=== PATIENT | female | born 1945 | race Caucasian/White ===

== ENCOUNTER → 2021-11-18 | Outpatient (CLI) | payer MEDICARE, SELFPAY ==
[2021-11-18 15:45] LABS: Absolute Lymphocyte Count 2.74 X10^3/uL (0.83-4.51); Absolute Neutrophil Count 4.6 X10^3/uL (2.0-7.7); Basophil# 0.05 X10^3/uL; Basophil% 0.6 % (0-1); Eosinophil# 0.24 X10^3/uL; Eosinophils% 2.9 % (0-5); Hematocrit 40.9 % (37-47); Hemoglobin 13.5 g/dL (12.0-15.0); Lymphocyte # 2.74 X10^3/ul (0.83-4.51); Lymphocyte % 33.3 % (19-41); Mean Corpuscular Hgb 29.5 pg (27.0-32.0); Mean Corpuscular Volume 89.5 fL (81-99); Mean Platelet Vol. 10.6 fl (6.2-12.0); Monocyte# 0.57 X10^3/uL; Monocyte% 6.9 % (0-10); NRBC Flagged by Analyzer 0 % (0-5); Neutrophil % 55.9 % (47-70); Platelet Count 304 K/mm3 (150-450); RBC Distribution Width SD 42.7 fl (35.1-43.9); Red Blood Count 4.57 M/mm3 (4.2-5.4); White Blood Count 8.2 K/mm3 (4.4-11.0)
[2021-11-18 16:35] LABS: AST(SGOT) 19 U/L (15-37); Alanine Aminotransfer ALT/SGPT 17 U/L (13-56); Albumin, Serum 3.6 g/dL (3.2-5.0); Alkaline Phosphatase 62 U/L (45-117); Anion Gap 8 (5-15); BUN 14 mg/dL (7-18); BUN/Creat Ratio 16.8 RATIO (10-20); Chloride 105 mmol/L (98-107); Cholesterol 193 mg/dL (200); Creatinine, Serum 0.83 mg/dL (0.55-1.02); EST Glomerular Filtration Rate 71 mL/min (>60); Est Glom Filt Rate - Afr Amer 86 mL/min (>60); Globulin 3.6 g/dL (2.2-4.2); Glucose 87 mg/dL (74-106); High Density Lipoprotein 58 mg/dL; Potassium 3.5 mmol/L (3.5-5.1); Protein, Total 7.2 g/dL (6.4-8.2); Sodium Level 140 mmol/L (136-145); T4 Free Direct 1.34 ng/dL (0.76-1.46); Thyroid Stim Hormone (TSH) 1.11 uIU/mL (0.358-3.74); Triglycerides 173 mg/dL; Very Low Density Lipoprotein 35 mg/dL (5-40)
[2021-11-18 19:06] LABS: Vitamin D,25 Hydroxy 33.2 ng/mL
== END | disposition home or self-care (01) ==
PROVIDERS: PCP Family Medicine Geriatric Medicine; Referring Provider Family Medicine; Visit Provider Family Medicine
DX: K21.9 Gastro-esophageal reflux disease without esophagitis (principal); M81.0 Age-related osteoporosis without current pathological fracture; F41.9 Anxiety disorder, unspecified; R03.0 Elevated blood-pressure reading, without diagnosis of hypertension; E04.1 Nontoxic single thyroid nodule; Z13.220 Encounter for screening for lipoid disorders
CPT/HCPCS: 36415; 80053; 80061; 82306; 83735; 84439; 84443; 85025

== ENCOUNTER 2022-01-13 11:44 | Emergency (ER) | payer MEDICARE, SELFPAY ==
[2022-01-13 11:45] VITALS: BP 170/98; PULSE 63; RESP 18; TEMP 35.7; O2SAT 98; BMI 23.3
--- NOTE | 2022-01-13 11:50 | CT_ITS ---
STUDY: CT CERVICAL SPINE WITHOUT CONTRAST REASON FOR EXAM: Female, 76 years old. Trauma RADIATION DOSAGE (If Supplied By Facility): CTDIvol = ( 21.76 ) mGy, DLP = ( 414.25 ) mGycm TECHNIQUE: High resolution transaxial imaging was performed without contrast material. Sagittal and coronal images were reconstructed. Individualized dose optimization techniques were used for this CT. COMPARISON: None FINDINGS: Normal craniovertebral junction. There are degenerative changes of the anterior atlantoaxial articulation. Normal odontoid process. Normal cervical lordosis. Normal vertebral bodies and posterior osseous elements. C2-3: Normal endplates. Normal disc height and morphology. Normal central canal and intervertebral neuroforamina. C3-4: Facet joint osteoarthritis and hypertrophy. This is worse on the right side. Minimal anterior listhesis of C3 3 on C4 most likely secondary to the facet joint osteoarthritis. Uncovertebral arthrosis and mild degree of bilateral neural foraminal stenosis. C4-5: Moderate degree of disc space narrowing. Uncovertebral arthrosis with a moderate degree of bilateral neural foraminal stenosis. C5-6: Moderate degree of disc space narrowing. Uncovertebral osteoarthrosis with narrowing of the both neural foraminal stenosis. C6-7: Moderate degree of disc space narrowing. Spondylosis. Uncovertebral arthrosis. Mild degree of bilateral neural foraminal stenosis. C7-T1: Minimal osteophyte along the anterior superior endplate of the T1 vertebrae. Normal visualized soft tissue structures. CT/Spine Cervical without Contras IMPRESSION: Multilevel degenerative changes, as described above. Minimal degree of loss of height of the superior endplate of the T1 vertebrae. Electronically Signed: David Warren MD at 12:27 EDT ,
--- NOTE | 2022-01-13 11:50 | CT_ITS ---
STUDY: CT BRAIN WITHOUT CONTRAST REASON FOR EXAM: Female, 76 years old. Right-sided facial injury due to a fall. RADIATION DOSAGE (If Supplied By Facility): CTDIvol = ( 44.99 ) mGy, DLP = ( 829.85 ) mGycm TECHNIQUE: Transaxial CT imaging of the brain was performed without administration of intravenous contrast material. Individualized dose optimization techniques were used for this CT. COMPARISON: No relevant priors. FINDINGS: Normal soft tissue structures. There is hyperostosis frontalis internus. Normal size ventricles and extra-axial spaces for the patient''s age. Normal white matter tracts of the cerebral hemispheres. Normal basal ganglia and thalami. Normal brainstem. Normal cerebellum. There is no intracranial hemorrhage. There are no findings of an acute ischemic infarction. Atherosclerotic plaque formation of the cavernous portions of the internal carotid arteries bilaterally. Normal visualized paranasal sinuses. CT/Brain/Head without Contrast IMPRESSION: Normal unenhanced CT scan of the brain. Electronically Signed: David Warren MD at 12:24 EDT ,
--- NOTE | 2022-01-13 11:52 | ED.VIS.FALL ---
HPI HPI - Fall History of Present Illness Chief Complaint: Fall Narrative Narrative: Patient sustained a mechanical fall in the parking lot just prior to arrival. She tells me she tripped. She hit her right supraorbital region and forehead region, she has no neck pain or loss of consciousness. She injured her left foot also. Otherwise no hip pain no back pain no chest pain or any other extremity injury. PFSH PFSH Allergy/AdvReac Type Severity Reaction Status Date / Time No Known Allergies Allergy Verified 01/13/22 11:53 Social History Smoking Status: Never smoker ROS ROS ED ROS Narrative Social: Noncontributory Medications: Reviewed Past medical history: Reviewed Review of systems General: Patient has no loss of consciousness HEENT: Right supraorbital abrasion Neck: No neck pain Cardiovascular: Patient denies any chest pain or palpitations Chest wall: No chest wall contusions Respiratory: There is no shortness of breath GI: There is no nausea vomiting diarrhea or abdominal pain, no abdominal wall contusions Skin: No lacerations or abrasions Neurological: Patient has no memory loss, confusion, or any focal weakness Psychiatric: No recent behavioral changes Back: No back pain, no problems with ambulation Musculoskeletal: Left foot pain All other systems are reviewed and normal EXAM Physical Exam Narrative Exam Narrative: Physical exam Vitals reviewed General: Patient appears relatively comfortable in the bed HEENT: Right supraorbital abrasion no obvious laceration. Head: No head injury Eyes: Extraocular movements intact. No pain with range of motion of the eyes. Pupils are 3 mm and reactive Neck: No C-spine tenderness with full range of motion Heart: Regular rate normal pulses Chest wall: No chest wall pain Lungs: Clear lungs bilaterally with normal inspiration and expiration without tachypnea GI: Abdomen is soft and nontender there is no mass no guarding no abdominal wall contusion : Stable pelvis Musculoskeletal: Full range of motion of all other extremities other than foot without any signs of trauma. Left foot shows tenderness over the midshaft of the first metatarsal region. Neurovascularly intact with no obvious edema or contusions. Skin: Supraorbital abrasion otherwise no other contusions or lacerations Neurological: Patient is alert and oriented with no focal deficits Const Vital Signs: 01/13/22 11:45 01/13/22 11:50 Temperature 96.2 F L Temperature Source Temporal Pulse Rate 63 Respiratory Rate 18 Respiratory Effort Normal Non-Labored Respiratory Depth Normal Respiratory Pattern Normal Blood Pressure 170/98 H Blood Pressure Mean 122 Pulse Ox 98 Oxygen Delivery Method Room Air Room Air MDM MDM MDM Narrative Medical decision making narrative: Patient has an unremarkable work-up, she wants to be discharged home this is reasonable I will give her a walker since she has a foot contusion. She tells me she does not want analgesia. Radiography Diagnostic Testing: Clinical Impression(s) from Imaging Studies Brain CT 01/13/22 11:50 IMPRESSION: Normal unenhanced CT scan of the brain. Electronically Signed: David Warren MD at 12:24 EDT , Cervical Spine CT 01/13/22 11:50 IMPRESSION: Multilevel degenerative changes, as described above. Minimal degree of loss of height of the superior endplate of the T1 vertebrae. Electronically Signed: David Warren MD at 12:27 EDT , Foot X-Ray 01/13/22 12:06 IMPRESSION: No acute abnormality is seen. 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 Electronically Signed: David Warren MD at 12:29 EDT , Foot x-ray read by me is normal except for DJD Discharge Plan Triage Chief Complaint: Fall ED Provider: Clarence Amaya Dx/Rx/DC Orders Clinical Impression: Fall, Forehead contusion, Contusion of foot Instructions: Bone Contusion Primary Care Provider: Elgin Sigala Referrals: Dada Gonsales Chi, MD [Med Staff - Active Staff] - 2 Days Disposition Disposition: Home, Self Care
[2022-01-13] MEDS: Acetaminophen 325 MG Tablet 1000 MG PO (11:53)
--- NOTE | 2022-01-13 12:06 | RAD_ITS ---
STUDY: X-RAY - LEFT FOOT CLINICAL: Female, 76 years old. Left foot pain following a fall. TECHNIQUE: 3 view(s) of the foot. COMPARISON: None. FINDINGS: Normal talus, calcaneus, and tarsal bones. Normal visualized subtalar, talonavicular, calcaneocuboid, tarsal and tarsometatarsal articulations. Normal metatarsi. There is degenerative arthrosis of the metatarsophalangeal joint of the hallux with a hallux valgus deformity. Normal tibial and fibular sesamoid bones. Normal interphalangeal joint of the great toe. Normal phalanges of the great toe. Normal second through fifth metatarsophalangeal joints. Normal interphalangeal joints and phalanges of the lesser toes. The soft tissue structures are unremarkable. RAD/Foot min 3 Views IMPRESSION: No acute abnormality is seen. 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 Electronically Signed: David Warren MD at 12:29 EDT ,
[2022-01-13 14:10] VITALS: RESP 16
== END 2022-01-13 14:10 | disposition home or self-care (01) ==
PROVIDERS: Emergency Provider Emergency Medicine; PCP Family Medicine; Visit Provider Emergency Medicine
DX: S00.83XA Contusion of other part of head, initial encounter (principal); S90.32XA Contusion of left foot, initial encounter; W01.0XXA Fall on same level from slipping, tripping and stumbling without subsequent striking against object, initial encounter
CPT/HCPCS: 70450; 72125; 73630; 99284

== ENCOUNTER → 2022-01-17 | Outpatient (CLI) | payer MEDICARE, SELFPAY ==
--- NOTE | 2022-01-17 16:37 | RAD_ITS ---
EXAM: XR LEFT FOOT COMPLETE, 3 OR MORE VIEWS CLINICAL INDICATION: FOOT TRAUMA TECHNIQUE: Frontal, lateral and oblique views of the left foot. This report was created using [employer] report generation technology. COMPARISON: 01.13.22 FINDINGS: BONES/JOINTS: Partial osteotomy of the first degenerative findings of the first metatarsal phalangeal joint. Metatarsal bone. Chronic abnormality of the fifth PIP joint. No acute fracture. No subluxation. Normal alignment. No sclerotic or destructive changes observed. SOFT TISSUES: Unremarkable. No soft tissue swelling or gas. No radiopaque foreign body. RAD/Foot min 3 Views IMPRESSION: There are no acute findings. Findings are unchanged since the prior study. Electronically Signed: Andrea Chavira MD at 17:36 EDT ,
== END | disposition home or self-care (01) ==
LOC: MTRAD 16:36
PROVIDERS: PCP Family Medicine; Referring Provider Family Medicine; Visit Provider Family Medicine
DX: S99.922A Unspecified injury of left foot, initial encounter (principal)
CPT/HCPCS: 73630

== ENCOUNTER → 2022-06-12 | Outpatient (CLI) | payer MEDICARE, SELFPAY ==
[2022-06-12 11:08] LABS: Vitamin D,25 Hydroxy 39.3 ng/mL
[2022-06-12 11:27] LABS: ALB/GLOB Ratio 0.9 RATIO (0.9-2.4); AST(SGOT) 14 U/L (15-37); Alanine Aminotransfer ALT/SGPT 23 U/L (13-56); Albumin, Serum 3.6 g/dL (3.2-5.0); Alkaline Phosphatase 70 U/L (45-117); Anion Gap 9 (5-15); BUN 21 mg/dL (7-18); BUN/Creat Ratio 19.8 RATIO (10-20); Calcium,Total 9.5 mg/dL (8.5-10.1); Chloride 103 mmol/L (98-107); Cholesterol 220 mg/dL (200); Creatinine, Serum 1.06 mg/dL (0.55-1.02); EST Glomerular Filtration Rate 53 mL/min (>60); Est Glom Filt Rate - Afr Amer 65 mL/min (>60); Globulin 3.9 g/dL (2.2-4.2); Glucose 105 mg/dL (74-106); High Density Lipoprotein 68 mg/dL; Protein, Total 7.5 g/dL (6.4-8.2); Sodium Level 139 mmol/L (136-145); Triglycerides 149 mg/dL; Very Low Density Lipoprotein 30 mg/dL (5-40)
== END | disposition home or self-care (01) ==
LOC: MTLAB 08:33
PROVIDERS: PCP Family Medicine; Referring Provider Nurse Practitioner Family; Visit Provider Nurse Practitioner Family
DX: Z13.1 Encounter for screening for diabetes mellitus (principal); Z13.220 Encounter for screening for lipoid disorders; E55.9 Vitamin D deficiency, unspecified
CPT/HCPCS: 36415; 80053; 80061; 82306

== ENCOUNTER → 2022-11-26 | Outpatient (CLI) | payer MEDICARE, SELFPAY ==
--- NOTE | 2022-11-26 13:56 | US_ITS ---
EXAM: US SOFT TISSUES HEAD AND NECK, THYROID CLINICAL INDICATION: NODULE TECHNIQUE: Greyscale and color doppler imaging was performed of the thyroid gland. COMPARISON: No relevant prior studies available. FINDINGS: LEFT THYROID LOBE: 3.9 x 1.4 x 1.7 cm. Mixed solid and cystic but predominantly isoechoic nodule in the midportion of the left thyroid lobe measuring 6 x 4 x 6 mm, with smooth margins, wider than tall, no calcifications. TI-RADS points: 2. TI-RADS category: TR2. This nodule is not suspicious and no FNA or follow-up is necessary. Mixed solid and cystic but predominantly isoechoic nodule in the midportion of the left thyroid lobe with smooth margins, wider than tall, no calcifications, measuring 5 x 4 x 3 mm. TI-RADS points: 2. TI-RADS category: TR2. This nodule is not suspicious and no FNA or follow-up is necessary. Densely calcified nodule in the midportion of the left thyroid lobe measuring 5 x 4 x 4 mm. TI-RADS points: 4. TI-RADS category: TR4. This nodule is moderately suspicious but no FNA or follow-up is necessary given the small size of this nodule. RIGHT THYROID LOBE:4.1 x 2.3 x 2.4 cm. Homogeneous echotexture with normal vascularity. Minimally complex cystic lesion in the upper pole of the right thyroid lobe measuring 5 x 3 x 3 mm. Smooth margins. Wider than tall. No calcifications. TI-RADS points: 0. TI-RADS category: TR1. This nodule is benign and no FNA or follow-up is necessary. Small cyst in the midportion of the right thyroid lobe measuring 5 x 5 x 4 mm. TI-RADS points: 0. TI-RADS category: TR1. This nodule is benign and no FNA or follow-up is necessary. ISTHMUS: 2 mm. No thyroid nodules are present. US/Thyroid IMPRESSION: Multiple subcentimeter thyroid nodules as detailed above. TI-RADS scoring as detailed for each nodule. No follow-up is necessary based on the TI-RADS scores. Electronically Signed: Andrea Jerry MD at 1:36 EDT ,
== END | disposition home or self-care (01) ==
PROVIDERS: PCP Family Medicine; Referring Provider Family Medicine; Visit Provider Family Medicine
DX: E04.1 Nontoxic single thyroid nodule (principal)
CPT/HCPCS: 76536

== ENCOUNTER → 2022-12-04 15:12 | Outpatient (CLI) | payer MEDICARE, SELFPAY ==
--- NOTE | 2022-12-10 16:02 | BD_ITS ---
STUDY: DUAL ENERGY X-RAY ABSORPTIOMETRY / DXA REASON FOR EXAM: Female, 77 years old. [id number] TECHNIQUE: Bone Mineral Density (BMD) measurements of lumbar spine and bilateral hips were obtained. COMPARISON: Comparison is made with prior study dated November 01, 2009. FINDINGS: Lumbar Spine (L1-L4): g/cm2 (0.929) / T-score (-1.0) / Z-score (1.6) Findings are suggestive of normal bone density with a low fracture risk. Left Femur Total: g/cm2 (0.731) / T-score (-1.7) / Z-score (0.2) Left Femoral Neck: g/cm2 (0.672) / T-score (-1.6) / Z-score (0.6) Right Femur Total: g/cm2 (0.681) / T-score (-2.1) / Z-score (-0.2) Right Femoral Neck: g/cm2 (0.637) / T-score (-1.9) / Z-score (0.3) The T-Scores on the most recent prior examination were: Lumbar Spine (L1-L4): There has been worsening of bone density since the previous examination. Left Femur Total: which represents a worsening of 23.8%. Right Femur Total: which represents a worsening of 21.2%. BD/Dexa Bone Density Study IMPRESSION: The patient is considered osteopenic as outlined below according to World Miguel Organization (WHO) criteria with a high fracture risk. There has been worsening of bone density since the previous examination. Reference Information: The T-score is the number of standard deviations above or below the standard which is normal for young adults at their peak bone mineral density. The World Health Organization (WHO) interprets the T-scores as follows: Above -1 Normal bone density Between -1 and -2.5 Osteopenia Equal to / or below -2.5 Osteoporosis As a practical clinical guideline, osteopenia may be graded as follows: Mild -1 through -1.5 Moderate -1.6 through -2.0 Severe -2.1 through -2.4 The Z-score is the number of standard deviations above or below age-matched controls. A Z-score of less than -1.5 would be considered abnormal. References: 1. NIH Osteoporosis and Related Bone Diseases www osteo.org 2. International Society for Clinical Densitometry www iscd.org 3. National Osteoporosis Foundation www nof.org Electronically Signed: David Warren MD at 15:45 EDT ,
== END ==
PROVIDERS: PCP Family Medicine; Referring Provider Nurse Practitioner Family; Visit Provider Nurse Practitioner Family
DX: M81.0 Age-related osteoporosis without current pathological fracture (principal)
CPT/HCPCS: 77080

== ENCOUNTER → 2022-12-23 | Outpatient (CLI) | payer MEDICARE, SELFPAY ==
[2022-12-23 16:32] LABS: Bacteria 0 SEEN /hpf (None Seen); Mucous, Urine 0 SEEN /hpf (<or=2+)
[2022-12-23 18:26] LABS: Color, Urine Yellow (Yellow); Glucose, Dipstick Normal (Normal); Ketone-Dipstick Negative (Negative); Leukocyte Esterase-Dipstick 500 /ul (Negative); Nitrite-Dipstick Negative (Negative); Occult Blood-Urine 50 /ul (Negative); Protein-Dipstick Negative (Negative); Specific Gravity, Urine 1.015 (1.002-1.030); Urine Bilirubin Dipstick Negative (Negative); Urine Urobilinogen Normal (Normal)
[2022-12-23 18:33] LABS: Absolute Lymphocyte Count 2.52 X10^3/uL (0.83-4.51); Absolute Neutrophil Count 5.5 X10^3/uL (2.0-7.7); Basophil# 0.06 X10^3/uL; Basophil% 0.7 % (0-1); Eosinophil# 0.29 X10^3/uL; Eosinophils% 3.1 % (0-5); Hematocrit 41.9 % (37-47); Hemoglobin 13.9 g/dL (12.0-15.0); Lymphocyte # 2.52 X10^3/ul (0.83-4.51); Lymphocyte % 27.3 % (19-41); Mean Corp Hgb Conc 33.2 g/dL (32-36); Mean Corpuscular Hgb 29.6 pg (27.0-32.0); Mean Corpuscular Volume 89.1 fL (81-99); Mean Platelet Vol. 10.6 fl (6.2-12.0); Monocyte# 0.83 X10^3/uL; NRBC Flagged by Analyzer 0 % (0-5); Neutrophil # 5.48 X10^3/uL (2.7-7.7); Neutrophil % 59.5 % (47-70); Platelet Count 282 K/mm3 (150-450); RBC Distribution Width CV 13.1 % (11.6-14.6); RBC Distribution Width SD 42.9 fl (35.1-43.9); White Blood Count 9.2 K/mm3 (4.4-11.0)
[2022-12-23 18:34] LABS: AST(SGOT) 14 U/L (15-37); Alanine Aminotransfer ALT/SGPT 18 U/L (13-56); Albumin, Serum 3.6 g/dL (3.2-5.0); Alkaline Phosphatase 71 U/L (45-117); Anion Gap 7 (5-15); BUN 21 mg/dL (7-18); Calcium,Total 9.7 mg/dL (8.5-10.1); Chloride 109 mmol/L (98-107); Creatinine, Serum 0.88 mg/dL (0.55-1.02); EST Glomerular Filtration Rate 66 mL/min (>60); Est Glom Filt Rate - Afr Amer 80 mL/min (>60); Globulin 3.5 g/dL (2.2-4.2); Glucose 102 mg/dL (74-106); Potassium 3.8 mmol/L (3.5-5.1); Protein, Total 7.1 g/dL (6.4-8.2); Sodium Level 140 mmol/L (136-145)
[2022-12-23 18:58] LABS: Red Blood Cells-Urine 5-10 SEEN /hpf (0-5); Squamous Epithelial Cells - UA 5-10 SEEN /hpf (5-10); Urine Clarity Sl Cldy (Clear); White Blood Cells 10-25 SEEN /hpf (0-5)
[2022-12-26 14:17] LABS: Hemoglobin A1c 5.7 % (3.8-5.6)
== END | disposition home or self-care (01) ==
LOC: MTLAB 16:25
PROVIDERS: PCP Family Medicine; Referring Provider Family Medicine; Visit Provider Family Medicine
DX: E55.9 Vitamin D deficiency, unspecified (principal); R73.09 Other abnormal glucose; M81.0 Age-related osteoporosis without current pathological fracture; R03.0 Elevated blood-pressure reading, without diagnosis of hypertension
CPT/HCPCS: 36415; 80053; 81001; 82306; 83036; 85025

== ENCOUNTER → 2022-12-29 | Outpatient (CLI) | payer MEDICARE, SELFPAY ==
[2022-12-29 09:35] LABS: Bacteria 0 SEEN /hpf (None Seen); Mucous, Urine 0 SEEN /hpf (<or=2+)
[2022-12-29 12:02] LABS: Color, Urine Straw (Yellow); Glucose, Dipstick Normal (Normal); Ketone-Dipstick Negative (Negative); Leukocyte Esterase-Dipstick 25 /ul (Negative); Nitrite-Dipstick Negative (Negative); Occult Blood-Urine 10 /ul (Negative); Protein-Dipstick Negative (Negative); Urine Bilirubin Dipstick Negative (Negative); Urine Clarity Clear (Clear); Urine Urobilinogen Normal (Normal)
[2022-12-29 12:13] LABS: Red Blood Cells-Urine 0-5 SEEN /hpf (0-5); Squamous Epithelial Cells - UA 0-5 SEEN /hpf (5-10); White Blood Cells 0-5 SEEN /hpf (0-5)
[2022-12-29 13:24] LABS: Hemoglobin A1c 5.7 % (3.8-5.6)
== END | disposition home or self-care (01) ==
LOC: MFPLAB 09:28
PROVIDERS: PCP Family Medicine; Visit Provider Family Medicine
DX: N39.0 Urinary tract infection, site not specified (principal); R73.09 Other abnormal glucose
CPT/HCPCS: 36415; 81001; 83036; 87086; 87088

== ENCOUNTER → 2023-05-13 | Outpatient (CLI) | payer MEDICARE, SELFPAY ==
--- NOTE | 2023-05-13 09:12 | RAD_ITS ---
STUDY: X-RAY - LUMBOSACRAL SPINE REASON FOR EXAM: Female, 77 years old. Back pain. TECHNIQUE: 7 view(s) of the lumbosacral spine, including flexion and extension views, were obtained. COMPARISON: None FINDINGS: Osteopenia. Normal lumbar lordosis. Moderate levoscoliosis. 6 mm of anterolisthesis of L5 on S1. Endplate concavities compatible with osteoporosis. Anterior wedge compression deformity of T12 and substantial loss of height of L2, both age indeterminate. Limited flexion and extension with no abnormal motion. Diffuse lower thoracic and lumbosacral facet sclerosis. Diffuse intervertebral disc space narrowing most marked at T9-10, T10-11, T11-T12, L3-4, L4-5 and L5-S1. Cholecystectomy clips. RAD/L/S Spine w Bend Min 6 Vw IMPRESSION: Osteopenia with moderate to marked lower thoracic and lumbosacral spondylosis. Limited flexion and extension with no abnormal motion. Anterior wedge compression deformity of T12 and substantial loss of height of L2, both age indeterminate. Electronically Signed: Alfonzo Wheeler MD at 9:59 EST ,
--- NOTE | 2023-05-13 09:24 | RAD_ITS ---
STUDY: X-RAY - RIGHT KNEE REASON FOR EXAM: Female, 77 years old. Bilateral knee pain. TECHNIQUE: 3 view(s) of the knee. COMPARISON: None. FINDINGS: Osteopenia. Small superior patellar spur. Mild thinning of the articular cartilage of the medial femorotibial compartment. Mild thinning of the articular cartilage of the lateral femorotibial compartment. Mild thinning of the articular cartilage of the patellofemoral compartment. Normal soft tissues. RAD/Knee 3 Views IMPRESSION: Osteopenia, patellar spur and mild tricompartmental arthrosis as described. Electronically Signed: Alfonzo Wheeler MD at 9:54 EST ,
--- NOTE | 2023-05-13 09:24 | RAD_ITS ---
STUDY: X-RAY - LEFT KNEE REASON FOR EXAM: Female, 77 years old. Bilateral knee pain. TECHNIQUE: 3 view(s) of the knee. COMPARISON: None. FINDINGS: Osteopenia. Small superior patellar spur. Moderate thinning of the articular cartilage of the medial femorotibial compartment. Mild thinning of the articular cartilage of the lateral femorotibial compartment. Mild thinning of the articular cartilage of the patellofemoral compartment. Small suprapatellar joint effusion. RAD/Knee 3 Views IMPRESSION: Osteopenia, patellar spur and mild tricompartmental arthrosis and small suprapatellar joint effusion as described. Electronically Signed: Alfonzo Wheeler MD at 9:55 EST ,
--- OUTSIDE RECORDS SUMMARY | 2023-05-13 09:44 | XMS RPT_ITS | CCD ---
Author Name Unknown Address [id number] [place] [address] Organization [facility] Care Team Providers Care Beef Breaker Name Role Phone Kadie, Efrem Mackenzie Unavailable RADHA BAKER Admitting Clarissa vailable RADHA BAKER Attending Clarissa vailable KADIE, EFREM MACKENZIE Primary Care Unavailab le KADIE, EFREM MACKENZIE Attending Unavailab le KADIE, EFREM MACKENZIE Referring Unavailab le KADIE, EFREM MACKENZIE Primary Care Unavailab le Kadie, Efrem Mackenzie Primary Care Provider Kadie, Efrem Mackenzie Primary Care Provider [phone] Kadie DO, Efrem Mackenzie Primary Care Provider Kadie DO, Efrem Mackenzie Primary Care Provider JERMAINE RIVERA Admitting Unavailable KADIE, EFREM MACKENZIE Primary Care Unavailab le KADIE, EFREM MACKENZIE Attending Unavailab le KADIE, EFREM MACKENZIE Primary Care Unavailab le KADIE, EFREM MACKENZIE Primary Care Unavailab le EMANUEL CALVERT Attending Unavailable KADIE, EFREM MACKENZIE Attending Unavailab le KADIE, EFREM MACKENZIE Primary Care Unavailab le KADIE, EFREM MACKENZIE Attending Unavailab le KADIE, EFREM MACKENZIE Primary Care Unavailab le DMITRI ARCHIBALD Attending Unavai lable KADIE, EFREM MACKENZIE Primary Care Unavailab JUDE Sanchez Admitting Unavailable [facility] Consulting JERMAINE Clay Attending Unavailable KADIE, EFREM MACKENZIE Primary Care Unavailab JERMAINE Hardin Referring Unavailable Efrem Vee DOncer Primary Care Provider Unavailable Primary Care Provider UnavailANAYELI Coley Referring Unavailable ANAYELI ZARCO Attending Unavailable CAROLEE, ANAYELI Attending Unavailable Medications Current Medications Medication Drug Class(es) Dates Sig (Normalized) Sig (Original) amoxicillin 875 mg / clavulanate 125 mg oral tablet (1 source) Penicillin-class Antibacterial Start: 02-17-2019 End: 02-27-2019 take 1 tablet by mouth twice daily amoxicillin-clav ulanate (Augmentin) 875-125 mg per tablet Indications: Acute non-recurrent maxillary sinusitis Take 1 (one) tablet by mouth 2 (two) times a day for 10 days . 20 tablet 0 02/17/2019 02/27/2019 Active Ascorbic Acid (20 sources) Vitamin C ascorbic acid (VITAMIN C ORAL) Take by mouth . 0 Completed/Discontinued Medications Medication Drug Class(es) Dates Sig (Normalized) Sig (Original) acetaminophen 325 mg oral tablet (20 sources) Start: 09-27-2018 End: 09-29-2018 take 1 tablet by mouth every eight hours as needed acetaminophen (TYLENOL) tablet 650 mg Problems Active Problems Problem Classification Problem Date Documented Date Episodic/Chronic Anxiety disorders (10 sources) Anxiety; Translations: [Anxiety disorder, unspecified] Chronic Esophageal disorders (14 sources) Gastroesophageal reflux disease; Translations: [Gastro-esophageal reflux disease without esophagitis] Chronic External cause codes: Fall (20 sources) Fall; Translations: [Fall, subsequent encounter] Onset: 09-27-2018 Mood disorders (10 sources) Depressive disorder; Translations: [Depression, unspecified depression type] Chronic Osteoarthritis (2 sources) 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; Translations: [Primary osteoarthritis, right ankle and foot] Chronic Osteoarthritis (1 source) 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; Translations: [Osteoarthritis of first metatarsophalangeal (MTP) joint of right foot] Osteoporosis (5 sources) Osteoporosis; Translations: [Age-related osteoporosis without current pathological fracture] Chronic Other and ill-defined heart disease (2 sources) Left ventricular hypertrophy; Translations: [Left ventricular hypertrophy] Chronic Other and unspecified benign neoplasm (1 source) Polyp of colon; Translations: [Polyp of colon, unspecified part of colon, unspecified type] Episodic Other and unspecified benign neoplasm (1 source) Dysplastic nevus of skin; Translations: [Atypical nevus] Episodic Other circulatory disease (1 source) Elevated blood-pressure reading without diagnosis of hypertension; Translations: [Elevated blood-pressure reading, without diagnosis of hypertension] Episodic Other connective tissue disease (2 sources) Triggering of digit; Translations: [Trigger middle finger of right hand] Episodic Other female genital disorders (1 source) Vaginal discharge; Translations: [Other specified noninflammatory disorders of vagina] Episodic Other female genital disorders (1 source) Burning sensation of vulva; Translations: [Other specified conditions associated with female genital organs and menstrual cycle] 04-23-2023 Episodic Other injuries and conditions due to external causes (1 source) At risk for falls ; Translations: [At risk for falls] Episodic Other non-traumatic joint disorders (1 source) Pain in right shoulder; Translations: [Pain in joint of right shoulder] Episodic Other non-traumatic joint disorders (1 source) Shoulder pain; Translations: [Acute pain of right shoulder] Episodic Other screening for suspected conditions (not mental disorders or infectious disease) (1 source) Patient encounter status; Translations: [Encounter for other screening for malignant neoplasm of breast] Episodic Unclassified (1 source) Preprocedural examination done; Translations: [Preop examination] Past or Other Problems Problem Classification Problem Date Documented Date Episodic/Chronic Abdominal pain (7 sources) Left flank pain; Translations: [Unspecified abdominal pain] Onset: 05-29-2021 Episodic E Codes: Fall (12 sources) Fall; Translations: [Unspecified fall, initial encounter] Onset: 09-27-2018 09-27-2018 Episodic Fracture of upper limb (20 sources) Unspecified fracture of upper end of right humerus, initial encounter for closed fracture; Translations: [Closed fracture of upper end of humerus] Onset: 10-04-2018 10-04-2018 Episodic Other nervous system disorders (1 source) Acute postoperative pain; Translations: [Acute post-operative pain] Episodic Other non-traumatic joint disorders (2 sources) Toe joint rigid; Translations: [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, right] Episodic Other upper respiratory infections (1 source) Acute maxillary sinusitis; Translations: [Acute non-recurrent maxillary sinusitis] Episodic Spondylosis; intervertebral disc disorders; other back problems (4 sources) Chronic neck pain; Translations: [Chronic low back pain] Episodic Results Test Name Value Interpretation Reference Range Facil ity Vital Signs Date Time Vital Sign Value Performing Clinician Lindsay morales 04-23-2023 11:07-0500 Body height 167.6 cm Anayeli Carolee CONSULTING INTERN.CONSUMER AFFAIRS MANAGER Work Phone: [facility] 04-23-2023 11:07-0500 Body weight 78.2 kg Anayeli Carolee CONSULTING INTERN.CONSUMER AFFAIRS MANAGER Work Phone: [facility] 04-23-2023 11:07-0500 Diastolic blood pressure 72 mm[Hg] Anayeli Carolee CONSULTING INTERN.CONSUMER AFFAIRS MANAGER Work Phone: [facility] 04-23-2023 11:07-0500 Heart rate 52 /min Anayeli [place] CONSULTING INTERN.CONSUMER AFFAIRS MANAGER Work Phone: [facility] 04-23-2023 11:07-0500 Respiratory rate 14 /min Anayeli [place] CONSULTING INTERN.CONSUMER AFFAIRS MANAGER Work Phone: [facility] 04-23-2023 11:07-0500 SaO2% (BldA) [Mass fraction] 98 % Anayeli Carolee CONSULTING INTERN.CONSUMER AFFAIRS MANAGER Work Phone: [facility] 04-23-2023 11:07-0500 Systolic blood pressure 150 mm[Hg] Anayeli [place] CONSULTING INTERN.CONSUMER AFFAIRS MANAGER Work Phone: [facility] 05-30-2021 08:33-0500 Body temperature 97.3 [degF] Lala Lala DO Work Phone: [facility] 05-30-2021 08:33-0500 Diastolic blood pressure 52 mm[Hg] Lala Lala DO Work Phone: [facility] 05-30-2021 08:33-0500 Heart rate 64 /min Lala Lala DO Work Phone: [facility] 05-30-2021 08:33-0500 Respiratory rate 16 /min Lala Lala DO Work Phone: [facility] 05-30-2021 08:33-0500 SaO2% (BldA) [Mass fraction] 97 % Lala Lala DO Work Phone: [facility] 05-30-2021 08:33-0500 Systolic blood pressure 128 mm[Hg] Lala Lala DO Work Phone: [facility] 05-29-2021 19:09-0500 Body height 167.6 cm Lala Lala DO Work Phone: [facility] 05-29-2021 19:09-0500 Body mass index (BMI) [Ratio] 27.76 kg/m2 Lala Lala DO Work Phone: [facility] 05-29-2021 19:09-0500 Body weight 78.02 kg Lala Lala DO Work Phone: [facility] 05-06-2021 13:30-0500 Body temperature 97.39 [degF] Efrem Kadie DO Work Phone: [facility] 05-06-2021 13:30-0500 Diastolic blood pressure 86 mm[Hg] Efrem Kadie DO Work Phone: [facility] 05-06-2021 13:30-0500 Heart rate 88 /min Efrem Kadie DO Work Phone: [facility] 05-06-2021 13:30-0500 Respiratory rate 16 /min Efrem Kadie DO Work Phone: [facility] 05-06-2021 13:30-0500 Systolic blood pressure 125 mm[Hg] Efrem Kadie DO Work Phone: [facility] 12-29-2019 08:20-0400 Body Temperature 97.39 [degF] Radha Baker [facility] 12-29-2019 08:20-0400 BP Diastolic 71 mm[Hg] Radha Baker [facility] 12-29-2019 08:20-0400 BP Systolic 147 mm[Hg] Radha Baker [facility] 12-29-2019 08:20-0400 Pulse (Heart Rate) 70 /min Radha Baker [facility] 12-29-2019 08:20-0400 Pulse Oximetry 99 % Radha Baker [facility] 12-29-2019 08:20-0400 Respiratory Rate 21 /min Radha aBker [facility] 12-29-2019 06:06-0400 BMI (Body Mass Index) 27.6 kg/m2 Radha Baker [facility] 12-29-2019 06:06-0400 Body weight 77.56 kg Radha Baker [facility] 12-22-2019 09:17-0400 Height 167.6 cm Radha Baker [facility] 12-12-2019 13:11-0400 BMI (Body Mass Index) 27.6 kg/m2 Efrem Kadie [facility] 12-12-2019 13:11-0400 Body Temperature 97.7 [degF] Efrem Kadie [facility] 12-12-2019 13:11-0400 Body weight 77.56 kg Efrem Kadie [facility] 12-12-2019 13:11-0400 BP Diastolic 72 mm[Hg] Efrem Kadie [facility] 12-12-2019 13:11-0400 BP Systolic 148 mm[Hg] Efrem Kadie [facility] 12-12-2019 13:11-0400 Height 167.6 cm Efrem Kadie [facility] 12-12-2019 13:11-0400 Pulse (Heart Rate) 105 /min Efrem Kadie [facility] 12-12-2019 13:11-0400 Pulse Oximetry 92 % Efrem Kadie [facility] 12-12-2019 13:11-0400 Respiratory Rate 24 /min Efrem Kadie [facility] 09-29-2019 13:25-0400 Body Temperature 97.5 [degF] Efrem Kadie [facility] 09-29-2019 13:25-0400 BP Diastolic 67 mm[Hg] Efrem Kadie [facility] 09-29-2019 13:25-0400 BP Systolic 166 mm[Hg] Efrem Kadie [facility] 09-29-2019 13:25-0400 Pulse (Heart Rate) 61 /min Efrem Kadie [facility] 05-19-2019 10:06-0500 BMI (Body Mass Index) 25.53 kg/m2 Efrem Kadie [facility] 05-19-2019 10:06-0500 Body weight 73.94 kg Efrem Kadie [facility] 05-19-2019 10:06-0500 BP Diastolic 66 mm[Hg] Efrem Kadie [facility] 05-19-2019 10:06-0500 BP Systolic 129 mm[Hg] Efrem Kadie [facility] 05-19-2019 10:06-0500 Pulse (Heart Rate) 62 /min Efrem [employer] [facility] 02-17-2019 09:31-0400 BMI (Body Mass Index) 25.37 kg/m2 Efrem [employer] [facility] 02-17-2019 09:31-0400 Body Temperature 97.5 [degF] Efrem Zip[employer] [facility] 02-17-2019 09:31-0400 Body weight 73.48 kg EfremBNI [employer] [facility] 02-17-2019 09:31-0400 BP Diastolic 61 mm[Hg] Efrem Zip[employer] [facility] 02-17-2019 09:31-0400 BP Systolic 133 mm[Hg] Efrem [employer] [facility] 02-17-2019 09:31-0400 Pulse (Heart Rate) 59 /min EfremBNI Video [facility] 02-17-2019 09:31-0400 Pulse Oximetry 99 % EfremBNI [facility] 02-17-2019 09:31-0400 Respiratory Rate 14 /min EfremBNI [facility] 01-05-2019 14:55-0400 BMI (Body Mass Index) 25.06 kg/m2 Efrem [employer] [facility] 01-05-2019 14:55-0400 Body weight 72.58 kg EfremBNI Video [facility] 01-05-2019 14:55-0400 BP Diastolic 64 mm[Hg] Efrem [employer] [facility] 01-05-2019 14:55-0400 BP Systolic 122 mm[Hg] EfremBNI [facility] 01-05-2019 14:55-0400 Pulse (Heart Rate) 71 /min Efrem [employer] [facility] 01-05-2019 14:55-0400 Respiratory Rate 12 /min Efrem [employer] [facility] 12-27-2018 10:28-0400 BMI (Body Mass Index) 25.69 kg/m2 Alfonzo Pearl [facility] 12-27-2018 10:28-0400 Body Temperature 97.5 [degF] Alfonzo Pearl [facility] 12-27-2018 10:28-0400 Body weight 74.39 kg Alfonzo Pearl [facility] 12-27-2018 10:28-0400 BP Diastolic 83 mm[Hg] Alfonzo Pearl [facility] 12-27-2018 10:28-0400 BP Systolic 140 mm[Hg] Alfonzo Pearl [facility] 12-27-2018 10:28-0400 Height 170.2 cm Alfonzo Pearl [facility] 12-27-2018 10:28-0400 Pulse (Heart Rate) 70 /min Alfonzo Pearl [facility] 12-03-2018 09:42-0400 BMI (Body Mass Index) 26.47 kg/m2 [facility] 12-03-2018 09:42-0400 Body weight 74.39 kg EfremBNI [facility] 12-03-2018 09:42-0400 BP Diastolic 72 mm[Hg] Efrem [employer] [facility] 12-03-2018 09:42-0400 BP Systolic 120 mm[Hg] EfremBNI [facility] 12-03-2018 09:42-0400 Pulse (Heart Rate) 64 /min E[facility]remBNI [facility] 12-03-2018 09:42-0400 Respiratory Rate 16 /min E[facility]remBNI [facility] 11-15-2018 10:15-0400 BMI (Body Mass Index) 26.47 kg/m2 Alfonzo [facility] 11-15-2018 10:15-0400 Body weight 74.4 kg Alfonzo Pearl [facility] 11-15-2018 10:15-0400 BP Diastolic 73 mm[Hg] Alfonzo [facility] 11-15-2018 10:15-0400 BP Systolic 141 mm[Hg] Alfonzo [facility] 11-15-2018 10:15-0400 Height 167.6 cm [facility] 11-15-2018 10:15-0400 Pulse (Heart Rate) 97 /min Alfonzo [facility] 11-15-2018 10:15-0400 Respiratory Rate 18 /min Alfonzo [facility] 10-25-2018 09:49-0400 BMI (Body Mass Index) 26.47 kg/m2 Alfonzo [facility] 10-25-2018 09:49-0400 Body Temperature 98.6 [degF] Alfonzo [facility] 10-25-2018 09:49-0400 Body weight 74.39 kg Alfonzo [facility] 10-25-2018 09:49-0400 BP Diastolic 74 mm[Hg] Alfonzo [facility] 10-25-2018 09:49-0400 BP Systolic 151 mm[Hg] Alfonzo [facility] 10-25-2018 09:49-0400 Height 167.6 cm [facility] 10-25-2018 09:49-0400 Pulse (Heart Rate) 72 /min Alfonzo Pearl [facility] 10-04-2018 14:24-0400 BMI (Body Mass Index) 26.47 kg/m2 Alfonzo Pearl [facility] 10-04-2018 14:24-0400 Body Temperature 98.29 [degF] Alfonzo Pearl [facility] 10-04-2018 14:24-0400 Body weight 74.39 kg Alfonzo Pearl [facility] 10-04-2018 14:24-0400 BP Diastolic 59 mm[Hg] Alfonzo Pearl [facility] 10-04-2018 14:24-0400 BP Systolic 138 mm[Hg] Alfonzo Pearl [facility] 10-04-2018 14:24-0400 Height 167.6 cm Alfonzo Pearl [facility] 10-04-2018 14:24-0400 Pulse (Heart Rate) 59 /min Alfonzo Pearl [facility] 10-01-2018 07:42-0400 BMI (Body Mass Index) 26.47 kg/m2 [facility] 10-01-2018 07:42-0400 BP Diastolic 80 mm[Hg] Efrem [employer] [facility] 10-01-2018 07:42-0400 BP Systolic 130 mm[Hg] EfremBNI [facility] 10-01-2018 07:42-0400 Height 167.6 cm [facility] 10-01-2018 07:42-0400 Pulse (Heart Rate) 60 /min EfremBNI [facility] 10-01-2018 07:42-0400 Pulse Oximetry 99 % [facility]rem[facility]NI [facility] 10-01-2018 07:42-0400 Respiratory Rate 12 /min [facility]remBNI [facility] 10-01-2018 07:42-0400 Weight 74.39 kg [facility]remB[facility] 09-29-2018 08:21-0400 Body Temperature 98.29 [degF] Ashok Farmer [facility] 09-29-2018 08:21-0400 BP Diastolic 67 mm[Hg] Ashok Farmer [facility] 09-29-2018 08:21-0400 BP Systolic 135 mm[Hg] Ashok Farmer [facility] 09-29-2018 08:21-0400 Pulse (Heart Rate) 61 /min Ashok Farmer [facility] 09-29-2018 08:21-0400 Pulse Oximetry 99 % Ahsok Farmer [facility] 09-29-2018 08:21-0400 Respiratory Rate 16 /min Ashok Farmer [facility] 09-27-2018 06:47-0400 BMI (Body Mass Index) 26.15 kg/m2 Ashok Farmer [facility] 09-27-2018 06:47-0400 Height 167.6 cm Ashok Farmer [facility] 09-27-2018 06:47-0400 Weight 73.48 kg Ashok Farmer [facility] 07-29-2018 14:47-0400 Body weight 73.48 kg [facility] 07-29-2018 14:47-0400 BP Diastolic 69 mm[Hg] [facility] 07-29-2018 14:47-0400 BP Systolic 113 mm[Hg] [facility]rem[facility] 07-29-2018 14:47-0400 Pulse (Heart Rate) 69 /min [facility] 05-12-2018 10:43-0500 BP Diastolic 59 mm[Hg] [facility] 05-12-2018 10:43-0500 BP Systolic 133 mm[Hg] [facility] 05-12-2018 10:43-0500 Pulse (Heart Rate) 69 /min [facility] 05-12-2018 10:43-0500 Respiratory Rate 16 /min [facility]remBNI [facility] 05-12-2018 10:43-0500 Weight 73.03 [facility] Encounter Date Encounter Type Care Provider Facility Start: 04-23-2023 End: 04-23-2023 ambulatory ANAYELI CAROLEE Facility:[facility] Start: 04-23-2023 End: 04-23-2023 Patient encounter procedure Anayeli [place] CONSULTING INTERN.CONSUMER AFFAIRS MANAGER Work Phone: OB/Gynecology Procedures Date Procedure Procedure Detail Performing Clinician Start: 04-23-2023 Urnls dip stick/tabl et rgnt auto w/o microscopy Anayeli Carolee CONSULTING INTERN.CONSUMER AFFAIRS MANAGER Work Phone: Start: 05-30-2021 Basic metabolic pane l calcium total Jude Lowe MD Work Phone: Start: 05-29-2021 SARS-CoV-2 (COVID-19 ) RNA [Presence] in Respiratory specimen by FARAZ with probe detection Paulina Pearl PA-C Work Phone: Start: 05-29-2021 Ct abdomen & pelvis w/contrast material Lala Lala DO Work Phone: Start: 05-29-2021 Comprehensive metabolic panel Theron Gomez DO Work Phone: Start: 05-29-2021 Urnls dip stick/tabl et reagent auto microscopy Theron Gomez DO Work Phone: Start: 05-06-2021 Adult depression scr eening assessment Efrem Clavister Work Phone: Start: 01-05-2020 Echocardiography Efrem Mackenzie [employer] Work Phone: Start: 12-22-2019 SCAN OTHER ORDERS Provi jessica Not In System Start: 12-21-2019 SCAN OTHER ORDERS Provi jessica Not In System Start: 12-12-2019 12 lead ECG EfremUS [employer] n[employer] Work Phone: Start: 09-29-2019 Injection 1 tendon sheath/ligament aponeurosis EfremeGameser [employer] Work Phone: Start: 12-16-2018 Dxa bone density sumit dy 1/> sites axial skel EfremBityota Work Phone: Start: 12-03-2018 Radex toe minimum 2 views [employer]igs[employer]er [employer] Work Phone: Start: 09-28-2018 Basic metabolic 2000 panel - Serum or Plasma Maryjane Temple Work Phone: Start: 09-28-2018 Complete blood count (hemogram) panel - Blood by Automated count Maryjane Temple Work Phone: Start: 09-27-2018 Radex shoulder 1 view B enjamin Coleen Fuentes Work Phone: Start: 09-27-2018 PINK TOP Triage [facility] Start: 09-27-2018 Radex humerus minimum 2 views Omar Fuentes Work Phone: Start: 09-27-2018 Radex shoulder compl ete minimum 2 views Omar Fuentes Work Phone: Start: 09-27-2018 Radiologic exam ches t single view Omar Fuentes Work Phone: Start: 09-27-2018 Complete blood count (hemogram) panel - Blood by Automated count Maryjane Temple Work Phone: Start: 09-27-2018 Comprehensive metabo lic 2000 panel - Serum or Plasma Maryjane Temple Work Phone: Start: 09-27-2018 CARTER TOP Triage [facility] Start: 09-27-2018 LAVENDER TOP Triage [facility] Start: 09-27-2018 LIGHT BLUE TOP Triage P [facility]ocol Emergency Start: 09-27-2018 LIGHT GREEN TOP Triage Protocol Emergency Start: 09-27-2018 MINT GREEN TOP Triage P [facility]ocol Emergency Start: 09-27-2018 End: 09-27-2018 RAINBOW DRAW Triage Protocol Emergency Start: 05-14-2018 Colonoscopy Efrem Mus ick Plan of Treatment Date Care Activity Detail Author Start: 05-14-2028 Screening for malignant neoplasm of colon [facility] Start: 05-30-2024 Diabetes Screening Diabetes Screening [facility] Start: 01-02-2023 Influenza vaccination Sequential Influenza Vaccine (#1) [facility] Start: 05-04-2022 Advance Directive Discussion Advance Directive Discussion [facility] Start: 05-04-2022 Depression Assessment Depression Assessment [facility] Start: 05-04-2022 Tetanus vaccination [facility] Start: 05-04-2022 Urine microalbumin profile DTaP,Tdap,Td Vaccine (2 - Td or Tdap) [facility] Start: 01-02-2022 Influenza vaccination Sequential Influenza Vaccine (#1) [facility] Start: 11-05-2021 End: 11-05-2021 Patient encounter procedure 11/05/2021 Office Visit Efrem Rosario, [address] [place] [address] [facility] Start: 05-06-2021 End: 05-06-2021 Patient encounter procedure 05/06/2021 Office Visit Sports Medicine Efrem Vee, [address] [place] [address] [facility] Start: 03-22-2021 COVID-19 Vaccine (4 - Booster for Pfizer series) COVID-19 Vaccine ([facility] - [facility] Pfizer series) [facility] Start: 03-22-2021 COVID-19 Vaccine (4 - Pfizer series) COVID-19 Vaccine (4 - Pfizer series) [facility] Start: 01-21-2021 Administration of herpes zoster vaccine Zoster Vaccines (3 of 3) [facility] Start: 01-02-2021 Influenza vaccination Sequential Influenza Vaccine (#1) [facility] Start: 06-26-2020 COVID-19 Vaccine (2 of 2 - Pfizer series) COVID-19 Vaccine (2 of 2 - Pfizer series) [facility] Start: 06-26-2020 End: 06-26-2020 Immunization 06/26/2020 Immunization Primary Care Aida Crawford MD [address] [place] [address] [phone] [facility] Start: 06-05-2020 End: 06-05-2020 Immunization 06/05/2020 Immunization Primary Care [facility] Start: 05-27-2020 Pneumococcal vaccination Pneumococcal Vaccine Age 65+ (2 of 2 - PPSV23) [facility] Start: 05-27-2020 Pneumococcal Vaccine: Age 65+ (2 - PPSV23 if available, else PCV20) Pneumococcal Vaccine: Age 65+ (2 - PPSV23 if available, else PCV20) [facility] Start: 05-27-2020 Pneumococcal Vaccine: Age 65+ (2 - PPSV23 or PCV20) Pneumococcal Vaccine: Age 65+ (2 - PPSV23 or PCV20) [facility] Start: 05-27-2020 Pneumococcal Vaccine: Age 65+ (2 of 2 - PPSV23) Pneumococcal Vaccine: Age 65+ (2 of 2 - PPSV23) [facility] Start: 05-25-2020 Pneumococcal Vaccine: 65+ (2 of 2 - PPSV23 or PCV20) Pneumococcal Vaccine: 65+ (2 of 2 - PPSV23 or PCV20) [facility] Start: 01-05-2020 End: 01-05-2020 Appointment 01/05/2020 Appointment Radiology Kadie, Efrem Fisher DO [address] [place], [place] [id number] [facility] Ultrasound Start: 01-03-2020 Influenza vaccination given Sequential Influenza Vaccine (#1) [facility] Start: 12-29-2019 End: 12-29-2019 Hospital Encounter [facility] Periop Immunizations Immunization Date Immunization Notes Care Provider Fa cility 01-25-2021 Pfizer SARS-CoV-2 Vaccination Emanuel Calvert RN [facility] 11-26-2020 zoster vaccine recombinant Emanuel garcia RN [facility] 06-26-2020 Pfizer SARS-CoV-2 Vaccination Milly Bird [facility] 06-05-2020 Pfizer SARS-CoV-2 Vaccination Dhaval Manuel [facility] 02-02-2020 INFLUENZA IIV4 [id number] Emanuel garcia RN [facility] 02-02-2020 influenza, injectabl e, quadrivalent, contains preservative Efrem Kadie [facility] 05-27-2019 pneumococcal conjuga te vaccine, 13 valent Efrem Kadie [facility] 05-25-2019 pneumococcal conjuga te vaccine, 13 valent Efrem Kadie [facility] 05-25-2019 zoster vaccine recombinant Efrem sick [facility] 05-25-2019 zoster vaccine, live Efrem [facility] 01-05-2019 Seasonal trivalent i nfluenza vaccine, adjuvanted, preservative free Efrem Kadie [facility] 02-07-2018 influenza, high dose seasonal, preservative-free Efrem Kadie [facility] 02-07-2018 influenza, injectabl e, quadrivalent, contains preservative Efrem Kadie [facility] 12-28-2017 pneumococcal conjuga te vaccine, 13 valent Efrem Kadie [facility] 02-20-2017 influenza, high dose seasonal, preservative-free Efrem Kadie [facility] 03-06-2016 influenza, high dose seasonal, preservative-free Efrem Kadie [facility] 02-02-2016 influenza virus vacc ine, unspecified formulation Efrem Kadie [facility] 09-16-2013 influenza, seasonal, injectable Aust en Kadie [facility] 05-04-2012 tetanus toxoid, redu angel diphtheria toxoid, and acellular pertussis vaccine, adsorbed Efrem Kadie [facility] 05-04-2012 zoster vaccine, live Efrem [facility] Payers Date Payer Category Payer Medicare [id number] [id number] [id number] 2019 Medicare [id number] 2018 Medicare xxxxxxxxx 1.2.8 [id number] 2018 Medicare [id number] 1945 Unknown [id number] 2.16. [id number] 1944 Unknown [id number] 2.16 [id number] 1944 Unknown [id number] 2.16. [id number] 1944 Unknown [id number] 2.16. [id number] 1944 Unknown [id number] 2.16. [id number] 1944 Unknown [id number] 2.16. [id number] 1944 Unknown [id number] 2.16. [id number] 1944 Unknown [id number] 2.16. [id number] 1944 Unknown [id number] 2.16. [id number] Social History Date Type Detail Facility Start: 05-12-2018 End: 01-27-2023 Tobacco smoking status NHIS Former smoker [facility] End: 05-04-1984 History of tobacco use Current smoker [facility] Start: 05-12-2018 End: 04-23-2023 Cigarettes smoked current (pack per day) - Reported [facility] Start: 1945 Sex Assigned At Not on file [facility] Start: 01-05-2019 End: 05-29-2021 Alcohol intake Current non-drinker of alcohol (finding) [facility] Start: 04-29-2021 End: 05-29-2021 Exposure to SARS-CoV-2 (event) Not sure [facility] Start: 12-29-2019 End: 01-27-2023 Tobacco use and exposure Never used [facility] End: 05-04-1984 History of tobacco use Cigarette Smoker [facility] Start: 05-29-2021 End: 04-23-2023 Tobacco use panel [facility] Adult Depression Screening Assessment 5 [facility] Start: 09-27-2018 Gender identity Identifies as female gender (finding) [facility] Start: 10-04-2018 Sexual orientation Heterosexual (fin ding) [facility] Start: 04-23-2023 Alcohol intake Ex-drinker (finding) [facility] Clinical Notes 11-02-2020 to 04-23-2023 Anayeli Zarco APRN.CNP - 04/23/2023 10:55 AM ESTTelephone Encounter - Carey Kraus, Seafood Technology Specialist - 12/01/2022 12:44 PM EDTQuick Note - Sherrill Monroy RN - 05/30/2021 11:07 AM EST Note Date & Type Note Facility 04-23-2023 Note HNO ID: [id number] Author: Anayeli Zarco APRN.CONSUMER AFFAIRS MANAGER Service: ? Author Type: Nurse Practitioner Type: Progress Notes Filed: 04/23/2023 12:29 PM Note Text: Pharmacy Stock Clerk offered: Patient declines. Richie Johnson is a 77 year old female who presents today for a vulvar biopsy. Indication: chronic vulvar burning. UNIVERSAL PROTOCOL / SAFETY CHECKLIST Procedure to be Performed: Vulvar biopsy Sign In: A Moment of CARE was completed. Personnel directly involved with the procedure wore the appropriate PPE (Personal Protective Equipment). Patient/Surrogate Stated/Verified: PATIENT VERIFIED(optional for EMERGENT procedures): Patient name, Date of , Relevant allergies, and The intended procedure Time Out Communication: Intended patient and procedure match the source documents. Consent documented and matches the intended procedure. Sign Out: SIGN OUT (optional for EMERGENT procedures): All specimen containers correctly labeled. No instruments, equipment or retained foreign bodies applicable. Post-procedure follow-up management communicated and Plan of Care Visit completed when applicable. Anayeli Zarco APRN.CNP PROCEDURE NOTE: GROSS LESIONS: No BIOPSY: Area was cleansed with betadine and anesthetized with 1.5mL 1% lidocaine with 1:100,000 epi. 4mm Eladio punch used to biopsy region. HEMOSTASIS: Obtained with silver nitrate and pressure Procedure Summary: Patient tolerated procedure well. ASSESSMENT: Chronic vulvar burning PLAN: Specimens labeled and sent to Pathology. Will notify patient of results in 1-2 weeks. Post-procedure instructions reviewed and written material given to the patient. Anayeli Zarco APRN.CNP [facility] 04-23-2023 History of Present illness Narrative Pharmacy Stock Clerk offered: Patient declines. Richie Johnson is a 77 year old female who presents today for a vulvar biopsy. Indication: chronic vulvar burning. UNIVERSAL PROTOCOL / SAFETY CHECKLIST Procedure to be Performed: Vulvar biopsy Sign In: A Moment of CARE was completed. Personnel directly involved with the procedure wore the appropriate PPE (Personal Protective Equipment). Patient/Surrogate Stated/Verified: PATIENT VERIFIED(optional for EMERGENT procedures): Patient name, Date of , Relevant allergies, and The intended procedure Time Out Communication: Intended patient and procedure match the source documents. Consent documented and matches the intended procedure. Sign Out: SIGN OUT (optional for EMERGENT procedures): All specimen containers correctly labeled. No instruments, equipment or retained foreign bodies applicable. Post-procedure follow-up management communicated and Plan of Care Visit completed when applicable. Anayeli Zarco APRN.SMITH PROCEDURE NOTE: GROSS LESIONS: No BIOPSY: Area was cleansed with betadine and anesthetized with 1.5mL 1% lidocaine with 1:100,000 epi. 4mm Eladio punch used to biopsy region. HEMOSTASIS: Obtained with silver nitrate and pressure Procedure Summary: Patient tolerated procedure well. ASSESSMENT: Chronic vulvar burning PLAN: Specimens labeled and sent to Pathology. Will notify patient of results in 1-2 weeks. Post-procedure instructions reviewed and written material given to the patient. Anayeli Zarco APRN.CNP documented in this encounter [facility] 01-27-2023 Note HNO ID: [id number] Author: Anayeli Zarco APRN.CNP Service: ? Author Type: Nurse Practitioner Type: Progress Notes Filed: 01/27/2023 3:49 PM Note Text: Pharmacy Stock Clerk offered: Patient declines. Richie Johnson is a 77 year old female who presents for vaginal burning and discharge for 1 month(s). Vaginal discharge: odorless, white, and yellow. Itching: No Dyspareunia: N/A Fever/chills: No Abdominal pain: No Bladder: Negative for dysuria or frequency Bowel: No blood in stool, pain with BM, tarry stool, persistent diarrhea or constipation Are you currently taking any medications to treat vaginitis: Yes, did 3 rounds of Diflucan Do you use feminine sprays, douches or deodorants: No Past medical, surgical, social history, medications and allergies reviewed and updated. OBJECTIVE: BP 136/88 Wt 177 lb 3.2 oz (80.4kg) GENERAL: Well developed, well nourished in no apparent distress PELVIC: external genitalia normal, normal Bartholin's glands, urethra, [place]'s glands, no vulvar lesions, no cervical lesions, normal appearing perineal body and perianal region, thin clear discharge noted BIMANUAL: uterus normal size, shape and consistency, no adnexal masses, non-tender, and no cervical motion tenderness. ASSESSMENT/PLAN: 1. Vaginal discharge - ICD9: 623.5, ICD10: N89.8 Will notify patient of test results. - BACTERIAL VAGINOSIS NAAT - SHASHA/TRICHOMONAS NAAT Anayeli Zarco APRN.CNP Medical Decision Making: Problems: Moderate: New problem with uncertain prognosis Data: Unique test(s) ordered: 2 Risk: Low: Low risk from testing/treatment Medical Decision Making Level: 3 - Low [facility] 12-01-2022 Telephone encounter Note Pt has not been seen in over a year. Needs appt. [facility] 12-01-2022 Miscellaneous Notes Pt has not been seen in over a year. Needs appt. documented in this encounter [facility] 05-30-2021 Miscellaneous Notes IV out, TELE off,DCI given to pt , pain controlled at this time, in room and will transport her home when dressed documented in this encounter [facility] 05-30-2021 Hospital course Narrative [facility] DIS[place]GE SUMMARY Richie Johnson Admitted: 05/29/2021 Discharge Date: 05/30/21 PCP Handoff Recommended Outpatient Testing None Results Pending At Discharge Urine culture Clinical Summary Richie Johnson is a 75 y.o. female patient of [facility] with history of osteoporosis, anxiety, depression presented with left flank pain with elevated blood pressure: Left flank pain Afebrile, nontachycardic, hypertensive White count 11.71, UA positive for leukocyte Estrace rare bacteriuria CT abdominal pelvis showing 2 mm nonobstructive stone in the lower pole of the left kidney without hydronephrosis or obstruction Patient has been having some burning with urination for the past week Received Keflex in the ER will continue and finish 5-day course Currently pain is fairly well controlled Discussed with patient and at length that there is no other clear explanation for her pain at this point besides a kidney stone which may have passed No signs or symptoms to suggest bowel obstruction, hernia strangulation Encourage p.o. hydration Use Tylenol/ibuprofen/oxycodone for mild/moderate to severe pain Elevated blood pressure without diagnosis of hypertension Systolic blood pressure as high as 210 Blood pressure down to 128/52 after pain control Anxiety/depression Resume home Wellbutrin and Celexa Discharge Medications Discharge Medications New Medications Details cephALEXin 250 MG capsule Commonly known as: KEFLEX Take 1 (one) capsule (250 mg total) by mouth every 6 (six) hours for 5 days . Quantity: 20 capsule cyclobenzaprine 5 MG tablet Commonly known as: FLEXERIL Take 1 (one) tablet (5 mg total) by mouth every 8 (eight) hours as needed for muscle spasms . Quantity: 15 tablet oxyCODONE 5 MG immediate release tablet Commonly known as: ROXICODONE Take 1 (one) tablet (5 mg total) by mouth every 6 (six) hours as needed (Days supply per fill: 3) . Quantity: 12 tablet Medications To Continue Details acetaminophen 500 MG tablet Commonly known as: TYLENOL Take 500-1,000 mg by mouth every 6 (six) hours as needed . buPROPion 75 MG tablet Commonly known as: WELLBUTRIN Take 1 (one) tablet (75 mg total) by mouth 2 (two) times a day . Quantity: 180 tablet Calcium 500 + D (D3) 500 mg-3.125 mcg (125 unit) per tablet Generic drug: calcium carbonate-vitamin D3 Take 1 tablet by mouth daily . celecoxib 200 MG capsule Commonly known as: CELEBREX TAKE 1 (ONE) CAPSULE (200 MG TOTAL) BY MOUTH DAILY . Quantity: 30 capsule citalopram 20 MG tablet Commonly known as: CELEXA Take 1 (one) tablet (20 mg total) by mouth daily . Quantity: 90 tablet ibandronate 150 mg tablet Commonly known as: BONIVA Take 1 tab every 30 days. Take in a.m. with a full glass of water on empty stomach. Take nothing by mouth or lie down for the next 60 min. Quantity: 3 tablet melatonin 3 mg Tab Take 3 mg by mouth nightly as needed . omeprazole 20 MG capsule Commonly known as: PRILOSEC Take 1 (one) capsule (20 mg total) by mouth 2 (two) times a day . Quantity: 180 capsule oxybutynin 5 MG tablet Commonly known as: DITROPAN TAKE 1/2 TABLET BY MOUTH TWICE DAILY Quantity: 90 tablet VITAMIN C ORAL Take by mouth . Physician(s) Follow Up: No follow-up provider specified. Condition at Discharge: Stable Disposition: Home On day of discharge, I performed a final bedside evaluation including a physical exam. I reviewed discharge recommendations with the patient in person. present at bedside. Pain is better controlled as compared to yesterday. No nausea vomiting diarrhea. Denies any active dysuria urgency. Clarified that the pain was never on the right side, it was always in the left side. Lengthy discussion held with patient and regarding differential diagnosis and treatment options including pain control increase hydration at home, feels comfortable going home Patient instructions, including activity, were given to the patient/family at discharge. Time spent on discharge: > 30 minutes Completed by: Dmitri Archibald on 05/30/21, 9:55 AM documented in this encounter [facility] 05-30-2021 Emergency department Note Report for admission to bed 420 given to Sherrill WOMACK. Regular meal tray ordered for this patient This RN called lab regarding COVID swab not being resulted since it was collected 6 hours ago. Lab reports it has not been sent to [facility] and will be sent with the next batch. Pt pending room assignment still at this time. Bed: 33 Expected date: Expected time: Means of arrival: Comments: Bed 50 Report given to Tiesha Artis RN, who assumes pt's care. Lab notified of order for urine cx. PCP - Efrem Vee DO [phone] Chief Complaint Patient presents with Flank Pain HPI: Chief complaint my back hurts This is a 75-year-old female who states that she felt tired so she laid down around 2 PM and started having severe pain in her left flank area. Said she stood up and had a sharp stabbing pain and had an episode nausea and vomiting. She threw up one time. She had a normal bowel movement this morning. No blood in her stools or dark tarry stools. No fever or chills. She says the pain is constant but worse with breathing. Is worse with sitting and lying down but better with standing. Denies any chest pain or shortness of breath. No cough or cold symptoms. Says she has had a sharp stabbing pain in her urethra off and on for the past week. She thought she was getting a urinary tract infection so she has been taking a probiotic. She tried taking Tylenol around 2 PM but did not help. She has no headache. Denies feeling dizzy or lightheaded. The pain does not radiate into her legs. No muscle weakness, numbness or tingling. Says she has had sciatica before and this is not it. Her blood pressure is 210/84. No history of hypertension. Says her pain is an 8 out of 10 on the pain scale. Review of Systems Constitutional: No fevers Skin: No rash Eyes: No discharge ENMT: No drooling Respiratory: no stridor Endocrine: no polyuria Neurologic: no new face asymmetry Psychiatric: No self injury Hematologic/Lymphatic: No abnormal bruising Allergic/Immunologic: no urticaria Other pertinent positives and negatives in HPI Past Medical History Reviewed Past Medical History: Diagnosis Date Anxiety Back pain Tam's esophagus Cataract REMOVED Colon polyp Complication of anesthesia DIFFICULTY WAKING UP Dental infection WAS NOT PRESCRIBED TREATMENT Depression GERD (gastroesophageal reflux disease) Gout Irritable bowel syndrome LVH (left ventricular hypertrophy) Osteoporosis Overactive bladder URINARY INCONTINENCE Urinary incontinence Past Surgical History Reviewed Past Surgical History: Procedure Laterality Date CARPEL TUNNEL CATARACT EXTRACTION W/ INTRAOCULAR LENS IMPLANT Bilateral SECTION, CLASSIC 1971 CHOLECYSTECTOMY COLONOSCOPY 04/15/2017 3 polyps found - recommended repeat 1 year LIGAMENT REPAIR HAND Right 12/29/2019 Procedure: RIGHT MIDDLE FINGER A1 LOLY RELEASE WITH TENOLYSIS ; Surgeon: Radha Baker DO; Location: [facility]; Service: Hand UPPER GASTROINTESTINAL ENDOSCOPY 12/08/2016 recommend repeat 3 years WISDOM TOOTH EXTRACTION Family History Reviewed and not pertinent Family History Problem Relation Age of Onset Cancer Father 42 colon Diabetes Sister Stroke Sister Diabetes Brother Heart disease Mother Social History Reviewed Social History Socioeconomic History Marital status: Tobacco Use Smoking status: Former Smoker Packs/day: 0.50 Years: 10.00 Pack years: 5.00 Quit date: 1984 Years since quittin.0 Smokeless tobacco: Never Used Vaping Use Vaping Use: Never used Substance and Sexual Activity Alcohol use: No Drug use: Never Allergies Reviewed No Known Allergies Medications Patient's Medications New Prescriptions No medications on file Previous Medications ACETAMINOPHEN (TYLENOL) 500 MG TABLET Take 500 mg by mouth daily as needed for pain . ASCORBIC ACID (VITAMIN C ORAL) Take by mouth . BUPROPION (WELLBUTRIN) 75 MG TABLET Take 1 (one) tablet (75 mg total) by mouth 2 (two) times a day . CALCIUM CARBONATE-VITAMIN D3 (CALCIUM 500 + D, D3,) 500 MG(1,250MG) -125 UNIT PER TABLET Take 1 tablet by mouth daily . CELECOXIB (CELEBREX) 200 MG CAPSULE TAKE 1 (ONE) CAPSULE (200 MG TOTAL) BY MOUTH DAILY . CITALOPRAM (CELEXA) 20 MG TABLET Take 1 (one) tablet (20 mg total) by mouth daily . IBANDRONATE (BONIVA) 150 MG TABLET Take 1 tab every 30 days. Take in a.m. with a full glass of water on empty stomach. Take nothing by mouth or lie down for the next 60 min. MELATONIN 3 MG TAB Take 3 mg by mouth nightly . OMEPRAZOLE (PRILOSEC) 20 MG CAPSULE Take 1 (one) capsule (20 mg total) by mouth 2 (two) times a day . OXYBUTYNIN (DITROPAN) 5 MG TABLET TAKE 1/2 TABLET BY MOUTH TWICE DAILY Modified Medications No medications on file Discontinued Medications No medications on file Physical Exam Initial Vital Signs BP (!) 204/81 (BP Location: Right arm, Patient Position: Lying) Pulse (!) 51 Temp 98.6 F (37 C) (Oral) Resp 18 Ht 5' 6 Wt 78 kg (172 lb) SpO2 97% BMI 27.76 kg/m Physical Exam Vitals and nursing note reviewed. Constitutional: Appearance: Normal appearance. She is well-developed. Comments: 75 yo female In no apparent distress. AXOX3. Non toxic appearing. at bedside HENT: Head: Normocephalic and atraumatic. Right Ear: External ear normal. Left Ear: External ear normal. Nose: Nose normal. Eyes: Extraocular Movements: Extraocular movements intact. Conjunctiva/sclera: Conjunctivae normal. Cardiovascular: Rate and Rhythm: Normal rate and regular rhythm. Heart sounds: Normal heart sounds. Pulmonary: Effort: Pulmonary effort is normal. No respiratory distress. Breath sounds: Normal breath sounds. Abdominal: General: Bowel sounds are normal. There is no distension. Palpations: Abdomen is soft. Tenderness: There is no abdominal tenderness. There is no right CVA tenderness or left CVA tenderness. Genitourinary: Comments: No rash in genital area Musculoskeletal: General: Tenderness present. Normal range of motion. Cervical back: Normal range of motion and neck supple. Comments: +2 pedal pulses bilateral. Negative SLR bilateral. FROM of back. No midline tenderness over cervical, thoracic or lumbar spinous processes. Skin: General: Skin is warm and dry. Findings: No erythema or rash (no rash to suggest shingles). Neurological: Mental Status: She is alert and oriented to person, place, and time. Cranial Nerves: No cranial nerve deficit. Sensory: No sensory deficit. Psychiatric: Mood and Affect: Mood normal. Behavior: Behavior normal. Procedures: Procedures Labs Reviewed COMPREHENSIVE METABOLIC PANEL - Abnormal; Notable for the following components: Result Value Bicarbonate 19 (*) Anion Gap 21 (*) Glucose 121 (*) BUN/Creatinine Ratio 20.3 (*) All other components within normal limits Narrative: The eGFR should be used for monitoring renal function only and not for medication dosing. URINALYSIS - Abnormal; Notable for the following components: Clarity, Urine Hazy (*) Leukocyte Esterase, Urine Small (*) RBCs, Urine 5 (*) Bacteria, Urine Rare (*) All other components within normal limits Narrative: Microscopic examination is performed on all urinalysis samples and only positive findings are reported. The test for blood on the chemical analytic portion of urinalysis may also be positive due to hemoglobinuria and myoglobinuria and if red blood cells are present they are quantified by microscopic examination. CBC WITH AUTO DIFFERENTIAL - Abnormal; Notable for the following components: WBC 11.71 (*) Neutrophils Abs 8.34 (*) All other components within normal limits URINE AEROBIC CULTURE COVID-19, MOLECULAR CBC AND DIFFERENTIAL Narrative: The following orders were created for panel order CBC w/ Diff. Procedure Abnormality Status --------- ------ CBC Auto Differential[[id number]] Abnormal Final result Please view results for these tests on the individual orders. CT Abdomen Pelvis With IV Contrast Only Final Result *Probable 2 mm nonobstructing stone in the left lower pole kidney. No hydronephrosis or urinary obstruction. *Small hiatal hernia. *Fat containing 1.3 cm umbilical hernia without complication. Workstation ID: [id number] Vital Signs During ED Visit (as charted by nursing) Patient Vitals for the past 24 hrs: BP Temp Temp src Pulse Resp SpO2 Height Weight 05/29/212117 (!) 204/81 (!) 51 18 97 % 05/29/212013 (!) 186/86 61 18 96 % 05/29/21 190 (!) 210/84 98.6 F (37 C) Oral (!) 56 18 98 % 5' 6 78 kg (172 lb) MDM: Medications sodium chloride (PF) (NS) flush 5 mL (has no administration in time range) And sodium chloride 0.9% (NS) (has no administration in time range) lidocaine patch 1 patch (1 patch Transdermal Patch Applied 05/29/212010) ondansetron (ZOFRAN) injection 4 mg (4 mg Intravenous Given 05/29/212012) iopamidoL (ISOVUE-370) 76 % injection 75 mL (75 mL Intravenous Contrast Administered 05/29/212023) sodium chloride (PF) (NS) 0.9 % contrast line flush 10 mL (10 mL Intravenous Given 05/29/212023) And sodium chloride (PF) (NS) 0.9 % contrast line flush 80 mL (80 mL Intravenous Given 05/29/212024) ketorolac (TORADOL) injection 15 mg (15 mg Intravenous Given 05/29/212115) cephALEXin (KEFLEX) capsule 500 mg (500 mg Oral Given 05/29/212153) HYDROcodone-acetaminophen (NORCO) 5-325 mg per tablet 1 tablet (1 tablet Oral Given 05/29/212153) The patient has been informed that they may have pre-hypertension or hypertension based on a blood pressure reading in the Emergency Department. I recommend that the patient call the primary care provider listed on their discharge instructions or a physician of their choice as soon as possible to arrange follow-up in the next 4 weeks for further evaluation of possible pre-hypertension or hypertension. . Patient had developed left flank pain out of the blue today. She got up and had a sharp stabbing pain and then threw up. She says a constant sharp stabbing pain that is worse with lying down and sitting. She says better with standing. Says she has had some sharp pains in her urethra off and on for the past week thought she was getting urinary tract infection but no abdominal pain. No fever or chills. No diarrhea or constipation. No headache. No chest pain or shortness of breath. Her comprehensive metabolic panel shows a glucose of 121, anion gap 21 and bicarb of 19. Urine shows small leuks with 5 red blood cells and rare bacteria. She is afebrile with a white count of 11.71. She had good distal pulses that were equal. We did still scanner for CT of the abdomen pelvis IV contrast that shows a probable 2 mm nonobstructing stone left lower pole of the kidney but no hydronephrosis or urinary obstruction. Small hiatal hernia. She is a fat-containing 1.3 cm umbilical hernia without complication. She has old compression fractures of T12 and L2. She had very known about the compression fractures. No neurological deficits on exam. She had taken Tylenol prior to arrival. She was given a Lidoderm patch and then Toradol. She was then given a [facility]. She said that it barely took the edge off. Her pressure is 204/81. Thought maybe that was just due to pain however even with taking the edge off her blood pressure is still elevated and she has no history of hypertension. I do not feel comfortable sending her home with anything stronger than Centennial and says the Centennial is not helping her pain and her blood pressure still elevated I would feel more comfortable with the patient admitted to the hospital for further pain control and observation. Patient is agreeing to stay. [facility] has agreed to admit the patient. She is stable for admission. IMPRESSION: 1. Left flank pain 2. Elevated blood-pressure reading without diagnosis of hypertension Paulina Pearl PA-C 05/29/21 2521 C/o left flank pain; onset at 1400 today. [place] uncomfortable, got up, and felt stabbing (left flank) pain, and vomited. States doesn't have the urge to urinate and hasn't urinated since pain started. Took 2 Tylenol without relief. States has rash between my legs and every now and then why my pee comes out, there's a sharp pain; then it goes away. Denies fever. Denies hx of kidney stone and pyelonephritis. documented in this encounter [facility] 05-29-2021 History and physical note [facility] HISTORY AND PHYSICAL Patient Name: Richie Johnson : 1945 MR #: [id number] Admit Date: 05/29/2021 Physicians: Efrem Vee DO (Family); No ref. provider found (Referring) Richie Johnson is a 75 y.o. female patient of Efrem Vee DO with history of osteoporosis, anxiety, depression presented with right flank pain with elevated blood pressure: Left flank pain Afebrile, nontachycardic, hypertensive White count 11.71, UA positive for leukocyte Estrace rare bacteriuria CT abdominal pelvis showing 2 mm nonobstructive stone in the lower pole of the left kidney without hydronephrosis or obstruction Patient has been having some burning with urination for the past week Received Keflex in the ER we will continue for now Check urine culture Admitted for pain control Monitor overnight Hypertensive urgency Systolic blood pressure as high as 210 Patient without diagnosis of hypertension Improving to some extent with pain control Will order as needed meds Monitor overnight Anxiety/depression Resume home Wellbutrin and Celexa Admitted From: home Medication Reconciliation: Verified Code Status: Full Code - Unverified Quality Measures DVT Prophylaxis: lovenox Phillips Catheter: absent Chief Complaint right flank pain History of Present Illness Patient is a 75-year-old female with above-mentioned past medical history who presented to ER complaining of right flank pain. Patient states her pain started around 2 PM today, was located to right flank was sharp and nonradiating. She rates it 10/10 and was associated with nausea and vomiting. Patient reports that in the past week she has been having some burning at the urethra whenever she pees however she has not noticed any change in color of her urine or any blood in her urine. She also denies any frequency or incomplete micturition. Patient feels her symptoms were likely related to a UTI as she had in the past. She denies any fever, chills, chest pain, abdominal pain, diarrhea or any sick contacts. She has been ambulating okay without any difficulty. Denies any weakness or numbness in her lower extremities. Past Medical History Past Medical History: Diagnosis Date Anxiety Back pain Tam's esophagus Cataract REMOVED Colon polyp Complication of anesthesia DIFFICULTY WAKING UP Dental infection WAS NOT PRESCRIBED TREATMENT Depression GERD (gastroesophageal reflux disease) Gout Irritable bowel syndrome LVH (left ventricular hypertrophy) Osteoporosis Overactive bladder URINARY INCONTINENCE Urinary incontinence Past Surgical History Past Surgical History: Procedure Laterality Date CARPEL TUNNEL CATARACT EXTRACTION W/ INTRAOCULAR LENS IMPLANT Bilateral SECTION, CLASSIC 1971 CHOLECYSTECTOMY COLONOSCOPY 04/15/2017 3 polyps found - recommended repeat 1 year LIGAMENT REPAIR HAND Right 12/29/2019 Procedure: RIGHT MIDDLE FINGER A1 LOLY RELEASE WITH TENOLYSIS ; Surgeon: Radha Baker DO; Location: [facility]; Service: Hand UPPER GASTROINTESTINAL ENDOSCOPY 12/08/2016 recommend repeat 3 years WISDOM TOOTH EXTRACTION Family History Family History Problem Relation Age of Onset Cancer Father 42 colon Diabetes Sister Stroke Sister Diabetes Brother Heart disease Mother Social History Social History Tobacco Use Smoking Status Former Smoker Packs/day: 0.50 Years: 10.00 Pack years: 5.00 Quit date: 1984 Years since quittin.0 Smokeless Tobacco Never Used Social History Substance and Sexual Activity Alcohol Use No Social History Substance and Sexual Activity Drug Use Never Allergy Information I have reviewed the patient's allergies. Patient has no known allergies. Home Medications Home medications were reviewed. Review Of Systems All systems have been reviewed and are negative except as noted in HPI or below Physical Examination BP (!) 196/83 (BP Location: Right arm, Patient Position: Lying) Pulse 65 Temp 98.6 F (37 C) (Oral) Resp 18 Ht 5' 6 Wt 78 kg (172 lb) SpO2 97% BMI 27.76 kg/m General Appearance: alert; well appearing; in no acute distress HEENT: Head- normocephalic; Eyes- EOMI, sclera anicteric; Ears- hearing intact; Nose- no nasal discharge; Throat- mucous membranes moist Cardiovascular: regular rate and rhythm; normal S1, S2; no murmurs, rubs, clicks or gallops; no peripheral edema Respiratory: lungs clear to auscultation; without wheezes, rales or rhonchi; on room air Abdomen: soft, non-tender, non-distended; positive bowel sounds, no CVA tenderness Neurological: oriented x 3; normal speech; no focal findings or movement disorder noted Musculoskeletal: no significant deformity or tenderness to palpation Skin: normal coloration; no obvious rashes, lesions or skin breakdown Psych: normal mood and affect Laboratory and Additional Data Reviewed Laboratory 05/29/21 11:04 PM Microbiology 05/29/21 11:04 PM Pathology 05/29/21 11:04 PM Radiology 05/29/21 11:04 PM Cardiology 05/29/21 11:04 PM Medications 05/29/21 11:04 PM Transcriptions 05/29/21 11:04 PM documented in this encounter [facility] 05-06-2021 History of Present illness Narrative [facility] Patient Name: Richie Johnson Date: 05/06/21 Patient : 1945 Patient Age: 75 y.o. CC: Chief Complaint Patient presents with Medication Refill SUBJECTIVE Patient presents to follow-up on chronic medical conditions. We reviewed the patient s medical history. Patient states her anxiety and depression is well controlled. She is currently taking Wellbutrin and Celexa. She does need refills of those medications. She denies any symptoms related to that at this time. She feels like her symptoms are well controlled. Patient is taking omeprazole for acid reflux and Tam's esophagus. Patient states within the last couple months, she had a EGD and colonoscopy done. We do not have records of that. Patient states she has had a shingles shot and pneumonia shot within the last couple months. We do not have records of that or her flu shot. Patient also states that over the last couple months, she has had intermittent vaginal discharge, rash, itching. She denies any fever or chills. She does not have an [employer]. She has not had a mammogram in a couple years. The remaining constitutional, GI, cardiovascular, respiratory, neurological, psychiatric system review of systems was negative unless otherwise noted. The patient s past medical history, allergies, medication list, social history, and family medical history were documented and reviewed in the chart. OBJECTIVE BP 125/86 Pulse 88 Temp 97.4 F (36.3 C) Resp 16 General: alert, cooperative, well appearing, in no apparent distress. Head: Head is symmetric, normocephalic without evidence of trauma or deformity. Eyes: Pupils are equally round and reactive to light with accommodation. The extra-ocular movements are intact. The lids are without swelling, lesions, or drainage. The conjunctiva is clear and noninjected. ENT: The septum is midline. The maxillary and frontal sinuses are nontender to palpation. The nasal mucosa is pink with scant purulent drainage. The tongue and mucous membranes are pink and moist without lesions. The dentition is generally in good health. The pharynx is non-erythematous without exudates. CV: The heart sounds are regular in rate and rhythm. There is a normal S1 and S2. There or no murmurs, rubs, or gallops. Distal pulses are intact and equal. Lungs: Inspiratory and expiratory efforts are full and unlabored. Lung sounds are clear and equal to auscultation throughout all lung donald without wheezing, rales, or rhonchi. Extremities: There is no clubbing, cyanosis, or edema. 2+ peripheral pulses. Psych: alert and oriented x 3. NAD. No outward signs of psychosis. Well kempt. No odor. No lethality noted. Good mood. Full affect. Able to concentrate on conversation. Linear / logical thinking. ASSESSMENT / PLAN 1. Gastroesophageal reflux disease, unspecified whether esophagitis present - omeprazole (PRILOSEC) 20 MG capsule; Take 1 (one) capsule (20 mg total) by mouth 2 (two) times a day . Dispense: 180 capsule; Refill: 3 2. 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 3. Anxiety - citalopram (CELEXA) 20 MG tablet; Take 1 (one) tablet (20 mg total) by mouth daily . Dispense: 90 tablet; Refill: 3 - buPROPion (WELLBUTRIN) 75 MG tablet; Take 1 (one) tablet (75 mg total) by mouth 2 (two) times a day . Dispense: 180 tablet; Refill: 3 4. Depression, unspecified depression type - citalopram (CELEXA) 20 MG tablet; Take 1 (one) tablet (20 mg total) by mouth daily . Dispense: 90 tablet; Refill: 3 - buPROPion (WELLBUTRIN) 75 MG tablet; Take 1 (one) tablet (75 mg total) by mouth 2 (two) times a day . Dispense: 180 tablet; Refill: 3 5. Vaginal discharge - Ambulatory referral to Obstetrics / Gynecology; Future 6. Osteoarthritis of first metatarsophalangeal (MTP) joint of right foot 7. Encounter for screening for malignant neoplasm of breast, unspecified screening modality - Mammography Screening Abdoul Bilateral; Future We discussed the natural course and history of these problems. Refills were given today. Patient will continue with current medications. We will set her up for pelvic exam with [employer]TER. We will get screening mammogram done. Patient understands and agrees. I will see her back in 6 months. Patient is going to try to get records from her GI physician sent to us for recent EGD and colonoscopy. She is also going to try to get records from her pharmacy for recent immunizations. Efrem Vee DO Note: To expedite correspondence, this note was generated by [employer] voice recognition software. Some grammatical or spelling errors may occur using the system. documented in this encounter [facility] 04-22-2021 Miscellaneous Notes [facility] ([address]) fax request to renew ibandronate sodium 150mg. Pt coming for f/u appt in May 2020, please advise. documented in this encounter [facility] 04-22-2021 Miscellaneous Notes Pt scheduled. Approving Celexa and Wellbutrin prescriptions for Dr. Vee patient. Patient is due for follow-up regarding mental health conditions. documented in this encounter [facility] 11-02-2020 Miscellaneous Notes [facility] fax ([address]) request to renew Rx citalopram 20mg tablets. Pt was last seen: 12/12/2019, please advise. documented in this encounter [facility]* Diagnosis Gastroesophageal reflux disease, unspecified whether esophagitis present- Primary 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 Anxiety Anxiety state, unspecified Depression, unspecified depression type Vaginal discharge Leukorrhea, not specified as infective Osteoarthritis of first metatarsophalangeal (MTP) joint of right foot Encounter for screening for malignant neoplasm of breast, unspecified screening modality [facility]* Diagnosis Flank pain- Primary Abdominal pain, unspecified site Left flank pain Abdominal pain, unspecified site Elevated blood-pressure reading without diagnosis of hypertension Elevated blood pressure reading without diagnosis of hypertension [facility]* Diagnosis Osteoarthritis of first metatarsophalangeal (MTP) joint of right foot documented [facility]* Diagnosis Anxiety Anxiety state, unspecified Depression, unspecified depression type documented [facility]* Diagnosis Anxiety Anxiety state, unspecified Depression, unspecified depression type [facility]* Diagnosis Vulvar burning- Primary Unspecified symptom associated with female genital organs documented in this encounter [facility] History of Present Illness * Efrem Vee DO - 05/12/2018 10:59 AM EST Formatting of this note may be different from the original. [facility] Patient Name: Richie Johnson Date: 05/12/18 Patient : 1945 Patient Age: 72 y.o. CC: Chief Complaint Patient presents with Establish Care Annual Exam Pt is having neck and back pain SUBJECTIVE Patient presents to [facility]. We reviewed the patient s medical history. The patient has a history of chronic anxiety and depression has been well controlled for many years. She currently takes Wellbutrin and Celexa. She denies any side effects. She denies any SI or HI. Patient has significant family history of colon cancer. She has had many colonoscopies. Her last one was a year ago. She states they removed a large polyp and was recommended for 1 year repeat. She has that coming up in 2 days. Patient states she has a history of some chronic neck pain and back pain. She is currently under the care of pain management and had epidural injection. She is seeing a surgeon who has recommended neck surgery for what sounds like spinal stenosis. The remaining constitutional, cardiovascular, respiratory, ENT, GI, musculoskeletal, neurological, psychiatric system review of systems was negative unless otherwise noted. The patient s past medicalhistory, allergies, medication list, social history, and family medical history were documented and reviewed in the chart. OBJECTIVE BP (!) 133/59 Pulse 69 Resp 16 Wt 73 kg (161 lb) General: alert, cooperative, well appearing, in no apparent distress. Head: Head is symmetric, normocephalic without evidence of trauma or deformity. Eyes: Pupils are equally round and reactive to light with accommodation. The extra-ocular movementsare intact. The lids are without swelling, lesions, or drainage. The conjunctiva is clear and noninjected. ENT: The septum is midline. The maxillary and frontal sinuses are nontender to palpation. The nasalmucosa is pink with scant purulent drainage. The tongue and mucous membranes are pink and moist without lesions. The dentition is generally in good health. The pharynx is non-erythematous without exudates. CV: The heart sounds are regular in rate and rhythm. There is a normal S1 and S2. There or no murmurs, rubs, or gallops. Distal pulses are intact and equal. Lungs: Inspiratory and expiratory efforts are full and unlabored. Lung sounds are clear and equal to auscultation throughout all lung donald without wheezing, rales, or rhonchi. Extremities: There is no clubbing, cyanosis, or edema. 2+ peripheral pulses. Psych: alert and oriented x 3. NAD. No outward signs of psychosis. Well kempt. No odor. No lethality noted. Good mood. Full affect. Able to concentrate on conversation. Linear / logical thinking. ASSESSMENT / PLAN 1. Polyp of colon, unspecified part of colon, unspecified type 2. Anxiety and depression 3. Chronic neck pain 4. Chronic bilateral low back pain without sciatica We discussed the natural course and history of these problems. Patient will continue to follow-up with pain management and neurosurgery. She will continue current medications for anxiety and depression. She will follow through with plan colonoscopy later this week. We will get records from her primary care doctor. Further recommendations to follow. Efrem Vee DO Note: To expedite correspondence, this note was generated by [employer] voice recognition software. Some grammatical or spelling errors may occur using the system. in this encounter* Zhao Medley CNP - 09/28/2018 3:22 PM EDT [facility] [place]GRESS NOTE 09/28/2018 PATIENT: RICHIE JOHNSON DATE OF : 1945 Assessment/Plan: Patient is a 73 y.o. female with PMHx of osteoporosis, anxiety, depression who presented to [facility] on 09/27/2018 with chief complaint of right shoulder pain after a fall at home. Acute nondisplaced right humerus fracture 2/2 fall at home - Osteopenia likely contributing as well - Tripped over her dog and feel at home - X-ray L shoulder with acute comminuted overlapping intraarticular fracture of the right humeral head and neck without dislocation. Generalized osteopenia. - Seen by ortho surgery. Sling in place. No plans for surgery at this time. - Pain management - OP Ortho surgery follow Depression and anxiety - Resume home celeza and citalopram Quality Measures DVT Prophylaxis: Lovenox SC Phillips Catheter: None Disposition Discharge Location: Home Estimated Discharge Date: Today (09/28/2018) Outpatient testing: None Written and signed electronically by: Zhao Medley CNP Subjective: Patient seen and examined. Still in some pain to RUE. No new complaints Review of Systems: All systems reviewed and all negative except pertinent positives and negatives listed above. Objective: BP 124/60 Pulse 75 Temp 97.6 F (36.4 C) (Oral) Resp 16 Ht 5' 6 Wt 73.5 kg (162 lb) SpO2 93% BMI 26.15 kg/m Physical Examination: General appearance: alert, cooperative, in no acute distress. Head/Neck: Head- normocephalic. Neck- supple, non-tender, without lymphadenopathy Eyes: PERRL; EOMI ENT: Ears- hearing intact. Nose- normal and patent. Throat- mucous membranes moist, pharynx withoutlesions. Cardiovascular: regular rate and rhythm; normal S1, S2; no murmurs, rubs, clicks or gallops; no peripheral edema. Respiratory: lungs clear to auscultation; without wheezes, rales or rhonchi Abdomen: soft, non-tender, non-distended; positive bowel sounds Neurological: alert, oriented, normal speech; no focal findings or movement disorder noted Musculoskeletal: Sling to RUE. limited ROM d/t pain. Otherwise no significant deformity or tenderness to palpation Skin: normal coloration, texture and turgor; no lesions or eruptions Medications: Scheduled Meds: buPROPion 75 mg Oral BID citalopram 20 mg Oral Daily enoxaparin (LOVENOX) injection 40 mg Subcutaneous Daily oxybutynin 5 mg Oral BID pantoprazole 40 mg Oral Daily senna-docusate 1 tablet Oral BID Continuous Infusions: PRN Meds:.acetaminophen, ketorolac, nalOXone AND Notify physician AND naloxone, oxyCODONE-acetaminophen Results/Medications Reviewed 09/28/18 3:23 PM: Laboratory, Pathology, Radiology, Cardiology, Medications and Transcriptions documented in this encounter* Efrem Vee, - 10/01/2018 7:45 AM EDT [facility] Patient Name: Richie Johnson Date: 10/01/18 Patient : 1945 Patient Age: 73 y.o. CC: Chief Complaint Patient presents with Right Arm - Pain, Injury SUBJECTIVE Patient presents for hospital follow up. We reviewed the recent hospitalization in detail. The hospital discharge summary as outlined below: Admitted: 09/27/2018 Discharge Date: 09/28/18 PCP Handoff Recommended Outpatient Testing: OP ortho surgery follow-up Results Pending At Discharge: None Clinical Summary Patient is a 73 y.o. female with PMHx of osteoporosis, anxiety, depression who presented to [facility] on 09/27/2018 with chief complaint of right shoulder pain after a fall at home. Acute nondisplaced right humerus fracture 2/2 fall at home - Osteopenia likely contributing as well - Tripped over her dog and feel at home - X-ray L shoulder with acute comminuted overlapping intraarticular fracture of the right humeral head and neck without dislocation. Generalized osteopenia. - Seen by ortho surgery. Sling in place. No plans for surgery at this time. - Pain management - OP Ortho surgery follow Depression and anxiety - Resume home celeza and citalopram Discharge Medications Current Discharge Medication List START taking these medications Details meloxicam (MOBIC) 7.5 MG tablet Take 1 (one) tablet (7.5 mg total) by mouth daily . Qty: 30 tablet, Refills: 0 oxyCODONE-acetaminophen (PERCOCET) 7.5-325 mg per tablet Take 1 (one) tablet by mouth every 6 (six)hours as needed (Days supply per fill: 7) . Qty: 30 tablet, Refills: 0 Associated Diagnoses: Closed fracture of proximal end of right humerus, unspecified fracture morphology, initial encounter CONTINUE these medications which have NOT CHANGED Details buPROPion (WELLBUTRIN) 75 MG tablet Take 75 mg by mouth 2 (two) times a day . Refills: 1 citalopram (CELEXA) 20 MG tablet Take 1 (one) tablet (20 mg total) by mouth daily . Qty: 90 tablet, Refills: 1 glucosamine-chondroitin 250-200 mg Tab 2 Unspecified . omeprazole (PRILOSEC) 20 MG capsule Take 20 mg by mouth 2 (two) times a day . Refills: 3 oxybutynin (DITROPAN) 5 MG tablet one po qhs Physician(s) Follow Up: Alfonzo Pearl, DO [address] [address] Schedule an appointment as soon as possible for a visit in 1 week(s) Please call to schedule a post hospital follow-up appointment The patient reports having significant pain in her right proximal humerus. She has not set up appointment with orthopedic provider yet. She was instructed to follow-up with Dr. Alfonzo Pearl. She states she is very uncomfortable in the sling that she is in. She is taking Percocet every 6 hours. It seems to last 4 to 5 hours. She is taking meloxicam 7.5 mg once a day. She denies any side effects from the medication. The constitutional, cardiovascular, and pulmonary review of systems were negativeunless otherwise stated in the history of present illness. The patient s past medical history, allergies, medication list, social history, and family medical history were documented, updated, and reviewed in the chart. There have been no changes since the last visit. OBJECTIVE Vitals: BP 130/80 Pulse 60 Resp 12 Ht 5' 6 Wt 74.4 kg (164 lb) SpO2 99% BMI 26.47 kg/m General: Alert, cooperative, well appearing, in no apparent distress. Head: Head is symmetric, normocephalic without evidence of trauma or deformity. Eyes: Pupils are equally round and reactive to light with accommodation. The extra-ocular movementsare intact. The lids are without swelling, lesions, or drainage. The conjunctiva are clear and noninjected. ENT: The external auditory canals are without swelling or drainage. The tympanic membranes are intact, clear, and non-erythematous. The septum is midline. The sinuses are nontender to palpation. The nasal mucosa is pink without drainage. The tongue and mucous membranes are pink and moist without lesions. The dentition is generally in good health. The pharynx is non-erythematous without exudates. Neck: There is normal range of motion. The thyroid is normal size without nodules or masses. There is no lymphadenopathy. There are no carotid bruits. CV: The heart sounds are regular in rate and rhythm. There is a normal S1 and S2. There or no murmurs, rubs, or gallops. Distal pulses are intact and equal. Lungs: Inspiratory and expiratory efforts are full and unlabored. Lung sounds are clear and equal to auscultation throughout all lung donald without wheezing, rales, or rhonchi. Extremities: There is no clubbing, cyanosis, or edema. 2+ peripheral pulses. Neurovascularly intactright distal upper extremity. ASSESSMENT / PLAN SNOMED CT(R) 1. Fall, initial encounter FALL 2. Other closed displaced fracture of proximal end of right humerus, initial encounter CLOSED FRACTURE OF UPPER END OF HUMERUS Handicap Daveanthony We discussed the natural history of this condition, differential diagnoses, and treatment options. We reconciled medications to ensure he was on the appropriate medications and no medications were repeated or inadvertently discontinued from his hospital stay. The hospital discharge summary was reviewed with the patient with a face to face discussion. In addition to this discussion we reviewed all the diagnostic tests and treatments performed while in the hospital. Coordination of care with referrals and other healthcare professionals was completed as well as review of home-going patient education and instructions. Patient was removed from the shoulder sling and placed in a shoulder immobilizer with removable straps. She will wear this constantly until follow-up with orthopedic surgeon. She may increase Percocet to every 4 hours instead of every 6 hours. She may take 7.5 mg of meloxicam twice a day. She was given a handicap placard. I will see her back as needed for follow-up. Return if symptoms worsen or fail to improve. Efrem Vee DO Note: To expedite correspondence, this note was generated by [employer] voice recognition software. Some grammatical or spelling errors may occur using the system. documented in this encounter* Alfonzo Pearl DO - 11/15/2018 12:11 PM EDT Subjective: Patient ID: Richie Johnson is a 73 y.o. female. HPI: Richie is seen in the office today for recheck of her right proximal humerus fracture. She is doing Matich better at this time. She has much less pain. She has decreased range of motion. She does not want to proceed with surgical intervention. About a week ago she began having increased pain in her right foot. She complains of pain in the right great toe with mild swelling and erythema. She thinks she may have gout. She has some pain with weightbearing. Even light touch of the sheets on her foot causes pain. She has had no injury. She had fairly insidious onset of the pain and swelling. The following portions of the patient's history were reviewed and updated as appropriate: allergies, current medications, past family history, past medical history, past social history, past surgicalhistory and problem list. Review of Systems Patient Active Problem List Diagnosis SNOMED CT(R) Fall FALL Closed 4-part fracture of proximal humerus CLOSED FRACTURE PROXIMAL HUMERUS, FOUR PART Objective: Physical Exam reveals alert oriented very pleasant 73-year-old female. She has abduction to about 60 degrees. She has mild decreased internal and external rotation. Her skin is clear. Her neurovascular status is intact. She is very tender about the great toe. She has mild erythema and mild swelling. She has pain with movement of the great toe. Ortho Exam Neurologic Exam X-rays were obtained on today's visit. Her fracture is healing uneventfully. Position is unchanged from that previously. Assessment/Plan: SNOMED CT(R) 1. Closed 4-part fracture of proximal end of right humerus with routine healing, subsequent encounter CLOSED FRACTURE PROXIMAL HUMERUS, FOUR PART Orders Placed This Encounter Procedures XR Shoulder Right 2+ Views (Standard) Ambulatory ref to Therapy (PT/OT/ST) She is aware that she may not regain full range of motion. She is just interested in pain relief and gaining functional range of motion. She was referred to physical therapy to begin range of motion and strengthening. I will see her in the office in 6 weeks for recheck. She was placed on a Medrol Dosepak for her foot. She may need to be evaluated with serum uric acid and a rheumatologic evaluation. We will see how she does with the Medrol Dosepak. I will see her in the office in follow-up recheck. Alfonzo Pearl DO * Ashok Wilson MA - 11/15/2018 10:16 AM EDT Fracture Follow Up Patient Richie Johnson 11/15/18 Date of Injury: 09/27/18 Fracture Site: shoulder Laterality: Right Cast/Splint/Brace/Immobilizer/Sling: No Doing Well: Yes 5' 6 74.4 kg (164 lb 0.4 oz) Body mass index is 26.47 kg/m . Resp 18 Ht 5' 6 Wt 74.4 kg (164 lb 0.4 oz) BMI 26.47 kg/m Pain: occasional Numbness/Tingling: negative Physical Therapy: No Pain Medications: APAP Refill Request: No Refill Due: No Ashok Wilson MA documented in this encounter* Alfonzo Pearl DO - 01/05/2019 3:54 PM EDT Subjective: Patient ID: Richie Johnson is a 73 y.o. female. HPI: No Briana is seen in the office today for evaluation of her right shoulder. She is doing very well. She has no significant pain. She has good range of motion. She is gaining strength. She is very pleased with her progress. She has no numbness or tingling. The following portions of the patient's history were reviewed and updated as appropriate: allergies, current medications, past family history, past medical history, past social history, past surgicalhistory and problem list. Review of Systems Patient Active Problem List Diagnosis Fall Closed 4-part fracture of proximal humerus Objective: Physical Exam reveals alert oriented very pleasant 73-year-old female. She has good range of motionof the shoulder. She is able to abduct about 110 degrees. She does have weakness of the rotator cuff. There is no instability the shoulder. She has very little pain with movement. Ortho Exam Neurologic Exam Assessment/Plan: 1. Closed 4-part fracture of proximal end of right humerus with routine healing, subsequent encounter No orders of the defined types were placed in this encounter. She is to continue with a home exercise program after she finishes her physical therapy. I will seeher in the office in follow-up recheck as needed. Alfonzo Pearl DO * Larisa Castanon TECHNOLOGIST - 12/27/2018 10:29 AM EDT Review of Systems Constitutional:negative HENT:negative Eyes:negative Respiratory:negative Cardiovascular:negative Gastrointestinal:negative Endocrine:negative Skin:negative Neurological:negative Hematological:negative Psychiatric/Behavioral: negative documented in this encounter* Efrem Vee DO - 05/19/2019 11:49 AM EST [facility] Patient Name: Richie Johnson Date: 05/19/19 Patient : 1945 Patient Age: 73 y.o. CC: Chief Complaint Patient presents with Nevus low back Medication Refill 2 meds that arent working well SUBJECTIVE Patient presents to discuss multiple issues. Patient states she is not tolerating alendronate very well. She has episodes of upset stomach and diarrhea after taking the medication weekly. She would like to try something else. She stopped the medication herself and those symptoms have resolved. In addition, patient has noticed a mole on her lower back. It is changing color. She describes it as irritated. She would like this further evaluated. The patient denies any complaints at this time. We reviewed the patient s medical history. The remaining constitutional, endocrine, dermatologic system review of systems was negative unless otherwisenoted. The patient s past medical history, allergies, medication list, social history, and family medical history were documented and reviewed in the chart. OBJECTIVE BP 129/66 Pulse 62 Wt 73.9 kg (163 lb) BMI 25.53 kg/m General: alert, cooperative, well appearing, in no apparent distress. Head: Head is symmetric, normocephalic without evidence of trauma or deformity. Eyes: Pupils are equally round and reactive to light with accommodation. The extra-ocular movementsare intact. The lids are without swelling, lesions, or drainage. The conjunctiva is clear and noninjected. ENT: The septum is midline. The maxillary and frontal sinuses are nontender to palpation. The nasalmucosa is pink with scant purulent drainage. The tongue and mucous membranes are pink and moist without lesions. The dentition is generally in good health. The pharynx is non-erythematous without exudates. CV: The heart sounds are regular in rate and rhythm. There is a normal S1 and S2. There or no murmurs, rubs, or gallops. Distal pulses are intact and equal. Lungs: Inspiratory and expiratory efforts are full and unlabored. Lung sounds are clear and equal to auscultation throughout all lung donald without wheezing, rales, or rhonchi. Extremities: There is no clubbing, cyanosis, or edema. 2+ peripheral pulses. Skin: The skin is without jaundice. It is intact. Atypical, inflamed nevus noted on her lower back. ASSESSMENT / PLAN 1. Atypical nevus - Ambulatory referral to Dermatology; Future 2. Osteoporosis, unspecified osteoporosis type, unspecified pathological fracture presence - ibandronate (BONIVA) 150 mg tablet; Take 1 tab every 30 days. Take in a.m. with a full glass of water on empty stomach. Take nothing by mouth or lie down for the next 60 min. Dispense: 1 tablet; Refill: 11 3. At risk for falls - Handicap Lisa We will switch from Fosamax to Boniva once monthly and see if she tolerates that better. We will refer to dermatology for further evaluation of mole. I will see her back as needed. Efrem Vee DO Note: To expedite correspondence, this note was generated by [employer] voice recognition software. Some grammatical or spelling errors may occur using the system. documented in this encounter* Efrem Vee DO - 12/12/2019 1:21 PM EDT [facility] Patient Name: Richie Johnson Date: 12/12/19 Patient : 1945 Patient Age: 74 y.o. CC: Chief Complaint Patient presents with Pre-op Exam SUBJECTIVE Patient presents for pre-operative evaluation at the request of Dr. Radha Baker. Patient is undergoing trigger finger release for right middle trigger finger. The surgery is to take place on 12/29/19 at [facility]. The patient denies any chest pain, shortness of breath, syncope, near-syncope. Patient denies any symptoms consistent with sleep apnea. Patient is able to complete > 4 METs without complication. Patient denies any personal or family history of bleeding or clotting disorders. Patient denies any personal history of previous adverse reactions to anesthesia. Review of Systems: CONSTITUTIONAL: No weight loss, fever, chills, weakness or fatigue. HEENT: Eyes: No visual loss, blurred vision, double vision or yellow sclerae. Ears, Nose, Throat: No hearing loss, sneezing, congestion, runny nose or sore throat. SKIN: No rash or itching. CARDIOVASCULAR: No chest pain, chest pressure or chest discomfort. No palpitations or edema. RESPIRATORY: No shortness of breath, cough or sputum. GASTROINTESTINAL: No anorexia, nausea, vomiting or diarrhea. No abdominal pain or blood. GENITOURINARY: No dysuria, discharge or bleeding. NEUROLOGICAL: No headache, dizziness, syncope, paralysis, ataxia, numbness or tingling in the extremities. No change in bowel or bladder control. MUSCULOSKELETAL: No muscle, back pain, joint pain or stiffness. HEMATOLOGIC: No anemia, bleeding or bruising. LYMPHATICS: No enlarged nodes. No history of splenectomy. PSYCHIATRIC: No history of depression or anxiety. ENDOCRINOLOGIC: No reports of sweating, cold or heat intolerance. No polyuria or polydipsia. ALLERGIES: No history of asthma, hives, eczema or rhinitis. Past Medical History: Diagnosis Date Anxiety Tam's esophagus Colon polyp Depression Gout Osteoporosis Urinary incontinence Past Surgical History: Procedure Laterality Date CARPEL TUNNEL SECTION, CLASSIC 1971 CHOLECYSTECTOMY COLONOSCOPY 04/15/2017 3 polyps found - recommended repeat 1 year FRACTURE SURGERY Right 09/28/2018 UPPER GASTROINTESTINAL ENDOSCOPY 12/08/2016 recommend repeat 3 years WISDOM TOOTH EXTRACTION Current Outpatient Medications Medication Sig Dispense Refill acetaminophen (TYLENOL) 500 MG tablet Take 500 mg by mouth every 6 (six) hours as needed for pain . ascorbic acid (VITAMIN C ORAL) Take by mouth . b complex vitamins capsule Take 1 capsule by mouth daily . buPROPion (WELLBUTRIN) 75 MG tablet Take 75 mg by mouth 2 (two) times a day . 1 celecoxib (CeleBREX) 200 MG capsule Take 1 (one) capsule (200 mg total) by mouth daily . 30 [id number] citalopram (CELEXA) 20 MG tablet TAKE 1 TABLET BY MOUTH EVERY DAY 90 tablet 1 ibandronate (BONIVA) 150 mg tablet Take 1 tab every 30 days. Take in a.m. with a full glass of water on empty stomach. Take nothing by mouth or lie down for the next 60 min. 1 tablet 11 lactobacillus combo no.11 (Probiotic) 15 billion cell CpSP Take by mouth . omeprazole (PRILOSEC) 20 MG capsule TAKE 1 (ONE) CAPSULE (20 MG TOTAL) BY MOUTH 2 (TWO) TIMES A DAY. 180 capsule 3 oxybutynin (DITROPAN) 5 MG tablet one po qhs glucosamine-chondroitin 250-200 mg Tab 2 Unspecified . cmnklczq-fhws-AL-calcium-mins 9 mg iron-400 mcg Tab Take 1 tablet by mouth daily . No current facility-administered medications for this visit. Allergies: no known allergies. Social History Socioeconomic History Marital status: Spouse name: Not on file Number of children: Not on file Years of education: Not on file Highest education level: Not on file Occupational History Not on file Social Needs Financial resource strain: Not on file Food insecurity Worry: Not on file Inability: Not on file Transportation needs Medical: Not on file Non-medical: Not on file Tobacco Use Smoking status: Former Smoker Packs/day: 0.50 Years: 10.00 Pack years: 5.00 Last attempt to quit: 1985 Years since quittin.6 Smokeless tobacco: Never Used Substance and Sexual Activity Alcohol use: No Drug use: No Sexual activity: Not on file Lifestyle Physical activity Days per week: Not on file Minutes per session: Not on file Stress: Not on file Relationships Social connections Talks on phone: Not on file Gets together: Not on file Attends gnosticist service: Not on file Active member of club or organization: Not on file Attends meetings of clubs or organizations: Not on file Relationship status: Not on file Other Topics Concern Not on file Social History Narrative Not on file Family History Problem Relation Age of Onset Cancer Father 42 colon Diabetes Sister Stroke Sister Diabetes Brother OBJECTIVE Vital Signs: BP 148/72 Pulse (!) 105 Temp 97.7 F (36.5 C) Resp (!) 24 Ht 5' 6 Wt 77.6 kg(171 lb) SpO2 92% BMI 27.60 kg/m General: Alert, cooperative, well appearing, in no apparent distress. Head: Head is symmetric, normocephalic without evidence of trauma or deformity. Eyes: Pupils are equally round and reactive to light with accommodation. The extra-ocular movementsare intact. The lids are without swelling, lesions, or drainage. The conjunctiva is clear and noninjected. ENT: The external auditory canals are without swelling or drainage. The tympanic membranes are intact, clear, and non-erythematous. The septum is midline. The sinuses are nontender to palpation. The nasal mucosa is pink without drainage. The tongue and mucous membranes are pink and moist without lesions. The dentition is generally in good health. The pharynx is non-erythematous without exudates. Neck: There is normal range of motion. The thyroid is normal size without nodules or masses. There is no lymphadenopathy. CV: The heart sounds are regular in rate and rhythm. There is a normal S1 and S2. There or no murmurs, rubs, or gallops. Distal pulses are intact and equal. Lungs: Inspiratory and expiratory efforts are full and unlabored. Lung sounds are clear and equal to auscultation throughout all lung donald without wheezing, rales, or rhonchi. GI: The abdomen is soft and nontender. Bowel sounds are present in all 4 quadrants. There is no hepatosplenomegaly or other masses. There is no rebound or guarding. There is no CVA or suprapubic tenderness. Extremities: There is no clubbing, cyanosis, or edema. 2+ peripheral pulses. Neurological: Cranial nerves II-XII, cerebellar function and mental status are intact. There are noobvious focal sensory or motor deficits. DTR s are 2+/4 in the upper and lower extremity bilaterally. Strength is 5/5 in the upper and lower extremity bilaterally. Skin: The skin is without jaundice. It is intact without pathologic lesions, erythema, vesicles, discharge, or rash. ASSESSMENT / PLAN Problem List Items Addressed This Visit None Visit Diagnoses Preop examination - Primary Relevant Orders ECG 12 Lead (Completed) CBC and Differential Comprehensive Metabolic Panel Trigger middle finger of right hand Left ventricular hypertrophy Relevant Orders Echocardiogram complete This patient has no active cardiac conditions and would be considered at a low risk (less than 1%) for a major adverse cardiac event (MACE) based on a revised cardiac risk index (RCRI) score of 0. This patient has an activity level greater than 4 METS and would be considered at acceptable cardiac risk based on the 2014 [place] [employer]/[place] [employer] (ACC/AHA) guidelineson Perioperative Cardiovascular Evaluation and Management of Patients Undergoing Noncardiac Surgery. The patient is a low risk candidate undergoing moderate risk procedure. The patient is an acceptable candidate for this procedure. Patient will continue current medications. Patient will hold all NSAIDs one week prior to procedure. No further cardiac work-up is needed prior to surgery. She should have an ECHO done for EKG changes of LVH, but will not delay surgery. We can address at later time. Order will be placed for echo that she can get done at her convenience. We will get CBC and CMP priorto surgery, and pending these results, the patient will be cleared for this procedure. No follow-ups on file. Efrem Vee DO CC: Radha Baker DO Note: To expedite correspondence, this note was generated by [employer] voice recognition software. Some grammatical or spelling errors may occur using the system. documented in this encounter* Hanna Joseph MA - 12/13/2019 8:47 AM EDT LM for patient to return call * Efrem Vee DO - 12/13/2019 7:22 AM EDT Please call the patient. I spoke with the operator receptionist about her EKG findings. He recommended to get an echo, but it does not need to be done preoperatively. She is okay to proceed with surgery as planned. I did put an order in for an echo for her to get done at her convenience. I will call her with those results. They should contact her to schedule that echo. documented in this encounter* Efrem Vee DO - 01/05/2019 3:46 PM EDT [facility] Patient Name: Richie Johnson Date: 01/05/19 Patient : 1945 Patient Age: 73 y.o. CC: Chief Complaint Patient presents with Follow-up gout SUBJECTIVE: The patient presents for continued right foot pain. The pain is rated the first MTP joint. Previously, we had x-ray and labs done. X-ray showed hallux valgus deformity with osteoarthritis. This pain has been present for the last 2 months pretty consistently. We prescribed colchicine but it was too expensive. She taken [id number] NSAIDs without benefit. She was referred to podiatry. Patient states that despatching and receiving clerk told her it was gout. He placed her on Medrol Dosepak and topical compoundingmedication consisting of diclofenac, gabapentin, lidocaine. She states Medrol took the pain away completely but as soon as she went off that it started coming back. When she uses the compounding medication, it significantly lessens the pain. The constitutional, musculoskeletal, and neurological review of systems was negative unless otherwise noted. The patient s past medical history, allergies, medication list, social history, and family medical history were documented, updated, and reviewed inthe chart. OBJECTIVE BP 122/64 Pulse 71 Resp 12 Wt 72.6 kg (160 lb) BMI 25.06 kg/m Vitals: documented and reviewed in the chart. General: alert, cooperative, well appearing, in no apparent distress. Musculoskeletal: The patient s gait is normal. Right Foot: Inspection of the bilateral foot demonstrates there is an obvious hallux valgus deformity. There is mild swelling. There is tenderness at the MTP joint. There is mild erythema, but only on the medial service. It is not circumferential. It is not warm to the touch. The bilateral foot is stable without evidence of dislocation. There is normal range of motion of the foot bilaterally except for decreased range of motion through the 1st MTP. The bilateral ankle demonstrates normal muscletone with 5/5 strength with ankle dorsiflexion, plantar flexion, eversion. Palpation of the bilateral foot demonstrates tenderness over the medial aspect of the 1st MTP. There is an intact distal neurovascular examination. Skin: The skin is without jaundice. It is intact without pathologic lesions, erythema, vesicles, discharge, or rash. Palpation of the skin is normal without induration, subcutaneous nodules, or tightening. Extremities: There is no clubbing, cyanosis, or edema. 2+ peripheral pulses. ASSESSMENT / PLAN 1. Osteoarthritis of first metatarsophalangeal (MTP) joint of right foot omeprazole (PRILOSEC) 20 MG capsule celecoxib (CeleBREX) 200 MG capsule alendronate (FOSAMAX) 70 MG tablet 2. Osteoporosis, unspecified osteoporosis type, unspecified pathological fracture presence alendronate (FOSAMAX) 70 MG tablet We discussed the natural course and history of this problem. I do not think this is gout. She is never had this issue before. She does not have a purine rich diet. The erythema is not circumferentialand it is not warm to touch. Her uric acid level was low. I think the likelihood of this being goutis lower than actually this being osteoarthritis. I will prescribe her Celebrex. She will use Prilosec. Patient has history of Tam's esophagus, so I told her need to use this sparingly. We will start the patient on Fosamax for osteoporosis. We discussed risks, benefits, side effects of medication. She has pending follow-up with despatching and receiving clerk. I do not think it is worthwhile to initiate gout prophylactic medication. If she should start experiencing circumferential erythema, warmth, I would recommend aspiration to prove or disprove diagnosis of gout. No orders of the defined types were placed in this encounter. Return if symptoms worsen or fail to improve. Efrem Vee, DO Note: To expedite correspondence, this note was generated by [employer] voice recognition software. Some grammatical or spelling errors may occur using the system. documented in this encounter* Efrem Vee DO - 02/17/2019 10:26 AM EDT [facility] Patient Name: Richie Johnson Date: 02/17/19 Patient : 1945 Patient Age: 73 y.o. CC: Chief Complaint Patient presents with Sore Throat ST and chest congestion x1 week SUBJECTIVE: The patient presents complaining of a 7 day history of worsening nasal congestion and drainage. Thepatient describes the nasal drainage has been consistent. The patient also complains of sinus pressure and headaches. The patient has also had a cough. The cough is described as productive. The patient denies any fevers, chills, or night sweats. The patient denies shortness of breath, chest pain, chest tightness, or wheezing. The patient denies any nausea or vomiting. The patient has tried OTC meds without significant relief. The constitutional, ENT, cardiovascular, respiratory review of systems was negative unless otherwise noted. The patient s past medical history, allergies, medication list, social history, and family medical history were documented, updated, and reviewed in the chart. OBJECTIVE BP 133/61 Pulse (!) 59 Temp 97.5 F (36.4 C) Resp 14 Wt 73.5 kg (162 lb) SpO2 99% BMI 25.37 kg/m Vitals: documented and reviewed in the chart. General: Alert, cooperative, well appearing, in no apparent distress. Head: Head is symmetric, normocephalic without evidence of trauma or deformity. Eyes: Pupils are equally round and reactive to light with accommodation. The extra-ocular movementsare intact. The lids are without swelling, lesions, or drainage. The conjunctiva is clear and noninjected. ENT: The septum is midline. The maxillary and frontal sinuses are tender to palpation. The nasal mucosa is pink with scant purulent drainage. The tympanic membranes and external auditory canal are normal bilaterally. The tongue and mucous membranes are pink and moist without lesions. The dentition is generally in good health. The pharynx is non-erythematous without exudates. There is no cervical lymphadenopathy. CV: The heart sounds are regular in rate and rhythm. There is a normal S1 and S2. There or no murmurs, rubs, or gallops. Distal pulses are intact and equal. Lungs: Inspiratory and expiratory efforts are full and unlabored. Lung sounds are clear and equal to auscultation throughout all lung donald without wheezing or rales. There are scattered rhonchi with transmitted upper airway breath sounds. Extremities: There is no clubbing, cyanosis, or edema. 2+ peripheral pulses. ASSESSMENT / PLAN 1. Acute non-recurrent maxillary sinusitis amoxicillin-clavulanate (Augmentin) 875-125 mg per tablet Patient is having worsening symptoms over 7 days. We will start Augmentin twice a day for 10 days. She may use [id number] cough and cold medication. I will see her back as needed if not improving. No orders of the defined types were placed in this encounter. Return if symptoms worsen or fail to improve. Efrem Vee DO documented in this encounter* Efrem Vee DO - 12/03/2018 10:36 AM EDT [facility] Patient Name: Richie Johnson Date: 12/03/18 Patient : 1945 Patient Age: 73 y.o. CC: Chief Complaint Patient presents with Right Foot - Pain Pain x 3 wks. No known trauma/injury SUBJECTIVE The patient presents for evaluation of right big toe pain. She states it happened about 3 weeks ago. It just all of a sudden got very swollen and red and warm to the touch. There was no history of trauma. She did see orthopedic provider, Dr. Pearl. She has been seeing him for her humerus fracture which is coming along well. She states she mentioned it to him and she was placed on a Medrol Dosepak. She states the pain is still there but the redness and swelling has improved. No imaging is been done. She has no history of gout. She does have a history of bunion on the left foot for which she had surgery on. This does not feel similar to her bunion pain. The constitutional, musculoskeletal, marcus rological review of systems was negative unless otherwise noted. The patient s past medical history, allergies, medication list, social history, and family medical history were documented, updated, and reviewed in the chart. OBJECTIVE Vitals: BP 120/72 Pulse 64 Resp 16 Wt 74.4 kg (164 lb) BMI 26.47 kg/m . General: alert, cooperative, well appearing, in no apparent distress. Musculoskeletal: The patient s gait is normal. Right foot: Inspection of the bilateral foot demonstrates there is an obvious hallux valgus deformity. There is no swelling or erythema. The bilateral foot is stable without evidence of dislocation. There is normal range of motion of the foot bilaterally except for decreased range of motion throughthe 1st MTP. The bilateral ankle demonstrates normal muscle tone with 5/5 strength with ankle dorsiflexion, plantar flexion, eversion. Palpation of the bilateral foot demonstrates tenderness over themedial aspect of the 1st MTP. There is an intact distal neurovascular examination. Skin: The skin is without jaundice. It is intact without pathologic lesions, erythema, vesicles, discharge, or rash. Palpation of the skin is normal without induration, subcutaneous nodules, or tightening. Extremities: There is no clubbing, cyanosis, or edema. 2+ peripheral pulses. SNOMED CT(R) 1. 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, right TOE JOINT RIGID XR Toe(s) Right 2+ Views Uric acid CBC and Differential Sedimentation rate, automated CRP, Inflammation colchicine 0.6 mg tablet 2. Osteoporosis, unspecified osteoporosis type, unspecified pathological fracture presence OSTEOPOROSIS XR Bone Density DEXA Axial We discussed the natural course and history of this problem. Patient has obvious bunion deformity on the right foot today. This could be causing her pain symptoms. However, it does not typically havesignificant warmth, erythema and swelling. That is how she describes it a couple weeks ago. I wouldlike to get an x-ray, uric acid level and other blood work today. We will give her prescription forcolchicine to try for pain relief symptoms. I will call her with results. Patient understands and agrees. In addition, patient states she has a history of low bone density on previous testing. She states this was years ago. She states nothing ever happened with it she was not placed on any medication. She is not sure what she is supposed to do about that. I did look for records and I cannot find any janeth previous DEXA. I would like to repeat 1 and see if she has osteoporosis. Patient understands and agrees. Orders Placed This Encounter Procedures XR Toe(s) Right 2+ Views Standing Status: Future Number of Occurrences: 1 Standing Expiration Date: 12/04/2019 Scheduling Instructions: OK to schedule at [facility] and all ambulatory sites Fax script to: [facility]- [phone] [facility]-[phone] [phone] [facility] - [phone] Order Specific Question: Reason for Exam: Answer: right toe pain, MTP XR Bone Density DEXA Axial Standing Status: Future Standing Expiration Date: 12/04/2019 Order Specific Question: Reason for Exam: Answer: screening osteoporosis Uric acid Standing Status: Future Standing Expiration Date: 12/04/2019 CBC and Differential Standing Status: Future Standing Expiration Date: 12/04/2019 Sedimentation rate, automated Standing Status: Future Standing Expiration Date: 12/04/2019 CRP, Inflammation Standing Status: Future Standing Expiration Date: 12/04/2019 Return if symptoms worsen or fail to improve. Efrem Vee DO documented in this encounter* Efrem Vee DO - 09/29/2019 1:33 PM EDT Associated Order(s): Tendon Sheath/Ligament Injection: Flexor Tendon Sheath Post-Procedure Diagnose(s): Trigger middle finger of right hand [facility] Patient Name: Richie Johnson Date: 09/29/19 Patient : 1945 Patient Age: 74 y.o. CC: Chief Complaint Patient presents with Right Middle Finger - Pain SUBJECTIVE: Patient presents for follow up on suspected right middle finger trigger finger. Is been going on about 2 weeks. It is locked to the point she has had to physically straighten it. She is right-hand dominant. Had similar issue on her left thumb years ago that she had surgery. She had been wearing a splint on this finger without any benefit. The constitutional, musculoskeletal, neurological review of systems was negative unless otherwise noted. The patient s past medical history, allergies, medication list, social history, and family medical history were documented, updated, and reviewed in the chart. OBJECTIVE Vitals: BP (!) 166/67 Pulse 61 Temp 97.5 F (36.4 C) General: alert, cooperative, well appearing, in no apparent distress. Musculoskeletal: The patient s gait is normal. Right middle finger: Inspection of the right middle finger demonstrates there is no obvious deformity or swelling. The finger is stable without evidence of dislocation. There is normal range of motion of the right middle finger. The right middle finger demonstrates normal muscle tone with 5/5 strength. There is no bony tenderness. Triggering and tenderness noted at the A1 loly. There is an intact distal neurovascular examination. Skin: The skin is without jaundice. It is intact without pathologic lesions, erythema, vesicles, discharge, or rash. Palpation of the skin is normal without induration, subcutaneous nodules, or tightening. Extremities: There is no clubbing, cyanosis, or edema. 2+ peripheral pulses. Tendon Sheath/Ligament Injection: Flexor Tendon Sheath Performed by: Efrem Vee DO Authorized by: Efrem Vee DO Consent given by: Patient Time out: Immediately prior to the procedure a time out was called Timeout performed at: 09/29/2019 1:34 PM Physician or proceduralist has discussed critical or nonroutine steps, procedure duration and anticipated blood loss: Yes Indications: Pain Location: Long finger Laterality: Right Prep: patient was prepped and draped in usual sterile fashion Needle size: 25 G Approach: Volar Anesthetic used: Ethyl Chloride and Lidocaine 1% Anesthetic amount (mL): 1 Patient tolerance: Patient tolerated the procedure well with no immediate complications ASSESSMENT: 1. Trigger middle finger of right hand dexamethasone (DECADRON) injection 5 mg Tendon Sheath/Ligament Injection We discussed the risks, benefits of injection. Patient opted to proceed. Tolerated well without complication. She will return if not improving. Orders Placed This Encounter Procedures Tendon Sheath/Ligament Injection This order was created via procedure documentation Return if symptoms worsen or fail to improve. Efrem Vee DO documented in this encounter* Alfonzo Pearl DO - 10/04/2018 3:03 PM EDT Subjective: Patient ID: Richie Johnson is a 73 y.o. female. HPI: Richie is seen in the office today for evaluation of her right shoulder which she injured whenbrade fell over her dog at home September 27, 2018. She had persistent pain. She was seen in the emergency room where she was evaluated. X- rays revealed a fracture of her proximal humerus. She was placed in a sling and swath. She is seen in the office today. She continues to complain of pain but it is tolerable with pain medication. She has no numbness or tingling. The following portions of the patient's history were reviewed and updated as appropriate: allergies, current medications, past family history, past medical history, past social history, past surgicalhistory and problem list. Review of Systems Patient Active Problem List Diagnosis SNOMED CT(R) Fall FALL Closed 4-part fracture of proximal humerus CLOSED FRACTURE PROXIMAL HUMERUS, FOUR PART Objective: Physical Exam reveals alert oriented very pleasant 73-year-old female. She has moderate swelling ofher shoulder. She has ecchymosis of the upper arm. Her skin is otherwise clear. Her neurovascular status is intact. Ortho Exam Neurologic Exam EXAMINATION: XR SHOULDER RIGHT 2+ VIEWS (STANDARD); XR HUMERUS RIGHT 2+ VIEWS (STANDARD) 09/27/2018. HISTORY: ORDERING SYSTEM PROVIDED HISTORY: tenderness right shoulder, fall, TECHNOLOGIST PROVIDED HISTORY: Reason for exam: fall, right shoulder pain Injury/Trauma Cancer History: Surgery, RadiationHistory: Encounter Type: Initial Mechanism of injury: fall, right shoulder pain FINDINGS: Internal rotation, external rotation and scapular Y-views right shoulder as well as AP and lateral views of the right humerus with a total of 5 images were obtained. Overall the bony mineralization is diminished throughout. Acute comminuted overlapping fracture deformity associated with the right humeral head and neck noted without dislocation. Distally the humerus is intact. Mild arthritic changes involving the acromioclavicular and glenohumeral articulations suspected. Multilevel degenerativechanges of the lower cervical, thoracic and upper lumbar spine are likely present. Visualized portions of the right ribs are intact. IMPRESSION 1. Acute comminuted intraarticular overlapping fracture centered at the right humeral head and neckwithout dislocation. 2. 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 Generalized osteopenia. 3. Distal right humerus is intact. SKS/jossie Assessment/Plan: SNOMED CT(R) 1. Closed 4-part fracture of proximal end of right humerus, initial encounter CLOSED FRACTURE PROXIMAL HUMERUS, FOUR PART No orders of the defined types were placed in this encounter. I discussed the options of treatment. I will see her in the office in 3 weeks for recheck. An x-raywill be obtained and we will institute some pendulum and perhaps some wall climbing exercises. Mostlikely she will not regain full range of motion. She did not want to proceed with surgical intervention. She does have an impacted essentially nondisplaced four-part fracture of the proximal humerus.She can remove the sling and swath to begin some flexion-extension exercises of the elbow. She willbe seen at 6 weeks post injury and x-ray will be obtained in physical therapy most likely will be instituted. Alfonzo Pearl DO * Navjot Fall MA - 10/04/2018 2:25 PM EDT Review of Systems Constitutional:negative HENT:negative Eyes:negative Respiratory:negative Cardiovascular:negative Gastrointestinal:negative Endocrine:negative Skin:negative Neurological:negative Hematological:negative Psychiatric/Behavioral: negative documented in this encounter* Alfonzo Pearl DO - 10/25/2018 10:29 AM EDT Subjective: Patient ID: Richie Johnson is a 73 y.o. female. HPI: Richie is seen in the office today for recheck of her right proximal humerus fracture. She is doing much better at this time. Her pain is much more tolerable. She continues with the sling. She has pain with movement. She has no numbness or tingling. The ecchymosis is resolving in her upper arm. The following portions of the patient's history were reviewed and updated as appropriate: allergies, current medications, past family history, past medical history, past social history, past surgicalhistory and problem list. Review of Systems Patient Active Problem List Diagnosis SNOMED CT(R) Fall FALL Closed 4-part fracture of proximal humerus CLOSED FRACTURE PROXIMAL HUMERUS, FOUR PART Objective: Physical Exam reveals alert oriented very pleasant 73-year-old female. The ecchymosis in the upper arm is resolving. Her neurovascular status is intact. She has good range of motion of her elbow and her fingers. Ortho Exam Neurologic Exam 2 views of the right shoulder obtained on today's visit. The proximal humerus fracture is unchangedin position. There is not a lot of callus at this point but overall position appears to be stable. Assessment/Plan: SNOMED CT(R) 1. Closed 4-part fracture of proximal end of right humerus with routine healing, subsequent encounter CLOSED FRACTURE PROXIMAL HUMERUS, FOUR PART No orders of the defined types were placed in this encounter. She was instructed in gentle pendulum and wall climbing exercises. She is to continue with the simple sling. I will see her in the office in 3 weeks for recheck. An x-ray will be obtained and most likely she will be referred to physical therapy. She is aware that she will not regain full range of motion. The goal is to obtain a functional range of motion and sufficient strength. Alfonzo Pearl DO * Navjot Fall MA - 10/25/2018 9:50 AM EDT Review of Systems Constitutional:negative HENT:negative Eyes:negative Respiratory:negative Cardiovascular:negative Gastrointestinal:negative Endocrine:negative Skin:negative Neurological:negative Hematological:negative Psychiatric/Behavioral: negative documented in this encounter* Efrem Vee DO - 07/29/2018 1:48 PM EDT [facility] Patient Name: Richie Johnson Date: 07/29/18 Patient : 1945 Patient Age: 73 y.o. CC: Chief Complaint Patient presents with Right Hip - Pain Left Hip - Pain Neck - Pain Other no range of motion of the neck, and had some falls and thats where the hip pain is from SUBJECTIVE: Patient presents for complaining of worsening neck pain. Patient was under the care of a neurosurgeon through [facility]. Dr. Pascual. According to the patient, they were told that surgery would not be beneficial. However improve using her records, it does seem like he recommended a C4-6 cervical laminectomy. He did make mention that he did not think a cervical fusion was appropriate. There seems to be miscommunication between the surgeon and the patient. At any rate, patient is using topical medication, ibuprofen, Tylenol without significant benefit. The pain is sometimes unbearable. Her previous primary care doctor would sometimes prescribe hydrocodone. She would take that sparingly may be once or twice a week when it was significant. She found that helpful. Patient also has chronic low back pain under the care of pain management. It sounds like they have done epidural injections with some benefit in her lower back. Surgery was not recommended for her lower back. She has not asked her pain management doctor about injections in her neck. The remaining constitutional, musculoskeletal, neurological system review of systems was negative unless otherwise noted. The patient s past medical history, allergies, medication list, social history, and family medical history were documented, updated, and reviewed in the chart. OBJECTIVE There were no vitals taken for this visit. General: alert, cooperative, well appearing, in no apparent distress. Musculoskeletal: The patient s gait is normal. Neck: There is significantly limited range of motion. Strength is 5/5 in the upper extremity bilaterally. DTR s are 2+/4 in the upper extremity bilaterally. There is a negative Spurling s maneuver. There is no bony tenderness. There is no tenderness to palpation in the paraspinal regions. Skin: The skin is without jaundice. It is intact without pathologic lesions, erythema, vesicles, discharge, or rash. Palpation of the skin is normal without induration, subcutaneous nodules, or tightening. Extremities: There is no clubbing, cyanosis, or edema. 2+ peripheral pulses. ASSESSMENT / PLAN SNOMED CT(R) 1. Cervical stenosis of spine SPINAL STENOSIS IN CERVICAL REGION HYDROcodone- acetaminophen (NORCO) 5-325 mg per tablet Ambulatory referral to Neurosurgery 2. Chronic low back pain, unspecified back pain laterality, with sciatica presence unspecified CHRONIC LOW BACK PAIN HYDROcodone-acetaminophen (NORCO) 5- 325 mg per tablet I reviewed previous records through [facility]. It does seem like previous neurosurgeon did recommend laminectomy. I think there is miscommunication with the patient. She was under the impression that no surgery was advised. I will treat her with hydrocodone as needed for severe breakthrough pain. Narc'scheck was done today without aberrant behavior. She is also going to check with her pain managementprovider and see if there is any injections that would be beneficial for her neck. She would like asecond opinion with a different neurosurgeon. I will place referral. Orders Placed This Encounter Procedures Ambulatory referral to Neurosurgery Standing Status: Future Standing Expiration Date: 07/29/2019 Referral Priority: Routine Referral Type: Evaluate and Treat Number of Visits Requested: 1 Return if symptoms worsen or fail to improve. Efrem Vee DO Note: To expedite correspondence, this note was generated by [employer] voice recognition software. Some grammatical or spelling errors may occur using the system. in this encounter Assessments Diagnosis Polyp of colon, unspecified part of colon, unspecified type- Primary Anxiety and depression Chronic neck pain Cervicalgia Chronic bilateral low back pain without sciatica Diagnosis Closed fracture of proximal end of right humerus, unspecified fracture morphology, initial encounter- Primary Pain in joint of right shoulder Fall, subsequent encounter Acute pain of right shoulder Depression, unspecified depression type Diagnosis Fall, initial encounter- Primary Other closed displaced fracture of proximal end of right humerus, initial encounter Diagnosis Closed 4-part fracture of proximal end of right humerus with routine healing, subsequent encounter- Primary Diagnosis Closed 4-part fracture of proximal end of right humerus with routine healing, subsequent encounter- Primary Diagnosis Atypical nevus Benign neoplasm of skin, site unspecified Osteoporosis, unspecified osteoporosis type, unspecified pathological fracture presence At risk for falls Personal history of fall Diagnosis Trigger middle finger of right hand Diagnosis Preop examination Unspecified pre-operative examination Trigger middle finger of right hand Left ventricular hypertrophy Cardiomegaly Diagnosis Left ventricular hypertrophy Cardiomegaly Diagnosis Osteoarthritis of first metatarsophalangeal (MTP) joint of right foot- Primary Osteoporosis, unspecified osteoporosis type, unspecified pathological fracture presence Diagnosis Acute non-recurrent maxillary sinusitis- Primary Diagnosis Osteoporosis, unspecified osteoporosis type, unspecified pathological fracture presence Diagnosis 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, right Diagnosis Acute post-operative pain- Primary Diagnosis 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, right- Primary Osteoporosis, unspecified osteoporosis type, unspecified pathological fracture presence Diagnosis Trigger middle finger of right hand Diagnosis Closed 4-part fracture of proximal end of right humerus, initial encounter Diagnosis Cervical stenosis of spine- Primary Spinal stenosis in cervical region Chronic low back pain, unspecified back pain laterality, with sciatica presence unspecified Hospital Course * Zhao Medley, CONSUMER AFFAIRS MANAGER - 09/28/2018 3:37 PM EDT [facility] [place] SUMMARY Richie Johnson Admitted: 09/27/2018 Discharge Date: 09/28/18 PCP Handoff Recommended Outpatient Testing: OP ortho surgery follow-up Results Pending At Discharge: None Clinical Summary Patient is a 73 y.o. female with PMHx of osteoporosis, anxiety, depression who presented to [facility] on 09/27/2018 with chief complaint of right shoulder pain after a fall at home. Acute nondisplaced right humerus fracture 2/2 fall at home - Osteopenia likely contributing as well - Tripped over her dog and feel at home - X-ray L shoulder with acute comminuted overlapping intraarticular fracture of the right humeral head and neck without dislocation. Generalized osteopenia. - Seen by ortho surgery. Sling in place. No plans for surgery at this time. - Pain management - OP Ortho surgery follow Depression and anxiety - Resume home celeza and citalopram Discharge Medications Current Discharge Medication List START taking these medications Details meloxicam (MOBIC) 7.5 MG tablet Take 1 (one) tablet (7.5 mg total) by mouth daily . Qty: 30 tablet, Refills: 0 oxyCODONE-acetaminophen (PERCOCET) 7.5-325 mg per tablet Take 1 (one) tablet by mouth every 6 (six)hours as needed (Days supply per fill: 7) . Qty: 30 tablet, Refills: 0 Associated Diagnoses: Closed fracture of proximal end of right humerus, unspecified fracture morphology, initial encounter CONTINUE these medications which have NOT CHANGED Details buPROPion (WELLBUTRIN) 75 MG tablet Take 75 mg by mouth 2 (two) times a day . Refills: 1 citalopram (CELEXA) 20 MG tablet Take 1 (one) tablet (20 mg total) by mouth daily . Qty: 90 tablet, Refills: 1 glucosamine-chondroitin 250-200 mg Tab 2 Unspecified . omeprazole (PRILOSEC) 20 MG capsule Take 20 mg by mouth 2 (two) times a day . Refills: 3 oxybutynin (DITROPAN) 5 MG tablet one po qhs Physician(s) Follow Up: Alfonzo Pearl DO [address] [facility] [address] [phone] Schedule an appointment as soon as possible for a visit in 1 week(s) Please call to schedule a post hospital follow-up appointment Condition at Discharge: Stable Disposition: Home Patient instructions, including activity, were given to the patient/family at discharge. Time spent on discharge: > 30 minutes Completed by: Zhao Medley on 09/28/18, 3:37 PM documented in this encounter Advance Directives No Advanced Directives Records FoundDocuments on File Type Date Recorded Patient Construction Tech Expl anation Advance Directives and Livin g Will 09/27/2018 7:41 AM Latest Code Status on File Code Status Date Activated Date Inactivated Comments Full Code - Unverified 09/27/2018 8:25 AM Documents on File Type Date Recorded Patient Construction Tech Expl anation Advance Directives and Livin g Will 09/27/2018 7:41 AM Latest Code Status on File Code Status Date Activated Date Inactivated Comments Full Code - Unverified 09/27/2018 8:25 AM Documents on File Type Date Recorded Patient Construction Tech Expl anation Advance Directives and Livin g Will 12/16/2018 10:18 AM Documents on File Type Date Recorded Patient Construction Tech Expl anation Advance Directives and Livin g Will 03/15/2019 4:00 PM See Media Documents on File Type Date Recorded Patient Construction Tech Expl anation Advance Directives and Livin g Will 03/15/2019 4:00 PM See Media Documents on File Type Date Recorded Patient Construction Tech Expl anation Advance Directives and Livin g Will 01/05/2020 12:41 PM See Media Latest Code Status on File Code Status Date Activated Date Inactivated Comments Full Code - Unverified 09/27/2018 8:25 AM 12/29/2019 5:2 7 AM Documents on File Type Date Recorded Patient Construction Tech Expl anation Advance Directives and Livin g Will 01/05/2020 12:41 PM See Media Latest Code Status on File Code Status Date Activated Date Inactivated Comments Full Code - Unverified 09/27/2018 8:25 AM 12/29/2019 5:2 7 AM Documents on File Type Date Recorded Patient Construction Tech Expl anation Advance Directives and Livin g Will 12/16/2018 10:18 AM Documents on File Type Date Recorded Patient Construction Tech Expl anation Advance Directives and Livin g Will 12/03/2018 10:18 AM Documents on File Type Date Recorded Patient Construction Tech Expl anation Advance Directives and Livin g Will 12/29/2019 5:38 AM See Media Documents on File Type Date Recorded Patient Construction Tech Expl anation Advance Directives and Livin g Will 12/03/2018 10:18 AM Documents on File Type Date Recorded Patient Construction Tech Expl anation Advance Directives and Livin g Will 01/25/2021 12:41 PM See Media Documents on File Type Date Recorded Patient Construction Tech Expl anation Advance Directives and Livin g Will 01/25/2021 12:41 PM See Media Documents on File Type Date Recorded Patient Construction Tech Expl anation Advance Directives and Livin g Will 05/29/2021 7:42 PM See Media Latest Code Status on File Code Status Date Activated Date Inactivated Comments Full Code - Unverified 05/29/2021 10:56 PM 05/30/2021 1: 47 PM Full Code - Unverified 09/27/2018 8:25 AM 12/29/2019 5:2 7 AM Latest Code Status on File Code Status Date Activated Date Inactivated Comments Full Code - Unverified 05/29/2021 10:56 PM 05/30/2021 1: 47 PM Code Status History Code Status Date Activated Date Inactivated Comments Full Code - Unverified 09/27/2018 8:25 AM 12/29/2019 5:2 7 AM Reason for Referral Status Reason Specialty Diagnoses / Procedures Referred By Contact Referred To Contact Authorized Rehabilitation Diagnoses Closed 4-part fracture of proximal end of right humerus with routine healing, subsequent encounter Alfonzo Pearl, DO [address] [facility] [address] [place] [address] Status Reason Specialty Diagnoses / Procedures Referred By Contact Referred To Contact Authorized Dermatology Diagnoses Atypical nevus Kadie, Efrem Fisher, DO [address] [place] [address] Lu Baker, DO [address] [place] [address] Status Reason Specialty Diagnoses / Procedures Referre d By Contact Referred To Contact Closed Cardiology Diagnoses Left ventricular hypertrophy Procedures Echocardiogram complete Kadie, Efrem Mackenzie, DO [address] [place] [address] Status Reason Specialty Diagnoses / Procedures Re ferred By Contact Referred To Contact Authorized Radiology Diagnoses Osteoporosis, unspecified osteoporosis type, unspecified pathological fracture presence Procedures XR Bone Density DEXA Axial Franki Veeten Mackenzie, DO [address] [place] [address] Status Reason Specialty Diagnoses / Procedures Referred By Contact Referred To Contact Pending Review Neurosurgery Diagnoses Cervical stenosis of spine Kadie, Efrem Mackenzie, DO [address] [place] [address] Specialty Diagnoses / Procedures Referred By Contac t Referred To Contact Obstetrics and Gynecology Diagnoses Vaginal discharge Kadie, Efrem Mackenzie, DO [address] [place] [address] [facility] [address] [place] [address] Referral ID Status Reason Start Date Expiration Date V isits Requested Visits Authorized [id number] Pending Review 05/06/2021 05/06/2022 1 1 Specialty Diagnoses / Procedures Referred By Contac t Referred To Contact Radiology Diagnoses Encounter for screening for malignant neoplasm of breast, unspecified screening modality Procedures Mammography Screening Abdoul Bilateral Kadie, Efrem Mackenzie, DO [address] [place] [address] Referral ID Status Reason Start Date Expiration Date V isits Requested Visits Authorized [id number] Authorized 05/06/2021 05/06/2022 1 1 Summary Purpose Family History No Family History Records FoundNo Family History Records FoundNo Family History Records FoundNo Family History Records FoundNo Family History Records FoundNo Family History Records Found Discharge Instructions * Instructions* Sara Fiorebeth, [facility] - 12/28/2019 GENERAL POST-OPERATIVE PATIENT INSTRUCTIONS ANESTHESIA PRECAUTIONS: A responsible adult must stay with you for at least 24 hours after surgery. You may feel light headed,, dizzy, or nauseated during this time. Do not operate a vehicle (car, bike, motorcycle, student services representative) machinery or power tools. Do not make any important decisions or drink any alcoholic beverages for 24 hours. Children should remain quiet today. No riding of bicycles, motorcycles, skateboards, playing on swings etc. Drink plenty of fluids today. Eat a light meal. Resume regular diet tomorrow. FOLLOW-UP: Please make an appointment with your physician for follow-up. Call your physician immediately if you have any fevers greater than 101, drainage from your wound that is not clear or looks infected, persistent bleeding, increasing abdominal pain, problems urinating, or persistent nausea/vomiting. DIET: You may eat any foods that you can tolerate. It is a good idea to eat a high fiber diet and take in plenty of fluids to prevent constipation. If you do become constipated you may want to take amild laxative or take ducolax tablets on a daily basis until your bowel habits are regular. Constipation can be very uncomfortable, along with straining, after recent surgery. ACTIVITY: You are encouraged to cough and deep breath or use your incentive spirometer if you were given one, every 15-30 minutes when awake. This will help prevent respiratory complications and low grade fevers post-operatively if you had a general anesthetic. You are encouraged to walk and engagein light activity for the next two weeks. MEDICATIONS: Try to take narcotic medications and anti-inflammatory medications, such as ibuprofen,naprosyn, etc., with food. This will minimize stomach upset from the medication. Should you developnausea and vomiting from the pain medication, or develop a rash, please discontinue the medication and contact your physician. You should not drive, make important decisions, or operate machinery when taking narcotic pain medication. Do not take tylenol or tylenol products with narcotic medications. QUESTIONS: Please feel free to call your physician or the hospital operators teacher if you have any questions, and they will be glad to assist you. POST-OPERATIVE INSTRUCTIONS Hand/Wrist Post-Op Instructions A surgical procedure has just been performed on your hand/wrist/arm. Your comfort is important to us, which is why we ask you to follow these instructions carefully. These instructions are for your benefit in order to help minimize swelling and insure proper healing. 1. Minimal to moderate pain is expected. If pain is severe and is not relieved with medication, please call surgeon. Get prescription filled as soon as possible the day of your procedure. Take medications as directed. Narcotic pain medications can cause upset stomach and constipation. Eating small meals every 2 hours can help with stomach upset. Using an agqm-cxo-blzasnd laxative/stool softener is helpful with constipation. 2. Don't take any pain medication that your doctor has not recommended, and do not drink alcohol while taking pain medication. Do not drive while taking your pain medication. 3. Go directly home after surgery. 4. Incision Care - Keep your bandages clean and dry. Loosen elastic and/or gauze wrap if dressing becomes too tight. After 24 hours you can take a shower. Do not soak wound or get incision wet. You may take your dressing off 24-48 hours after surgery. Watch for bleeding. You may have a small amount of bleeding from your surgical incision. This is normal. Watch for signs of infection at the incision site (increased redness or swelling, pus, or fever over 101 degrees) and report them to your doctor. For further wound care instructions, please call your surgeon's office within the first 24 hours 5. Frequently apply ice. 20 minutes of every hour for 24 hours. 6. Activity - Take it easy the first day. You should rest on the day of surgery, other than gettingup for the bathroom or to get meals or medication. No heavy lifting with operative hand Elevate your hand on a pillow. For the first 2 days, keep your hand, wrist, and forearm elevated above the level of your heart. Continue to rest hand and avoid activities that cause pain or swelling. . Begin other activities as advised by your doctor. In most cases, you can start other activities a week after surgery, but talk with your doctor before you drive or do any sport or strenuous work. Continue to move fingers to help reduce swelling and maintain finger motion. Exercise/move fingers every hour to circulate blood flow. Drink plenty of fluids and eat a well-balanced diet. 7. You may drive after 24 hours and no longer taking narcotic pain medication. Nausea and Constipation Some pain medication can cause constipation. Take eazo-yvx-iaolvhq stool softeners or laxatives if needed. Drink at least 8 glasses of water each day. Some patients have some nausea from the general anesthesia. If so, start by drinking clear liquids and slowly add solid foods when you're ready. 8. Call surgeon immediately if any of the following occur: a) You bump or injure your hand/wrist severely b) You develop a sustained fever of 101 F c) Your dressing becomes too tight and/or your fingers turn blue/white d) Active drainage arises from the dressing e) You have nausea and vomiting that does not stop f) Your hand continues to swell or feel numb, fingers become bluish in color, and elevating your hand or loosening your bandage doesn't help. g) Symptoms of a blood clot in a deep vein (DVT), including: severe calf pain, chest pain, or shortness of breath. If these are severe, seek emergency care 9. Additional Instructions: Leave dressing in place until follow up appointment. If you have any questions or concerns, please call surgeons office listed in AVS Follow up appointment. Call the doctor's office as instructed to schedule an appointment. At the appointment the doctor will check your progress, set up a treatment program, and answer your questions. Write down your questions and bring the list with you to make sure you cover everything that's important to you. documented in this encounter Procedure Findings Note Patient: RICHIE JOHNSON Age: 74 years Sex: Female : 1945 Associated Diagnoses: None Author: Elvin Tello MD Preprocedure Diagnosis: 1) Low Back Pain 2) Lumbar Degenerative Disc Disease Postprocedure Diagnosis: Same Procedure: L5/S1 epidural steroid injection under fluoroscopic guidance Surgeon: Elvin Tello M.D. Anesthesia: Local Anticoagulation: None Indication: Ongoing pain in spite of conservative treatment options Procedure: After obtaining informed consent and marking the patient in the holding area, the patient was transported to the procedure room and placed in the prone position. Standard monitors were applied. A time-out was performed. The lumbosacral region was then sterilely prepped with Duraprep and draped in the normal sterile fashion. Under fluoroscopic guidance, the appropriate lumbar anatomy was identified and Lidocaine 2% was used for infiltration of the skin and subcutaneous tissues. An 18 gauge T (more content not included)... Additional Source Comments Reason for Visit (unrecogniz ed section and content) Reason Comments Shoulder Injury Status Reason Specialty Diagnoses / Procedures Referre d By Contact Referred To Contact Diagnoses Fall Reason Comments Pain Injury Reason Comments Fracture DOI 09/27/18 Follow-up DOI 09/27/18 Reason Comments Follow-up Reason Comments Nevus low back Medication Refill 2 meds that arent wo rking well Reason Comments Pre-op Exam Status Reason Specialty Diagnoses / Procedures Referre d By Contact Referred To Contact Closed Cardiology Diagnoses Left ventricular hypertrophy Procedures Echocardiogram complete Kadie, Efrem Mackenzie, DO [address] [place] [address] Reason Comments Follow-up gout Reason Comments Sore Throat ST and chest congest ion x1 week Status Reason Specialty Diagnoses / Procedures Referre d By Contact Referred To Contact Closed Radiology Diagnoses Osteoporosis, unspecified osteoporosis type, unspecified pathological fracture presence Procedures XR Bone Density DEXA Axial and Appendicular XR Bone Density DEXA Axial Kadie, Efrem Mackenzie, DO [address] [place] [address] Status Reason Specialty Diagnoses / Procedures Referre d By Contact Referred To Contact Diagnoses Trigger middle finger of right hand Trigger middle finger of right hand [M65.331] Procedures HI INCISE FINGER TENDON SHEATH RIGHT MIDDLE FINGER A1 LOLY RELEASE WITH TENOLYSIS Reason Comments Pain Pain x 3 wks. No kno wn trauma/injury Reason Comments Pain Reason Comments Fracture Reason Comments Other no range of motion o f the neck, and had some falls and thats where the hip pain is from Pain Reason Comments Medication Refill Reason Onset Date Comments Medication Refill 11/02/2020 Reason Onset Date Comments Medication Refill 04/22/2021 Reason Comments Medication Refill Reason Comments Flank Pain Specialty Diagnoses / Procedures Referred By Contac t Referred To Contact Diagnoses Flank pain Referral ID Status Reason Start Date Expiration Date Visits Re quested Visits Authorized [id number] 1 1 Reason Comments Vaginal Problem Specialty Diagnoses / Procedures Referred By Contac t Referred To Contact [employer] Diagnoses Burning discharge follow up Procedures Burning discharge follow up Anayeli Zarco APRN.CONSUMER AFFAIRS MANAGER [address] [place] [address] [employer] [address] [place] [address] Referral ID Status Reason Start Date Expiration Date V isits Requested Visits Authorized [id number] Closed OON/Self Pay Override 04/23/2023 05/03/2023 1 1 Maryjane Temple MD - 09/27/2018 8:25 AM Radha Gonzalez DO - 12/29/2019 6:45 AM Efrem Galloway DO - 12/12/2019 1:21 PM EDT H&P Notes (unrecognized sect ion and content) [facility] [place] [facility] Patient Name: Richie Johnson : 1945 MR #: [id number] Admit Date: [id number] Physicians: Efrem Vee DO (Family); No ref. provider found (Referring) Richie Johnson is a 73 y.o. female patient of Efrem Vee DO with history of depression who presented with R shoulder pain S/P fall R shoulder pain Right proximal humerus fracture Mechanical fall Patient states she tripped over her dog this morning and fell landing on her shoulder X-ray shoulder - Acute comminuted intraarticular overlapping fracture centered at the right humeral head and neck without dislocation. Generalized osteopenia Orthopedics consulted in the ED - Placed on RUE sling. Recommend to control pain and follow-up with orthopedics later this week. Pain control with sublingual oxycodone as needed Monitor Depression Resume home celeza and citalopram Admitted From: Home Medication Reconciliation: Verified Quality Measures DVT Prophylaxis:Lovenox Phillips Catheter: None Disposition Outpatient Testing: None Chief Complaint R shoulder pain History of Present Illness 73 y.o. female who presents to with right shoulder pain x 1 day. Patient states she tripped over her dog this morning and fell landing on her shoulder. Patient denies loss of consciousness, weakness, chest pain, shortness of breath, fever. Past Medical History Past Medical History: Diagnosis Date Anxiety Colon polyp Depression Osteoporosis Urinary incontinence Past Surgical History Past Surgical History: Procedure Laterality Date CARPEL TUNNEL SECTION, CLASSIC 1971 CHOLECYSTECTOMY WISDOM TOOTH EXTRACTION Family History Family History Problem Relation Age of Onset Cancer Father 42 colon Diabetes Sister Diabetes Brother Social History Social History Tobacco Use Smoking Status Former Smoker Packs/day: 0.50 Years: 10.00 Pack years: 5.00 Last attempt to quit: 1984 Years since quittin.4 Smokeless Tobacco Never Used Social History Substance and Sexual Activity Alcohol Use No Social History Substance and Sexual Activity Drug Use No Allergy Information I have reviewed the patient's allergies. Patient has no known allergies. Home Medications Home medications were reviewed. Review Of Systems All systems have been reviewed and are negative except as noted in HPI or below Physical Examination BP (!) 176/71 (BP Location: Left arm, Patient Position: Sitting) Pulse (!) 56 Temp 97.5 F (36.4 C) Resp 14 Ht 5' 6 Wt 73.5 kg (162 lb) SpO2 99% BMI 26.15 kg/m General Appearance: alert, well appearing, and in no acute distress. HEENT: Head- normocephalic; Eyes- PERRLA, EOMI; Ears- external auditory canals clear, hearing intact; Nose- no nasal discharge; Throat- oropharynx normal Cardiovascular: regular rate and rhythm; normal S1, S2; no murmurs, rubs, clicks or gallops; no peripheral edema. Respiratory: lungs clear to auscultation; without wheezes, rales or rhonchi Abdomen: soft, non-tender, non-distended; positive bowel sounds Neurological: alert, oriented x 3, normal speech; no focal findings or movement disorder noted Musculoskeletal: Sling over R shoulder Skin: normal coloration, texture and turgor; no lesions or eruptions Psych: normal mood and affect Laboratory and Additional Data Reviewed Laboratory 09/27/18 6:22 PM Radiology 09/27/18 6:22 PM Medications 09/27/18 6:22 PM Transcriptions 09/27/18 6:22 PM documented in this encounter INTERVAL HISTORY AND PHYSICAL Patient Name: Richie Johnson Admit Date: MR #: [id number] : 1945 The H&P has been reviewed and the patient has been examined. I concur with the findings of the H&P. There are no significant changes. It is appropriate to proceed with the planned procedure. Radha Baker DO 12/29/2019 6:45 AM [facility] Patient Name: Richie Johnson Date: 12/12/19 Patient : 1945 Patient Age: 74 y.o. CC: Chief Complaint Patient presents with Pre-op Exam SUBJECTIVE Patient presents for pre-operative evaluation at the request of Dr. Radha Baker. Patient is undergoing trigger finger release for right middle trigger finger. The surgery is to take place on 12/29/19 at [facility]. The patient denies any chest pain, shortness of breath, syncope, near-syncope. Patient denies any symptoms consistent with sleep apnea. Patient is able to complete > 4 METs without complication. Patient denies any personal or family history of bleeding or clotting disorders. Patient denies any personal history of previous adverse reactions to anesthesia. Review of Systems: CONSTITUTIONAL: No weight loss, fever, chills, weakness or fatigue. HEENT: Eyes: No visual loss, blurred vision, double vision or yellow sclerae. Ears, Nose, Throat: No hearing loss, sneezing, congestion, runny nose or sore throat. SKIN: No rash or itching. CARDIOVASCULAR: No chest pain, chest pressure or chest discomfort. No palpitations or edema. RESPIRATORY: No shortness of breath, cough or sputum. GASTROINTESTINAL: No anorexia, nausea, vomiting or diarrhea. No abdominal pain or blood. GENITOURINARY: No dysuria, discharge or bleeding. NEUROLOGICAL: No headache, dizziness, syncope, paralysis, ataxia, numbness or tingling in the extremities. No change in bowel or bladder control. MUSCULOSKELETAL: No muscle, back pain, joint pain or stiffness. HEMATOLOGIC: No anemia, bleeding or bruising. LYMPHATICS: No enlarged nodes. No history of splenectomy. PSYCHIATRIC: No history of depression or anxiety. ENDOCRINOLOGIC: No reports of sweating, cold or heat intolerance. No polyuria or polydipsia. ALLERGIES: No history of asthma, hives, eczema or rhinitis. Past Medical History: Diagnosis Date Anxiety Tam's esophagus Colon polyp Depression Gout Osteoporosis Urinary incontinence Past Surgical History: Procedure Laterality Date CARPEL TUNNEL SECTION, CLASSIC 1971 CHOLECYSTECTOMY COLONOSCOPY 04/15/2017 3 polyps found - recommended repeat 1 year FRACTURE SURGERY Right 09/28/2018 UPPER GASTROINTESTINAL ENDOSCOPY 12/08/2016 recommend repeat 3 years WISDOM TOOTH EXTRACTION Current Outpatient Medications Medication Sig Dispense Refill acetaminophen (TYLENOL) 500 MG tablet Take 500 mg by mouth every 6 (six) hours as needed for pain . ascorbic acid (VITAMIN C ORAL) Take by mouth . b complex vitamins capsule Take 1 capsule by mouth daily . buPROPion (WELLBUTRIN) 75 MG tablet Take 75 mg by mouth 2 (two) times a day . 1 celecoxib (CeleBREX) 200 MG capsule Take 1 (one) capsule (200 mg total) by mouth daily . 30 capsule 11 citalopram (CELEXA) 20 MG tablet TAKE 1 TABLET BY MOUTH EVERY DAY 90 tablet 1 ibandronate (BONIVA) 150 mg tablet Take 1 tab every 30 days. Take in a.m. with a full glass of water on empty stomach. Take nothing by mouth or lie down for the next 60 min. 1 tablet 11 lactobacillus combo no.11 (Probiotic) 15 billion cell CpSP Take by mouth . omeprazole (PRILOSEC) 20 MG capsule TAKE 1 (ONE) CAPSULE (20 MG TOTAL) BY MOUTH 2 (TWO) TIMES A DAY . 180 capsule 3 oxybutynin (DITROPAN) 5 MG tablet one po qhs glucosamine-chondroitin 250-200 mg Tab 2 Unspecified . thgyveve-miqz-DT-calcium-mins 9 mg iron-400 mcg Tab Take 1 tablet by mouth daily . No current facility-administered medications for this visit. Allergies: no known allergies. Social History Socioeconomic History Marital status: Spouse name: Not on file Number of children: Not on file Years of education: Not on file Highest education level: Not on file Occupational History Not on file Social Needs Financial resource strain: Not on file Food insecurity Worry: Not on file Inability: Not on file Transportation needs Medical: Not on file Non-medical: Not on file Tobacco Use Smoking status: Former Smoker Packs/day: 0.50 Years: 10.00 Pack years: 5.00 Last attempt to quit: 1984 Years since quittin.6 Smokeless tobacco: Never Used Substance and Sexual Activity Alcohol use: No Drug use: No Sexual activity: Not on file Lifestyle Physical activity Days per week: Not on file Minutes per session: Not on file Stress: Not on file Relationships Social connections Talks on phone: Not on file Gets together: Not on file Attends gnosticist service: Not on file Active member of club or organization: Not on file Attends meetings of clubs or organizations: Not on file Relationship status: Not on file Other Topics Concern Not on file Social History Narrative Not on file Family History Problem Relation Age of Onset Cancer Father 42 colon Diabetes Sister Stroke Sister Diabetes Brother OBJECTIVE Vital Signs: BP 148/72 Pulse (!) 105 Temp 97.7 F (36.5 C) Resp (!) 24 Ht 5' 6 Wt 77.6 kg (171 lb) SpO2 92% BMI 27.60 kg/m General: Alert, cooperative, well appearing, in no apparent distress. Head: Head is symmetric, normocephalic without evidence of trauma or deformity. Eyes: Pupils are equally round and reactive to light with accommodation. The extra-ocular movements are intact. The lids are without swelling, lesions, or drainage. The conjunctiva is clear and noninjected. ENT: The external auditory canals are without swelling or drainage. The tympanic membranes are intact, clear, and non-erythematous. The septum is midline. The sinuses are nontender to palpation. The nasal mucosa is pink without drainage. The tongue and mucous membranes are pink and moist without lesions. The dentition is generally in good health. The pharynx is non-erythematous without exudates. Neck: There is normal range of motion. The thyroid is normal size without nodules or masses. There is no lymphadenopathy. CV: The heart sounds are regular in rate and rhythm. There is a normal S1 and S2. There or no murmurs, rubs, or gallops. Distal pulses are intact and equal. Lungs: Inspiratory and expiratory efforts are full and unlabored. Lung sounds are clear and equal to auscultation throughout all lung donald without wheezing, rales, or rhonchi. GI: The abdomen is soft and nontender. Bowel sounds are present in all 4 quadrants. There is no hepatosplenomegaly or other masses. There is no rebound or guarding. There is no CVA or suprapubic tenderness. Extremities: There is no clubbing, cyanosis, or edema. 2+ peripheral pulses. Neurological: Cranial nerves II-XII, cerebellar function and mental status are intact. There are no obvious focal sensory or motor deficits. DTR s are 2+/4 in the upper and lower extremity bilaterally. Strength is 5/5 in the upper and lower extremity bilaterally. Skin: The skin is without jaundice. It is intact without pathologic lesions, erythema, vesicles, discharge, or rash. ASSESSMENT / PLAN Problem List Items Addressed This Visit None Visit Diagnoses Preop examination - Primary Relevant Orders ECG 12 Lead (Completed) CBC and Differential Comprehensive Metabolic Panel Trigger middle finger of right hand Left ventricular hypertrophy Relevant Orders Echocardiogram complete This patient has no active cardiac conditions and would be considered at a low risk (less than 1%) for a major adverse cardiac event (MACE) based on a revised cardiac risk index (RCRI) score of 0. This patient has an activity level greater than 4 METS and would be considered at acceptable cardiac risk based on the 2014 [place] [employer] [employer] (ACC/AHA) guidelines on Perioperative Cardiovascular Evaluation and Management of Patients Undergoing Noncardiac Surgery. The patient is a low risk candidate undergoing moderate risk procedure. The patient is an acceptable candidate for this procedure. Patient will continue current medications. Patient will hold all NSAIDs one week prior to procedure. No further cardiac work-up is needed prior to surgery. She should have an ECHO done for EKG changes of LVH, but will not delay surgery. We can address at later time. Order will be placed for echo that she can get done at her convenience. We will get CBC and CMP prior to surgery, and pending these results, the patient will be cleared for this procedure. No follow-ups on file. Efrem Vee DO CC: Radha Baker DO Note: To expedite correspondence, this note was generated by [employer] voice recognition software. Some grammatical or spelling errors may occur using the system. documented in this encounter Mahogany Horton RN - 09/29/2018 9:45 AM Andree Riggs RN - 09/28/2018 3:37 PM Corey Carvalho OT - 09/28/2018 10:01 AM EDTWright, Lisa S, PT - 09/28/2018 8:45 AM EDT Consult Notes (unrecognized section and content) Associated Order(s): IP CONSULT TO CARE MANAGEMENT COMPLEX DISCHARGE Date: 09/29/2018 Time: 9:46 AM [facility] CM addressed therapy recommendations with patient on 09/28/18; please see [facility] progress note. Patient states she will purchase tub seat in the community as Medicare does not cover this cost. Per therapy note patient: Needs tub seat -- will be appropriate for therapy referral AFTER follow up appt with MD and once NWB status cleared. Defer to ortho for these recommendations. Patient Name: Richie Johnson Date of : 1945 Sex: Female Discharge Plan Shared UM/CC and RN Living Arrangements: Spouse/significant other Support Systems: Spouse/significant other Functional Status: Minimum assistance Type of Residence: Private residence Prior to Admission Home Care Services: No Regulatory Documentation: Observation letter Regulatory Documentation Status: Signed Signed: Spouse Discharge Readiness Expected Discharge Date: 09/29/18 [facility] Disposition D/C Disposition: Home Agency/Destination: Home Home Care Needs : None COMPLEX DISCHARGE Date: 09/28/2018 Time: 3:38 PM Patient Name: Richie Johnson Date of : 1945 Sex: Female Aware of consult from PT/OT. Patient wants to wait until seen and cleared by ortho before referral. We discussed tub seat recommendation - they will privately purchase. Discharge Plan Shared UM/CC and RN Living Arrangements: Spouse/significant other Support Systems: Spouse/significant other Functional Status: Minimum assistance Type of Residence: Private residence Prior to Admission Home Care Services: No Regulatory Documentation: Observation letter Regulatory Documentation Status: Signed Signed: Spouse Occupational Therapy OCCUPATIONAL THERAPY EVALUATION NOTE Skilled Therapy Needs After Discharge Anticipate Resolution of Current Assessment Limitations Including: Pain, Social Support Are Skilled Therapy Services Needed After Discharge: Yes(once cleared by physician/once NWB status cleared) Intensity of Skilled Therapy: 2-3 days per week Anticipated Duration of Skilled Therapy: Duration 10 - 30 days DME Recommendation: Tub seat DME Rationale: Patient's condition prevents him/her from accomplishing ADL without recommended equipment, Patient's condition creates an increased risk of safety hazard without recommended equipment Rehab Potential: Excellent, Good Outcomes Measures Prior Function Daily Activity: Raw Score: 24 Prior Function Daily Activity % Impaired: 0% functionally impaired AM-PAC Daily Activity: Raw Score: 15 AM-PAC Daily Activity % Impaired: 56.46% functionally impaired Occupational Therapy Assessment The patient presents with musculoskeletal impairment(s) in right upper extremity which create performance deficits including strength, range of motion, balance, dexterity, coordination, activity tolerance and pain, safety, and pain intolerance and knowledge deficit. These performance impairments limit participation in feeding, grooming, UE dressing, LE dressing, bathing, toileting, home management, meal preparation, hobbies and functional mobility in the chosen occupational roles of premorbid level individual, spouse, family member and community member. The patient's co morbidities do significantly affect patient performance in the above activities and roles. 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 During the assessment, significant modification of task was required and several treatment options were identified in the plan of care. This consultation required expanded review of the medical and therapy history. Activity Tolerance Activity Tolerance: Tolerates 10 - 20 min activity with multiple rests Therapy Precautions Orthotic Devices: Yes Upper Extremity: Sling, Right Weight Bearing Status: X RLE: Non Wt bearing General Rehab Precautions: Fall risk Cognition Overall Cognitive Status: Within Functional Limits Arousal/Alertness: Appropriate responses to stimuli Orientation Level: Oriented X4 Executive functioning: WFL Safety Judgment: Good awareness of safety precautions Problem Solving: Able to problem solve independently Attention: Attends to distracted environment Hearing Status: WFL Social Interaction: Cooperative, Appropriate ADL/IADL Feeding: Supervision(requires setup of items ) Grooming : Stand by assistance(from seated level, after setup) UE Bathing : Mod(simulated) LE Bathing : Min(simulated) UE Dressing: Max(simulated) LE Dressing: Mod(simulated) Bed Mobility Rolling: Stand by assistance Supine to Sit: (pt sitting EOB upon approach) Sit to Supine: Mod(requires assist for BLE, per pt due to increased pain) Functional Transfers Sit to Stand: Stand by assistance Home Living Type of Home: House Home Layout: Two level, Able to live on main level with bedroom/bathroom, Accessible, Other (Comment)(2 PETE with HR) Bathroom Shower/Tub: Walk-in shower Bathroom Toilet: Raised Bathroom Equipment: Grab bars in shower, Toilet raiser Bathroom Accessibility: Accessible Home Equipment: Other (Comment)(none) Prior Level of Function Level of [place]: Independent with ADLs and functional transfers, Independent with homemaking with ambulation Lives With: Spouse(24/11 for support) Receives Help From: Family Comments: pt reports independence with all aspects of mobility without the use of an AD; pt reports ~4 falls in the past 6 months d/t tripping Past Medical History: Diagnosis Date Anxiety Colon polyp Depression Osteoporosis Urinary incontinence Past Surgical History: Procedure Laterality Date CARPEL TUNNEL SECTION, CLASSIC 1971 CHOLECYSTECTOMY WISDOM TOOTH EXTRACTION OCCUPATIONAL THERAPY TREATMENT NOTE Total Treatment Time (Total Session Time): 20 Minutes Timed Code Treatment Minutes: 10 Minutes Self-Care / Home Management ADL/IADL Skilled Intervention: Pt would require increased level of assist with ADLs at this time due to increased pain level. Spouse present for all education, will be able to assist pt at home with ADLs as needed. Handout provided re: reminders of education reviewed in OT session. Extensive education provided re: review of how to don/doff sling, recommended positioning of R shoulder/RUE when at rest in bed as well as when performing ADLs without sling, recommendation of icing and functional movement of R hand for joint protection and swelling reduction, one handed/radha techniques for bathing and dressing, recommendations for types of clothing to wear, etc. Addressed questions from pt and spouse. Therapeutic Activities Bed Mobility Skilled Intervention: Reviewed education re: bed mobility, body mechanics and technique, recommendation of getting out of bed toward L. Functional Transfers Skilled Intervention: Education provided re: recommendation of need for shower chair at home, proper technique for getting in and out of car to minimize pain and for overall safety. For complete objective data, detailed plan of care and patient education refer to: OT EVALUATION flow sheet, OT TREATMENT flow sheet, patient Plan of Care, Plan of Care progress note, and Patient Education. This note stands as the current Discharge Summary upon patient discharge from the hospital or completion of Occupational Therapy Plan of Care. Physical Therapy PHYSICAL THERAPY EVALUATION NOTE Patient functionally cleared for discharge home with family when medically stable. If patient remains in the hospital, PT will continue to work on gait, balance, strengthening with current deficits. Skilled Therapy Needs After Discharge Anticipate Resolution of Current Assessment Limitations Including: Pain, Mechanical Barriers Are Skilled Therapy Services Needed After Discharge: Yes Intensity of Skilled Therapy: 2-3 days per week(when cleared by physican ) Anticipated Duration of Skilled Therapy: Duration 10 - 30 days DME Recommendation: None(spouse reports will get a cane) Outcomes Measures Prior Function - Basic Mobility Raw Score: 24 Points Prior Function - Basic Mobility % Impaired: 0% functionally impaired AM-PAC - Basic Mobility Raw Score: 18 Points AM-PAC - Basic Mobility % Impaired: 40.47% functionally impaired Physical Therapy Assessment History: The following factors influence the patient's participation in the PT plan of care: Personal factors: apprehension toward mobility and age Environmental factors: multi-level home and steps to enter home The following co-morbidities (from this admission or prior) influence the patient's participation in this plan of care: presents with fall with R humeral fracture, NWB RUE in sling, pain, falls, see [facility] for further details Number of History elements affecting this patient's PT plan of care: 3 or more Examination of Body Systems: The patient presents with impairments of strength, ROM, pain, functional endurance, balance, edema, edema, skin integrity. These impairments result in limitations of gait, functional transfers, stair- climbing and activity tolerance. These impairments result in restrictions of household mobility, community mobility and leisure activities. Number of Body Systems elements affecting this patient's PT plan of care: 4 or more Clinical Presentation: The patient's clinical presentation for this PT evaluation is evolving as evidenced by current PT documentation. Activity Tolerance Activity Tolerance: Tolerates 10 - 20 min activity with multiple rests Therapy Precautions Orthotic Devices: Yes Upper Extremity: Sling, Right Weight Bearing Status: X RLE: Non Wt bearing General Rehab Precautions: Fall risk Balance Sitting Balance - Static: Sits without support for more than 30 seconds Sitting Balance - Dynamic: Moves / returns trunkal midpoint more than 2 inches in all planes Standing Balance - Static: Stands without support for more than 30 seconds Standing Balance - Dynamic: (SBA with gait) Bed Mobility Rolling: Stand by assistance Supine to Sit: Stand by assistance Sit to Supine: (ended session seated EOB) Transfers Sit to Stand: Stand by assistance Pruner: 1 person, Gait belt Gait/Locomotion Gait Assistance: Stand by assistance Assistive Device: Other (Comment)(occasional LUE CHAIRMAN EMERITUS) Distance: 100 Feet Pattern: Step through, R decreased step length, L decreased step length, Forward flexed, Decreased trunk rotation, Antalgic Weight Bearing Status: Able to maintain, Non-weight bearing(to RUE in sling) Home Living Type of Home: House Home Layout: Two level, Able to live on main level with bedroom/bathroom, Accessible, Other (Comment)(2 PETE with HR) Bathroom Shower/Tub: Walk-in shower Bathroom Toilet: Raised Bathroom Equipment: Grab bars in shower, Toilet raiser Bathroom Accessibility: Accessible Home Equipment: Other (Comment)(none) Prior Level of Function Level of [place]: Independent with ADLs and functional transfers, Independent with homemaking with ambulation Lives With: Spouse(24/11 for support) Receives Help From: Family Comments: pt reports independence with all aspects of mobility without the use of an AD; pt reports ~4 falls in the past 6 months d/t tripping Past Medical History: Diagnosis Date Anxiety Colon polyp Depression Osteoporosis Urinary incontinence Past Surgical History: Procedure Laterality Date CARPEL TUNNEL SECTION, CLASSIC 1971 CHOLECYSTECTOMY WISDOM TOOTH EXTRACTION PHYSICAL THERAPY TREATMENT NOTE Total Treatment Time (Total Session Time): 33 Minutes Timed Code Treatment Minutes: 15 Minutes Neuromuscular Reeducation Skilled Intervention: patient demo mild lateral sway/instability with dynamic gait with occasional use of CHAIRMAN EMERITUS for LUE; pt demo no LOB or safety concerns this session Gait Training Skilled Intervention: patient required min verbal/tactile cues for facilitation of upright ext posturing, for gait speed with pt demo decreased gait velocity; pt educated on benefits of cane for LUE to facilitate increased safety, stability; spouse/pt verbalizing understanding Therapeutic Activities Bed Mobility Skilled Intervention: prior to transfer-adjusted sling to RUE; pt/spouse educated on sling management to facilitate proper fitting with activity; pt required min cues for sequencing bed mobility while maintaining WB restrictions to RUE with pt able to demonstrate without assistance from PT required Transfers Skilled Intervention: STS from higher bed, lower commode with pt requiring cues for safe hand placement on LUE, cues to transition into full upright ext posturing with pt demo increased pain in RUE; pt cued on proper placement of RUE in the sling with mobility For complete objective data, detailed plan of care and patient education refer to: PT EVALUATION flow sheet, PT TREATMENT flow sheet, patient Plan of Care, Plan of Care progress note, and Patient Education. This note stands as the current Discharge Summary upon patient discharge from the hospital or completion of Physical Therapy Plan Orthopedic Surgery Consult Reason for Consult: Right proximal humerus fracture Assessment/Plan This is a 73 y.o. female with: 1. Right proximal humerus fracture -3 versus 4 part proximal humerus fracture -Axillary obtained, no acute dislocation Pain control: per ED physician Weight bearing: Nonweightbearing right upper extremity. Cast/splint care: Simple sling right upper extremity Ice and elevate the affected extremity above the heart to decrease pain and swelling. Ice for 20 mins on and off as much as tolerated. This can be done in cast/splint with ice in plastic bag and ensuring the cast/splint does not get wet. Signs and symptoms of compartment syndrome were discussed w/ the pt. If they have any of these they should return to the ER immediately Discharge: ortho stable for DC Follow up: Dr. Pearl later this week Thank you for the consult. Please feel free to call with questions. Will discuss w/ Dr. Pearl. Lindsay Levine, PGY 1 Orthopedic Surgery Resident 09/27/18 HPI: Richie Johnson is a 73 y.o. female who presents to for evaluation of right shoulder pain. I was consulted by the emergency department for a right proximal humerus fracture. According to the patient, she sustained this injury earlier today when she had a mechanical fall. She states she tripped and fell over her dog. She complains of right shoulder pain with radiation down to her hand. She also complains of intermittent numbness in all 5 digits. She denies injury to her elbow, wrist, contralateral upper extremity, bilateral lower extremity's. According to the patient, she is fairly low demand overall. She walks without assistance but is not very physically active. Past Medical History: Diagnosis Date Anxiety Colon polyp Depression Osteoporosis Urinary incontinence Past Surgical History: Procedure Laterality Date CARPEL TUNNEL SECTION, CLASSIC 1971 CHOLECYSTECTOMY WISDOM TOOTH EXTRACTION No Known Allergies Social History Socioeconomic History Marital status: Spouse name: Not on file Number of children: Not on file Years of education: Not on file Highest education level: Not on file Occupational History Not on file Social Needs Financial resource strain: Not on file Food insecurity: Worry: Not on file Inability: Not on file Transportation needs: Medical: Not on file Non-medical: Not on file Tobacco Use Smoking status: Former Smoker Packs/day: 0.50 Years: 10.00 Pack years: 5.00 Last attempt to quit: 1984 Years since quittin.4 Smokeless tobacco: Never Used Substance and Sexual Activity Alcohol use: No Drug use: No Sexual activity: Not on file Lifestyle Physical activity: Days per week: Not on file Minutes per session: Not on file Stress: Not on file Relationships Social connections: Talks on phone: Not on file Gets together: Not on file Attends gnosticist service: Not on file Active member of club or organization: Not on file Attends meetings of clubs or organizations: Not on file Relationship status: Not on file Other Topics Concern Not on file Social History Narrative Not on file Review of Systems: Gen: Denies fever, chills, nausea and vomiting Neuro: Denies: tingling of extremity (+): Numbness Physical Exam Gen: no acute distress, alert, oriented x 3. She is painful and tearful during the encounter Right upper extremity: Tenderness to palpation in the proximal humerus. Patient is in a makeshift sling and swath applied by the EMT. Sensation is intact light touch in axillary, radial, median, ulnar nerve distributions. Motor is grossly intact. Compartments are soft and compressible. Imaging Imaging was obtained and includes: AP, Grashey, scapular Y, axillary views were obtained and demonstrate a 3 versus 4 part proximal humerus with no acute dislocation fracture documented in this encounter Millicent Willis RN - 09/27/2018 8:22 AM David Bhatt RN - 09/27/2018 6:49 AM Omar Pressley DO - 09/27/2018 6:48 AM David Bhatt RN - 09/27/2018 6:46 AM EDT ED Notes (unrecognized secti on and content) Sling applied, pt tolerated well. Pt currently having ice chips. Bed: 16 Expected date: Expected time: Means of arrival: Comments: m-26 [facility] ED Resident Note: NAME: Richie Johnson 73 y.o. CSN: [id number] PCP: Efrem Vee DO History: Chief Complaint: Shoulder Injury HPI: Richie Johnson is a 73 y.o. female with PMH of anxiety who presents with a chief complaint of Shoulder Injury. Patient presents via EMS with complaint of right shoulder pain after having a mechanical fall earlier this morning. Patient woke up and tripped over her dog when getting out of bed and landed squarely on her right shoulder. She not strike her head, she not lose consciousness, she is not on any blood thinning medications. Patient arrives with right shoulder in sling and swath. No chest pain, no neck pain, no headache. PMHx: Past Medical History: Diagnosis Date Anxiety Colon polyp Depression Osteoporosis Urinary incontinence PMSx: Past Surgical History: Procedure Laterality Date CARPEL TUNNEL SECTION, CLASSIC 1971 CHOLECYSTECTOMY WISDOM TOOTH EXTRACTION FAM. Hx: Family History Problem Relation Age of Onset Cancer Father 42 colon Diabetes Sister Diabetes Brother SOC. Hx: Social History Socioeconomic History Marital status: Spouse name: Not on file Number of children: Not on file Years of education: Not on file Highest education level: Not on file Occupational History Not on file Social Needs Financial resource strain: Not on file Food insecurity: Worry: Not on file Inability: Not on file Transportation needs: Medical: Not on file Non-medical: Not on file Tobacco Use Smoking status: Former Smoker Packs/day: 0.50 Years: 10.00 Pack years: 5.00 Last attempt to quit: 1985 Years since quittin.4 Smokeless tobacco: Never Used Substance and Sexual Activity Alcohol use: No Drug use: No Sexual activity: Not on file Lifestyle Physical activity: Days per week: Not on file Minutes per session: Not on file Stress: Not on file Relationships Social connections: Talks on phone: Not on file Gets together: Not on file Attends gnosticist service: Not on file Active member of club or organization: Not on file Attends meetings of clubs or organizations: Not on file Relationship status: Not on file Other Topics Concern Not on file Social History Narrative Not on file MEDs: Previous Medications Medication Sig buPROPion (WELLBUTRIN) 75 MG tablet Take 75 mg by mouth 2 (two) times a day . citalopram (CELEXA) 20 MG tablet Take 1 (one) tablet (20 mg total) by mouth daily . glucosamine-chondroitin 250-200 mg Tab 2 Unspecified . omeprazole (PRILOSEC) 20 MG capsule Take 20 mg by mouth 2 (two) times a day . oxybutynin (DITROPAN) 5 MG tablet one po qhs [DISCONTINUED] polyethylene glycol (MIRALAX) 17 gram/dose powder 17 g . ALL: No Known Allergies ROS: Review of Systems Positives and pertinent negatives as per HPI. All other systems were reviewed and are negative. Physical Exam: Patient Vitals for the past 24 hrs: BP Temp Pulse Resp SpO2 Height Weight 09/27/18 0647 (!) 150/69 97.5 F (36.4 C) (!) 56 14 100 % 5' 6 73.5 kg (162 lb) Physical Exam Constitutional: She appears well-developed and well-nourished. Appears uncomfortable HENT: Head: Normocephalic and atraumatic. Eyes: EOM are normal. Pupils are equal, round, and reactive to light. Neck: Normal range of motion. Cardiovascular: Normal rate, regular rhythm, normal heart sounds and intact distal pulses. Pulmonary/Chest: Effort normal and breath sounds normal. Musculoskeletal: Normal range of motion. Tenderness to palpation over the right shoulder, some tenderness in the proximal humerus as well. No tenderness to palpation in the anterior chest wall or anterior clavicle. Strength and sensation intact in right hand, radial pulse 2+. Neurological: She is alert. Skin: Skin is warm and dry. Psychiatric: She has a normal mood and affect. Nursing note and vitals reviewed. Laboratory & Radiological Imaging (if done): Labs Reviewed - No data to display XR Shoulder Right 1 View Preliminary Result Acute comminuted overlapping intraarticular fracture of the right humeral head and neck without dislocation. Generalized osteopenia. SKS/trn Workstation ID: [id number] XR Shoulder Right 2+ Views (Standard) XR Humerus Right 2+ Views (Standard) XR Chest 1 View Final Result 1. Fracture of the right proximal humerus. Please see dedicated right shoulder x-rays for additional details. 2. Coarsening of the interstitial markings could be related to bronchitis, chronic interstitial change versus mild edema. Recommend clinical correlation. MPH/jmj Workstation ID: [id number] Procedures: None ED Course/ Medications Given/ Medical Decision Making ED Course as of Sep 27 822 Mon September 27, 2018 0719 Discussed with ortho who will evaluate at bedside. [BS] 0812 Ortho recommended sling. Patient and family concerned about pain control at home. [BS] ED Course User Index [BS] Omar Fuentes DO Evaluated for right shoulder pain after mechanical fall. Patient does have a proximal right humerus fracture. Ortho evaluated at bedside and recommended loose sling and follow-up in clinic on Thursday. Upon reevaluation, patient and family at bedside is very concerned about her ability to manage her pain at home. She was discussed with [facility] who accepts her for admission to obs. Patient admitted in stable condition. Medications oxyCODONE (ROXICODONE) 10 mg/0.5 mL concentrated solution 10 mg (10 mg Sublingual Given 09/27/18 0656) oxyCODONE (ROXICODONE) 10 mg/0.5 mL concentrated solution 10 mg (10 mg Sublingual Given 09/27/18 0817) Clinical Impression: SNOMED CT(R) 1. Closed fracture of proximal end of right humerus, unspecified fracture morphology, initial encounter CLOSED FRACTURE OF PROXIMAL RIGHT HUMERUS 2. Pain in joint of right shoulder PAIN OF RIGHT SHOULDER JOINT Disposition: Patient is being hospitalize to observation unit (CDU) Discontinued Medications Disp Refills Start End polyethylene glycol (MIRALAX) 17 gram/dose powder 09/27/2018 Class: Historical Med Omar V Silver, DO ED Resident Physician [facility] (Please note that portions of this note have been completed with a voice recognition software. Efforts were made to correct any errors, but occasionally words are mis-transcribed.) Omar Fuentes DO Resident 09/27/18 0823 PATIENT HERE S/P FALL AFTER TRIPPING OVER DOG FALLING ON RIGHT SHOULDER THAT NOW HAS PAIN. ARM IN SLING AND SWATHE PER MEDIC 26. documented in this encounter Quick Note - Susan Mccrary RN - 09/29/2018 10:19 AM EDTQuick Note - Zhao Medley CNP - 09/29/2018 10:01 AM EDTPlan of Dhruv - Mary Beth Salguero RN - 09/29/2018 2:48 AM EDT Miscellaneous Notes (unrecog nized section and content) IV removed. Reviewed AVS, prescriptions to lemon picker, and follow up appointments to be made. Patient and verbalize understanding. Ambulated to [facility]. Pt was kept overnight for due reports of pain. Pain better controlled this AM. She is feeling better and ready for discharge. See Discharge summary Problem: Actual or potential alteration in health Goal: Absence of healthcare acquired conditions Outcome: Partially Met Goal: Knowledge of Interdisciplinary Plan of Care Outcome: Partially Met Goal: Knowledge of Enviroment Outcome: Partially Met Problem: Pain Goal: Manage acute pain Outcome: Partially Met Goal: Manage chronic pain Outcome: Partially Met Goal: Reduced pain sensation Outcome: Partially Met Goal: Achievement of comfort function goal Outcome: Partially Met Problem: Falls, Risk of Goal: Absence of falls Outcome: Partially Met Problem: Actual or potential alteration in health Goal: Knowledge of Interdisciplinary Plan of Care Note: Patient understands and agrees with plan of care. Continue to monitor. Goal: Knowledge of Enviroment Note: Patient oriented to the unit. Call light in reach. Problem: Pain Goal: Manage acute pain Note: Patient is receiving pain medication every 3 hours for pain as needed. Roxicet and tylenol. Problem: Falls, Risk of Goal: Absence of falls Note: Patient on fall risk. Yellow socks and yellow arm band on patient. Assisting patient to bathroom. Instructed patient to call out when she needs assistance. Continue to monitor. ED Attestation: I have reviewed the Resident or SARA's documentation, personally taken the patient's history, performed an exam and agree with the physical findings, clinical impression and management plan with the noted exceptions. I reviewed all Labs, imagine studies and EKG's. I was physically present in the department and supervised all procedures performed by the Resident. HPI: Patient is a 73-year-old female who presents to emergency department today with a chief complaint of a mechanical fall. Notes that this morning she tripped while walking over her dog, fell landing on her right shoulder. With this has significant pain with movement of the upper extremity. Called EMS because of the severe pain. Does note that she is right-hand dominant. With that she denies elbow pain, wrist pain, numbness and tingling of the upper extremity. Denies striking her head, LOC, neck pain, chest pain, shortness of breath, nausea and/or vomiting. BP (!) 150/69 Pulse (!) 56 Temp 97.5 F (36.4 C) Resp 14 Ht 5' 6 Wt 73.5 kg (162 lb) SpO2 100% BMI 26.15 kg/m Physical Exam: Patient appears to be in pain. TMs are clear, posterior pharynx is normal. No midline cervical pain is appreciated. Chest is nontender, lungs clear to auscultation, heart sounds are regular rate and rhythm. Abdomen is soft. Pelvis is stable. She does have deformity of the upper right humerus with significant pain with palpation. She is unable to range of motion the right shoulder secondary to pain. Has no step-off or deformity of the right clavicle appreciated. Other extremities are nontender. She is alert and oriented x3, speech is normal, moves unaffected extremities but has intact sensation and good strength gripping up in bilateral upper extremities and good strength in bilateral lower extremities. Medications oxyCODONE (ROXICODONE) 10 mg/0.5 mL concentrated solution 10 mg (10 mg Sublingual Given 09/27/18 0656) Labs Reviewed - No data to display XR Shoulder Right 2+ Views (Standard) (Results Pending) XR Humerus Right 2+ Views (Standard) (Results Pending) XR Chest 1 View (Results Pending) XR Shoulder Left 1 View (Results Pending) ED Course as of Sep 28 723 Mon September 27, 2018 0719 Discussed with ortho who will evaluate at bedside. [BS] ED Course User Index [BS] Omar Fuentes DO Assessment/Plan: Patient presents today with a right humeral head fracture. Orthopedics has been consulted he will come see the patient. She was placed in a sling and swath with plans for follow-up with orthopedics as an outpatient. Critical Care time: Except for billable procedures is 0 minutes Ashok Farmer DO Attending Physician Emergency Medicine (Please note that portions of this note may have been completed with a voice recognition program. Efforts were made to edit the dictations but occasionally words are mis-transcribed.) documented in this encounter Pt notified refills documented in this encounter Brief Post Operative Note Patient Name: Richie Johnson : 1945 (74 y.o.) Date of Service: 12/29/2019 CSN: [id number] Procedure(s): RIGHT MIDDLE FINGER A1 LOLY RELEASE WITH TENOLYSIS Pre-Operative Diagnoses: * Trigger middle finger of right hand [M65.331] Post-Operative Diagnoses: * Trigger middle finger of right hand [M65.331] Surgeon(s) and Role: * Radha Baker DO - Primary Anesthesiologist: Jonathon Mejía DO STRETCHING MACHINE TENDER FRAME: Adrianna Cabral CRNA Import/Export Agent: Nell Kramer RN Scrub Person: ST Kell Nurse Float: Dustin Borges RN STFA: Eagle Pope Operative findings: trigger Intra and immediate post-operative complications: none Type of anesthesia used: Monitor Anesthesia Care Estimated blood loss: 2 mL Estimated urine output: 0 mL Specimen(s): * No specimens in log * Implant(s): * No implants in log * Drain(s): * No LDAs found * Wound(s): Wound 12/29/19 Surgical Wound Finger(s) Right (Active) Radha Baker DO 12/29/2019 7:44 AM documented in this encounter INFORMATION SOURCE (unrecogn ized section and content) DATE CREATED AUTHOR AUTHOR'S ORGANIZ ATION 07/04/2020 [facility] DATE CREATED AUTHOR AUTHOR'S ORGANIZ ATION 01/29/2021 [facility] DATE CREATED AUTHOR AUTHOR'S ORGANIZ ATION 05/07/2021 [facility] DATE CREATED AUTHOR AUTHOR'S ORGANIZ ATION 05/30/2021 [facility] DATE CREATED AUTHOR AUTHOR'S ORGANIZ ATION [facility]/30/2023 [facility] - 12/22/2019 9:33 AM EDT Nursing Notes (unrecognized section and content) Patient negative screening as per phone, discussed with patient guidelines and visitor restrictions as per [facility]-patient verbalized understanding. Patient instructed on COVID testing as per [facility] process, site location will be [place]/ [place] / [place]/ [place] /[place] / [place]-patient verbalized understanding.[facility] Surgical Department Patient Instructions Prior to surgery: Please bathe the night before and the morning of your surgery to help prevent the chance of any surgical site infection. If your physician provided you with a special soap please use it Please be sure to remove any jewelry and piercing's, and leave all valuables at home. Please do not apply any lotions or makeup on the morning of surgery. Please do not eat or drink anything after midnight the night prior to your surgery unless otherwise instructed by your Surgeon. This includes gum, mints, water, coffee, smoking or chew- nothing at all should be eaten or drank after midnight. Please be prepared to remove your dentures, glasses, and contacts. If you were instructed to take any of your medications on the morning of surgery, please take them with small sips of water. Please remember to bring a list of your current medications, including any herbals and OTC's, on the day of surgery. You may brush your teeth in the morning as well as rinse out your mouth - but no swallowing. Please remember to bring your Insurance Card and photo ID with you on the day of surgery - we will make copies of these items and return them to you. Bring any Advance Directive if desired. Enter the building - ahead will be a podium and a guest service liaison who will greet you and direct you to the second floor waiting room. A nurse will meet you in the Surgery Waiting Room and will be the one to take you back to PreOp when they are ready for you. One adult may accompany you to PreOp if you so desire. We recommend Children under the age of 16 not accompany you to the hospital Please see that all cellular devices are put on silence to keep your environment calm. Please be sure to wear loose, casual clothing on the day of surgery. Shoulders - wear a button down or zippered shirt Knees - wear sweat pants, shorts, or loose fitting pants There may be a bulky dressing over the incision Please bring any assistive devices, such as crutches & walkers, with you on the day of surgery if you have them. If you have a diagnosis of Sleep Apnea we request that you bring your C-Pap machine with you After your surgery: If you are scheduled as an outpatient, a responsible licensed adult must be available for transportation, and is expected to remain at the hospital throughout the duration of your procedure. This person must be 18 years old or older. You are not allowed to drive yourself home. A responsible adult must stay with you for 24 hours following your surgery. This includes when being transported by a Medical Taxi documented in this encounter Care Teams (unrecognized sec tion and content) Beef Breaker Relationship Specialty Start Date End Date Efrem Vee DO [address] [place] [address] PCP - General Sports Medicine 05/12/18 Beef Breaker Relationship Specialty Start Date End Date Kadie, Efrem Mackenzie, DO [address] [place] [address] PCP - General Sports Medicine 05/12/18 Beef Breaker Relationship Specialty Start Date End Date Kadie, Efrem Mackenzie, DO [address] [place] [address] PCP - General Sports Medicine 05/12/18 Beef Breaker Relationship Specialty Start Date End Date Kadie, Efrem Mackenzie, DO [address] [place] [address] PCP - General Sports Medicine 05/12/18 Beef Breaker Relationship Specialty Start Date End Date Kadie, Efrem Mackenzie, DO [address] [place] [address] PCP - General Sports Medicine 05/12/18 Beef Breaker Relationship Specialty Start Date End Date Kadie, Efrem Mackenzie, DO [address] [place] [address] PCP - General Sports Medicine 05/12/18 Beef Breaker Relationship Specialty Start Date End Date Kadie, Efrem Mackenzie, DO [address] [place] [address] PCP - General Sports Medicine 05/12/18 Scheduled Active and Recently Administ ered Medications (unrecognized section and content) PRN Medication Order 05/28/2021 05/29/2021 05/30/2021 aluminum-magnesium hydroxide-simethicone (MAALOX PLUS) 200-200-20 mg/5 mL suspension 30 mL 30 mL, Oral, Every 4 hours PRN, indigestion, Starting on Thu05/30/21 at 0154 cyclobenzaprine (FLEXERIL) tablet 5 mg 5 mg, Oral, Every 8 hours PRN, muscle spasms, Starting on Vicki 05/30/21 at 0154, Do not administer if patient has POSS of 3 or 4, or RASS of -3, -4, or -5. hydrALAZINE (APRESOLINE) injection 10 mg 10 mg, Intravenous, Every 4 hours PRN, for SBP > 170, DBP > 110, Hold for HR >100, Starting on Vicki 05/30/21 at 0154 iopamidoL (ISOVUE-370) 76 % injection 75 mL (COMPLETED) 75 mL, Intravenous, Once in imaging, contrast, Starting on Thu05/29/21 at 2022, For 1 dose 2023 (Contrast Administered - Provider: Renetta Bocanegra, TECHNOLOGIST - Comment: [id number] 2023) naloxone (NARCAN) injection 0.1 mg(Linked Group 2) 0.1 mg, Intravenous, As needed, opioid reversal, For respiratory rate less than or equal to 8 per minute., Starting on Vicki 05/30/21 at 0154, Mix nalOXone (NARCAN) 0.4 mg (1mL) with 9 mL of Normal Saline to total 10 mL. Administer 0.1 mg (2.5mL) IV Push every 2 minutes until respiratory rate is 10 or greater. naloxone (NARCAN) injection 0.4 mg(Linked Group 2) 0.4 mg, Intravenous, As needed, opioid reversal, patient is pulseless, breathless, and unresponsive, Starting on Vicki 05/30/21 at 0154, Call a code first, then administer naloxone dose undiluted IV Push over 30 seconds. ondansetron (ZOFRAN) injection 4 mg(Linked Group 3) 4 mg, Intravenous, Every 6 hours PRN, nausea, vomiting, Starting on Vicki 05/30/21 at 0154, Use oral route first, if tolerated. ondansetron (ZOFRAN-ODT) disintegrating tablet 4 mg(Linked Group 3) 4 mg, Oral, Every 6 hours PRN, nausea, vomiting, Starting on Vicki 05/30/21 at 0154, Use oral route first, if tolerated. Formulation requires tablet remain in sealed package until immediately prior to dose being administered. oxyCODONE (ROXICODONE) immediate release tablet 5-10 mg 5-10 mg, Oral, Every 4 hours PRN (may repeat), moderate to severe pain, Starting on Thu05/30/21 at 0154, Initiate with 5 mg oral every 4 hours prn moderate to severe pain. For unrelieved pain, may repeat 5 mg within 60 minutes of initial dose. If pain is RELIEVED after repeat dose, change to 10 mg every 4 hours prn moderate to severe pain. If pain is UNrelieved after repeat dose, or patient requires dose reduction, call physician. 4206 (Given - Provider: Elyssa Montano, SHANTA)7751 (Given - Provider: Sherrill Monroy RN) senna (SENOKOT) tablet 8.6 mg 8.6 mg (1 tablet), Oral, 2 times daily PRN, constipation, Starting on Thu05/30/21 at 0154 sodium chloride (PF) (NS) 0.9 % contrast line flush 10 mL (COMPLETED) 10 mL, Intravenous, Once in imaging, contrast, Per cushion stuffer (Radiology) for line patency check prior to contrast administration, Starting on Thu05/29/21 at 2022, For 1 dose 2023 (Given - Provider: Renetta Bocanegra, TECHNOLOGIST) sodium chloride (PF) (NS) 0.9 % contrast line flush 80 mL (COMPLETED) 80 mL, Intravenous, Once in imaging, contrast, Per cushion stuffer (Radiology), Starting on Thu05/29/21 at 2022, For 1 dose, 30 mL BEFORE contrast administration 50 mL AFTER contrast administration 2024 (Given - Provider: Renetta Bocanegra, TECHNOLOGIST) sodium chloride (PF) (NS) flush 5 mL(Linked Group 1) 5 mL, Intravenous, As needed, line care, Starting on Thu05/30/21 at 0154 sodium chloride 0.9% (NS)(Linked Group 1) 0-150 mL/hr, Intravenous, As needed, To flush line after IV infusions when no maintenance IV ordered or a compatibility issue. Infuse 20ml at the same rate as the secondary infusion, Starting on Thu05/30/21 at 0154, Run as Primary IV. NOT intended for KVO. traZODone (DESYREL) tablet 50 mg 50 mg, Oral, Nightly PRN, sleep, Starting on Thu05/30/21 at 0154, May repeat times 1 in 30 minutes if still awake. Linked Groups Order Group 1: Saline lock IV (CANCELED) Routine, Continuous, Starting on Vicki 05/30/21 at 0155, Until Specified And sodium chloride (PF) (NS) flush 5 mLJump to med 5 mL, Intravenous, As needed, line care, Starting on Vicki 05/30/21 at 0154 And sodium chloride (PF) (NS) flush 5 mLJump to med 5 mL, Intravenous, Every 8 hours scheduled, First dose on Vicki 05/30/21 at 0155
Saline lock
And sodium chloride 0.9% (NS)Jump to med 0-150 mL/hr, Intravenous, As needed, To flush line after IV infusions when no maintenance IV ordered or a compatibility issue. Infuse 20ml at the same rate as the secondary infusion, Starting on Vicki 05/30/21 at 0154
Run as Primary IV. NOT intended for KVO.
Group 2: naloxone (NARCAN) injection 0.1 mgJump to med 0.1 mg, Intravenous, As needed, opioid reversal, For respiratory rate less than or equal to 8 per minute., Starting on Vicik 05/30/21 at 0154
Mix nalOXone (NARCAN) 0.4 mg (1mL) with 9 mL of Normal Saline to total 10 mL. Administer 0.1 mg (2.5mL) IV Push every 2 minutes until respiratory rate is 10 or greater.
And Notify physician (CANCELED) STAT, Until discontinued, Starting on Vicki 05/30/21 at 0155, Until Specified
Respiratory rate less than: 8
For respiratory rate less than or equal to 8, notify physician and/or appropriate staff for additional orders. And naloxone (NARCAN) injection 0.4 mgJump to med 0.4 mg, Intravenous, As needed, opioid reversal, patient is pulseless, breathless, and unresponsive, Starting on Vicki 05/30/21 at 0154
Call a code first, then administer naloxone dose undiluted IV Push over 30 seconds.
Group 3: ondansetron (ZOFRAN-ODT) disintegrating tablet 4 mgJump to med 4 mg, Oral, Every 6 hours PRN, nausea, vomiting, Starting on Vicki 05/30/21 at 0154
Use oral route first, if tolerated. Formulation requires tablet remain in sealed package until immediately prior to dose being administered.
Or ondansetron (ZOFRAN) injection 4 mgJump to med 4 mg, Intravenous, Every 6 hours PRN, nausea, vomiting, Starting on Vicki 05/30/21 at 0154
Use oral route first, if tolerated.
Source Comments (unrecognize d section and content) In the event this informatio n is protected by the Federal Confidentiality of Alcohol and Drug Abuse Patient Records regulations: The Federal rules restrict any use of the information to criminally investigate or prosecute any alcohol or drug abuse patient.[facility] FOR RECORDS PERTAINING TO PATIENTS WHO ARE OR HAVE BEEN ENROLLED IN A CHEMICAL DEPENDENCY/SUBSTANCEABUSE PROGRAM, SOME INFORMATION MAY BE OMITTED. This clinical summary was aggregated from multiple sources. Caution should be exercised in using it in the provision of clinical care. This summary normalizes information from multiple sources, and as a consequence, information in this document may materially change the coding, format and clinical context of patient data. In addition, data may be omitted in some cases. CLINICAL DECISIONS SHOULD BE BASED ON THE PRIMARY CLINICAL RECORDS. [facility]. provides no warranty or guarantee of the accuracy or completeness of information in this document.
== END | disposition home or self-care (01) ==
PROVIDERS: PCP Family Medicine; Referring Provider Family Medicine; Visit Provider Family Medicine
DX: M25.561 Pain in right knee (principal); M54.50 Low back pain, unspecified; M25.562 Pain in left knee
CPT/HCPCS: 72114; 73562

== ENCOUNTER 2023-08-03 09:31 | Emergency (ER) | payer MEDICARE, SELFPAY ==
[2023-08-03 09:33] VITALS: BP 140/76; PULSE 89; RESP 16; TEMP 36.6; O2SAT 97; BMI 26.4
--- NOTE | 2023-08-03 09:47 | EX.ED.DYSGE1 ---
HPI History of Present Illness Chief Complaint: Lower Extremity Injury Informant: patient Onset/Context/Timing Onset: Yesterday Narrative Narrative: Patient presents secondary to sciatica of her left leg. She states she was going up some steps yesterday and felt like her left hip was twisting. She now has pain down the sciatic nerve on the left. She has had similar problems in the past. She has taken Tylenol this morning to help control pain. There was no fall or direct injury to her leg. [facility] Medical History (Updated 08/03/23 @ 09:[address] Erin Carter MD) Depression Lichen sclerosus Osteoporosis Home Medications prednisone 20 mg tablet 40 mg (2 x 20 mg) PO DAILY #8 tabs 08/03/23 [Rx Last Taken Unknown] Allergy/AdvReac Type Severity Reaction Status Date / Time No Known Allergies Allergy Verified 08/03/23 09:37 Social History Smoking Status: Never smoker ROS ROS ED Constitutional Constitutional ED: Denies chills or fever(s) Eyes Eyes: Denies discharge from eye(s) ENT ENT ED: Denies discharge from eye(s), rhinorrhea or sore throat Cardiovascular Cardiovascular: Denies chest pain or palpitations Respiratory/Chest Respiratory/Chest: Denies cough or dyspnea Gastrointestinal Gastrointestinal: Denies abdominal pain, nausea or vomiting Genitourinary Genitourinary ED: Denies dysuria Musculoskeletal Musculoskeletal: Reports extremity pain; Denies back pain Integumentary Denies Abrasions or rash Neurologic Neurologic: Denies headache(s) or weakness Psychiatric Psychiatric: Denies anxiety or depression Allergic/Immunologic Allergic/Immunologic ED: Denies lip swelling or urticaria EXAM Physical Exam Const Vital Signs: 08/03/23 09:33 08/03/23 09:33 Temperature 97.8 F 97.8 F Temperature Source Temporal Temporal Pulse Rate 89 89 Respiratory Rate 16 16 Blood Pressure 140/76 H 140/76 H Blood Pressure Mean 97 97 Pulse Ox 97 97 Oxygen Delivery Method Room Air Room Air Positive well nourished and well developed General Appearance ED: well developed HEENT Reports moist mucous membranes Eyes EOMs intact bilaterally Chest Wall inspection of chest normal and palpation of chest normal Resp normal respiratory effort and clear to auscultation bilaterally Cardio regular rate and regular rhythm GI non-tender Palpation: soft Back/Spine Back/Spine Narrative: No lumbar or sacral tenderness to palpation. Extremity Extremity Narrative: Reproducible tenderness at the posterior proximal left thigh. Good distal pulses. Good range of motion. Patient was observed ambulating on the hallway without difficulty. Neuro oriented x3 and no sensory deficits noted Motor Exam: strength 5/5 throughout Psych mental status grossly normal Skin no rashes or lesions noted MDM MDM MDM Narrative Medical decision making narrative: Patient's exam and story is consistent with sciatica. She will continue Tylenol at home and I will write her a short course of prednisone. She declined anything stronger for pain. Return instructions given. Discharge Plan Triage Chief Complaint: Lower Extremity Injury ED Provider: Erin Carter Dx/Rx/DC Orders Clinical Impression: Sciatica Instructions: ED Sciatica Prescriptions: New prednisone 20 mg tablet 40 mg PO DAILY Qty: 8 0RF Primary Care Provider: Elgin Sigala Referrals: Elgin Sigala MD [Primary Care Provider] - 1 Week if not improving Disposition Disposition: Home, Self Care
[2023-08-03] MEDS: predniSONE 20 MG Tablet 40 MG PO (10:23)
[2023-08-03 10:25] VITALS: BP 157/71; PULSE 55; RESP 16; TEMP 36.1; O2SAT 98
== END 2023-08-03 10:27 | disposition home or self-care (01) ==
PROVIDERS: Emergency Provider Emergency Medicine; PCP Family Medicine; Visit Provider Emergency Medicine
DX: M54.32 Sciatica, left side (principal); Z79.52 Long term (current) use of systemic steroids
CPT/HCPCS: 99282

== ENCOUNTER → 2023-08-19 | Outpatient (CLI) | payer MEDICARE, SELFPAY ==
--- NOTE | 2023-08-19 12:18 | RAD_ITS ---
STUDY: X-RAY - PELVIS REASON FOR EXAM: Female, 78 years old. PELVIC PAIN TECHNIQUE: One view of the pelvis was obtained. COMPARISON: None. FINDINGS: There is a non-specific bowel gas pattern. Normal visualized soft tissue structures. Normal bilateral iliac wings, sacroiliac joints and visualized sacrum. Normal visualized bilateral superior and inferior pubic rami. Normal pubic symphysis. Normal ischial tuberosities. Normal visualized right femoral head. Normal right acetabulum. Normal right hip joint. Normal visualized left femoral head. Normal left acetabulum. Normal left hip joint. RAD/Pelvis 1 or 2 Views IMPRESSION: Normal x-ray examination of the pelvis. Electronically Signed: Christopher Hunt MD at 23:16 EDT ,
--- NOTE | 2023-08-19 12:18 | RAD_ITS ---
STUDY: X-RAY - LUMBAR SPINE REASON FOR EXAM: Female, 78 years old. BACK PAIN TECHNIQUE: 3 view(s) of the lumbar spine were obtained. COMPARISON: 05/13/2023 FINDINGS: Normal lumbar lordosis. Mild levoscoliosis centered at L3. 5 mm of anterolisthesis of L5 on S1. Mild loss of height wedging deformity of the T12 vertebral body which is unchanged consistent with a chronic compression fracture. Moderate loss of height and wedging deformity L3 vertebral body which is unchanged consistent with a chronic compression fracture. There is multi-level degenerative disc disease with multi-level disc space narrowing. Multilevel facet hypertrophy throughout the lumbar spine. The soft tissue structures are unremarkable. RAD/Lumbar Spine 2 or 3 Views IMPRESSION: 1. No change in chronic compression fractures of T12 and L2. 2. Mild levoscoliosis with diffuse degenerative disc disease with 5 mm of anterolisthesis of L5 on S1. MRI may be useful. Electronically Signed: Christopher Hunt MD at 23:16 EDT ,
== END | disposition home or self-care (01) ==
LOC: RAD 12:15
PROVIDERS: PCP Internal Medicine; Referring Provider Anesthesiology Pain Medicine; Visit Provider Anesthesiology Pain Medicine
DX: R10.2 Pelvic and perineal pain (principal); M51.27 Other intervertebral disc displacement, lumbosacral region
CPT/HCPCS: 72100; 72170

== ENCOUNTER → 2023-08-31 | Outpatient (CLI) | payer MEDICARE, SELFPAY ==
[2023-08-31 16:35] LABS: Absolute Lymphocyte Count 2.74 X10^3/uL (0.83-4.51); Absolute Neutrophil Count 7.9 X10^3/uL (2.0-7.7); Basophil# 0.07 X10^3/uL; Basophil% 0.6 % (0-1); Eosinophil# 0.37 X10^3/uL; Hematocrit 39.8 % (37-47); Lymphocyte # 2.74 X10^3/ul (0.83-4.51); Lymphocyte % 22.6 % (19-41); Mean Corp Hgb Conc 32.7 g/dL (32-36); Mean Corpuscular Hgb 29.4 pg (27.0-32.0); Mean Platelet Vol. 9.8 fl (6.2-12.0); Monocyte# 0.94 X10^3/uL; Monocyte% 7.7 % (0-10); NRBC Flagged by Analyzer 0 % (0-5); Neutrophil # 7.93 X10^3/uL (2.7-7.7); Neutrophil % 65.3 % (47-70); Platelet Count 338 K/mm3 (150-450); RBC Distribution Width CV 13.8 % (11.6-14.6); RBC Distribution Width SD 44.8 fl (35.1-43.9); Red Blood Count 4.42 M/mm3 (4.2-5.4); White Blood Count 12.2 K/mm3 (4.4-11.0)
[2023-08-31 16:51] LABS: Erythrocyte Sedimentation Rate 9 mm/hr (0-30)
[2023-08-31 16:53] LABS: Vitamin D,25 Hydroxy 46.8 ng/mL
[2023-08-31 17:00] LABS: AST(SGOT) 17 U/L (15-37); Alanine Aminotransfer ALT/SGPT 23 U/L (13-56); Albumin, Serum 3.4 g/dL (3.2-5.0); Alkaline Phosphatase 72 U/L (45-117); Anion Gap 10 (5-15); BUN 26 mg/dL (7-18); BUN/Creat Ratio 30.6 RATIO (10-20); Calcium,Total 9.5 mg/dL (8.5-10.1); Chloride 108 mmol/L (98-107); Creatinine, Serum 0.85 mg/dL (0.55-1.02); EST Glomerular Filtration Rate 69 mL/min (>60); Est Glom Filt Rate - Afr Amer 83 mL/min (>60); Globulin 3.5 g/dL (2.2-4.2); Glucose 104 mg/dL (74-106); Potassium 4.1 mmol/L (3.5-5.1); Protein, Total 6.9 g/dL (6.4-8.2); Sodium Level 140 mmol/L (136-145); T4 Free Direct 1.13 ng/dL (0.76-1.46); Thyroid Stim Hormone (TSH) 1.04 uIU/mL (0.358-3.74)
[2023-09-01 10:19] LABS: Cholesterol 212 mg/dL (200); High Density Lipoprotein 63 mg/dL; Triglycerides 169 mg/dL; Very Low Density Lipoprotein 34 mg/dL (5-40)
[2023-09-01 11:38] LABS: Hemoglobin A1c 5.7 % (3.8-5.6)
== END | disposition home or self-care (01) ==
LOC: BIMLAB 15:37
PROVIDERS: PCP Internal Medicine; Referring Provider Internal Medicine; Visit Provider Internal Medicine
DX: M85.80 Other specified disorders of bone density and structure, unspecified site (principal); R63.4 Abnormal weight loss; R73.03 Prediabetes; K21.9 Gastro-esophageal reflux disease without esophagitis; K22.70 Barrett's esophagus without dysplasia; E78.5 Hyperlipidemia, unspecified
CPT/HCPCS: 36415; 80053; 80061; 82306; 83036; 84439; 84443; 85025; 85652

== ENCOUNTER → 2023-09-07 | Outpatient (CLI) | payer MEDICARE, SELFPAY ==
--- NOTE | 2023-09-07 10:43 | BI_ITS ---
MAMMOGRAPHY - BILATERAL SCREENING REASON FOR EXAM: Female, 78 years old. Routine annual screening examination. PERTINENT HISTORY: Non-contributory. TECHNIQUE: Digital bilateral breast payton (3D mammographic acquisition) in the CC and MLO projections. 2-D mediolateral oblique (MLO) and craniocaudad (CC) views of both breasts were obtained. CAD: Full Field Digital Mammography with Computer Added Detection was performed. COMPARISON: Comparison is made with prior study dated December 13, 2010. FINDINGS: Breast Composition: The breasts are heterogeneously dense, which may obscure small masses. There are no dominant masses or suspicious calcifications. No other significant abnormalities are identified. There has been no significant change since the prior study. BI/SCRN MAMM (CAD)W/PAYTON BILAT IMPRESSION: Stable bilateral screening mammogram. Yearly follow-up mammogram recommended. (A) ASSESSMENT CATEGORY: BIRADS Category 1: Negative. A letter regarding these results will be sent to the patient by the facility within 30 days. Approximately 10% of breast cancers are not detected by mammography. A normal mammogram should not delay biopsy of a clinically suspicious abnormality. [id number] Electronically Signed: David Warren MD at 12:18 EDT ,
== END | disposition home or self-care (01) ==
LOC: OPBI 10:43
PROVIDERS: PCP Internal Medicine; Referring Provider Internal Medicine; Visit Provider Internal Medicine
DX: Z12.31 Encounter for screening mammogram for malignant neoplasm of breast (principal)
CPT/HCPCS: 77063; 77067

== ENCOUNTER → 2023-10-12 | Outpatient (CLI) | payer MEDICARE, SELFPAY ==
--- NOTE | 2023-10-12 09:17 | RAD_ITS ---
STUDY: X-RAY - ESOPHAGUS (BARIUM SWALLOW) WITH FLUOROSCOPY REASON FOR EXAM: Female, 78 years old. Barium swallow TECHNIQUE: 14 view(s) of the esophagus were obtained following swallowing of barium. FLUOROSCOPY TIME (if supplied): (24 seconds) minutes/seconds. 5.23 mCi COMPARISON: None. FINDINGS: There is no demonstrated esophageal foreign body. There is no demonstrated stricture or mucosal abnormality. Normal gastroesophageal junction, without a demonstrated hiatal hernia. The patient ingested a 12 mm tablet of barium without any difficulty. There is atherosclerotic calcification of the aortic arch with tortuosity of the descending aorta. Normal visualized pulmonary parenchyma. There are diffuse degenerative changes of the visualized thoracic spine. RAD/Esophagus Dual Contrast IMPRESSION: Normal plain film x-ray examination (barium swallow) of the esophagus. Electronically Signed: David Warren MD at 11:04 EDT ,
== END | disposition home or self-care (01) ==
LOC: RAD 09:09
PROVIDERS: PCP Internal Medicine; Referring Provider Surgery; Visit Provider Surgery
DX: I70.0 Atherosclerosis of aorta (principal)
CPT/HCPCS: 74221

== ENCOUNTER 2023-10-22 08:54 | Emergency (ER) | payer MEDICARE, SELFPAY ==
[2023-10-22 08:54] VITALS: BP 150/65; PULSE 52; RESP 16; TEMP 36.1; O2SAT 99; BMI 27.1
--- NOTE | 2023-10-22 10:54 | EX.ED.VIS.UR ---
HPI HPI - URI History of Present Illness Chief Complaint: Sore Throat Informant: patient and spouse/S.O. Narrative Narrative: 78-year-old female states that they went to [place] over a week ago, they went to a children's birthday constitution party, and 2-3 days later she started having the symptoms, which she has now had for 1 week. She called her doctor's office to be seen for it and she was directed to the ER. She has been having sore throat with odynophagia, runny nose and congestion, nonproductive cough, headaches, myalgias, malaise, but no fevers or chills. She has also had a little bit of diarrhea no blood. No abdominal pain, nausea, vomiting. No dyspnea. ROS ROS ED Constitutional Constitutional ED: Reports malaise; Denies chills or fever(s) Eyes Eyes: Denies change in vision ENT ENT ED: Reports ear pain bilateral, nasal congestion, rhinorrhea and sore throat Cardiovascular Cardiovascular: Denies chest pain, leg edema or palpitations Respiratory/Chest Respiratory/Chest: Reports cough; Denies dyspnea or sputum Gastrointestinal Gastrointestinal: Reports diarrhea; Denies abdominal pain, nausea or vomiting Genitourinary Genitourinary ED: Denies dysuria or hematuria Musculoskeletal Musculoskeletal: Reports myalgias; Denies neck pain Integumentary Denies abscess or rash Neurologic Neurologic: Reports headache(s); Denies paresthesias or weakness Psychiatric Psychiatric: Denies depression or suicidal thoughts Endocrine Endocrinology: Denies polydipsia or polyuria [facility] Medical History Chronic back pain Osteopenia with high risk of fracture Weight loss, non-intentional Barretts esophagus Broken wrist Broken humerus FH: cholecystectomy Vision problems Stomach ulcer GERD (gastroesophageal reflux disease) Osteoarthritis Neuropathy Heart murmur Hearing problem Chronic headaches GI problem Gall stones Emotional problems Bronchitis Carpal tunnel syndrome Bone fracture Back problem Arthritis Allergies Osteoporosis Depression Home Medications ?Medication ?Instructions ?Recorded ?Last Taken ?Type calcium PO 08/31/23 Unknown History celecoxib 200 mg capsule 200 mg PO DAILY PRN pain #60 caps 08/31/23 Unknown Rx clobetasol-cocunut oil topical 08/31/23 Unknown History omeprazole 40 mg capsule,delayed 40 mg PO BID 3 months #180 caps 08/31/23 Unknown Rx release oxybutynin chloride 5 mg tablet 5 mg PO DAILY 08/31/23 Unknown History ibandronate 150 mg tablet 150 mg PO QMONTH #7 tabs 09/04/23 Unknown Rx bupropion HCl 75 mg tablet 75 mg PO DAILY #90 tabs 10/19/23 Unknown Rx citalopram 20 mg tablet 20 mg PO DAILY #90 tabs 10/19/23 Unknown Rx Allergy/AdvReac Type Severity Reaction Status Date / Time No Known Allergies Allergy Verified 10/22/23 08:54 Family History (Updated 08/31/23 @ 15:23 by Araceli Rangel LPN) Brother Alcoholism Diabetes Liver cancer Seizures Epilepsy Sister Anxiety Autoimmune disorder Cancer Osteoporosis Father Colon cancer Surgical History History of carpal tunnel surgery Previous section Social History adopted: No household members: spouse current occupational status: retired history of recent travel: No Smoking Status: Former smoker quit date: 08/26/84 alcohol intake: current alcohol intake frequency: other Alcohol type: other details: rarely, pt states she feels she may be allergic to alcohol. substance use type: does not use what type of physical activity do you participate in: walking frequency: daily seatbelt use: always do you feel safe at home: Yes EXAM Physical Exam Const Vital Signs: 10/22/23 08:54 Temperature 97.0 F L Temperature Source Temporal Pulse Rate 52 L Respiratory Rate 16 Blood Pressure 150/65 H Blood Pressure Mean 93 Pulse Ox 99 Oxygen Delivery Method Room Air Positive well nourished and well developed Constitutional Narrative: Well-appearing, conversive in full sentences, pleasant. General Appearance ED: well developed and NAD HEENT Reports moist mucous membranes HEENT Narrative: TMs normal bilaterally normocephalic and atraumatic Throat: Negative for posterior oropharynx abnormal Eyes PERRL and EOMs intact bilaterally Neck no lymphadenopathy, supple and no meningeal signs Resp normal respiratory effort and clear to auscultation bilaterally Cardio no murmurs Rate: regular rate Rhythm: regular rhythm GI non-tender and non-distended Auscultation: normoactive bowel sounds Back/Spine no CVA tenderness and normal ROM Extremity normal to inspection and full ROM Extremity Narrative: No edema Neuro oriented x3, CN's II-XII intact bilaterally and no sensory deficits noted Sensorium / Orientation: alert Motor Exam: strength 5/5 throughout Skin Lesions: no lesions Rashes: no rashes MDM MDM MDM Narrative Medical decision making narrative: Patient feels poorly but looks well and has an otherwise normal exam. Given all of them my suspicion is that this is viral in etiology especially since she was just around a lot of children. I have a low suspicion for strep throat, nursing did a COVID/RSV/influenza swab in addition to a COVID swab prior to my evaluation, she is positive for COVID and negative for all else. Given the timing, Paxlovid is not indicated. Patient is reassured, supportive care advised she was given some Tylenol that she was agreeable to, but I do not think she needs any antibiotics for this right now. Her vital signs are normal pulse ox is normal her lungs are clear and she has no dyspnea. Discharge Plan Triage Chief Complaint: Sore Throat ED Provider: Maximo Rouse Dx/Rx/DC Orders Clinical Impression: COVID-19 Instructions: Coronavirus Disease 2019 (COVID-19): Caring for Yourself or Others Prescriptions: No Action oxybutynin chloride 5 mg tablet 5 mg PO DAILY calcium PO Rx Instructions: 2,000 mg 2 a day clobetasol-cocunut oil topical Rx Instructions: pt states she applies topically once a month omeprazole 40 mg capsule,delayed release(DR/EC) 40 mg PO BID 90 Days Qty: 180 1RF celecoxib 200 mg capsule 200 mg PO DAILY PRN (Reason: pain) Qty: 60 1RF ibandronate 150 mg tablet 150 mg PO QMONTH Qty: 7 0RF citalopram 20 mg tablet 20 mg PO DAILY Qty: 90 0RF bupropion HCl 75 mg tablet 75 mg PO DAILY Qty: 90 0RF Primary Care Provider: Alia Condon Referrals: Alia Condon MD [Primary Care Provider] - 1 Week if not improving Activity Restrictions/Additional Instructions: Try to get a home portable pulse oximeter and closely watch your oxygen levels periodically. If you stay below 90% for more than a minute or so, and/or you are feeling like your breathing is getting worse, return to the emergency department for further evaluation. Currently, CDC recommendations state that you should stay home through day 5 of symptoms, then as long as symptoms are improving, if you need to go to work or somewhere else you may for days 6-10 as long as you are wearing a mask the entire time. If you are feeling better after day 10 you may resume life is normal. Print Language: Bulgarian Disposition Disposition: Home, Self Care
[2023-10-22] MEDS: Acetaminophen 500 MG Tablet 1000 MG PO (11:06)
[2023-10-22 12:29] VITALS: BP 134/78; PULSE 87; RESP 16; TEMP 36.4; O2SAT 98
== END 2023-10-22 12:31 | disposition home or self-care (01) ==
PROVIDERS: Emergency Provider Emergency Medicine; PCP Internal Medicine; Visit Provider Emergency Medicine
DX: U07.1 COVID-19 (principal); R19.7 Diarrhea, unspecified; R51.9 Headache, unspecified; K21.9 Gastro-esophageal reflux disease without esophagitis; F32.A Depression, unspecified; Z79.899 Other long term (current) drug therapy
CPT/HCPCS: 87631; 87651; 99282

== ENCOUNTER → 2023-11-06 | Outpatient (CLI) | payer MEDICARE, SELFPAY ==
[2023-11-06 16:12] LABS: Absolute Lymphocyte Count 2.94 X10^3/uL (0.83-4.51); Absolute Neutrophil Count 4.5 X10^3/uL (2.0-7.7); Basophil# 0.05 X10^3/uL; Basophil% 0.6 % (0-1); Eosinophil# 0.26 X10^3/uL; Eosinophils% 3.1 % (0-5); Hematocrit 41.6 % (37-47); Hemoglobin 13.3 g/dL (12.0-15.0); Lymphocyte # 2.94 X10^3/ul (0.83-4.51); Mean Corpuscular Hgb 29.2 pg (27.0-32.0); Mean Corpuscular Volume 91.2 fL (81-99); Mean Platelet Vol. 10.4 fl (6.2-12.0); Monocyte# 0.61 X10^3/uL; Monocyte% 7.3 % (0-10); NRBC Flagged by Analyzer 0 % (0-5); Neutrophil # 4.51 X10^3/uL (2.7-7.7); Neutrophil % 53.8 % (47-70); Platelet Count 317 K/mm3 (150-450); RBC Distribution Width CV 13.2 % (11.6-14.6); RBC Distribution Width SD 44.3 fl (35.1-43.9); Red Blood Count 4.56 M/mm3 (4.2-5.4); White Blood Count 8.4 K/mm3 (4.4-11.0)
[2023-11-06 16:46] LABS: Cholesterol 210 mg/dL (200); High Density Lipoprotein 66 mg/dL; Triglycerides 142 mg/dL; Very Low Density Lipoprotein 28 mg/dL (5-40)
[2023-11-06 16:47] LABS: ALB/GLOB Ratio 1.1 RATIO (0.9-2.4); AST(SGOT) 15 U/L (15-37); Alanine Aminotransfer ALT/SGPT 19 U/L (13-56); Albumin, Serum 3.6 g/dL (3.2-5.0); Alkaline Phosphatase 70 U/L (45-117); Anion Gap 7 (5-15); BUN 17 mg/dL (7-18); BUN/Creat Ratio 21.9 RATIO (10-20); Calcium,Total 9.2 mg/dL (8.5-10.1); Chloride 107 mmol/L (98-107); Creatinine, Serum 0.78 mg/dL (0.55-1.02); EST Glomerular Filtration Rate 76 mL/min (>60); Est Glom Filt Rate - Afr Amer 92 mL/min (>60); Globulin 3.3 g/dL (2.2-4.2); Glucose 135 mg/dL (74-106); Magnesium 2.2 mg/dL (1.6-2.6); Potassium 3.6 mmol/L (3.5-5.1); Protein, Total 6.9 g/dL (6.4-8.2); Sodium Level 141 mmol/L (136-145)
[2023-11-06 16:51] LABS: Hemoglobin A1c 5.5 % (3.8-5.6)
== END | disposition home or self-care (01) ==
LOC: LAB 15:22
PROVIDERS: PCP Internal Medicine; Referring Provider Nurse Practitioner; Visit Provider Nurse Practitioner
DX: R73.03 Prediabetes (principal); R00.2 Palpitations; E78.5 Hyperlipidemia, unspecified; U07.1 COVID-19
CPT/HCPCS: 36415; 80053; 80061; 83036; 83735; 85025

== ENCOUNTER 2023-12-08 08:52 | Day surgery (SDC) | payer MEDICARE, SELFPAY ==
[2023-12-08] VITALS (8 sets, daily range): BP systolic 95–142; BP diastolic 67–121; PULSE 58–90; RESP 16–18; TEMP 35.9–36.3; O2SAT 95–100; BMI 25.6
[2023-12-08] MEDS: Lactated Ringers 1,000 ML 15 ML IV (09:14)
--- NOTE | 2023-12-08 09:49 | PRE.ANES_ITS ---
ASA Classification* ASA Classification ASA Classification: 2 Assessment & Plan Anesthesia* Anesthesia Assessment Anesthesia Assessment: Discussed sedation and/or anesthesia options, risks, benefits, and alternatives with patient/parents/legal guardian/POA. Questions invited. The patient/parents/legal guardian/POA seems to understand and agrees to proceed with anesthesia plan. Reviewed the physical assessment, medical history, allergy history and patient home medications list prior to surgery/procedure/anesthetic and documented any changes. Performed airway and anesthesia risk assessments. Anesthesia Type Anesthesia Type: MAC (*see written preanesthesia record for full assessment) Anesthesia Focused Assessment* Temperature: 96.6 F Pulse Rate: 90 Blood Pressure: 139/67 Respiratory Rate: 18 Pulse Ox: 100 Airway Assessment Mouth opens: >3 cm Mallampati Score: II Focused Labs Anesthesia Preop lab: CBC WBC 8.4 K/mm3 (4.4-11.0) 11/06/23 15:24 RBC 4.56 M/mm3 (4.2-5.4) 11/06/23 15:24 Hgb 13.3 g/dL (12.0-15.0) 11/06/23 15:24 Hct 41.6 % (37-47) 11/06/23 15:24 Plt Count 317 K/mm3 (150-450) 11/06/23 15:24 CHEMISTRY Potassium 3.6 mmol/L (3.5-5.1) 11/06/23 15:24 Sodium 141 mmol/L (136-145) 11/06/23 15:24 Magnesium 2.2 mg/dL (1.6-2.6) 11/06/23 15:24 BUN 17 mg/dL (7-18) 11/06/23 15:24 Creatinine 0.78 mg/dL (0.55-1.02) 11/06/23 15:24 Glucose 135 mg/dL (74-106) H 11/06/23 15:24 TSH 1.04 uIU/mL (0.358-3.74) 08/31/23 15:41 COAG Pre-Assessment Diagnosis/Proposed Procedure Planned Operative Procedure(s): EGD, COLONOSCOPY Anesthesia History Anesthesia History - tunnel heading supervisor: Anesthesia History - tunnel heading supervisor Hx Hospitalization No 12/03/23 09:00 Any Problems With Anesthesia No 12/03/23 09:00 Cholinesterase deficiency No 12/03/23 09:00 You/Your Family Experience No 12/03/23 09:00 fever (hyperthermia) with Relationship Recent Exposure to Contagious No 12/08/23 09:15 Disease Does patient have nerve No 12/03/23 09:00 stimulator Patient instructed to have device shut off --Does patient have Pacemaker No 12/08/23 09:15 or ICD? When Was Last Pacemaker Check QUESTION #4 FULL TEXT: You/Your Family Experience fever (hyperthermia) with Anesthesia Last Oral Intake Last Oral intake: Last Oral Intake NPO since 00:00 12/08/23 09:15 Meds taken in AM with sips of No 12/08/23 09:15 water? Meds patient instructed to take am of surgery PONV PONV - tunnel heading supervisor: PONV - tunnel heading supervisor Female Yes 12/03/23 09:00 HX of Motion Sickness No 12/03/23 09:00 HX of N/V After Surgery No 12/03/23 09:00 Non-Smoker Yes 12/03/23 09:00 Duration of Surgery greater No 12/03/23 09:00 than 60 minutes Number of Risk Factors 2 12/03/23 09:00 PONV Score Moderate Risk 12/03/23 09:00 Height & Weight Height & Weight: Anesthesia: Height & Weight Height 5 ft 6 in 12/08/23 09:15 Weight: 72.03 kg 12/08/23 09:15 Body Mass Index (BMI) 25.6 12/08/23 09:15 Respiratory Assessment Respiratory Assessment - tunnel heading supervisor: Respiratory Tract Infection Hx - tunnel heading supervisor Hx Respiratory Tract Infection Yes: OCTOBER 2023 12/03/23 09:00 STOP Sleep Apnea STOP Sleep Apnea - tunnel heading supervisor: STOP Sleep Apnea - tunnel heading supervisor Hx Hypertension No 12/03/23 09:00 Hx Sleep Apnea No 12/03/23 09:00 CPAP BIPAP Do you snore loudly (louder No 12/03/23 09:00 than talking or can be heard Do you often feel tired/ No 12/03/23 09:00 fatigued/ sleepy during daytime? Has anyone observed you stop No 12/03/23 09:00 breathing during sleep? STOP Results Negative 12/03/23 09:00 QUESTION #5 FULL TEXT : Do you snore loudly (louder than talking or can be heard through closed doors)? Tobacco Use History Tobacco Use History - tunnel heading supervisor: Tobacco Use History - tunnel heading supervisor Tobacco Use Smoking Status Former smoker 12/03/23 09:00 Hx Tobacco Use No 12/03/23 09:00 Years Smoking Packs Smoked per Day Smoking Cessation Date was No - quit smoking greater 12/03/23 09:00 within the last 15 years than 15 years ago Hx Smoking Cessation Date Hx Smoking Cessation Counseling Hematologic Medial History Hematologic Hx - tunnel heading supervisor: Hematologic Medical Hx - lift mechanic Hx of Blood Transfusion No 12/03/23 09:00 Hx of Transfusion in last 3 No 12/03/23 09:00 Months Date of Last Transfusion (if within last 3 months) Ever experience any problems No 12/03/23 09:00 with transfusion(s)? Specify any problems Hx of Preganancy in last 3 No 12/03/23 09:00 Months Nurse Filling Out Transfusion [email or web address] 12/03/23 09:00 & Questions: Date: 12/03/23 12/03/23 09:00 Time: 09:05 12/03/23 09:00 Patient unable to answer at this time (ie. confused, unrespo /Reproduction History /Reproductive History - tunnel heading supervisor: /Reproductive Hx- tunnel heading supervisor Hx Now Gestational Age (in weeks): EDC: Hx Hx Para Hx Section SAB Active Medications Active Medications: Current Medications Generic Name Dose Route Start Last Admin Trade Name Freq PRN Reason Stop Dose Admin Lactated Ringer's 1,000 mls @ 15 mls/hr 12/08/23 09:00 12/08/23 09:14 IV 15 mls/hr .Q48H THIAGO Administration PFSH Medical History (Updated 12/04/23 @ 13:[address] Alia Condon MD) Elevated blood pressure reading in office without diagnosis of hypertension Anxiety and depression Age-related cognitive decline Wears hearing aid Loss of hearing Cardiology follow-up encounter Chronic back pain Osteopenia with high risk of fracture Weight loss, non-intentional Barretts esophagus Broken wrist Broken humerus FH: cholecystectomy Vision problems Stomach ulcer GERD (gastroesophageal reflux disease) Osteoarthritis Neuropathy Heart murmur Hearing problem Chronic headaches GI problem Gall stones Emotional problems Bronchitis Carpal tunnel syndrome Bone fracture Back problem Arthritis Allergies Osteoporosis Depression Home Medications ?Medication ?Instructions ?Recorded ?Last Taken ?Type calcium 2,000 mg PO DAILY 08/31/23 12/07/23 History omeprazole 40 mg capsule,delayed 40 mg PO BID 3 months #180 caps 08/31/23 12/07/23 Rx release oxybutynin chloride 5 mg tablet 5 mg PO DAILY 08/31/23 12/07/23 History ibandronate 150 mg tablet 150 mg PO QMONTH #7 tabs 09/04/23 Unknown Rx bupropion HCl 75 mg tablet 75 mg PO DAILY #90 tabs 10/19/23 12/07/23 Rx citalopram 20 mg tablet 20 mg PO DAILY #90 tabs 10/19/23 12/07/23 Rx celecoxib 200 mg capsule 200 mg PO DAILY PRN pain #60 caps 11/06/23 12/07/23 Rx ipratropium bromide 42 mcg (0.06 2 spray intranasal TID PRN runny 11/06/23 Unknown Rx %) nasal spray nose #15 mL Allergy/AdvReac Type Severity Reaction Status Date / Time No Known Allergies Allergy Verified 12/08/23 09:13 Family History Brother Alcoholism Diabetes Liver cancer Seizures Epilepsy Sister Anxiety Autoimmune disorder Cancer Osteoporosis Father Colon cancer Surgical History History of carpal tunnel surgery Previous section Social History adopted: No household members: spouse current occupational status: retired history of recent travel: No Smoking Status: Former smoker quit date: 08/26/84 alcohol intake: current alcohol intake frequency: other Alcohol type: other details: rarely, pt states she feels she may be allergic to alcohol. substance use type: does not use what type of physical activity do you participate in: walking frequency: daily seatbelt use: always do you feel safe at home: Yes Review of Systems (Anesthesia) ROS Narrative System reviewed and no additional complaints, except as documented.
--- NOTE | 2023-12-08 10:00 | EGD_PTH ---
PATIENT: LAUREEN BROWNE LOC: EN U#:[id number] AGE/SX: 78/F ROOM: RE12/08/[address]: Dr. Zhao Abebe MD : 1945 BED: DIS: 12/08/2023 SPEC #: [id number] RECD: 12/08/23 13:26 STATUS: ANNABELLA EMMANUEL #: [id number] GENEVA: 12/08/23 10:[address]: Zhao Abebe DEPT: SURGICAL PATHOLOGY RECD BY: Melodie Ambrocio ENTERED: 12/09/23 07:28 SP TYPE: EGD BIOPSY OT DR: Dr. Alia Condon MD Tissues: A - Gastric mucous membrane B - Esophagus, NOS C - Gastric mucous membrane D - Gastric mucous membrane E - Cecum, NOS F - Rectum, NOS Procedures: Surgery Specimen Level IV HEADER OPERATION: Colonoscopy with polypectomy, EGD with biopsy PRE-OP DIAGNOSIS: History of polyps, dysphagia, GERD, Tam's esophagus TISSUE SUBMITTED: A- Antral biopsy, B- Gastroesophageal junction biopsy, C- Gastric body polyp biopsy, D- Gastric body polyp snare, multiple, E- Cecal polyp snare, F- Rectal polyps biopsy MICROSCOPIC DIAGNOSIS A. Gastric antrum, biopsy: Chronic gastritis. See comment. B. Gastroesophageal junction, biopsy: Mild chronic inflammation. 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 Focal changes of reflux. No evidence of dysplasia. See comment. C. Gastric body polyp, biopsy: Fundic gland polyp. D. Gastric body polyps, biopsy: Fundic gland polyps.E. Cecal polyp, biopsy: Cauterized fragments of colonic mucosa. See comment. F. Rectal polyps, biopsy: Fragments of colonic mucosa with focal hyperplastic change. AM/ 12/10/2023 COMMENT A. The results of immunohistochemistry for Helicobacter pylori will be reported separately ([id number]). B. Alcian blue/PAS stain with matched control supports the above diagnosis. Immunohistochemistry ([id number]) supports the above diagnosis. E. Focal hyperplastic change can not be entirely excluded. Clinical correlation is suggested. MICROSCOPIC DESCRIPTION Slides are reviewed. GROSS DESCRIPTION A. Received in fixative is one container labeled with the patient's name and designated Antrum biopsy. The specimen consists of one irregular fragment of light kong soft tissue that measures 0.3 x 0.3 x 0.1 cm. The specimen is totally submitted in one cassette. B. Received in fixative is one container labeled with the patient's name and designated GE junction biopsy. The specimen consists of two irregular fragments of light kong soft tissue that measures 0.5 x 0.4 x 0.1 cm. The specimen is totally submitted in one cassette. C. Received in fixative is one container labeled with the patient's name and designated Gastric body polyp biopsy. The specimen consists of one irregular fragment of light kong soft tissue that measures 0.4 x 0.3 x 0.1 cm. The specimen is totally submitted in one cassette. D. Received in fixative is one container labeled with the patient's name and designated Gastric body polyp snare. The specimen consists of multiple polypoid fragments of kong mucosal tissue measuring in aggregate 3.0 x 2.5 x 0.3cm. Also present in the container is a large polyp measuring 1.5 x 1.0 x 1.0cm. Presumed base of largest polyp is inked black. The largest polyp is serially sectioned. Second smaller polyp is bisected. The entire specimen is submitted in two cassettes. E. Received in fixative is one container labeled with the patient's name and designated Cecal polyp snare. The specimen consists of multiple irregular fragments of light kong soft tissue that in aggregate measure 0.5 x 0.3 x 0.1 cm. The specimen is totally submitted in one cassette. F. Received in fixative is one container labeled with the patient's name and designated Rectal polyp. The specimen consists of multiple irregular fragments of light kong soft tissue that in aggregate measure 1.5 x 0.3 x 0.1 cm. The specimen is totally submitted in one cassette. Julianna 12/09/2023 TC:1 CPT:[id number]
--- NOTE | 2023-12-08 10:00 | IMM_PTH ---
PATIENT: LAUREEN BROWNE LOC: EN U#:[id number] AGE/SX: 78/F ROOM: RE12/08/[address]: Dr. Zhao Abebe MD : 1945 BED: DIS: 12/08/2023 SPEC #: [id number] RECD: 12/09/23 08:57 STATUS: ANNABELLA REMadhuri #: [id number] GENEVA: 12/08/23 10:[address]: Zhao Abebe DEPT: IMMUNOHISTOCHEMISTRY RECD BY: Emanuel De Leon ENTERED: 12/09/23 08:57 SP TYPE: IMMUNO OTHR DR: Dr. Alia Condon MD Tissues: A - Gastric mucous membrane B - Esophagus, NOS Procedures: H Pylori (initial) P53 (initial) KI-67 (add) PHYSICIAN & INSTITUTION [place] [id number] SPECIMEN INFORMATION: Tissue Source: A. Antral biopsy Clinical Info: History of polyps, dysphagia, GERD, Tam's esophagus Specimen Number: [id number] CPT code: [id number] METHODOLOGY: Deparaffinized sections of prefer/formalin-fixed tissue or PAP/DQ stained slides are incubated with monoclonal/polyclonal antibodies/oligonucleotide probes. Localization is made via biotin free immunoperoxidase method. Appropriate controls are performed and reacted as expected. Results on target cell population are indicated in the following table: RESULTS: ANTIBODY / CLONE RESULT Block A H Pylori (polyclonal) negative Block B P53 (DO-7) positive, wild type Ki-67 (30-9) positive, low These tests were developed and their performance characteristics determined by [facility]. They may not have been cleared or approved by the U.S. Food and Drug Administration. The FDA has determined that such clearance or approval is not necessary. The above immunohistochemical/dualISH markers are ordered and reviewed by the Pathologist. INTERPRETATION: A. Antrum, biopsy: Negative for Helicobacter pylori organisms. B. Gastroesophageal junction, biopsy: No evidence of dysplasia. DEEPAK/ 12/11/2023
--- NOTE | 2023-12-08 10:00 | EGD_PTH ---
PATIENT: LAUREEN BROWNE LOC: EN U#:[id number] AGE/SX: 78/F ROOM: RE12/08/[address]: Dr. Zhao Abebe MD : 1945 BED: DIS: 12/08/2023 SPEC #: [id number] RECD: 12/08/23 13:26 STATUS: ANNABELLA EMMANUEL #: [id number] GENEVA: 12/08/23 10:[address]: Zhao Abebe DEPT: SURGICAL PATHOLOGY RECD BY: Melodie Ambrocio ENTERED: 12/09/23 07:28 SP TYPE: EGD BIOPSY OT DR: Dr. Alia Condon MD Tissues: A - Gastric mucous membrane B - Esophagus, NOS C - Gastric mucous membrane D - Gastric mucous membrane E - Cecum, NOS F - Rectum, NOS Procedures: Surgery Specimen Level IV HEADER OPERATION: Colonoscopy with polypectomy, EGD with biopsy PRE-OP DIAGNOSIS: History of polyps, dysphagia, GERD, Tam's esophagus TISSUE SUBMITTED: A- Antral biopsy, B- Gastroesophageal junction biopsy, C- Gastric body polyp biopsy, D- Gastric body polyp snare, multiple, E- Cecal polyp snare, F- Rectal polyps biopsy MICROSCOPIC DIAGNOSIS A. Gastric antrum, biopsy: Chronic gastritis. See comment. B. Gastroesophageal junction, biopsy: Mild chronic inflammation. 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 Focal changes of reflux. No evidence of dysplasia. See comment. C. Gastric body polyp, biopsy: Fundic gland polyp. D. Gastric body polyps, biopsy: Fundic gland polyps.E. Cecal polyp, biopsy: Cauterized fragments of chronic mucosa. See comment. F. Rectal polyps, biopsy: Fragments of colonic mucosa with focal hyperplastic change. AM/ 12/10/2023 COMMENT A. The results of immunohistochemistry for Helicobacter pylori will be reported separately ([id number]). B. Alcian blue/PAS stain with matched control supports the above diagnosis. Immunohistochemistry ([id number]) supports the above diagnosis. E. Focal hyperplastic change can not be entirely excluded. Clinical correlation is suggested. MICROSCOPIC DESCRIPTION Slides are reviewed. GROSS DESCRIPTION A. Received in fixative is one container labeled with the patient's name and designated Antrum biopsy. The specimen consists of one irregular fragment of light kong soft tissue that measures 0.3 x 0.3 x 0.1 cm. The specimen is totally submitted in one cassette. B. Received in fixative is one container labeled with the patient's name and designated GE junction biopsy. The specimen consists of two irregular fragments of light kong soft tissue that measures 0.5 x 0.4 x 0.1 cm. The specimen is totally submitted in one cassette. C. Received in fixative is one container labeled with the patient's name and designated Gastric body polyp biopsy. The specimen consists of one irregular fragment of light kong soft tissue that measures 0.4 x 0.3 x 0.1 cm. The specimen is totally submitted in one cassette. D. Received in fixative is one container labeled with the patient's name and designated Gastric body polyp snare. The specimen consists of multiple polypoid fragments of kong mucosal tissue measuring in aggregate 3.0 x 2.5 x 0.3cm. Also present in the container is a large polyp measuring 1.5 x 1.0 x 1.0cm. Presumed base of largest polyp is inked black. The largest polyp is serially sectioned. Second smaller polyp is bisected. The entire specimen is submitted in two cassettes. E. Received in fixative is one container labeled with the patient's name and designated Cecal polyp snare. The specimen consists of multiple irregular fragments of light kong soft tissue that in aggregate measure 0.5 x 0.3 x 0.1 cm. The specimen is totally submitted in one cassette. F. Received in fixative is one container labeled with the patient's name and designated Rectal polyp. The specimen consists of multiple irregular fragments of light kong soft tissue that in aggregate measure 1.5 x 0.3 x 0.1 cm. The specimen is totally submitted in one cassette. Julianna 12/09/2023 TC:1 CPT:69767j7
--- NOTE | 2023-12-08 10:25 | HP.PCM_ITS ---
History and Physical Date of Admission: 12/08/23 Date of Service: 09/17/23 MR#: [id number] Acct: [id number] Name: LAUREEN BROWNE Rep #: [id number] : 1945 Provider: Dr. Zhao Abebe MD Age/Sex: 78/F Location: [facility] Status: Signed Intake Vital Signs 08/30/2414:06 09/16/2413:56 Height 5 ft 6 in 5 ft 6 in Weight: 165 lb BMI 26.6 BP 155/85 H Blood Pressure Location Rt brachial Position Sitting Respiration 18 Pulse 68 Pulse Source Monitor Temp 97.2 F L Temp Source Temporal Pulse Oximetry (%) 97 Oxygen Delivery Method room air Intake Visit Reasons: BARRETTS Chief Complaint: barretts Accompanied by: Is patient in pain?: No Allergies No Known Allergies Allergy (Verified 09/17/23 14:58) Medications ?Medication ?Instructions ?Recorded ?Confirmed ?Type bupropion HCl 75 mg tablet 75 mg PO DAILY 08/31/23 09/17/23 History calcium PO 08/31/23 09/17/23 History celecoxib 200 mg capsule 200 mg PO DAILY PRN pain #60 caps 08/31/23 09/17/23 Rx citalopram 20 mg tablet 20 mg PO DAILY 08/31/23 09/17/23 History clobetasol-cocunut oil topical 08/31/23 09/17/23 History omeprazole 40 mg capsule,delayed 40 mg PO BID 3 months #180 caps 08/31/23 09/17/23 Rx release oxybutynin chloride 5 mg tablet 5 mg PO DAILY 08/31/23 09/17/23 History ibandronate 150 mg tablet 150 mg PO QMONTH #7 tabs 09/04/23 09/17/23 Rx PFSH Medical History Chronic back pain Osteopenia with high risk of fracture Weight loss, non-intentional Barretts esophagus Broken wrist Broken humerus FH: cholecystectomy Vision problems Stomach ulcer GERD (gastroesophageal reflux disease) Osteoarthritis Neuropathy Heart murmur Hearing problem Chronic headaches GI problem Gall stones Emotional problems Bronchitis Carpal tunnel syndrome Bone fracture Back problem Arthritis Allergies Osteoporosis Depression Surgical History History of carpal tunnel surgery Previous section Family History (Updated 08/31/23 @ 15:23 by Araceli Rangel LPN) Brother Alcoholism Diabetes Liver cancer Seizures EpilepsySister Anxiety Autoimmune disorder Cancer OsteoporosisFather Colon cancer Social History adopted: No household members: spouse current occupational status: retired history of recent travel: No Smoking Status: Former smoker quit date: 08/26/84 alcohol intake: current alcohol intake frequency: other Alcohol type: other details: rarely, pt states she feels she may be allergic to alcohol. substance use type: does not use what type of physical activity do you participate in: walking frequency: daily seatbelt use: always do you feel safe at home: Yes HPI HPI HPI: Patient is a 78-year-old female who presents for surveillance upper and lower endoscopy. They are referred for surgical consultation from Dr Condon. Patient presents today with her . She confirms that she was diagnosed with Ba rrett's esophagus probably over 15 years ago. She openly confesses that her memory does not serve her well in general anymore. Her last EGD was in 2020 and showed evidence of nondysplastic Tam's esophagus. Additional symptoms include: A feeling that food becomes stuck directly at the base of her neck. When asked to estimate how long this symptom has been present she describes symptoms for at least 15 years. She describes choking on solids and water both. She denies any prior need for esophageal dilation. She confirms a history of both reflux and heartburn. She confirms that she is on omeprazole twice daily and still experiences symptoms approximately twice a week. She notes that Dr Condon doubled her omeprazole dosing but this was poorly tolerated and she returned to 20 mg twice daily. She does confirm to a history of occasional aspiration events at night. She denies ever noting any blood or dark vomitus. Beyond the above, Mrs. Browne wishes to know whether she can be considered for possible surveillance colonoscopy. She shares that she previously underwent colonoscopies yearly until 2010 and then this was extended until 2013. Her last colonoscopy was 2020. She describes this tied interval of colonoscopies because she always had polyps and because of her strong family history. Regarding the latter she shares that her father was diagnosed with colon cancer at the age of 42. Patient's last colonoscopy found evidence of hyperplastic polyps but no adenomatous type polyps. They describe their bowel habits as generally normal after starting to take a stool softener 3 times per week as recommended by a clinic mgr in the past. They have approximately 2 bowel movements per week and spend roughly a few minutes on the toilet without significant straining. They have not noticed recent bleeding or dark stools. They do not regularly take fiber supplements. They deny a history of hemorrhoids. Patient has a family history of colon cancer (as above) as well as diverticulitis) and their sister). The patient's weight is stable. The patient is not prescribed anticoagulants/blood thinners. 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 ); No changing moles Musc Musculoskeletal: Yes back problems and arthritis; No rheumatoid arthritis, gout or joint pain Cardio Cardiovascular: Yes murmur; No pacemaker, heart disease, atrial fibrillation, high blood pressure, heart attack, heart stent, palpitations, shortness of breat with exertion or chest pain Psych Psychiatric: Yes depression and anxiety; No hearing voices Resp Respiratory: No shortness of breath, No sleep apnea, Yes cough, No COPD, No asthma, No emphysema and No wheezing Gastro Gastrointestinal: Yes abdominal pain, Yes nausea or vomiting, No diarrhea, No constipation, No blood in stool, Yes acid reflux, No hemorrhoids, Yes ulcers, No gallbladder problem and No black,tarry stools Jack Hematologic: No blood thinners, No blood disorders, No bleeding, No anemia and No blood clots Neuro Neurologic: No numbness, No tingling and No weakness Exam Const General: cooperative and anxious Orientation: alert, awake and oriented x3 Resp Effort & Inspection: normal respiratory effort GI Other: Well-healed lower midline scar. Nondistended, soft, nontender to palpation x 4 quadrants Assessment and Plan Assessment and Plan (1) Barretts esophagus: Status: Chronic Comment: Patient is 78-year-old female who presents for surveillance of Tam's esophagus that has been a chronic diagnosis. Last EGD in 2020 showed nondysplastic Tam's esophagus. Patient does describe new symptoms of swallowing difficulty?are rather that they have become somewhat progressive. I will plan to get a swallow study but in the interim also schedule patient for surveillance EGD. Plan: EGD for surveillance of Tam's esophagus (2) Dysphagia: Status: Chronic Comment: Patient describes what appears to be progressive dysphagia with things getting stuck at a point in her lower neck. She denies any history of esophageal stenoses or webs by history. She denies any prior swallow studies. Therefore I will obtain a barium swallow study with upper GI to assess whether this is related to her reported history of hiatal hernia or something else. Plan: Esophagram (3) History of colon polyps: Status: Chronic Comment: Patient with longtime history of colon polyps. She is unable to specify whether these are adenomatous type polyps. Her most recent colonoscopy in 2020 simply showed evidence of hyperplastic polyps. However, in addition to these numerous polyps patient does have a strong family history for colon cancer that showed early onset in her father. Thus I find it reasonable to consider concurrent surveillance colonoscopy with surveillance EGD, but if the findings of this exam accord with those of her prior exam may recommend against further surveillance endoscopy in the future. Plan: Plan will be to complete colonoscopy on first mutually agreeable date under local MAC. Pre-procedure prep discussed and paper instructions provided. Patient is also made aware that she will need to have a milk truck driver with her the day of the procedure. (4) Family history of colon cancer in father: Status: Chronic Comment: Patient with family history of colon cancer in her father who is diagnosed and succumbed to this diagnosis in his early 40s. Patient reports numerous scopes all with polyps as well. Will thus plan for concurrent surveillance colonoscopy with surveillance EGD. Plan: Colonoscopy plans as above Orders: Orders Esophagus Single Contrast Today K21.9 - Gastro-esophageal reflux disease without esophagitis, K22.70 - 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 Referrals Psychiatry F32.A - Depression, unspecified, F41.9 - Anxiety disorder, unspecified I have examined the patient and the H&P has been reviewed. There are no clinical changes since date of exam.Patient confirms that her symptoms are stable. She also confirms that she completed prep for today's procedure and that her output is now clear. Neither she nor her offer any questions. Proceed to endoscopy suite for planned scopes.
--- NOTE | 2023-12-08 12:01 | PCM.POST.ANE ---
Anesthesia: Postop Eval I Current Vital Signs Temperature: 97.3 F Pulse Rate: 74 Blood Pressure: 142/70 Respiratory Rate: 16 Pulse Ox: 95 Oxygen Delivery Method: Room Air Assessment Airway patent: Yes Spontaneous unlabored respirations: Yes Mental status: Awake and Calm nausea: No Vomiting: No Anesthesia Complication: No Fluid Hydration Crystalloid volume administer (ml): 900 Total IV fluid infused: 900 Progress Note Anesthesia document: Postop Eval 1 completed: Yes
--- NOTE | 2023-12-08 12:03 | PCM.POSTANE2 ---
Anesthesia Postop Eval I Sum Postop Eval Completion status Anesthesia document: Postop Eval 1 completed: Yes Anesthesia Postop Eval I Summary Anesthesia Postop Eval I Summary: Anesthesia Postop Eval I: Assessment Summary Airway patent Yes 12/08/23 12:02 [email or web address] Spontaneous unlabored Yes 12/08/23 12:02 [email or web address] respirations Mental status Awake,Calm 12/08/23 12:02 [email or web address] nausea No 12/08/23 12:02 [email or web address] Vomiting No 12/08/23 12:02 [email or web address] Anesthesia Postop Eval I: Fluid Summary Crystalloid volume administer 900 12/08/23 12:02 [email or web address] (ml) Colloids volume administered ( ml) Blood Product volume administered (ml) Total IV fluid infused 900 12/08/23 12:02 [email or web address] Anesthesia Postop Eval I: Summary Notes Anesthesia Complication No 12/08/23 12:02 [email or web address] Anesthesia Complication Comment: Post-operative progress note Anesthesia: Postop Eval II Evaluation Mental status: Awake Pain Level: 0 nausea: No Vomiting: No
--- NOTE | 2023-12-08 12:04 | OP.CCLET_ITS ---
12/08/2023 Alia Condon MD [address] [place] [address] [place] [address] Re : Upper GI endoscopy procedure for Richie Johnson Dear Dr. Condon This procedure was performed on Friday, December 08, 2023. My impressions and recommendations are as follows: Impressions : - No gross lesions in the duodenal bulb, in the first portion of the duodenum and in the second portion of the duodenum. No specimens collected. - Bilious gastric fluid. - Erythematous mucosa in the antrum. Biopsied. - Multiple gastric polyps. Resected and retrieved. - Z-line irregular, 38 cm from the incisors. Biopsied. - Medium-sized hiatal hernia. No specimens collected. - The examination was otherwise normal. Recommendations : - Discharge patient to home (via wheelchair). - Resume previous diet today. - No aspirin, ibuprofen, naproxen, or other non-steroidal anti-inflammatory drugs for 2 days after biopsy. - Await pathology results. - Telephone my office for pathology results in 1 week. My findings are described in the full procedure note, which is enclosed. If I can be of further assistance, please feel free to contact me at Doctor phone number(s): , Work: . Sincerely, Zhao Abebe MD 12/08/2023 12:03:36 PM This report has been signed electronically.
--- NOTE | 2023-12-08 12:04 | OP.EGD_ITS ---
Patient Name: Richie Johnson Procedure Date: 12/08/2023 10:15 AM Date of : 1945 Age: 78 Procedure: Upper GI endoscopy Indications: Surveillance for malignancy due to personal history of Tam's esophagus, Gastro-esophageal reflux disease Providers: Zhao Abebe MD Referring MD: Alia Condon MD Medicines: See the Anesthesia note for documentation of the administered medications Patient Profile: Refer to note in patient chart for documentation of history and physical. Complications: No immediate complications. Estimated blood loss: Minimal. Procedure: Pre-Anesthesia Assessment: - The heart rate, respiratory rate, oxygen saturations, blood pressure, adequacy of pulmonary ventilation, and response to care were monitored throughout the procedure. After obtaining informed consent, the endoscope was passed under direct vision. Throughout the procedure, the patient's blood pressure, pulse, and oxygen saturations were monitored continuously. The Endoscope was introduced through the mouth, and advanced to the second part of duodenum. The upper GI endoscopy was accomplished without difficulty. The patient tolerated the procedure well. Scope In: 10:35:42 AM Scope Out: 11:02:44 AM Total Procedure Duration Time 0 hours 27 minutes 2 seconds Findings: No gross lesions were noted in the duodenal bulb, in the first portion of the duodenum and in the second portion of the duodenum. No biopsies or other specimens were collected for this exam. Bilious fluid was found in the gastric antrum. Diffuse moderately erythematous mucosa without bleeding was found in the gastric antrum. Biopsies were taken with a cold forceps for Helicobacter pylori testing. Estimated blood loss was minimal. Multiple 6 to 25 mm pedunculated and sessile polyps with no bleeding and no stigmata of recent bleeding were found in the gastric fundus. These polyps were removed with a hot snare. Resection and retrieval were complete. Estimated blood loss was minimal. The Z-line was irregular and was found 38 cm from the incisors. Biopsies were taken with a cold forceps for histology. Estimated blood loss was minimal. A medium-sized hiatal hernia was present. No biopsies or other specimens were collected for this exam. The exam was otherwise without abnormality. Impression: - No gross lesions in the duodenal bulb, in the first portion of the duodenum and in the second portion of the duodenum. No specimens collected. - Bilious gastric fluid. - Erythematous mucosa in the antrum. Biopsied. - Multiple gastric polyps. Resected and retrieved. - Z-line irregular, 38 cm from the incisors. Biopsied. - Medium-sized hiatal hernia. No specimens collected. - The examination was otherwise normal. Recommendation: - Discharge patient to home (via wheelchair). - Resume previous diet today. - No aspirin, ibuprofen, naproxen, or other non-steroidal anti-inflammatory drugs for 2 days after biopsy. - Await pathology results. - Telephone my office for pathology results in 1 week. Procedure Code(s): --- Professional --- 75749, 59, Esophagogastroduodenoscopy, flexible, transoral; with biopsy, single or multiple Diagnosis Code(s): --- Professional --- K22.70, 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 K31.89, Other diseases of stomach and duodenum K31.7, Polyp of stomach and duodenum K22.89, Other specified disease of esophagus K44.9, Diaphragmatic hernia without obstruction or gangrene K21.9, Gastro-esophageal reflux disease without esophagitis CPT copyright 2021 [employer]. All rights reserved. The codes documented in this report are preliminary and upon project analyst review may be revised to meet current compliance requirements. Zhao Abebe MD 12/08/2023 12:03:36 PM This report has been signed electronically. Number of Addenda: 0 Note Initiated On: 12/08/2023 10:15 AM
--- NOTE | 2023-12-08 12:11 | OP.COLON_ITS ---
Patient Name: Richie Johnson Procedure Date: 12/08/2023 11:02 AM Date of : 1945 Age: 78 Procedure: Colonoscopy Indications: High risk colon cancer surveillance: Personal history of non-advanced adenoma Providers: Zhao Abebe MD Referring MD: Alia Condon MD Medicines: See the Anesthesia note for documentation of the administered medications Patient Profile: Refer to note in patient chart for documentation of history and physical. Last Colonoscopy: 3 years ago. Complications: No immediate complications. Estimated blood loss: Minimal. Procedure: Pre-Anesthesia Assessment: - The heart rate, respiratory rate, oxygen saturations, blood pressure, adequacy of pulmonary ventilation, and response to care were monitored throughout the procedure. After I obtained informed consent, the scope was passed under direct vision. Throughout the procedure, the patient's blood pressure, pulse, and oxygen saturations were monitored continuously. The colonoscope was introduced through the anus and advanced to the cecum, identified by the appendiceal orifice, ileocecal valve and palpation. The colonoscopy was somewhat difficult due to poor bowel prep with stool present. Successful completion of the procedure was aided by lavage. The patient tolerated the procedure well. Scope In: 11:06:32 AM Scope Withdrawal Time 0 hours 36 minutes 24 seconds Scope Out: 11:51:54 AM Total Procedure Duration Time 0 hours 45 minutes 22 seconds Findings: The perianal and digital rectal examinations were normal. A 3 mm polyp was found in the cecum. The polyp was semi-sessile. The polyp was removed with a hot snare. Resection and retrieval were complete. Estimated blood loss was minimal. A few small-mouthed diverticula were found in the sigmoid colon. There was no evidence of diverticular bleeding. No biopsies or other specimens were collected for this exam. The entire examined colon appeared normal on direct and retroflexion views. Multiple semi-sessile polyps were found in the rectum. The polyps were 2 to 4 mm in size. Biopsies were taken with a cold forceps for histology. Estimated blood loss was minimal. Impression: - One 3 mm polyp in the cecum, removed with a hot snare. Resected and retrieved. - Mild diverticulosis in the sigmoid colon. There was no evidence of diverticular bleeding. No specimens collected. - The entire examined colon is normal on direct and retroflexion views. - Multiple 2 to 4 mm polyps in the rectum. Biopsied. Recommendation: - Discharge patient to home (via wheelchair). - Resume previous diet today. - Continue present medications. - Await pathology results. - Telephone my office for pathology results in 1 week. - No recommendation at this time regarding repeat colonoscopy due to age. Procedure Code(s): --- Professional --- 96847, Colonoscopy, flexible; with removal of tumor(s), polyp(s), or other lesion(s) by snare technique 77394, 59, Colonoscopy, flexible; with biopsy, single or multiple Diagnosis Code(s): --- Professional --- Z86.010, Personal history of colonic polyps D12.0, Benign neoplasm of cecum D12.8, Benign neoplasm of rectum K57.30, Diverticulosis of large intestine without perforation or abscess without bleeding CPT copyright 2021 [employer]. All rights reserved. The codes documented in this report are preliminary and upon machine woodworking sander review may be revised to meet current compliance requirements. Zhao Abebe MD 12/08/2023 12:11:25 PM This report has been signed electronically. Number of Addenda: 0 Note Initiated On: 12/08/2023 11:02 AM
--- NOTE | 2023-12-08 12:12 | OP.CCLET_ITS ---
12/08/2023 Alia Condon MD [address] [place] [address] [place] [address] Re : Colonoscopy procedure for Richie Johnson Dear Dr. Condon This procedure was performed on Friday, December 08, 2023. My impressions and recommendations are as follows: Impressions : - One 3 mm polyp in the cecum, removed with a hot snare. Resected and retrieved. - Mild diverticulosis in the sigmoid colon. There was no evidence of diverticular bleeding. No specimens collected. - The entire examined colon is normal on direct and retroflexion views. - Multiple 2 to 4 mm polyps in the rectum. Biopsied. Recommendations : - Discharge patient to home (via wheelchair). - Resume previous diet today. - Continue present medications. - Await pathology results. - Telephone my office for pathology results in 1 week. - No recommendation at this time regarding repeat colonoscopy due to age. My findings are described in the full procedure note, which is enclosed. If I can be of further assistance, please feel free to contact me at Doctor phone number(s): , Work: . Sincerely, Zhao Abebe MD 12/08/2023 12:11:25 PM This report has been signed electronically.
== END 2023-12-08 12:52 | disposition home or self-care (01) ==
LOC: EN 08:55 → AC 08:56
PROVIDERS: PCP Internal Medicine; Referring Provider Internal Medicine; Visit Provider Surgery
PROC: 0DJD8ZZ Inspection of Lower Intestinal Tract, Via Natural or Artificial Opening Endoscopic (ICD-10-PCS; CPT 45378; principal; 2023-12-08 09:55)
DX: Z12.11 Encounter for screening for malignant neoplasm of colon (principal); D12.0 Benign neoplasm of cecum; K62.1 Rectal polyp; K57.30 Diverticulosis of large intestine without perforation or abscess without bleeding; K31.7 Polyp of stomach and duodenum; K22.70 Barrett's esophagus without dysplasia; K44.9 Diaphragmatic hernia without obstruction or gangrene; K29.50 Unspecified chronic gastritis without bleeding; K21.9 Gastro-esophageal reflux disease without esophagitis; K22.89 Other specified disease of esophagus; K31.89 Other diseases of stomach and duodenum; G89.29 Other chronic pain; M54.9 Dorsalgia, unspecified; F41.9 Anxiety disorder, unspecified; F32.A Depression, unspecified; L90.0 Lichen sclerosus et atrophicus; G57.93 Unspecified mononeuropathy of bilateral lower limbs; R01.1 Cardiac murmur, unspecified; R63.4 Abnormal weight loss; R13.10 Dysphagia, unspecified; M85.80 Other specified disorders of bone density and structure, unspecified site; M19.90 Unspecified osteoarthritis, unspecified site; M81.0 Age-related osteoporosis without current pathological fracture; H91.90 Unspecified hearing loss, unspecified ear; Z79.899 Other long term (current) drug therapy; Z97.4 Presence of external hearing-aid; Z87.891 Personal history of nicotine dependence; Z86.010 Personal history of colon polyps; Z80.0 Family history of malignant neoplasm of digestive organs; Z83.79 Family history of other diseases of the digestive system
CPT/HCPCS: 45385; 45380; 43239; 88305; 88341; 88342; J7120; J2405

== ENCOUNTER → 2024-03-11 | Outpatient (CLI) | payer MEDICARE, SELFPAY ==
[2024-03-11 12:19] LABS: Absolute Lymphocyte Count 2.42 X10^3/uL (0.83-4.51); Basophil# 0.04 X10^3/uL; Basophil% 0.5 % (0-1); Eosinophil# 0.22 X10^3/uL; Eosinophils% 2.7 % (0-5); Hematocrit 40.8 % (37-47); Hemoglobin 13.5 g/dL (12.0-15.0); Lymphocyte # 2.42 X10^3/ul (0.83-4.51); Lymphocyte % 29.2 % (19-41); Mean Corp Hgb Conc 33.1 g/dL (32-36); Mean Corpuscular Hgb 29.5 pg (27.0-32.0); Mean Corpuscular Volume 89.1 fL (81-99); Mean Platelet Vol. 10.5 fl (6.2-12.0); Monocyte# 0.55 X10^3/uL; Monocyte% 6.6 % (0-10); NRBC Flagged by Analyzer 0 % (0-5); Neutrophil # 5.04 X10^3/uL (2.7-7.7); Neutrophil % 60.8 % (47-70); Platelet Count 298 K/mm3 (150-450); RBC Distribution Width CV 13.2 % (11.6-14.6); RBC Distribution Width SD 42.6 fl (35.1-43.9); Red Blood Count 4.58 M/mm3 (4.2-5.4); White Blood Count 8.3 K/mm3 (4.4-11.0)
[2024-03-11 12:53] LABS: Anion Gap 6 (5-15); BUN 16 mg/dL (7-18); BUN/Creat Ratio 19.3 RATIO (10-20); Calcium,Total 9.4 mg/dL (8.5-10.1); Chloride 107 mmol/L (98-107); Creatinine, Serum 0.83 mg/dL (0.55-1.02); EST Glomerular Filtration Rate 71 mL/min (>60); Est Glom Filt Rate - Afr Amer 85 mL/min (>60); Glucose 90 mg/dL (74-106); Potassium 4.3 mmol/L (3.5-5.1); Sodium Level 139 mmol/L (136-145)
== END | disposition home or self-care (01) ==
PROVIDERS: PCP Internal Medicine; Referring Provider Internal Medicine; Visit Provider Internal Medicine
DX: K21.9 Gastro-esophageal reflux disease without esophagitis (principal)
CPT/HCPCS: 36415; 80048; 85025

== ENCOUNTER → 2024-04-05 | Outpatient (CLI) | payer MEDICARE, SELFPAY ==
--- NOTE | 2024-04-05 12:15 | RAD_ITS ---
STUDY: X-RAY - RIGHT SHOULDER REASON FOR EXAM: Female, 78 years old. Right Shoulder Pain TECHNIQUE: 4 view(s) of the shoulder. COMPARISON: None. FINDINGS: There is moderate degenerative arthrosis of the glenohumeral articulation. There is degenerative arthrosis of the acromioclavicular joint without inferior osseous spur formation. Normal acromion. There is demineralization of the humerus and visualized osseous structures. There is an old healed impacted fracture of the surgical neck of the humerus. The soft tissue structures are unremarkable. No upper rib fracture or pneumothorax RAD/Shoulder min 2 Views IMPRESSION: Glenohumeral and AC joint arthrosis Old healed surgical neck fracture of the humerus Diffuse osteopenia Electronically Signed: Rene Espinosa MD at 18:02 EST ,
--- NOTE | 2024-04-05 12:15 | RAD_ITS ---
STUDY: X-RAY - LEFT SHOULDER REASON FOR EXAM: Female, 78 years old. Pain, decreased range of motion TECHNIQUE: 4 view(s) of the shoulder. COMPARISON: None. FINDINGS: There is moderate degenerative arthrosis of the glenohumeral articulation. There is degenerative arthrosis of the acromioclavicular joint without inferior osseous spur formation. Normal acromion. There is demineralization of the humerus and visualized osseous structures. The soft tissue structures are unremarkable. Normal visualized pulmonary apex. RAD/Shoulder min 2 Views IMPRESSION: Degenerative arthrosis, no fracture or suspicious osseous lesion Electronically Signed: Rene Espinosa MD at 18:03 EST ,
== END | disposition home or self-care (01) ==
LOC: RAD 12:00
PROVIDERS: PCP Internal Medicine; Referring Provider Internal Medicine; Visit Provider Internal Medicine
DX: M25.511 Pain in right shoulder (principal); M25.512 Pain in left shoulder
CPT/HCPCS: 73030

== ENCOUNTER → 2024-06-10 | Outpatient (CLI) | payer MEDICARE, SELFPAY ==
[2024-06-10 16:06] LABS: Anion Gap 9 (5-15); BUN 16 mg/dL (7-18); BUN/Creat Ratio 19.1 RATIO (10-20); Calcium,Total 9.7 mg/dL (8.5-10.1); Chloride 105 mmol/L (98-107); Creatinine, Serum 0.84 mg/dL (0.55-1.02); EST Glomerular Filtration Rate 70 mL/min (>60); Est Glom Filt Rate - Afr Amer 84 mL/min (>60); Glucose 87 mg/dL (74-106); Potassium 4.3 mmol/L (3.5-5.1); Sodium Level 138 mmol/L (136-145); T4 Free Direct 1.35 ng/dL (0.76-1.46)
== END | disposition home or self-care (01) ==
LOC: BIMLAB 10:46
PROVIDERS: PCP Internal Medicine; Referring Provider Internal Medicine; Visit Provider Internal Medicine
DX: F41.9 Anxiety disorder, unspecified (principal); K21.9 Gastro-esophageal reflux disease without esophagitis; R73.03 Prediabetes
CPT/HCPCS: 36415; 80048; 83036; 84439; 84443

== ENCOUNTER → 2024-10-12 | Outpatient (CLI) | payer MEDICARE, SELFPAY ==
[2024-10-12 12:57] LABS: Absolute Lymphocyte Count 2.86 X10^3/uL (0.83-4.51); Absolute Neutrophil Count 6.6 X10^3/uL (2.0-7.7); Basophil# 0.06 X10^3/uL; Basophil% 0.6 % (0-1); Eosinophil# 0.29 X10^3/uL; Eosinophils% 2.8 % (0-5); Hematocrit 40.9 % (37-47); Hemoglobin 13.5 g/dL (12.0-15.0); Lymphocyte # 2.86 X10^3/ul (0.83-4.51); Lymphocyte % 27.1 % (19-41); Mean Corpuscular Hgb 29.5 pg (27.0-32.0); Mean Corpuscular Volume 89.3 fL (81-99); Monocyte# 0.72 X10^3/uL; Monocyte% 6.8 % (0-10); NRBC Flagged by Analyzer 0 % (0-5); Neutrophil # 6.55 X10^3/uL (2.7-7.7); Neutrophil % 62.1 % (47-70); Platelet Count 316 K/mm3 (150-450); RBC Distribution Width CV 13.5 % (11.6-14.6); Red Blood Count 4.58 M/mm3 (4.2-5.4); White Blood Count 10.5 K/mm3 (4.4-11.0)
[2024-10-12 13:38] LABS: ALB/GLOB Ratio 1.5 RATIO (0.9-2.4); AST(SGOT) 22 U/L (<=31); Alanine Aminotransfer ALT/SGPT 17 U/L (<=34); Albumin, Serum 4.3 g/dL (3.4-4.8); Alkaline Phosphatase 71 U/L (35-104); Anion Gap 11 (5-15); BUN 17 mg/dL (4-19); BUN/Creat Ratio 21.1 RATIO (10-20); Carbon Dioxide 24.3 mmol/L (21.0-32.0); Chloride 103 mmol/L (98-108); Cholesterol 225 mg/dL (<=200); Creatinine, Serum 0.79 mg/dL (0.70-1.20); EST Glomerular Filtration Rate 75 (>60); Globulin 2.9 g/dL (2.2-4.2); Glucose 94 mg/dL (70-99); High Density Lipoprotein 75 mg/dL; Low Density Lipoprotein Calc. 122 mg/dL; Potassium 4.2 mmol/L (3.3-5.1); Protein, Total 7.2 g/dL (5.9-8.4); Sodium Level 139 mmol/L (133-145); Total Bilirubin 0.25 mg/dL (0.00-1.30); Triglycerides 140 mg/dL; Very Low Density Lipoprotein 28 mg/dL (5-40); Vitamin D,25 Hydroxy 46.6 ng/mL (30-100)
== END | disposition home or self-care (01) ==
LOC: BIMLAB 11:11
PROVIDERS: PCP Internal Medicine; Referring Provider Internal Medicine; Visit Provider Internal Medicine
DX: I10 Essential (primary) hypertension (principal); R73.03 Prediabetes; M85.80 Other specified disorders of bone density and structure, unspecified site
CPT/HCPCS: 36415; 80053; 80061; 82306; 83036; 85025

== ENCOUNTER → 2024-10-13 | Outpatient (CLI) | payer MEDICARE, SELFPAY ==
[2024-10-13 10:04] LABS: Bacteria 0 SEEN /hpf (None Seen); Mucous, Urine 0 SEEN /hpf (<or=2+); Red Blood Cells-Urine 0 SEEN /hpf (0-5); White Blood Cells 0 SEEN /hpf (0-5)
[2024-10-13 12:17] LABS: Color, Urine Yellow (Yellow); Glucose, Dipstick Normal (Normal); Ketone-Dipstick Negative (Negative); Leukocyte Esterase-Dipstick Negative /ul (Negative); Nitrite-Dipstick Negative (Negative); Occult Blood-Urine Negative /ul (Negative); Protein-Dipstick Negative (Negative); Urine Bilirubin Dipstick Negative (Negative); Urine Clarity Clear (Clear); Urine Urobilinogen Normal (Normal)
[2024-10-13 12:23] LABS: Squamous Epithelial Cells - UA 0-5 SEEN /hpf (5-10)
--- OUTSIDE RECORDS SUMMARY | 2024-10-13 20:03 | XMS RPT_ITS | CCD ---
Author Organization [facility] Care Team Providers Care Early Childhood Aide Classroom Name Role Phone Kadie, Efrem Mackenzie Unavailable RADHA BAKER Admitting Clarissa vailable RADHA BAEKR Attending Clarissa vailable KADIE, EFREM MACKENZIE Primary Care Unavailab le KADIE, EFREM MACKENZIE Attending Unavailab le KADIE, EFREM MACKENZIE Referring Unavailab le KADIE, EFREM MACKENZIE Primary Care Unavailab le Kadie, Efrem Mackenzie Primary Care Provider Kadie, Efrem Mackenzie Primary Care Provider Kadie DO, [...] MACKENZIE Primary Care Unavailab le KADIE, EFREM MACKENIZE Attending Unavailab le KADIE, EFREM MACKENZIE Primary Care Unavailab DMITRI Robertson Attending Unavai lable KADIE, EFREM MACKENZIE Primary Care Unavailab le JUDE YANES Admitting Unavailable [facility] Consulting JERMAINE Clay Attending Unavailable KADIE, EFREM MACKENZIE Primary Care Unavailab le JERMAINE RIVERA Referring Unavailable Kadie DO, Efrem Mackenzie Primary Care Provider Unavailable Primary Care Provider UnavailDr. Jermaine Toribio Referring Provider [phone] Dr. Alia Condon Primary Care Provider [phone] Dr. Alia oCndon Attending Provider Alia Condon MD Primary Care Provider [phone] MARY GRACIA Attending Unavail able CAROLEE, ANAYELI Attending Unavailable CAROLEE, ANAYELI Referring Unavailable SOUTH, MARY BETH M Attending Unavailable OLEGHE, EFEWONGBE B Primary Care Unavailable SOUTH, MARY BETH M Attending Unavailable OLEGHE, EFEWONGBE B Primary Care Unavailable SOUTH, MARY BETH M Attending Unavailable SOUTH, MARY BETH M Referring Unavailable OLEGHE, EFEWONGBE B Primary Care Unavailable SOUTH, MARY BETH M Attending Unavailable Oleghe, Efewongbe Primary Care Unavailable Oleghe, Efewongbe Referring Unavailable Gopi Flynn Attending Unavailable Oleghe, Efewongbe Referring Unavailable Oleghe, Efewongbe Primary Care Unavailable Jenn Flores Attending Unavailable Oleghe, Efewongbe Attending Unavailable Oleghe, Efewongbe Referring Unavailable Oleghe, Efewongbe Primary Care Unavailable Oleghe, Efewongbe Primary Care Unavailable Oleghe, Efewongbe Referring Unavailable Oleghe, Efewongbe Attending Unavailable Oleghe, Efewongbe Referring Unavailable Jenn Flores Attending Unavailable Oleghe, Efewongbe Primary Care Unavailable Oleghe, Efewongbe Referring Unavailable Tonny Palomo Attending Unavailable Oleghe, Efewongbe Primary Care Unavailable Oleghe, Efewongbe Referring Unavailable Oleghe, Efewongbe Attending Unavailable Oleghe, Efewongbe Primary Care Unavailable Oleghe, Efewongbe Referring Unavailable Oleghe, Efewongbe Primary Care Unavailable Gopi Flynn Attending Unavailable Oleghe, Efewongbe Referring Unavailable Oleghe, Efewongbe Attending Unavailable Oleghe, Efewongbe Primary Care Unavailable Oleghe, Efewongbe Referring Unavailable Oleghe, Efewongbe Primary Care Unavailable Gopi Flynn Attending Unavailable Zhao Abebe Attending Unavailable Zhao Abebe Consulting Unavailable Oleghe, Efewongbe Referring Unavailable Oleghe, Efewongbe Primary Care Unavailable Jenn Flores Referring Unavailable Oleghe, Efewongbe Primary Care Unavailable Jenn Flores Attending Unavailable Zhao Abebe Attending Unavailable Oleghe, Efewongbe Primary Care Unavailable Zhao Abebe Referring Unavailable Oleghe, Efewongbe Referring Unavailable Oleghe, Efewongbe Attending Unavailable Oleghe, Efewongbe Primary Care Unavailable Oleghe, Efewongbe Referring Unavailable Oleghe, Efewongbe Attending Unavailable Oleghe, Efewongbe Primary Care Unavailable Oleghe, Efewongbe Primary Care Unavailable Maximo Rouse Attending Unavailable Zhao Abebe Attending Unavailable Oleghe, Efewongbe Primary Care Unavailable Oleghe, Efewongbe Referring Unavailable Oleghe, Efewongbe Referring Unavailable Oleghe, Efewongbe Attending Unavailable Oleghe, Efewongbe Primary Care Unavailable Medications Current Medications Medication Drug Class(es) [...] C ORAL) Take by mouth . 0 ascorbic acid (V ITAMIN C ORAL) Take by mouth . 0 Active buPROPion hydrochloride 75 mg oral tablet (20 sources) Aminoketone Start: 01-03-2023 take 1 tablet by mouth once buPROPion (WELLBUTRIN) 75 mg tablet Take 1 tablet by mouth every afternoon. 01/03/2023 Active Start: 02-14-2022 take 1 tablet by yuliet th twice daily buPROPion (WELLBUTRIN) 75 MG tablet Indications: Anxiety , Depression, unspecified depression type TAKE 1 (ONE) TABLET (75 MG TOTAL) BY MOUTH 2 (TWO) TIMES A DAY . 180 tablet 2 02/14/2022 Active Start: 11-06-2020 End: 05-30-2021 75 mg, Oral, 2 times daily, First dose on Vicki 05/30/21 at 0900 Do Not Crush or Chew if administering orally due to bitter taste. May be crushed if given via tube. Start: 03-09-2018 End: 05-10-2020 take 1 tablet by mouth twice daily buPROPion (WELLBUTRIN) 75 MG tablet Take 75 mg by mouth 2 (two) times a day . 1 03/09/2018 05/10/2020 Discontinued (Reorder (Suppress CancelRx Message to Pharmacy)) Comment on above: Take 1 tablet by yuliet th every afternoon. Calcium (2 sources) Phosphate Binder, Calcium Start: 08-31-19 take 2000 mg by mouth once daily calcium Active PO August 31, 2023 12:00am 2,000 mg 2 a day calcium carbonate 1250 mg / cholecalciferol 125 unt oral tablet (19 sources) Vitamin D take 1 tablet by mouth once daily calcium carbonate-vitamin D3 (Calcium 500 + D, D3,) 500 mg(1,250mg) -125 unit per tablet Take 1 tablet by mouth daily . 0 Active celecoxib 200 mg oral capsule (20 sources) Nonsteroidal Anti-inflammatory Drug Start: 01-27-20 23 End: 08-31-19 24 take 1 capsule by mouth once celecoxib (CELEBREX) 200 mg capsule Take 1 capsule by mouth every afternoon. 01/26/2023 Active Start: 11-12-2020 End: 11-12-2021 take 1 capsule by mouth once daily celecoxib (CELEBREX) 200 MG capsule TAKE 1 (ONE) CAPSULE (200 MG TOTAL) BY MOUTH DAILY . 30 capsule 11/12/2020 11/12/2021 Active Start: 01-05-2019 End: 10-19-2020 take 1 capsule by mouth once daily celecoxib (CELEBREX) 200 MG capsule Indications: Osteoarthritis of first metatarsophalangeal (MTP) joint of right foot TAKE 1 (ONE) CAPSULE (200 MG TOTAL) BY MOUTH DAILY . 90 capsule 1 06/20/2019 09/28/2019 Discontinued Comment on above: Take 1 capsule by mo uth every afternoon. cephalexin 250 mg oral capsule (5 sources) Cephalosporin Antibacterial Start: 2 End: 2 take 1 capsule by mouth every six hours cephALEXin (KEFLEX) 250 MG capsule Take 1 (one) capsule (250 mg total) by mouth every 6 (six) hours for 5 days . 20 capsule 0 05/30/2021 06/04/2021 Active Start: 05-29-2021 End: 05-29-2021 cephALEXin (KEFLEX) capsule 500 mg Start: 12-28-2019 End: 12-31-2019 take 1 capsule by mouth four times daily cephALEXin (KEFLEX) 500 MG capsule Take 1 (one) capsule (500 mg total) by mouth 4 (four) times a day for 3 days . 12 capsule 0 12/28/2019 12/31/2019 Active citalopram 20 mg oral tablet (20 sources) Serotonin Reuptake Inhibitor Start: 01-20-2023 take 1 tablet by mouth once citalopram (CELEXA) 20 mg tablet Take 1 tablet by mouth every afternoon. 01/20/2023 Active Start: 05-30-2021 End: 05-30-2021 take 20 mg by mouth once daily 20 mg, Oral, Daily, Fir st dose on Vicki 05/30/21 at 0900 Start: 05-01-2020 End: 06-09-2022 take 1 tablet by mouth once daily citalopram (CELEXA) 20 MG tablet Indications: Anxiety , Depression, unspecified depression type take 1 tablet by mouth once daily 90 tablet 1 06/09/2022 Active Start: 06-06-2019 End: 11-14-2019 take 1 tablet by mouth once daily citalopram (CELEXA) 20 MG tablet TAKE 1 TABLET BY MOUTH EVERY DAY 90 tablet 1 11/14/2019 Active Start: 12-01-2018 take 1 tablet by yuliet th once daily citalopram (CELEXA) 20 MG tablet TAKE 1 TABLET BY MOUTH EVERY DAY 90 tablet 1 12/01/2018 Active Start: 09-27-2018 End: 09-29-2018 take 20 mg by mouth once daily 20 mg, Oral, Daily, Fir st dose on Thu09/27/18 at 1045 Start: 05-27-2018 take 1 tablet by yuliet th once daily citalopram (CELEXA) 20 MG tablet Take 1 (one) tablet (20 mg total) by mouth daily . 90 tablet 1 05/27/2018 Active Start: 02-15-2018 take 1 tablet by yuliet th once daily citalopram (CELEXA) 20 MG tablet Take 20 mg by mouth daily . 1 02/15/2018 Active Comment on above: Take 1 tablet by yuliet th every afternoon. clobetasol-cocunut oil (2 sources) Start: 08-31-19 clobetasol-cocunut oil Active TOPICAL August 31, 2023 12:00am pt states she applies topically once a month cyclobenzaprine hydrochloride 5 mg oral tablet (3 sources) Muscle Relaxant Start: 05-30-19 End: 06-04-19 take 1 tablet by mouth every eight hours as needed cyclobenzaprine (FLEXERIL) 5 MG tablet Take 1 (one) tablet (5 mg total) by mouth every 8 (eight) hours as needed for muscle spasms . 15 tablet 0 05/30/2021 06/04/2021 Active Start: 05-30-2021 End: 05-30-2021 take 1 tablet by mouth every eight hours as needed 5 mg, Oral, Every 8 hours PRN, muscle spasms, Starting on Vicki 05/30/21 at 0154 Do not administer if patient has POSS of 3 or 4, or RASS of -3, -4, or -5. estradiol 0.1 mg/ml vaginal cream (17 sources) Estrogen Start: 12-10-2023 estradiol (EST RACE) 0.01 % (0.1 mg/gram) vaginal cream Indications: Atrophic Urethritis , atrophic vaginitis associated with menopause Use a pea-size amount vaginally three times per week. May use as often as daily. Do not use applicator. 42.5 g 11 12/10/2023 Active Start: 2023 estradiol (EST RACE) 0.01 % (0.1 mg/gram) vaginal cream Use 1 g vaginally once daily. Use fingertip amount of vaginal tissue nightly x 2 weeks then use 2-3 times weekly. 42.5 g 2023 Active Comment on above: Use 1 g vaginally on ce daily. Use fingertip amount of vaginal tissue nightly x 2 weeks then use 2-3 times weekly. ibandronic acid 150 mg oral tablet (20 sources) Bisphosphonate Start: End: take 150 mg by mouth every month Ibandronate Active 150 MG PO EVERY MONTH 7 May 3rd, 2024 1:03pm Start: 05-19-2019 End: 04-22-2021 take 1 tablet by mouth every 30 days in the morning ibandronate (BONIVA) 150 mg tablet Indications: Osteoporosis, unspecified osteoporosis type, unspecified pathological fracture presence Take 1 tab every 30 days. Take in a.m. with a full glass of water on empty stomach. Take nothing by mouth or lie down for the next 60 min. 3 tablet 3 04/23/2021 Active ipratropium bromide 0.042 mg/actuat metered dose nasal spray (9 sources) Anticholinergic Start: 02-15-2024 End: 02-14-2025 ipratropium bromide (ATROVENT) 42 mcg (0.06 %) nasal spray Indications: Allergy to environmental factors Use 2 Sprays in the nose three times a day. 27 mL 11 02/15/2024 02/14/2025 Active Start: 11-06-2023 End: 02-15-2024 take 2 spray(s) nasal route three times daily ipratropium bromide (ATROVENT) 42 mcg (0.06 %) nasal spray instill 2 sprays into each nostril three times a day if needed for runny nose 11/06/2023 02/15/2024 Discontinued lidocaine 25 mg/ml / prilocaine 25 mg/ml topical cream (4 sources) Antiarrhythmic, Amide Local Anesthetic Start: 01-22-2024 End: 01-21-2025 lidocaine-prilocaine (EMLA) 2.5-2.5 % cream Indications: Labial hypertrophy Apply to affected area as needed. 30 g 11 01/22/2024 01/21/2025 Active melatonin 3 mg oral tablet (19 sources) take 1 tablet by mouth once daily as needed melatonin 3 mg Tab Take 3 mg by mouth nightly as needed . 0 Active meloxicam 15 mg oral tablet (5 sources) Nonsteroidal Anti-inflammatory Drug Start: 09-28-2019 take 1 tablet by mouth once daily meloxicam (MOBIC) 15 MG tablet Indications: Chronic low back pain, unspecified back pain laterality, unspecified whether sciatica present Take 1 (one) tablet (15 mg total) by mouth daily . 30 tablet 5 09/28/2019 Active Start: 09-28-2018 End: 11-14-2018 take 1 tablet by mouth once daily meloxicam (MOBIC) 7.5 MG tablet Take 1 (one) tablet (7.5 mg total) by mouth daily . 30 tablet 1 10/15/2018 11/14/2018 Active methylPREDNISolone (1 source) Corticosteroid Start: 11-15-2018 End: 11-22-2018 methylPREDNISolone (MEDROL DOSEPACK) 4 mg tablet follow package directions . 21 tablet 0 11/15/2018 11/22/2018 Active omeprazole 40 mg delayed release oral capsule (20 sources) Proton Pump Inhibitor Start: 08-31-2023 take 40 mg by mouth twice daily Omeprazole Active 40 MG PO TWICE A DAY 180 90 August 31, 2023 3:27pm Start: 02-14-2022 End: 08-31-2023 take 1 capsule by mouth twice daily before mealtime omeprazole (PRILOSEC) 20 mg capsule take 1 capsule by mouth twice a day 30 TO 45 MINUTES BEFORE MEALS 12/12/2022 Active Start: 05-05-2018 End: 05-06-2021 take 1 capsule by mouth twice daily omeprazole (PRILOSEC) 20 MG capsule Indications: Gastroesophageal reflux disease, unspecified whether esophagitis present Take 1 (one) capsule (20 mg total) by mouth 2 (two) times a day . 180 capsule 3 05/06/2021 Active Comment on above: take 1 capsule by mo uth twice a day 30 TO 45 MINUTES BEFORE MEALS oxybutynin chloride 5 mg oral tablet (20 sources) Cholinergic Muscarinic Antagonist Start: 08-31-2023 take 5 mg by mouth once daily Oxybutynin Chloride Active 5 MG PO DAILY August 31, 2023 12:00am Start: 01-15-2023 End: 12-10-2023 take 1 tablet by mouth every hour oxybutynin ER (DITROPAN XL) 10 mg 24 hr tablet Take 1 tablet by mouth every afternoon. 0 01/15/2023 12/10/2023 Discontinued (Clinical Decision) Start: 02-14-2022 take 0.5 tablet by m outh twice daily oxybutynin (DITROPAN) 5 MG tablet TAKE 1/2 TABLET BY MOUTH TWICE A DAY 90 tablet 1 02/14/2022 Active Start: 06-14-2021 take 0.5 tablet by m outh twice daily oxybutynin (DITROPAN) 5 MG tablet TAKE 1/2 TABLET BY MOUTH TWICE A DAY 90 tablet 1 06/14/2021 Active Start: 05-30-2021 End: 05-30-2021 take 5 mg by mouth once daily 5 mg, Oral, Nightly, Fir st dose on Vicki 05/30/21 at 0155 Start: 04-04-2020 End: 06-14-2021 take 0.5 tablet by mouth twice daily oxybutynin (DITROPAN) 5 MG tablet TAKE 1/2 TABLET BY MOUTH TWICE DAILY 90 tablet 1 02/01/2021 06/14/2021 Discontinued Start: 09-27-2018 End: 09-29-2018 take 5 mg by mouth twice daily 5 mg, Oral, 2 times [address]ad ly, First dose on 09/27/18 at 1045 End: 04-04-2020 take 1 tablet by mouth once daily at bedtime oxybutynin (DITROPAN) 5 MG tablet one po qhs 0 04/04/2020 Discontinued Comment on above: Take 1 tablet by yuliet th every afternoon. oxyCODONE hydrochloride 5 mg oral tablet (8 sources) Opioid Agonist Start: 05-30-2021 End: 06-02-2021 oxyCODONE (ROXICODONE) 5 MG immediate release tablet Indications: Flank pain Take 1 (one) tablet (5 mg total) by mouth every 6 (six) hours as needed (Days supply per fill: 3) . 12 tablet 0 05/30/2021 06/02/2021 Active Start: 05-30-2021 End: 05-30-2021 take 5-10 mg by mouth every four hours as needed 5-10 mg, Oral, Every 4 hours PRN (may repeat), moderate to severe pain, Starting on Vicki 05/30/21 at 0154 Initiate with 5 mg oral every 4 hours prn moderate to severe pain. For unrelieved pain, may repeat 5 mg within 60 minutes of initial dose. If pain is RELIEVED after repeat dose, change to 10 mg every 4 hours prn moderate to severe pain. If pain is UNrelieved after repeat dose, or patient requires dose reduction, call physician. Start: 12-29-2019 End: 12-29-2019 take 10 mg under the tongue every twenty-four hours as needed 10 mg, Sublingual, Once as needed, moderate to severe pain, Pain, Starting Vicki 12/29/19 at 0745, For 1 dose, PACU (only) Use first if unable to tolerate oral route. Start: 09-27-2018 End: 09-28-2018 take 10 mg by mouth every three hours as needed oxyCODONE (ROXICODONE) 10 mg/0.5 mL concentrated solution 10 mg Start: 09-27-2018 End: 09-27-2018 oxyCODONE (ROXICODONE) 10 mg /0.5 mL concentrated solution 10 mg sucralfate 1000 mg oral tablet (8 sources) Aluminum Complex Start: 12-08-2023 take 1 tablet by mouth every twelve hours sucralfate (CARAFATE) 1 gram tablet Take 1 tablet by mouth every 12 hours. 12/08/2023 Active vibegron (GEMTESA) 75 mg tablet (9 sources) Start: 02-15-2024 take 1 tablet by mouth once daily vibegron (GEMTESA) 75 mg tablet Indications: OAB (overactive bladder) Take 1 tablet by mouth once daily. 30 tablet 11 02/15/2024 Active Start: 12-10-2023 End: 02-15-2024 take 1 tablet by mouth once daily vibegron (GEMTESA) 75 mg tablet Indications: OAB (overactive bladder) Take 1 tablet by mouth once daily. 30 tablet 11 12/10/2023 02/15/2024 Discontinued Start: 12-10-2023 take 1 tablet by [facility] once daily vibegron (GEMTESA) 75 mg tablet Indications: OAB (overactive bladder) Take 1 tablet by mouth once daily. 30 tablet 11 12/10/2023 Active Completed/Discontinued Medications Medication Drug Class(es) Dates Sig (Normalized) Sig (Original) acetaminophen 325 mg oral tablet (20 sources) Start: 09-27-2018 End: 09-29-2018 take 1 tablet by mouth every eight hours as needed acetaminophen (TYLENOL) tablet 650 mg take 500-1000 mg by mouth every six hours as needed acetaminophen (TYLENOL) 500 MG tablet Ta ke 500-1,000 mg by mouth every 6 (six) hours as needed . 0 Active take 1 tablet by yuliet once daily as needed for pain acetaminophen (TYLENOL) 500 MG tablet Ta ke 500 mg by mouth daily as needed for pain . 0 Active acetaminophen 325 mg / HYDROcodone bitartrate 5 mg oral tablet (3 sources) Opioid Agonist Start: 05-29-2021 End: 05-29-2021 HYDROcodone-acetaminophen (NORCO) 5-325 mg per tablet 1 tablet Start: 12-29-2019 End: 01-01-2020 take 1 tablet by mouth every six hours as needed for pain, then take 3 tablets by mouth as needed for pain HYDROcodone-acetaminophen (NORCO) 5-325 mg per tablet Indications: Acute post-operative pain Take 1 (one) tablet by mouth every 6 (six) hours as needed for pain (Days supply per fill: 3) . 12 tablet 0 12/29/2019 01/01/2020 Active Start: 07-29-2018 End: 08-05-2018 take 1 tablet by mouth every six hours as needed for pain, then take 7 tablets by mouth as needed for pain HYDROcodone-acetaminophen (NORCO) 5-325 mg per tablet Indications: Cervical stenosis of spine , Chronic low back pain, unspecified back pain laterality, with sciatica presence unspecified Take 1 (one) tablet by mouth every 6 (six) hours as needed for pain (Days supply per fill: 7) . 28 tablet 0 07/29/2018 08/05/2018 Active acetaminophen 325 mg / oxyCODONE hydrochloride 5 mg oral tablet (7 sources) Opioid Agonist Start: 12-29-2019 End: 12-29-2019 take 2 tablets by mouth every twenty-four hours as needed 2 tablet, Oral, Once as needed, Pain, Starting Vicki 12/29/19 at 0745, For 1 dose, PACU (only) While in PACU when tolerating orals. Use oral route first, if tolerated. Start: 12-28-2019 End: 12-29-2019 take 1 tablet by mouth every six hours as needed for pain, then take 7 tablets by mouth as needed for pain oxyCODONE-acetaminophen (PERCOCET) 5-325 mg per tablet Indications: Acute post-operative pain Take 1 (one) tablet by mouth every 6 (six) hours as needed for pain (Days supply per fill: 7) . 28 tablet 0 12/28/2019 12/29/2019 Discontinued (Stop Taking at Discharge) Start: 10-20-2018 End: 10-27-2018 take 1 tablet by mouth every eight hours as needed, then take 7 tablets by mouth as needed oxyCODONE-acetaminophen (PERCOCET) 7.5-325 mg per tablet Indications: Closed fracture of proximal end of right humerus, unspecified fracture morphology, initial encounter Take 1 (one) tablet by mouth every 8 (eight) hours as needed (Days supply per fill: 7) . 28 tablet 0 10/20/2018 10/27/2018 Active Start: 09-28-2018 End: 10-05-2018 take 1 tablet by mouth every six hours as needed, then take 7 tablets by mouth as needed oxyCODONE-acetaminophen (PERCOCET) 7.5-325 mg per tablet Indications: Closed fracture of proximal end of right humerus, unspecified fracture morphology, initial encounter Take 1 (one) tablet by mouth every 6 (six) hours as needed (Days supply per fill: 7) . 30 tablet 0 09/28/2018 10/05/2018 Discontinued (Reorder) Start: 09-28-2018 End: 09-29-2018 take 1 tablet by mouth every four hours as needed oxyCODONE-acetaminophen (PERCOCET) 7.5-325 mg per tablet 1 tablet alendronic acid 70 mg oral tablet (3 sources) Bisphosphonate Start: 01-10-2019 End: 05-19-2019 alendronate (FOSAMAX) 70 MG tablet Indications: Osteoarthritis of first metatarsophalangeal (MTP) joint of right foot , Osteoporosis, unspecified osteoporosis type, unspecified pathological fracture presence Take 1 (one) tablet (70 mg total) by mouth every 7 days full glass of water on an empty stomach. Remain upright and do not eat for 30 min . 12 tablet 3 01/10/2019 05/19/2019 Discontinued Start: 01-05-2019 alendronate (F OSAMAX) 70 MG tablet Indications: Osteoarthritis of first metatarsophalangeal (MTP) joint of right foot , Osteoporosis, unspecified osteoporosis type, unspecified pathological fracture presence Take 1 (one) tablet (70 mg total) by mouth every 7 days (full glass of water on an empty stomach). Remain upright and do not eat for next 30 min . 12 tablet 3 01/05/2019 Active aluminum hydroxide 40 mg/ml / magnesium hydroxide 40 mg/ml / simethicone 4 mg/ml oral suspension (1 source) Start: 05-30-2021 End: 05-30-2021 take 30 mL by mouth every four hours as needed 30 mL, Oral, Every 4 hours PRN, indigestion, Starting on Vicki 05/30/21 at 0154 b complex vitamins capsule (6 sources) End: 12-29-2019 take 1 capsule by mouth once daily b complex vitamins capsule Take 1 capsule by mouth daily . 0 12/29/2019 Discontinued (Error) take 1 capsule by mouth once mahad ly b complex vitamins capsule Take 1 capsule by mouth daily . 0 Active calcium chloride 0.0014 meq/ml / potassium chloride 0.004 meq/ml / sodium chloride 0.103 meq/ml / sodium lactate 0.028 meq/ml injectable solution (1 source) Start: 12-29-2019 End: 12-29-2019 lactated [facility] infusion chondroitin sulfates 200 mg / glucosamine hydrochloride 250 mg oral tablet (18 sources) End: 12-29-2019 glucosamine-chondr oitin 250-200 mg Tab 2 Unspecified . 0 12/29/2019 Discontinued (Error) clobetasol propionate 0.5 mg/ml topical cream (10 sources) Corticosteroid Start: 04-24-2023 End: 02-15-2024 clobetasol (TEMOVATE) 0.05 % cream Apply to affected area 2x/day for 2 weeks, then 1x/day for a week, than 1-3x/week for maintenance. 60 g 2023 02/15/2024 Discontinued Comment on above: Apply to affected ar ea 2x/day for 2 weeks, then 1x/day for a week, than 1-3x/week for maintenance. colchicine 0.6 mg oral tablet (5 sources) Start: 12-03-2018 End: 12-03-2019 take 1 tablet by mouth twice daily colchicine 0.6 mg tablet Indications: 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, right Take 1 (one) tablet (0.6 mg total) by mouth 2 (two) times a day . 60 tablet 0 12/03/2018 01/05/2019 Discontinued dexamethasone phosphate 10 mg/ml injectable solution (2 sources) Corticosteroid Start: 09-29-2019 End: 09-29-2019 dexamethasone (DECADRON) injection 5 mg Start: 09-29-2019 End: 09-29-2019 dexamethasone (DECADRON) inj ection 5 mg 2 ml diazePAM 5 mg/ml prefilled syringe (1 source) Benzodiazepine Start: 05-29-2021 End: 05-29-2021 diazePAM (VALIUM) syringe 2.5 mg docusate sodium 50 mg / sennosides, chcf 8.6 mg oral tablet (8 sources) Start: 05-30-2021 End: 05-30-2021 take 1 tablet by mouth twice daily 1 tablet, Oral, 2 times daily, First dose on Vicki 05/30/21 at 0900 NOT for abdominal surgery patients. Hold for loose stools. Do Not Crush or Chew if administering orally due to bitter taste. May be crushed if given via tube. Start: 12-29-2019 End: 01-05-2020 take 1 tablet by mouth once daily senna-docusate (PAOLA A-S) 8.6- 50 mg Take 1 (one) tablet by mouth daily for 7 days . 7 tablet 0 12/29/2019 01/05/2020 Start: 09-27-2018 End: 10-29-2018 take 1 tablet by mouth twice daily as needed for constipation senna-docusate (SENNA-S) 8.6-50 mg Take 1 (one) tablet by mouth 2 (two) times a day as needed for constipation (Hold for loose stools) . 30 tablet 0 09/29/2018 10/29/2018 Active 0.4 ml enoxaparin sodium 100 mg/ml prefilled syringe (2 sources) Low Molecular Weight Heparin Start: 05-30-2021 End: 05-30-2021 inject 40 mg by subcutaneous injection once daily 40 mg, Subcutaneous, Daily, First dose on Vicki 05/30/21 at 0900 Administer in abdomen unless otherwise directed by prescriber. Notify physician if patient refuses. Indication: VTE Prophylaxis Start: 09-28-2018 End: 09-29-2018 enoxaparin (LOVENOX) syringe 40 mg 2 ml famotidine 10 mg/ml injection (1 source) Histamine-2 Receptor Antagonist Start: 12-29-2019 End: 12-29-2019 20 mg, Intravenous, Once, Vicki 12/29/19 at 0630, For 1 dose, Pre-Procedure Aseptically dilute dose of famotidine injection with 0.9% NaCl to a total volume of either 5 ml or 10 ml and inject over 2 minutes. Start: 12-29-2019 End: 12-29-2019 20 mg, Intravenous, Once, Th u 12/29/19 at 0630, For 1 dose, Pre-Procedure Aseptically dilute dose of famotidine injection with 0.9% NaCl to a total volume of either 5 ml or 10 ml and inject over 2 minutes. 20 ml fentaNYL 0.05 mg/ml injection (1 source) Opioid Agonist Start: 12-29-2019 End: 12-29-2019 50 mcg, Intravenous, Every 5 min PRN, Pain, Starting Vicki 12/29/19 at 0745, For 2 doses, PACU (only) [] Do not give more than 100 mcg while in PACU. Haloperidol (1 source) Typical Antipsychotic Start: 12-29-2019 End: 12-29-2019 take 1 mg intravenous route every twenty-four hours as needed 1 mg, Intravenous, Once as needed, Nausea or vomiting, Starting Vicki 12/29/19 at 0745, For 1 dose, PACU (only) Administer if ondansetron (Zofran), promethazine (Phenergan), metoclopromide (REGLAN), prochlorperazine (COMPAZINE) & nbsp;ineffective/n ot ordered, or as directed by anesthesia, as needed for nausea/vomiting&nb sp;May cause QT interval prolongation. 1 ml hydrALAZINE hydrochloride 20 mg/ml injection (1 source) Arteriolar Vasodilator Start: 05-30-2021 End: 05-30-2021 take 10 mg intravenously every four hours as needed 10 mg, Intravenous, Every 4 hours PRN, for SBP > 170, DBP > 110, Hold for HR >100, Starting on Vicki 05/30/21 at 0154 0.5 ml HYDROmorphone hydrochloride 1 mg/ml prefilled syringe (1 source) Opioid Agonist Start: 12-29-2019 End: 12-29-2019 0.5 mg, Intravenous, Every 5 min PRN, Pain, Starting Vicki 12/29/19 at 0745, For 6 doses, PACU (only) [] Give if fentanyl not effective or not ordered. [] Do not give more than 3 mg total. HYDROmorphone (DILAUDID) 0.5 mg/mL injection 0.5 mg (1 source) Start: 09-28-2018 End: 09-28-2018 HYDROmorphone (DILAUDID) 0.5 mg/mL injection 0.5 mg iopamidoL (ISOVUE-370) 76 % injection 75 mL (1 source) Start: 05-29-2021 End: 05-29-2021 iopamidoL (ISOVUE-370) 76 % injection 75 mL 1 ml ketorolac tromethamine 30 mg/ml injection (2 sources) Nonsteroidal Anti-inflammatory Drug, Cyclooxygenase Inhibitor Start: 05-29-2021 End: 05-29-2021 ketorolac (TORADOL) injection 15 mg Start: 09-28-2018 End: 09-29-2018 take 15 mg intravenous route every six hours as needed ketorolac (TORADOL) injection 15 mg labetalol hydrochloride 5 mg/ml injectable solution (1 source) beta-Adrenergic Nenita Start: 12-29-2019 End: 12-29-2019 5 mg, Intravenous, Every 5 min PRN, SBP greater than 160 or DBP greater than 90, Starting Vicki 12/29/19 at 0745, For 4 doses, PACU (only) [] Do not give more than 20 mg total. [] Hold for HR less than 50. lactobacillus combo no.11 (Probiotic) 15 billion cell CpSP (19 sources) End: 05-06-2021 lactobacillus combo no.11 (Probiotic) 15 billion cell CpSP Take by mouth . 0 05/06/2021 Discontinued (Patient's Request) lactobacillus co mbo no.11 (Probiotic) 15 billion cell CpSP Take by mouth . 0 Active lidocaine 0.04 mg/mg medicated patch (2 sources) Antiarrhythmic, Amide Local Anesthetic Start: 05-29-2021 End: 05-30-2021 lidocaine patch 1 patch Start: 12-29-2019 End: 12-29-2019 lidocaine 1% (PF) (XYLOCAINE -MPF) 10 mg/mL (1 %) injection 0.2 mL metFORMIN hydrochloride 500 mg oral tablet (2 sources) Biguanide End: 07-29-2018 metFORMIN (GLUCOPHAGE) 500 MG tablet metformin 500 mg tablet 0 07/29/2018 Discontinued vazsxwen-rxil-FQ-calci um-mins 9 mg iron-400 mcg Tab (6 sources) End: 12-29-2019 take 1 tablet by mouth once daily, then take 9 tablets by mouth neutbnlo-zteg-ZC-ashely cium-mins 9 mg iron-400 mcg Tab Take 1 tablet by mouth daily . 0 12/29/2019 Discontinued (Error) take 1 tablet by yuliet th once daily, then take 9 tablets by mouth nfptcfvv-ufpl-WW-calcium-mins 9 mg iron- 400 mcg Tab Take 1 tablet by mouth daily . 0 Active naloxone (NARCAN) injection 0.1 mg (3 sources) Start: 05-30-2021 End: 05-30-2021 naloxone (NARCAN) injection 0.1 mg Start: 12-29-2019 End: 12-29-2019 naloxone (NARCAN) injection 0.1 mg Start: 09-27-2018 End: 09-29-2018 naloxone (NARCAN) injection 0.1 mg 2 ml ondansetron 2 mg/ml injection (4 sources) Serotonin-3 Receptor Antagonist Start: 05-29-2021 End: 05-29-2021 ondansetron (ZOFRAN) injection 4 mg Start: 12-29-2019 End: 12-29-2019 4 mg, Intravenous, Every 15 min PRN, nausea, vomiting, Starting Vicki 12/29/19 at 0745, For 2 doses, PACU (only) Do not give more than 2 doses. Administer first as needed for nausea/vomiting, or as directed by anesthesia Start: 12-29-2019 End: 12-29-2019 take 1 tablet by mouth once 4 mg, Oral, Once, Vicki 12/28 at 0630, For 1 dose, Pre-Procedure Orally disintegrating tablet: Open blister pack and place tablet on the tongue; tablet is formulated to dissolve on the tongue without water; do not split tablet. Formulation requires tablet remain in sealed package until immediately prior to dose being administered. End: 05-12-2018 ondansetron (ZOFRAN-ODT) 4 M G disintegrating tablet ondansetron 4 mg disintegrating tablet 05/12/2018 Discontinued ondansetron (ZOFRAN-ODT) disintegrating tablet 4 mg (1 source) Start: 05-30-2021 End: 05-30-2021 take 1 tablet by mouth every six hours as needed for nausea and vomiting ondansetron (ZOFRAN-ODT) disintegrating tablet 4 mg pantoprazole 40 mg delayed release oral tablet (1 source) Proton Pump Inhibitor Start: 09-27-2018 End: 09-29-2018 take 40 mg by mouth once daily 40 mg, Oral, Daily, First dose on 09/27/18 at 1045 DO NOT CRUSH OR CHEW. polyethylene glycol 3350 45078 mg powder for oral solution (5 sources) Osmotic Laxative Start: 09-29-2018 End: 10-06-2018 polyethylene glycol (MIRALAX) 17 gram powder Take 17 (seventeen) g by mouth daily as needed (constipation. Hold for loose stools) . 255 g 0 09/29/2018 10/06/2018 End: 09-27-2018 polyethylene glycol (MIRALAX ) 17 gram/dose powder 17 g . 0 09/27/2018 Discontinued predniSONE 20 mg oral tablet (4 sources) Start: 08-03-2023 End: 08-31-2023 take 40 mg by mouth once daily Prednisone Discontinued 40 MG PO DAILY August 03, 2023 12:00am August 31, 2023 3:06pm promethazine hydrochloride 25 mg oral tablet (1 source) Phenothiazine Start: 12-29-2019 End: 12-29-2019 take 1 tablet by mouth every twenty-four hours as needed 12.5 mg, Oral, Once as needed, nausea, vomiting, Starting Vicki 12/29/19 at 0745, For 1 dose, PACU (only) Administer if ondansetron (Zofran) ineffective or not ordered, and patient can tolerate oral administration, or as directed by anesthesia, as needed for nausea/vomiting sennosides, chcf 8.6 mg oral tablet (1 source) Start: 05-30-2021 End: 05-30-2021 take 1 tablet by mouth twice daily as needed for constipation 8.6 mg (1 tablet), Oral, 2 times daily PRN, constipation, Starting on Vicki 05/30/21 at 0154 Sodium Chloride (1 source) Start: 05-30-2021 End: 05-30-2021 sodium chloride (PF) (NS) flush 5 mL traZODone hydrochloride 50 mg oral tablet (1 source) Serotonin Reuptake Inhibitor Start: 05-30-2021 End: 05-30-2021 take 50 mg by mouth once daily as needed for sleep 50 mg, Oral, Nightly PRN, sleep, Starting on Vicki 05/30/21 at 0154 May repeat times 1 in 30 minutes if still awake. Problems Active Problems Problem Classification Problem Date Documented Date Episodic/Chronic Abdominal pain (8 sources) Left flank pain; Translations: [Unspecified abdominal pain] Onset: 2 Episodic Allergic reactions (4 sources) Vulval eczema; Translations: [Dermatitis, unspecified] 2023 Episodic Anxiety disorders (13 sources) Anxiety; Translations: [Anxiety disorder, unspecified] Onset: 5 Chronic Delirium, dementia, and amnestic and other cognitive disorders (1 source) Age-related cognitive decline; Translations: [Age-related cognitive decline] Onset: 4 Chronic E Codes: Fall (20 sources) Fall; Translations: [Unspecified fall, initial encounter] Onset: 9 09-27-2018 Episodic Esophageal disorders (20 sources) Gastroesophageal reflux disease; Translations: [Gastro-esophageal reflux disease without esophagitis] Onset: 4 Chronic External cause codes: Fall (20 sources) Fall; Translations: [Fall, subsequent encounter] Onset: 9 09-27-2018 Genitourinary symptoms and ill-defined conditions (9 sources) Asymptomatic microscopic hematuria; Translations: [Asymptomatic microscopic hematuria] Onset: 4 12-10-2023 Episodic Immunity disorders (2 sources) Autoimmune disease; Translations: [Other specified disorders involving the immune mechanism, not elsewhere classified] 08-31-2023 Chronic Menopausal disorders (10 sources) Atrophy of vagina; Translations: [Postmenopausal atrophic vaginitis] Onset: 4 12-10-2023 Chronic Mood disorders (10 sources) Depressive disorder; Translations: [...] of skin; Translations: [Atypical nevus] Episodic Other bone disease and musculoskeletal deformities (2 sources) Osteopenia with high fracture risk; Translations: [Other specified disorders of bone density and structure, unspecified site] 08-31-2023 Episodic Other bone disease and musculoskeletal deformities (2 sources) Other specified disorders of bone density and structure, unspecified site; Translations: [Disorder of bone and cartilage, unspecified] 08-31-2023 Episodic Other circulatory disease (1 source) Elevated blood-pressure reading without diagnosis of hypertension; Translations: [Elevated blood-pressure reading, without diagnosis of hypertension] Episodic Other connective tissue disease (2 sources) Triggering of digit; Translations: [Trigger middle finger of right hand] Episodic Other diseases of bladder and urethra (11 sources) Overactive bladder; Translations: [Overactive bladder] Onset: 4 12-10-2023 Chronic Other female genital disorders (1 source) Vaginal discharge; Translations: [Other specified noninflammatory disorders of vagina] Episodic Other female genital disorders (1 source) Burning sensation of vulva; Translations: [Other specified conditions associated with female genital organs and menstrual cycle] 04-23-2023 Episodic Other female genital disorders (14 sources) Hypertrophy of labia; Translations: [Unspecified hypertrophy of vulva] Onset: 4 2023 Episodic Other female genital disorders (1 source) Atrophic vulva; Translations: [Atrophy of vulva] 2023 Episodic Other female genital disorders (1 source) Unspecified hypertrophy of vulva; Translations: [Labial hypertrophy] Onset: 4 Episodic Other injuries and conditions due to external causes (1 source) At risk for falls ; Translations: [At risk for falls] Episodic Other nervous system disorders (2 sources) Bilateral peripheral neuropathy of lower limbs; Translations: [Unspecified mononeuropathy of bilateral lower limbs] 08-31-2023 Chronic Other non-traumatic joint disorders (1 source) Shoulder pain; Translations: [Acute pain of right shoulder] Episodic Other non-traumatic joint disorders (1 source) Pain in right hip; Translations: [Pain in right hip] Onset: 5 Episodic Other nutritional; endocrine; and metabolic disorders (2 sources) Unintentional weight loss; Translations: [Abnormal weight loss] 08-31-2023 Episodic Other nutritional; endocrine; and metabolic disorders (2 sources) Abnormal weight loss; Translations: [Loss of weight] 08-31-2023 Episodic Other skin disorders (15 sources) Lichen sclerosus et atrophicus; Translations: [Lichen sclerosus et atrophicus] Onset: 4 08-31-2023 Chronic Peripheral and visceral atherosclerosis (1 source) Atherosclerosis of aorta; Translations: [Atherosclerosis of aorta] Onset: 4 Chronic Spondylosis; intervertebral disc disorders; other back problems (14 sources) Chronic neck pain; Translations: [Chronic low back pain] 08-03-2023 Episodic Superficial injury; contusion (18 sources) Contusion of foot; Translations: [Contusion of unspecified foot, initial encounter] 01-21-2022 Episodic Unclassified (1 source) Preprocedural examination done; Translations: [Preop examination] Unclassified (1 source) Low back pain, unspecified; Translations: [Low back pain, unspecified] Onset: 5 Viral infection (1 source) COVID-19; Translations: [COVID-19] Onset: 4 Past or Other Problems Problem Classification Problem Date Documented Da te Episodic/Chronic Cardiac dysrhythmias (1 source) Palpitations; Translations: [Palpitations] Onset: 11-06-2023 Episodic Diabetes mellitus without complication (1 source) Prediabetes; Translations: [Prediabetes] Onset: 11-17-2023 Episodic Fracture of upper limb (20 sources) Unspecified fracture of upper end of right humerus, initial encounter for closed fracture; Translations: [Closed fracture of upper end of humerus] Onset: 10-04-2018 10-04-2018 Episodic Gastritis and duodenitis (1 source) Gastritis, unspecified, without bleeding; Translations: [Gastritis, unspecified, without bleeding] Onset: 03-01-2024 Episodic Open wounds of extremities (1 source) Laceration without foreign body of left middle finger without damage to nail, initial encounter; Translations: [Laceration without foreign body of left middle finger without damage to nail, initial encounter] Onset: 03-01-2024 Episodic Other connective tissue disease (1 source) Other symptoms and signs involving the musculoskeletal system; Translations: [Other symptoms and signs involving the musculoskeletal system] Onset: 04-13-2024 Episodic Other gastrointestinal disorders (1 source) Dysphagia, unspecified; Translations: [Dysphagia, unspecified] Onset: 03-01-2024 Episodic Other nervous system disorders (1 source) Acute postoperative pain; Translations: [Acute post-operative pain] Episodic Other non-traumatic joint disorders (2 sources) Pain in right shoulder; Translations: [Pain in joint of right shoulder] Onset: 05-05-2024 Episodic Other non-traumatic joint disorders (2 sources) Toe joint rigid; Translations: [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, right] Episodic Other non-traumatic joint disorders (1 source) Pain in left shoulder; Translations: [Pain in left shoulder] Onset: 03-11-2024 Episodic Other screening for suspected conditions (not mental disorders or infectious disease) (2 sources) Patient encounter status; Translations: [Encounter for other screening for malignant neoplasm of breast] Onset: 03-01-2024 Episodic Other upper respiratory infections (2 sources) Acute maxillary sinusitis; Translations: [Acute pharyngitis, unspecified] Onset: 10-27-2023 Episodic Results Test Name Value Interpretation Reference Range Facility Internal Medicine Office Vis ito 09-29-2024 Internal Medicine Office Visit [facility] [address] [place], [place] [address] OFFICE VISIT Date of Service: 09/29/24 MR#: [id number] Acct: [id number] Name: RICHIE JOHNSON Rep #: [id number] : 1945 Provider: GUILLERMINA Gonzalez Age/Sex: 79/F Location: [facility] Status: Signed Intake Vital Signs 06/10/24 10:22 09/02/24 10:04 09/29/24 14:52 Height 5 ft 6 in 5 ft 6 in 5 ft 6 in Weight: 171 lb BMI 27.6 BP 144/82 H Blood Pressure Location Lt brachial Position Sitting Respiration 16 Pulse 54 L Pulse Source Monitor Temp 98.6 F Temp Source Temporal Pulse Oximetry (%) 96 Oxygen Delivery Method room air Intake Visit Reasons: ACUTE 3 M FU Temper [place] Required: No Is patient in pain?: No Allergies No Known Allergies Allergy (Verified 09/29/24 14:33) Medications ???Medication ???Instructions ???Recorded ???Confirmed ???Type calcium 2,000 mg PO DAILY 08/31/23 5 History estradiol 0.01% (0.1 mg/gram) vaginal 3XW 12/22/23 09/29/24 Hist ory vaginal cream omeprazole 20 mg capsule,delayed 20 mg PO BID 90 days #180 caps 09/29/24 Rx release vibegron 75 mg tablet (Gemtesa) 75 mg PO QDAY 12/22/23 09/29/24 Hi story ibandronate 150 mg tablet 150 mg PO QMONTH #7 tabs 04/04/24 09/29/24 Rx citalopram 20 mg tablet 20 mg PO DAILY #90 tabs 04/22/24 0 09/29/24 Rx ipratropium bromide 42 mcg (0.06 2 spray intranasal TID PRN runny 0 05/10/24 09/29/24 Rx %) nasal spray nose #15 mL celecoxib 200 mg capsule 200 mg PO DAILY PRN pain #90 caps 06/15/24 09/29/24 Rx bupropion HCl 75 mg tablet 75 mg PO DAILY #90 tabs 08/03/24 0 09/29/24 Rx amlodipine 5 mg tablet 5 mg PO QDAY #30 tabs 08/15/24 Rx Have you fallen in the past year?: No Nurse's Note: * Pt c/o R hip pain in the last few weeks when going up the stairs she has a stabbing shooting pain that goes down into the leg. Once she has finished going up the stairs it resolves. Pt has been taking tylneol arthritis which seems to help and voltaren . * Pt c/o abdomen and stomach pain constantly It is better after she eats, after having a Bm and emptying out the stomach Pt states that it is a deep ache, nausea is accompanied and some vomiting pt states she also has diarrhea which she had the same issues a few years ago and once she took a stool softener it regulated her and went away. Has been going on for about a week or so. Pt states that she tried a stool softner which helped w/ it not going on for a couple of days. * Pt states that she has a flashes in her L eye and will then not be able to see out of it. It has been going on in the last month it happens about twice a week pt states that bright lights make it come on. Pt states that if she goes in a dark room it gets better. Pt denies headache when this happens. [facility] Medical History Hypertension Left knee pain Right shoulder pain Left shoulder pain Elevated blood pressure reading in office without diagnosis of hypertension Anxiety and depression Age-related cognitive decline Wears hearing aid Loss of hearing Cardiology follow-up encounter Chronic back pain Osteopenia with high risk of fracture Weight loss, non-intentional Barretts esophagus Broken wrist Broken humerus FH: cholecystectomy Vision problems Stomach ulcer GERD (gastroesophageal reflux disease) Osteoarthritis Neuropathy Heart murmur Hearing problem Chronic headaches GI problem Gall stones Emotional problems Bronchitis Carpal tunnel syndrome Bone fracture Back problem Arthritis Allergies Osteoporosis Depression Surgical History History of carpal tunnel surgery Previous section Family History (Updated 09/29/24 @ 15:06 by Gopi SARMIENTO, PA) Brother Alcoholism Diabetes Liver cancer Seizures Epilepsy Sister Anxiety Autoimmune disorder Cancer Osteoporosis Amyloidosis Father Colon cancer Social History adopted: No household members: spouse current occupational status: retired history of recent travel: No Smoking Status: Former smoker quit date: 08/26/84 alcohol intake: current alcohol intake frequency: other Alcohol type: other details: rarely, pt states she feels she may be allergic to alcohol. substance use type: does not use what type of physical activity do you participate in: walking frequency: daily seatbelt use: always do you feel safe at home: Yes HPI HPI Details: RICHIE JOHNSON, is a 79 F who presents to the office today for right hip pain. She states that she has had pains for about a week now. She states that she gets pains any times she is going up and down steps. She states that sh (more content not included)... Normal [facility] Internal Medicine Office Vis iton 09-02-2024 Internal Medicine Office Visit [facility] [address] [place] [address] [place] [address] OFFICE VISIT Date of Service: 09/02/24 MR#: [id number] Acct: [id number] Name: RICHIE JOHNSON Rep #: [id number] : 1945 Provider: GUILLERMINA Gonzalez Age/Sex: 79/F Location: [email or web address] Status: Signed Intake Vital Signs 06/30/24 14:19 09/02/24 10:04 Height 5 ft 6 in 5 ft 6 in Weight: 171 lb 170 lb 8 oz BMI 27.6 27.5 BP 162/82 H 142/68 H Blood Pressure Location Lt brachial Lt brachial Position Sitting Sitting Respiration 18 16 Pulse 75 54 L Pulse Source Monitor Monitor Temp 98.0 F 96.6 F L Temp Source Temporal Temporal Pulse Oximetry (%) 99 96 Oxygen Delivery Method room air room air Intake Visit Reasons: ACUTE ANXIETY Chief Complaint: bp and anxiety Temper [place] Required: No Accompanied by: Self Is patient in pain?: No Allergies No Known Allergies Allergy (Verified 09/02/24 10:03) Medications ???Medication ???Instructions ???Recorded ???Confirmed ???Type calcium 2,000 mg PO DAILY 08/31/23 5 History estradiol 0.01% (0.1 mg/gram) vaginal 3XW 12/22/23 09/02/24 Hist ory vaginal cream omeprazole 20 mg capsule,delayed 20 mg PO BID 90 days #180 caps 09/02/24 Rx release vibegron 75 mg tablet (Gemtesa) 75 mg PO QDAY 12/22/23 09/02/24 Hi story ibandronate 150 mg tablet 150 mg PO QMONTH #7 tabs 04/04/24 09/02/24 Rx citalopram 20 mg tablet 20 mg PO DAILY #90 tabs 04/22/24 0 09/02/24 Rx ipratropium bromide 42 mcg (0.06 2 spray intranasal TID PRN runny 0 05/10/24 09/02/24 Rx %) nasal spray nose #15 mL celecoxib 200 mg capsule 200 mg PO DAILY PRN pain #90 caps 06/15/24 09/02/24 Rx bupropion HCl 75 mg tablet 75 mg PO DAILY #90 tabs 08/03/24 0 09/02/24 Rx amlodipine 5 mg tablet 5 mg PO QDAY #30 tabs 08/15/2406/28 Rx Have you fallen in the past year?: No PFSH Medical History Hypertension Left knee pain Right shoulder pain Left shoulder pain Elevated blood pressure reading in office without diagnosis of hypertension Anxiety and depression Age-related cognitive decline Wears hearing aid Loss of hearing Cardiology follow-up encounter Chronic back pain Osteopenia with high risk of fracture Weight loss, non-intentional Barretts esophagus Broken wrist Broken humerus FH: cholecystectomy Vision problems Stomach ulcer GERD (gastroesophageal reflux disease) Osteoarthritis Neuropathy Heart murmur Hearing problem Chronic headaches GI problem Gall stones Emotional problems Bronchitis Carpal tunnel syndrome Bone fracture Back problem Arthritis Allergies Osteoporosis Depression Surgical History History of carpal tunnel surgery Previous section Family History Brother Alcoholism Diabetes Liver cancer Seizures Epilepsy Sister Anxiety Autoimmune disorder Cancer Osteoporosis Father Colon cancer Social History adopted: No household members: spouse current occupational status: retired history of recent travel: No Smoking Status: Former smoker quit date: 08/26/84 alcohol intake: current alcohol intake frequency: other Alcohol type: other details: rarely, pt states she feels she may be allergic to alcohol. substance use type: does not use what type of physical activity do you participate in: walking frequency: daily seatbelt use: always do you feel safe at home: Yes Questionnaire MARYAM-7 BMS MARYAM-7 Feeling nervous, anxious, or on edge: 3 = Nearly every day Not being able to stop or control worryin = More than half the days Worrying too much about different things: 3 = Nearly every day Trouble relaxin = Nearly every day Being so restless that it is hard to sit still: 0 = Not at all Becoming easily annoyed or irritable: 1 = Several days Feeling afraid as if something awful might happen: 3 = Nearly every day (her sibling passing. ) Total MARYAM-7 score (0-4 normal; 5-9 mild; 10-14 moderate; 15-21 severe): 15 Source: Developed by Drs. Juan Morrison, Elsa Oilvares, Ori Gonzalez and colleagues, with an educational heather from [employer]. HPI HPI Chief Complaint: bp and anxiety Details: RICHIE JOHNSON, is a 79 F who presents to the office today for some anxiety. Patient states that she has a lot of things going on in life causing her some anxiety. She has two siblings who are passing away 1 is on hospice and 1 has (some chronic kidney disease that she is not exactly sure what it is). Her granddaughter had moved in with her a while back along with her children. She states that everything was going really good and she was enjoyin (more content not included)... Normal [facility] Internal Medicine Office Vis nico 06-30-2024 Internal Medicine Office Visit [facility] [place] [address] [place] [address] OFFICE VISIT Date of Service: 06/30/24 MR#: [id number] Acct: [id number] Name: RICHIE JOHNSON Rep #: [id number] : 1945 Provider: Dr. Alia abdullahi MD Age/Sex: 78/F Location: [facility] Status: Signed Intake Vital Signs 06/10/24 10:22 06/30/24 14:19 06/30/24 14:20 Height 5 ft 6 in 5 ft 6 in Weight: 170 lb 171 lb BMI 27.4 27.6 BP 170/80 H 162/82 H 167/87 H Blood Pressure Location Rt brachial Lt brachial Lt brachial Position Sitting Sitting Respiration 16 18 Pulse 58 L 75 Pulse Source Monitor Monitor Temp 97.4 F L 98.0 F Temp Source Temporal Temporal Pulse Oximetry (%) 99 99 Oxygen Delivery Method room air room air Comment PT'S AT HOME CUFF READING Intake Visit Reasons: BP FU Chief Complaint: BP FU Is patient in pain?: Yes (10 in left knee when standing ) Allergies No Known Allergies Allergy (Verified 06/30/24 14:16) Medications ???Medication ???Instructions ???Recorded ???Confirmed ???Type calcium 2,000 mg PO DAILY 08/31/23 5 History estradiol 0.01% (0.1 mg/gram) vaginal 3XW 12/22/23 06/30/24 Hist ory vaginal cream omeprazole 20 mg capsule,delayed 20 mg PO BID 90 days #180 caps 06/30/24 Rx release vibegron 75 mg tablet (Gemtesa) 75 mg PO QDAY 12/22/23 06/30/24 Hi story bupropion HCl 75 mg tablet 75 mg PO DAILY #90 tabs 01/27/24 0 06/30/24 Rx ibandronate 150 mg tablet 150 mg PO QMONTH #7 tabs 04/04/24 06/30/24 Rx citalopram 20 mg tablet 20 mg PO DAILY #90 tabs 04/22/24 0 06/30/24 Rx ipratropium bromide 42 mcg (0.06 2 spray intranasal TID PRN runny 0 05/10/24 06/30/24 Rx %) nasal spray nose #15 mL celecoxib 200 mg capsule 200 mg PO DAILY PRN pain #90 caps 06/15/24 06/30/24 Rx amlodipine 5 mg tablet 5 mg PO QDAY #30 tabs 06/28/24 Rx Have you fallen in the past year?: No Nurse's Note: PT AND DEMONSTRATED PROPER USE OF AT HOME CUFF. READING WAS NOT FAR FROM MANUAL BP READING. PT DENIES HAVING SHORTNESS OF BREATH OR CHEST PAIN. PT STATES THAT SHE IS ON DAY 3 OF AMLODIPINE 2.5MG. STATES SHE WAS INSTRUCTED TO START AT THIS DOSE. [facility] Medical History (Updated 06/30/24 @ 15:[address] Alia Condon MD) Hypertension Left knee pain Right shoulder pain Left shoulder pain Elevated blood pressure reading in office without diagnosis of hypertension Anxiety and depression Age-related cognitive decline Wears hearing aid Loss of hearing Cardiology follow-up encounter Chronic back pain Osteopenia with high risk of fracture Weight loss, non-intentional Barretts esophagus Broken wrist Broken humerus FH: cholecystectomy Vision problems Stomach ulcer GERD (gastroesophageal reflux disease) Osteoarthritis Neuropathy Heart murmur Hearing problem Chronic headaches GI problem Gall stones Emotional problems Bronchitis Carpal tunnel syndrome Bone fracture Back problem Arthritis Allergies Osteoporosis Depression Surgical History History of carpal tunnel surgery Previous section Family History Brother Alcoholism Diabetes Liver cancer Seizures Epilepsy Sister Anxiety Autoimmune disorder Cancer Osteoporosis Father Colon cancer Social History adopted: No household members: spouse current occupational status: retired history of recent travel: No Smoking Status: Former smoker quit date: 08/26/84 alcohol intake: current alcohol intake frequency: other Alcohol type: other details: rarely, pt states she feels she may be allergic to alcohol. substance use type: does not use what type of physical activity do you participate in: walking frequency: daily seatbelt use: always do you feel safe at home: Yes HPI HPI Chief Complaint: BP FU Details: RICHIE JOHNSON, is a 78 F who presents to the office today for follow-up on her blood pressure. At her last visit, her blood pressure was elevated and she was advised to monitor her numbers and update office which she has done. Home readings remain persistently elevated for the most part. Was started on amlodipine, 2.5 mg daily which she states that she started taking 3 days ago. No concerning side effects. No chest pain, palpitation or shortness of breath. She does admit to worrying about her numbers. Came in with her monitor today and her readings were comparable. ROS Const Constitutional: No body ache, chills, excessive sweating, fatigue, fever(s), frequent falls, headache(s), snoring, weight change, sleep problems, abnormal sleep pattern or change in appetite Eyes Eyes: No blurry vision, change in vision, (more content not included)... Normal [facility] Hemoglobin A1con 06-12-2024 HbA1c (Bld) [Mass fraction] 6.0 % High 3.8-5.6 [facility] Comment on above: Result Comment: Norm al < 5.7 % Prediabetic 5.7 - 6.4 % Diabetic >or= 6.5 % Please note range changes. Performed By: #### L 500.2500, L501.9520, L506.0400, L501.9985 ####[facility] [address] [place], [address] Basic Metabolic Profile (BMP )on 06-10-2024 BUN/CRE 19.1 RATIO Normal 10-20 [facility] Comment on above: Performed By: #### L 500.2500, L501.9520, L506.0400, L501.9985 ####[facility] [address] [place], [address] CA,Total 9.7 mg/dL Normal 8.5-10.1 [facility] Comment on above: Performed By: #### L 500.2500, L501.9520, L506.0400, L501.9985 ####[facility] [address] [place], [address] Chloride [Moles/Vol] 105 mmol/L Normal 98-107 [facility] Comment on above: Performed By: #### L 500.2500, L501.9520, L506.0400, L501.9985 ####[facility] [address] [place], [address] CO2 [Moles/Vol] 25.0 mmol/L Normal 21.0-32.0 [facility] Comment on above: Performed By: #### L 500.2500, L501.9520, L506.0400, L501.9985 ####[facility] [address] [place], [address] Creatinine [Mass/Vol] 0.84 mg/dL Normal 0.55-1.02 [facility] Comment on above: Result Comment: The validity of the calculated GFR GFRAA in patients over 70 years has not been determined. Clinical correlation is essential. Performed By: #### L 500.2500, L501.9520, L506.0400, L501.9985 ####[facility] [address] [place], [address] EST GFR - AA 84 mL/min Normal >60 [facility] Comment on above: Result Comment: Afri can Palestinian GFR Calc Performed By: #### L 500.2500, L501.9520, L506.0400, L501.9985 ####[facility] [address] [place], [address] GAP 9 Normal 5-15 [facility] Comment on above: Performed By: #### L 500.2500, L501.9520, L506.0400, L501.9985 ####[facility] [address] [place], [address] GFR/1.73 sq M.predicted among non-blacks MDRD (S/P/Bld) [Vol rate/Area] 70 mL/min/{1.73_m2} Normal >60 [facility] Comment on above: Result Comment: Non- GFR Calc Performed By: #### L 500.2500, L501.9520, L506.0400, L501.9985 ####[facility] [address] [place], [address] Glucose [Mass/Vol] 87 mg/dL Normal 74-106 [facility] Comment on above: Performed By: #### L 500.2500, L501.9520, L506.0400, L501.9985 ####[facility] [address] [place], [address] Potassium [Moles/Vol] 4.3 mmol/L Normal 3.5-5.1 [facility] Comment on above: Performed By: #### L 500.2500, L501.9520, L506.0400, L501.9985 ####[facility] [address] [place], [address] Sodium [Moles/Vol] 138 mmol/L Normal 136-145 [facility] Comment on above: Performed By: #### L 500.2500, L501.9520, L506.0400, L501.9985 ####[facility] [address] [place], [address] Urea nitrogen [Mass/Vol] 16 mg/dL Normal 7-18 [facility] Comment on above: Performed By: #### L 500.2500, L501.9520, L506.0400, L501.9985 ####[facility] [address] [place], [address] Internal Medicine Office Vis iton 06-10-2024 Internal Medicine Office Visit [facility] [address] [place] [address] [place] [address] OFFICE VISIT Date of Service: 06/10/24 MR#: [id number] Acct: [id number] Name: RICHIE JOHNSON Rep #: [id number] : 1945 Provider: Dr. Alia abdullahi MD Age/Sex: 78/F Location: [facility] Status: Signed Intake Vital Signs 03/11/24 10:19 04/13/24 14:57 06/10/24 10:22 Height 5 ft 6 in 5 ft 6 in 5 ft 6 in Weight: 170 lb BMI 27.4 BP 170/80 H Blood Pressure Location Rt brachial Position Sitting Respiration 16 Pulse 58 L Pulse Source Monitor Temp 97.4 F L Temp Source Temporal Pulse Oximetry (%) 99 Oxygen Delivery Method room air Intake Visit Reasons: 3 M FU Chief Complaint: 3 M FU Is patient in pain?: Yes (LEFT KNEE PAIN) Pain scale (1-10): 9 Allergies No Known Allergies Allergy (Verified 06/10/24 10:14) Medications ???Medication ???Instructions ???Recorded ???Confirmed ???Type calcium 2,000 mg PO DAILY 08/31/23 5 History estradiol 0.01% (0.1 mg/gram) vaginal 3XW 12/22/23 06/10/24 Hist ory vaginal cream omeprazole 20 mg capsule,delayed 20 mg PO BID 90 days #180 caps 06/10/24 Rx release vibegron 75 mg tablet (Gemtesa) 75 mg PO QDAY 12/22/23 06/10/24 Hi story bupropion HCl 75 mg tablet 75 mg PO DAILY #90 tabs 01/27/24 0 06/10/24 Rx ibandronate 150 mg tablet 150 mg PO QMONTH #7 tabs 04/04/24 06/10/24 Rx celecoxib 200 mg capsule 200 mg PO DAILY pain 04/13/2411/25 History citalopram 20 mg tablet 20 mg PO DAILY #90 tabs 04/22/24 0 06/10/24 Rx baclofen 5 mg tablet 5 mg PO TID #30 tabs 05/09/2411/25 Rx ipratropium bromide 42 mcg (0.06 2 spray intranasal TID PRN runny 0 05/10/24 06/10/24 Rx %) nasal spray nose #15 mL Have you fallen in the past year?: No PFSH Medical History (Updated 06/10/24 @ 12:[address] Alia Condon MD) Left knee pain Right shoulder pain Left shoulder pain Elevated blood pressure reading in office without diagnosis of hypertension Anxiety and depression Age-related cognitive decline Wears hearing aid Loss of hearing Cardiology follow-up encounter Chronic back pain Osteopenia with high risk of fracture Weight loss, non-intentional Barretts esophagus Broken wrist Broken humerus FH: cholecystectomy Vision problems Stomach ulcer GERD (gastroesophageal reflux disease) Osteoarthritis Neuropathy Heart murmur Hearing problem Chronic headaches GI problem Gall stones Emotional problems Bronchitis Carpal tunnel syndrome Bone fracture Back problem Arthritis Allergies Osteoporosis Depression Surgical History History of carpal tunnel surgery Previous section Family History Brother Alcoholism Diabetes Liver cancer Seizures Epilepsy Sister Anxiety Autoimmune disorder Cancer Osteoporosis Father Colon cancer Social History adopted: No household members: spouse current occupational status: retired history of recent travel: No Smoking Status: Former smoker quit date: 08/26/84 alcohol intake: current alcohol intake frequency: other Alcohol type: other details: rarely, pt states she feels she may be allergic to alcohol. substance use type: does not use what type of physical activity do you participate in: walking frequency: daily seatbelt use: always do you feel safe at home: Yes HPI HPI Chief Complaint: 3 M FU Details: RICHIE JOHNSON, is a 78 F who presents to the office today for follow-up of her chronic conditions. 3 months ago while walking down her basement stairs she sustained injury to her knee. Was seen by Ortho at [facility] and had an injection however, did not find this particularly helpful. Pain continues. Has been using a brace due to concern for instability. No recent falls. Had reported left shoulder pain at her last visit and at this time, she states that symptoms have resolved. No new concerns reported in that regard. History of osteopenia currently on Ibandronate, tolerating medication well. No recent fractures. Also on calcium and vitamin D supplement. Other chronic medical conditions are stable. ROS Const Constitutional: No body ache, chills, excessive sweating, fatigue, fever(s), frequent falls, headache(s), snoring, weakness, sleep problems or change in appetite Eyes Eyes: No blurry vision, change in vision, bulging eyes, floaters, visual disturbances or Light sensitivity ENT ENT: No abnormal hearing, ear or mastoid pain, tinnitus, balance problems, nosebleed/epistaxis, nasal congestion, nasal discharge, headache(s), neck pain or sore throat Resp Respiratory: No cough, excessive phlegm production, pain on inspira (more content not included)... Normal [facility] T4 Free Directon 06-10-2024 T4 FREE DIRECT 1.35 ng/dL Normal 0.76-1.46 [facility] Comment on above: Performed By: #### L 500.2500, L501.9520, L506.0400, L501.9985 ####[facility] [address] [place], [place], [id number] Thyroid Stim Hormone (TSH)on 06-10-2024 TSH 1.320 uIU/mL Normal 0.358-3.740 [facility] Comment on above: Performed By: #### L 500.2500, L501.9520, L506.0400, L501.9985 ####[facility] [address] [place], [place], [id number] Internal Medicine Office Vis nico 04-13-2024 Internal Medicine Office Visit [facility] [address] [place] [address] [place] [address] OFFICE VISIT Date of Service: 04/13/24 MR#: [id number] Acct: [id number] Name: RICHIE JOHNSON Rep #: [id number] : 1945 Provider: GUILLERMINA Gonzalez Age/Sex: 78/F Location: [facility] Status: Signed Intake Vital Signs 03/11/24 10:19 04/13/24 14:57 Height 5 ft 6 in 5 ft 6 in Weight: 165 lb 166 lb BMI 26.6 26.8 BP 122/74 H 120/68 Blood Pressure Location Lt brachial Lt brachial Position Sitting Sitting Respiration 16 16 Pulse 65 69 Pulse Source Monitor Monitor Temp 97.2 F L 97.7 F L Temp Source Temporal Temporal Pulse Oximetry (%) 98 99 Oxygen Delivery Method room air room air Intake Visit Reasons: ACUTE NUMBNESS IN BOTH ARMS DOWN TO FINGERS Chief Complaint: numbness in b/l arm [place] Required: No Accompanied by: Self Is patient in pain?: Yes Allergies No Known Allergies Allergy (Verified 04/13/24 14:52) Medications ???Medication ???Instructions ???Recorded ???Confirmed ???Type calcium 2,000 mg PO DAILY 08/31/23 04/13/24 History ipratropium bromide 42 mcg (0.06 2 spray intranasal TID PRN runny 11/06/23 04/13/24 Rx %) nasal spray nose #15 mL estradiol 0.01% (0.1 mg/gram) vaginal 3XW 12/22/23 04/13/24 History vaginal cream omeprazole 20 mg capsule,delayed 20 mg PO BID 90 days #180 caps 12/22/23 04/13/24 Rx release vibegron 75 mg tablet (Gemtesa) 75 mg PO QDAY 12/22/23 04/13/24 History bupropion HCl 75 mg tablet 75 mg PO DAILY #90 tabs 01/27/24 04/13/24 Rx ibandronate 150 mg tablet 150 mg PO QMONTH #7 tabs 04/04/24 04/13/24 Rx celecoxib 200 mg capsule 200 mg PO DAILY pain 04/13/24 History prednisone 10 mg tablet 10 mg PO QDAY #1 TAB 04/13/24 04/13/24 Rx prednisone 20 mg tablet 20 mg PO BID #10 tabs 04/13/24 04/13/24 Rx citalopram 20 mg tablet 20 mg PO DAILY #90 tabs 04/22/24 Rx baclofen 5 mg tablet 5 mg PO TID #30 tabs 04/25/24 Rx Have you fallen in the past year?: No PFSH Medical History Right shoulder pain Left shoulder pain Elevated blood pressure reading in office without diagnosis of hypertension Anxiety and depression Age-related cognitive decline Wears hearing aid Loss of hearing Cardiology follow-up encounter Chronic back pain Osteopenia with high risk of fracture Weight loss, non-intentional Barretts esophagus Broken wrist Broken humerus FH: cholecystectomy Vision problems Stomach ulcer GERD (gastroesophageal reflux disease) Osteoarthritis Neuropathy Heart murmur Hearing problem Chronic headaches GI problem Gall stones Emotional problems Bronchitis Carpal tunnel syndrome Bone fracture Back problem Arthritis Allergies Osteoporosis Depression Surgical History History of carpal tunnel surgery Previous section Family History Brother Alcoholism Diabetes Liver cancer Seizures Epilepsy Sister Anxiety Autoimmune disorder Cancer Osteoporosis Father Colon cancer Social History adopted: No household members: spouse current occupational status: retired history of recent travel: No Smoking Status: Former smoker quit date: 08/26/84 alcohol intake: current alcohol intake frequency: other Alcohol type: other details: rarely, pt states she feels she may be allergic to alcohol. substance use type: does not use what type of physical activity do you participate in: walking frequency: daily seatbelt use: always do you feel safe at home: Yes HPI HPI Chief Complaint: numbness in b/l arm Details: RICHIE JOHNSON, is a 78 F who presents to the office today for numbness and tingling in the upper extremities. She states that she has been having this occur for probably 3-4 weeks now. She states that she has not had any symptoms prior to that. She states that it occurs on both side but is worse on the right side. She states that there was no injury or inciting incident that started the pains at the same time she states that she has been doing a lot of crafting the past few weeks. She states that she got something new this year and this machine requires her to use a crank which she has been using her right hand. She states that she has been sitting in a chair and her arms resting on the arm rests. She also states that she wakes up in the morning and the numbness and tingling is worse. the day goes it does improve depending on what she is doing. ROS Const Constitutional: No body ache, chills, excessive sweating, fatigue, fever(s), frequent falls, headache(s), snoring, weakness or change in appetite Eyes Eyes: No blurry vision, change in vision, eye pa (more content not included)... Normal [facility] Shoulder min 2 Viewson 04-05 Shoulder min 2 Views [facility] [address] [place], [place] [address] Shoulder min 2 Views MR#: [id number] Acct: [id number] Name: RICHIE JOHNSON Rep #: [id number] : 1945 F 78 From: Luis Miguel Espinosa MD PCP: Dr. Alia Condon MD Status: REG CLI Study: Shoulder min 2 Views Date of Exam: 04/05/24 Exam# [id number] Ordering [place]: [place] [id number] STUDY: X-RAY - LEFT SHOULDER REASON FOR EXAM: Female, 78 years old. Pain, decreased range of motion TECHNIQUE: 4 view(s) of the shoulder. COMPARISON: None. FINDINGS: There is moderate degenerative arthrosis of the glenohumeral articulation. There is degenerative arthrosis of the acromioclavicular joint without inferior osseous spur formation. Normal acromion. There is demineralization of the humerus and visualized osseous structures. The soft tissue structures are unremarkable. Normal visualized pulmonary apex. RAD/Shoulder min 2 Views IMPRESSION: Degenerative arthrosis, no fracture or suspicious osseous lesion Electronically Signed: Rene Espinosa MD at 18:03 EST Reading Location ID and State: [facility] / [place] , Service support , CC: Dr. Alia Condon MD Roller Operator: Signed Normal [facility] Shoulder min 2 Views [facility] [address], [place] [id number] Shoulder min 2 Views MR#: [id number] Acct: [id number] Name: RICHIE JOHNSON Rep #: [id number] : 1945 F 78 From: Luis Miguel Espinosa MD PCP: Dr. Alia Condon MD Status: REG CLI Study: Shoulder min 2 Views Date of Exam: 04/05/24 Exam# [id number] Ordering Dr: [place] [id number] STUDY: X-RAY - RIGHT SHOULDER REASON FOR EXAM: Female, 78 years old. Right Shoulder Pain TECHNIQUE: 4 view(s) of the shoulder. COMPARISON: None. FINDINGS: There is moderate degenerative arthrosis of the glenohumeral articulation. There is degenerative arthrosis of the acromioclavicular joint without inferior osseous spur formation. Normal acromion. There is demineralization of the humerus and visualized osseous structures. There is an old healed impacted fracture of the surgical neck of the humerus. The soft tissue structures are unremarkable. No upper rib fracture or pneumothorax RAD/Shoulder min 2 Views IMPRESSION: Glenohumeral and AC joint arthrosis Old healed surgical neck fracture of the humerus Diffuse osteopenia Electronically Signed: Rene Espinosa MD at 18:02 EST , CC: Dr. Alia Condon MD Roller Operator: Signed Normal [facility] Basic Metabolic Profile (BMP )on 03-11-2024 BUN/CRE 19.3 RATIO Normal 10-20 [facility] Comment on above: Performed By: #### L 500.2500, L100.0100 ####[facility] [address] [place], [address] CA,Total 9.4 mg/dL Normal 8.5-10.1 [facility] Comment on above: Performed By: #### L 500.2500, L100.0100 ####[facility] [address] [place], [address] Chloride [Moles/Vol] 107 mmol/L Normal 98-107 [facility] Comment on above: Performed By: #### L 500.2500, L100.0100 ####[facility] [address] [place], [address] CO2 [Moles/Vol] 26.0 mmol/L Normal 21.0-32.0 [facility] Comment on above: Performed By: #### L 500.2500, L100.0100 ####[facility] [address] [place], [address] Creatinine [Mass/Vol] 0.83 mg/dL Normal 0.55-1.02 [facility] Comment on above: Result Comment: The validity of the calculated GFR GFRAA in patients over 70 years has not been determined. Clinical correlation is essential. Performed By: #### L 500.2500, L100.0100 ####[facility] [address] [place], [address] EST GFR - AA 85 mL/min Normal >60 [facility] Comment on above: Result Comment: Afri can Palestinian GFR Calc Performed By: #### L 500.2500, L100.0100 ####[facility] [address] [place], [address] GAP 6 Normal 5-15 [facility] Comment on above: Performed By: #### L 500.2500, L100.0100 ####[facility] [address] [place], [address] GFR/1.73 sq M.predicted among non-blacks MDRD (S/P/Bld) [Vol rate/Area] 71 mL/min/{1.73_m2} Normal >60 [facility] Comment on above: Result Comment: Non- GFR Calc Performed By: #### L 500.2500, L100.0100 ####[facility] [address] [place], [address] Glucose [Mass/Vol] 90 mg/dL Normal 74-106 [facility] Comment on above: Performed By: #### L 500.2500, L100.0100 ####[facility] [address] [place], [address] Potassium [Moles/Vol] 4.3 mmol/L Normal 3.5-5.1 [facility] Comment on above: Performed By: #### L 500.2500, L100.0100 ####[facility] [address] [place], [address] Sodium [Moles/Vol] 139 mmol/L Normal 136-145 [facility] Comment on above: Performed By: #### L 500.2500, L100.0100 ####[facility] [address] [place], [address] Urea nitrogen [Mass/Vol] 16 mg/dL Normal 7-18 [facility] Comment on above: Performed By: #### L 500.2500, L100.0100 ####[facility] [address] [place], [address] CBC W/Diff, Automatedon 11-0 8-4 Absolute Lymph 2.42 X10 3/uL Normal 0.83-4.51 [facility] Comment on above: Performed By: #### L 500.2500, L100.0100 ####[facility] [address] [place], [address] Absolute Neut 5.0 X10 3/uL Normal 2.0-7.7 [facility] Comment on above: Performed By: #### L 500.2500, L100.0100 ####[facility] [address] [place], [address] Basophils/100 WBC (Bld) 0.5 % Normal 0-1 [facility] Comment on above: Performed By: #### L 500.2500, L100.0100 ####[facility] [address] [place], [address] Eosinophils/100 WBC (Bld) 2.7 % Normal 0-5 [facility] Comment on above: Performed By: #### L 500.2500, L100.0100 ####[facility] [address] [place], [address] Erythrocyte distribution width (RBC) [Ratio] 13.2 % Normal 11.6-14.6 [facility] Comment on above: Performed By: #### L 500.2500, L100.0100 ####[facility] [address] [place], [address] Hematocrit (Bld) [Volume fraction] 40.8 % Normal 37-47 [facility] Comment on above: Performed By: #### L 500.2500, L100.0100 ####[facility] [address] [place], [address] Hemoglobin (Bld) [Mass/Vol] 13.5 g/dL Normal 12.0-15.0 [facility] Comment on above: Performed By: #### L 500.2500, L100.0100 ####[facility] [address] [place], [address] IG% 0.200 Normal 0.0-0.9 [facility] Comment on above: Result Comment: IG% - Immature Granulocytes (promyelocytes, myelocytes and metamyelocytes) > 1% indicates that a LEFT SHIFT is Present. Performed By: #### L 500.2500, L100.0100 ####[facility] [address] [place], [address] Lymphocytes/100 WBC (Bld) 29.2 % Normal 19-41 [facility] Comment on above: Performed By: #### L 500.2500, L100.0100 ####[facility] [address] [place], [address] MCH (RBC) [Entitic mass] 29.5 pg Normal 27.0-32.0 [facility] Comment on above: Performed By: #### L 500.2500, L100.0100 ####[facility] [address] [place], [address] MCHC (RBC) [Mass/Vol] 33.1 g/dL Normal 32-36 [facility] [facility] Comment on above: Performed By: #### L 500.2500, L100.0100 ####[facility] [id number] [place], [address] MCV (RBC) [Entitic vol] 89.1 fL Normal 81-99 [facility] Comment on above: Performed By: #### L 500.2500, L100.0100 ####[facility] [address] [place], [address] Monocytes/100 WBC (Bld) 6.6 % Normal 0-10 [facility] Comment on above: Performed By: #### L 500.2500, L100.0100 ####[facility] [address] [place], [address] Neutrophils/100 WBC (Bld) 60.8 % Normal 47-70 [facility] Comment on above: Performed By: #### L 500.2500, L100.0100 ####[facility] [address] [place], [address] Nucleated RBC (Bld) [#/Vol] 0 10*3/uL Normal 0-5 [facility] Comment on above: Performed By: #### L 500.2500, L100.0100 ####[facility] [address] [place], [address] Platelet mean volume (Bld) [Entitic vol] 10.5 fL Normal 6.2-12.0 [facility] Comment on above: Performed By: #### L 500.2500, L100.0100 ####[facility] [address] [place], [address] Platelets (Bld) [#/Vol] 298 10*3/uL Normal 150-450 [facility] Comment on above: Performed By: #### L 500.2500, L100.0100 ####[facility] [address] [place], [address] RBC (Bld) [#/Vol] 4.58 10*6/uL Normal 4.2-5.4 [facility] Comment on above: Performed By: #### L 500.2500, L100.0100 ####[facility] [address] [place], [address] RDW SD 42.6 fl Normal 35.1-43.9 [facility] Comment on above: Performed By: #### L 500.2500, L100.0100 ####[facility] [address] [place], [address] WBC (Bld) [#/Vol] 8.3 10*3/uL Normal 4.4-11.0 [facility] Comment on above: Performed By: #### L 500.2500, L100.0100 ####[facility] [address] [place], [address] Internal Medicine Office Vis iton 03-11-2024 Internal Medicine Office Visit [facility] [address] [place] [address] [place] [address] OFFICE VISIT Date of Service: 03/11/24 MR#: [id number] Acct: [id number] Name: RICHIE JOHNSON Rep #: [id number] : 1945 Provider: Dr. Alia abdullahi MD Age/Sex: 78/F Location: [facility] Status: Signed Intake Vital Signs 12/04/23 10:46 02/02/24 10:26 03/11/24 10:19 Height 5 ft 6 in 5 ft 6 in 5 ft 6 in Weight: 165 lb BMI 26.6 BP 122/74 H Blood Pressure Location Lt brachial Position Sitting Respiration 16 Pulse 65 Pulse Source Monitor Temp 97.2 F L Temp Source Temporal Pulse Oximetry (%) 98 Oxygen Delivery Method room air Intake Visit Reasons: 3 M FU Chief Complaint: 3m fu Temper [place] Required: No Accompanied by: Self Is patient in pain?: No Allergies No Known Allergies Allergy (Verified 03/11/24 10:17) Medications ???Medication ???Instructions ???Recorded ???Confirmed ???Type calcium 2,000 mg PO DAILY 08/31/23 03/11/24 History ibandronate 150 mg tablet 150 mg PO QMONTH #7 tabs 09/04/23 03/11/24 Rx citalopram 20 mg tablet 20 mg PO DAILY #90 tabs 10/19/23 03/11/24 Rx celecoxib 200 mg capsule 200 mg PO DAILY PRN pain #60 caps 11/06/23 03/11/24 Rx ipratropium bromide 42 mcg (0.06 2 spray intranasal TID PRN runny 11/06/23 03/11/24 Rx %) nasal spray nose #15 mL estradiol 0.01% (0.1 mg/gram) vaginal 3XW 12/22/23 03/11/24 History vaginal cream omeprazole 20 mg capsule,delayed 20 mg PO BID 90 days #180 caps 12/22/23 03/11/24 Rx release vibegron 75 mg tablet (Gemtesa) 75 mg PO QDAY 12/22/23 03/11/24 History bupropion HCl 75 mg tablet 75 mg PO DAILY #90 tabs 01/27/24 03/11/24 Rx Have you fallen in the past year?: No PFSH Medical History Elevated blood pressure reading in office without diagnosis of hypertension Anxiety and depression Age-related cognitive decline Wears hearing aid Loss of hearing Cardiology follow-up encounter Chronic back pain Osteopenia with high risk of fracture Weight loss, non-intentional Barretts esophagus Broken wrist Broken humerus FH: cholecystectomy Vision problems Stomach ulcer GERD (gastroesophageal reflux disease) Osteoarthritis Neuropathy Heart murmur Hearing problem Chronic headaches GI problem Gall stones Emotional problems Bronchitis Carpal tunnel syndrome Bone fracture Back problem Arthritis Allergies Osteoporosis Depression Surgical History History of carpal tunnel surgery Previous section Family History Brother Alcoholism Diabetes Liver cancer Seizures Epilepsy Sister Anxiety Autoimmune disorder Cancer Osteoporosis Father Colon cancer Social History adopted: No household members: spouse current occupational status: retired history of recent travel: No Smoking Status: Former smoker quit date: 08/26/84 alcohol intake: current alcohol intake frequency: other Alcohol type: other details: rarely, pt states she feels she may be allergic to alcohol. substance use type: does not use what type of physical activity do you participate in: walking frequency: daily seatbelt use: always do you feel safe at home: Yes HPI HPI Chief Complaint: 3m fu Details: RICHIE JOHNSON, is a 78 F who presents to the office today for follow-up of her chronic conditions. Also has some concerns. She reports worsening left shoulder pain. Occasionally hears some clicks. Worse with certain movements and when she lays on it. Has been taking more Celebrex lately to help with the pain. Follows up with pain management for her lower back. Has not had imaging. Other chronic medical conditions are largely stable. History of osteopenia with a high fracture risk on ibandronate, no recent fractures. She states that she stays active. ROS Const Constitutional: No body ache, chills, excessive sweating, fatigue, fever(s), frequent falls, headache(s), snoring, weakness or change in appetite Eyes Eyes: No blurry vision, change in vision, bulging eyes, floaters, visual disturbances, eye pain or Light sensitivity ENT ENT: No abnormal hearing, ear or mastoid pain, tinnitus, balance problems, nosebleed/epistaxis, nasal congestion, headache(s), neck pain or sore throat Resp Respiratory: No cough, excessive phlegm production, pain on inspiration, shortness of breath, snoring or wheezing Cardio Cardiology: No chest pain at rest, chest pain with exertion, excessive sweating, dyspnea on exertion, lightheadedness, orthopnea or palpitations Gastro GI: No abdominal pain, change in bowel habits, constipation, cramping, diarrhea, nausea/dyspepsia or v (more content not included)... [facility] Office Visit (GYURWP ) RICHIE JOHNSON ([id number]) 1945 F Date Time Provider Department 02/15/24 1:00 PM MARY BETH FALL GYFIDELWP During your visit today, we recorded the following information about you: Weight Height 73.9 kg 1.676 m Mary Beth Fall MD 02/15/2024 1:36 PM Signed Female Pelvic Medicine AND Reconstructive Surgery Follow-Up Richie Johnson is a 78 year old female, who presents for a follow-up of labial hypertrophy. History since last visit: 01/22/2024 labioplasty done, she returns today and states she is not having any pain or bleeding but is getting poked by her sutures. ALLERGIES No Known Allergies Current Outpatient Medications Medication Sig lidocaine-prilocaine (EMLA) 2.5-2.5 % cream Apply to affected area as needed. ipratropium bromide (ATROVENT) 42 mcg (0.06 %) nasal spray instill 2 sprays into each nostril three times a day if needed for runny nose sucralfate (CARAFATE) 1 gram tablet Take 1 tablet by mouth every 12 hours. vibegron (GEMTESA) 75 mg tablet Take 1 tablet by mouth once daily. estradiol (ESTRACE) 0.01 % (0.1 mg/gram) vaginal cream Use a pea-size amount vaginally three times per week. May use as often as daily. Do not use applicator. estradiol (ESTRACE) 0.01 % (0.1 mg/gram) vaginal cream Use 1 g vaginally once daily. Use fingertip amount of vaginal tissue nightly x 2 weeks then use 2-3 times weekly. clobetasol (TEMOVATE) 0.05 % cream Apply to affected area 2x/day for 2 weeks, then 1x/day for a week, than 1-3x/week for maintenance. buPROPion (WELLBUTRIN) 75 mg tablet Take 1 tablet by mouth every afternoon. celecoxib (CELEBREX) 200 mg capsule Take 1 capsule by mouth every afternoon. citalopram (CELEXA) 20 mg tablet Take 1 tablet by mouth every afternoon. omeprazole (PRILOSEC) 20 mg capsule take 1 capsule by mouth twice a day 30 TO 45 MINUTES BEFORE MEALS No current facility-administered medications for this visit. PAST SURGICAL HISTORY Procedure Laterality Date SECTION HX 07/05/1970 PAST SURGICAL HISTORY OF carpal tunnel PAST SURGICAL HISTORY OF bunionectomy REMOVAL GALLBLADDER PAST MEDICAL HISTORY Diagnosis Date Anxiety, generalized Tam's esophagus Depression, unspecified GERD (gastroesophageal reflux disease) FAMILY HISTORY Problem Relation Age of Onset Heart disease Mother Colon Cancer Father other (non hodgkins lymphoma) Sister Skin Cancer Sister Skin Cancer Sister Liver Cancer Brother other (Bladder Cancer) Brother No Known Problems Maternal Grandmother No Known Problems Maternal Grandfather No Known Problems Paternal Grandmother No Known Problems Paternal Grandfather SOCIAL HISTORY Social History Tobacco Use Smoking status: Former Current packs/day: 0.00 Types: Cigarettes Quit date: 1985 Years since quittin.7 Smokeless tobacco: Never Vaping Use Vaping status: Never Used Substance Use Topics Alcohol use: Not Currently Drug use: Never Review of Systems Constitutional: Negative for chills, diaphoresis and fever. HENT: Negative for drooling, ear discharge, facial swelling, nosebleeds, sore throat and trouble swallowing. Eyes: Negative for discharge, redness, itching and visual disturbance. Respiratory: Negative for apnea, choking, chest tightness, shortness of breath, wheezing and stridor. Cardiovascular: Negative for chest pain and palpitations. Gastrointestinal: Negative for abdominal distention, abdominal pain, anal bleeding, blood in stool, nausea and vomiting. Endocrine: Negative for cold intolerance and heat intolerance. Genitourinary: Negative for genital sores, menstrual problem and vaginal bleeding. Musculoskeletal: Negative for gait problem, myalgias, neck pain and neck stiffness. Skin: Negative for pallor, rash and wound. Allergic/Immunologic: Negative for environmental allergies, food allergies and immunocompromised state. Neurological: Negative for dizziness, seizures, facial asymmetry, speech difficulty, light-headedness, numbness and headaches. Hematological: Negative for adenopathy. Does not bruise/bleed easily. Psychiatric/Behavioral: Negative for agitation, behavioral problems, confusion and hallucinations. OBJECTIVE: There were no vitals taken for this visit. The sensitive examination was discussed with the Patient or Patient's Authorized Extrusion Technician. As applicable, any other physician, advance practice provider, medical student, or other health professional student that will be observing or involved in the sensitive examination for educational or training purposes was discussed with the Patient or Authorized Extrusion Technician. The Patient or Authorized Extrusion Technician has agreed to proceed with the sensitive examination. (Sensitive examination includes inspection and/or palpation of the breasts, pelvis, prostate and anorectal regions) Physic (more content not included)... Normal [facility] [place] 02-05-2024 EDMAR Telephone (GYURWP) RICHIE JOHNSON ([id number]) 1945 F Date Time Provider Department 02/05/24 MARY BETH FALL GYURWP During your visit today, we recorded the following information about you: AnitaKera ortez 02/05/2024 9:07 AM Signed Patient called in stating she feels like she is sitting on a ball of sutures, and would like to speak with a nurse. She is about 8 days out from a Vaginal Scar Revision Esther Jason RN 02/05/2024 1:18 PM Signed Returned patient's call, verified name and . Patient is 2 weeks s/p labioplasty and is concerned that her sutures are still very bothersome. She saw Dr. Fall on 01/27 and she was advised to return in two weeks and if the sutures still haven't dissolved by then, Dr. Fall would remove them. Patient not comfortable with waiting another week, due to discomfort from feeling her sutures when sitting, she would like to be seen sooner if possible. [facility] to see if it is possible for patient to see Dr. Fall sooner. SHANTA Man Lisa 02/08/2024 9:06 AM Signed Left pt a message to call the office to schedule a sooner appt. AnitaKera ortez 02/08/2024 3:01 PM Signed Patient returned call and stated she is starting to feel better, and is just going to come in when she is scheduled. She will call back if she changes her mind, or feels she can't wait. Allergies As of Date: 02/05/2024 (No Known Allergies) Date Reviewed: 01/28/2024 Reviewed by: Mary Beth Fall MD - Fully Assessed Reason for Visit: Patient Update [1234] Prescriptions as of 02/08/2024 - lidocaine-prilocaine (EMLA) 2.5-2.5 % cream Apply to affected area as needed. - ipratropium bromide (ATROVENT) 42 mcg (0.06 %) nasal spray instill 2 sprays into each nostril three times a day if needed for runny nose - sucralfate (CARAFATE) 1 gram tablet Take 1 tablet by mouth every 12 hours. - vibegron (GEMTESA) 75 mg tablet Take 1 tablet by mouth once daily. - estradiol (ESTRACE) 0.01 % (0.1 mg/gram) vaginal cream Use a pea-size amount vaginally three times per week. May use as often as daily. Do not use applicator. - estradiol (ESTRACE) 0.01 % (0.1 mg/gram) vaginal cream Use 1 g vaginally once daily. Use fingertip amount of vaginal tissue nightly x 2 weeks then use 2-3 times weekly. - clobetasol (TEMOVATE) 0.05 % cream Apply to affected area 2x/day for 2 weeks, then 1x/day for a week, than 1-3x/week for maintenance. - buPROPion (WELLBUTRIN) 75 mg tablet Take 1 tablet by mouth every afternoon. - celecoxib (CELEBREX) 200 mg capsule Take 1 capsule by mouth every afternoon. - citalopram (CELEXA) 20 mg tablet Take 1 tablet by mouth every afternoon. 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] 12/10/2023 Vaginal atrophy [N95.2] 12/10/2023 Asymptomatic microscopic hematuria [R31.21] 12/10/2023 Encounter Status:Closed by MAGUI GONZALEZ on 02/08/24 Normal [facility] Office Visit Reporton 2023 Office Visit Report [facility] [address] [place] [address] OFFICE VISIT Date of Service: 02/02/24 MR#: [id number] Acct: [id number] Patient: RICHIE JOHNSON Rep #: [id number] : 1945 Provider: GUILLERMINA Restrepo Age/Sex: 78/F Location: [facility] Status: Signed Intake Vital Signs 12/22/23 09:55 02/02/24 10:26 Height 1.68 m 1.68 m Weight: 75.296 kg 73.936 kg BMI 26.8 26.3 BP 116/74 130/64 H Blood Pressure Location Lt brachial Lt brachial Position Sitting Sitting Respiration 16 17 Pulse 63 68 Pulse Source Monitor NIBP Temp 97.7 F L 98.3 F Temp Source Temporal Temporal Pulse Oximetry (%) 97 097 Oxygen Delivery Method room air room air Intake Visit Reasons: CUT ON L MIDDLE FINGER Chief Complaint: left 3rd finger laceration Temper [place] Required: No Is patient in pain?: Yes Allergies No Known Allergies Allergy (Verified 02/02/24 10:27) Is last menstrual period known: No Post menopausal: Yes Patient : No Have you fallen in the past year?: No Nurse's Note: left 3rd finger laceration with scissor at home. no active bleeding noted, denies additional injuries. tetanus one year [facility] Medical History Elevated blood pressure reading in office without diagnosis of hypertension Anxiety and depression Age-related cognitive decline Wears hearing aid Loss of hearing Cardiology follow-up encounter Chronic back pain Osteopenia with high risk of fracture Weight loss, non-intentional Barretts esophagus Broken wrist Broken humerus FH: cholecystectomy Vision problems Stomach ulcer GERD (gastroesophageal reflux disease) Osteoarthritis Neuropathy Heart murmur Hearing problem Chronic headaches GI problem Gall stones Emotional problems Bronchitis Carpal tunnel syndrome Bone fracture Back problem Arthritis Allergies Osteoporosis Depression Surgical History History of carpal tunnel surgery Previous section Family History Brother Alcoholism Diabetes Liver cancer Seizures Epilepsy Sister Anxiety Autoimmune disorder Cancer Osteoporosis Father Colon cancer Social History adopted: No household members: spouse current occupational status: retired history of recent travel: No Smoking Status: Former smoker quit date: 08/26/84 alcohol intake: current alcohol intake frequency: other Alcohol type: other details: rarely, pt states she feels she may be allergic to alcohol. substance use type: does not use what type of physical activity do you participate in: walking frequency: daily seatbelt use: always do you feel safe at home: Yes HPI HPI Chief Complaint: left 3rd finger laceration Details: RICHEI JOHNSON, is a 78 F who presents to the office today for L 3rd finger laceration. This occurred this AM. She cut the distal finger at the flexor surface of the L 3rd digit. She cut it with balsa wood scissors. No numbness or tingling. She has some pounding pain in it. She is not on blood thinners. Exam Const General: cooperative, healthy appearing, comfortable, no acute distress, well developed and well groomed Nutritional Appearance: average body habitus and well nourished Orientation: alert, awake and oriented x3 Skin Other: crescent shaped shallow lac with skin flap L middle finger distal finger flexor surface. no redness or drainage. some oozing bright red blood. Coding Level of Care Code Off vis,new,level 2 Diagnoses Laceration of left middle finger S61.213A Assessment and Plan Assessment and Plan (1) Laceration of left middle finger: Status: Acute Plan: shallow. applied pressure 20 mins to stop oozing blood. cleaned with hibiclens. dried. applied dermabond with good closure. pt tolerated procedure well. avoid petroleum containing products. watch for signs of infection, call if these develop. she has had a tetanus shot within the past 5 years. Clinical Quality Measures Falls Risk Screening/Assistive Devices Have you fallen in the past year?: No 02/02/24 1052 Date Tonny Hazel Signature: Date (if applicable) CC: Normal [facility] 01-28-2024 OV Office Visit (GYURWP ) RICHIE JOHNSON ([id number]) 1945 F Date Time Provider Department 01/28/24 11:30 AM MARY BETH FALL GYURWP During your visit today, we recorded the following information about you: Blood pressure Weight Height 128/84 73.9 kg 1.676 m Mary Beth Fall MD 01/28/2024 12:05 PM Signed Female Pelvic Medicine AND Reconstructive Surgery Follow-Up Richie Johnson is a 78 year old female, who presents for a follow-up of labioplasty done 01/22/2024. History since last visit: Patient returns one week after labioplasty. She is doing well with no pain. She is bothered a little by the sutures and the itching but otherwise no other issues. ALLERGIES No Known Allergies Current Outpatient Medications Medication Sig lidocaine-prilocaine (EMLA) 2.5-2.5 % cream Apply to affected area as needed. ipratropium bromide (ATROVENT) 42 mcg (0.06 %) nasal spray instill 2 sprays into each nostril three times a day if needed for runny nose sucralfate (CARAFATE) 1 gram tablet Take 1 tablet by mouth every 12 hours. vibegron (GEMTESA) 75 mg tablet Take 1 tablet by mouth once daily. estradiol (ESTRACE) 0.01 % (0.1 mg/gram) vaginal cream Use a pea-size amount vaginally three times per week. May use as often as daily. Do not use applicator. estradiol (ESTRACE) 0.01 % (0.1 mg/gram) vaginal cream Use 1 g vaginally once daily. Use fingertip amount of vaginal tissue nightly x 2 weeks then use 2-3 times weekly. clobetasol (TEMOVATE) 0.05 % cream Apply to affected area 2x/day for 2 weeks, then 1x/day for a week, than 1-3x/week for maintenance. buPROPion (WELLBUTRIN) 75 mg tablet Take 1 tablet by mouth every afternoon. celecoxib (CELEBREX) 200 mg capsule Take 1 capsule by mouth every afternoon. citalopram (CELEXA) 20 mg tablet Take 1 tablet by mouth every afternoon. omeprazole (PRILOSEC) 20 mg capsule take 1 capsule by mouth twice a day 30 TO 45 MINUTES BEFORE MEALS No current facility-administered medications for this visit. PAST SURGICAL HISTORY Procedure Laterality Date SECTION HX 07/05/1970 PAST SURGICAL HISTORY OF carpal tunnel PAST SURGICAL HISTORY OF bunionectomy REMOVAL GALLBLADDER PAST MEDICAL HISTORY Diagnosis Date Anxiety, generalized Tam's esophagus Depression, unspecified GERD (gastroesophageal reflux disease) FAMILY HISTORY Problem Relation Age of Onset Heart disease Mother Colon Cancer Father other (non hodgkins lymphoma) Sister Skin Cancer Sister Skin Cancer Sister Liver Cancer Brother other (Bladder Cancer) Brother No Known Problems Maternal Grandmother No Known Problems Maternal Grandfather No Known Problems Paternal Grandmother No Known Problems Paternal Grandfather SOCIAL HISTORY Social History Tobacco Use Smoking status: Former Current packs/day: 0.00 Types: Cigarettes Quit date: 1984 Years since quittin.7 Smokeless tobacco: Never Vaping Use Vaping status: Never Used Substance Use Topics Alcohol use: Not Currently Drug use: Never Review of Systems Constitutional: Negative for chills, diaphoresis and fever. HENT: Negative for drooling, ear discharge, facial swelling, nosebleeds, sore throat and trouble swallowing. Eyes: Negative for discharge, redness, itching and visual disturbance. Respiratory: Negative for apnea, choking, chest tightness, shortness of breath, wheezing and stridor. Cardiovascular: Negative for chest pain and palpitations. Gastrointestinal: Negative for abdominal distention, abdominal pain, anal bleeding, blood in stool, nausea and vomiting. Endocrine: Negative for cold intolerance and heat intolerance. Genitourinary: Negative for genital sores, menstrual problem and vaginal bleeding. Musculoskeletal: Negative for gait problem, myalgias, neck pain and neck stiffness. Skin: Negative for pallor, rash and wound. Allergic/Immunologic: Negative for environmental allergies, food allergies and immunocompromised state. Neurological: Negative for dizziness, seizures, facial asymmetry, speech difficulty, light-headedness, numbness and headaches. Hematological: Negative for adenopathy. Does not bruise/bleed easily. Psychiatric/Behavioral: Negative for agitation, behavioral problems, confusion and hallucinations. OBJECTIVE: BP 128/84 Ht 167.6 cm (5' 6) Wt 73.9 kg (163 lb) BMI 26.31 kg/m? The sensitive examination was discussed with the Patient or Patient's Authorized Extrusion Technician. As applicable, any other physician, advance practice provider, medical student, or other health professional student that will be observing or involved in the sensitive examination for educational or training purposes was discussed with the Patient or Authorized Extrusion Technician. The Patient or Authorized Extrusion Technician has agreed to proceed with the sensitive examination. (Sensitive examination includes inspe (more content not included)... Normal [facility] CNOVon 01-22-2024 CNOV Office Visit (GYURWP ) RICHIE JOHNSON ([id number]) 1945 F Date Time Provider Department 01/22/24 9:30 AM MARY BETH FALL GYALEXI During your visit today, we recorded the following information about you: Weight Height 73.9 kg 1.676 Mary Beth Abarca MD 01/22/2024 10:20 AM Signed UNIVERSAL PROTOCOL / SAFETY CHECKLIST Diagnosis: Labial Hypertrophy Procedure to be Performed: Labioplasty Sign In: A Moment of CARE was [...] Out: SIGN OUT (optional for EMERGENT procedures): No specimen collected. Procedure: The patient was prepped and draped and sterile fashion after obtaining informed consent. Anesthesia was obtained using topical Emla cream and injectable 2% lidocaine. The TempSure surgical device using the loop in the cut setting was used to excise the redundant and hypertrophied excess labia minora. The edges were then re-approximated using interruped 4-O vicryl suture. This was done bilaterally on both labia minora. Pressure was then held for several minutes for hemostasis and to minimize swelling. The patient tolerated the procedure well. Excellent hemostasis was noted. MD Juan David Kennedy Mary M, MD 01/22/2024 10:20 AM Signed Use Aquaphor liberally on wound. You may also apply emla cream prior to placing aquaphor. UROGYNECOLOGY POSTOP INSTRUCTIONS ACTIVITY Your surgical recovery will be unique to you and how you heal. In the first few days after surgery, you will probably feel sluggish. As you recover, you will gradually return to normal activities. It is important to push yourself to return to normal activities as you feel fit. Listen to your body in terms of increasing your activity level as you recover. You may walk and climb stairs right after surgery. Walking and stair climbing will not hurt your surgical repair. You may resume activities like lifting/running/high impact aerobic activities/sit-up as soon as you feel strong enough. Please do not do any bike or horseback riding for 2 weeks if you have had a midurethral sling. Do not put anything in the vagina for 6 weeks after surgery unless otherwise instructed by your doctor (including tampons, douching, sexual intercourse, etc). No driving while you are taking narcotic pain medication, or until you feel that you are ready and can safely slam the brakes if needed. Avoid sitting or lying in bed for more than 2 hours at a time while you are awake to reduce your risk of blood clots. You may return to work when directed by your physician. Please contact your doctor if you need any return to work letters or medical leave paperwork to be completed. PAIN MANAGEMENT After you go home, you should take acetaminophen (Tylenol) and ibuprofen (Motrin). We recommend rotating the timing of these medications so that you are taking one of these medications every 3 to [address], you can help prevent pain. After the first 72 hours, you can take these medications as needed. These should be the first medications you use for pain. Applying ice packs to your incisions (abdominal or vulvar/perineal) for 20 minutes as often as needed may also help. Some pain medications can cause constipation so you should take a stool softener (i.e. Colace) or laxative (i.e. Miralax) while you are on these medications (see the following section on constipation). OTHER MEDICATIONS If you were prescribed vaginal estrogen, you should resume it in 7-10 days after surgery unless you were instructed otherwise. Please check your discharge instructions about when to resume other medications. WOUND CARE Shower daily after surgery. No tub baths until wound is completely healed. If you have any abdominal incisions, wash them daily with a mild antibacterial soap and water. Pat your incision dry with a clean towel. Wash your hands frequently, especially before touching your incision, changing any dressings, after using the restroom, and before eating. WHAT TO EXPECT AT HOME Recovery from surgery is generally 4 weeks, but sometimes longer for more strenuous activity. It is normal to be very tired during this time. It is normal to have some drainage or a small amount of vaginal bleeding after surgery which may last up to 6 weeks. It is normal to have some bruising around the vaginal opening or on the buttocks if you had a vaginal surgery or around your incisions if you had an abdominal or laparoscopic surgery. If you had a laparoscopic (more content not included)... [facility] RICHIE JOHNSON ([id number]) 1945 F Date Time Provider Department 01/07/24 MARY BETH FALL During your visit today, we recorded the following information about you: AnitalichalucilleKera 01/07/2024 11:01 AM Signed Patient complaining of labial burning. Says she can hardly sit down it is so painful. No discoloration. Would like to know what she can do Erin Latif RN 01/07/2024 11:26 AM Signed Rn tried to return pt call. SHANTA LVM to call [facility] office back to talk about her issue. Erin Latif RN clobetasol (TEMOVATE) 0.05 % cream, estradiol (ESTRACE) 0.01 % (0.1 mg/gram) vaginal cream, vibegron (GEMTESA) 75 mg tablet OV: 12/10/23 CHIEF COMPLAINT: Richie Johnson is a 78 year old female who presents for consultation requested by Dr. Kiara Razo for an opinion regarding lichen sclerosus (consider PROFESSIONAL MODEL) and discuss labial hypertrophy. My final recommendations will be communicated back to the requesting physician by way of shared Medical record or letter to requesting physician via US mail. HISTORY OF PRESENT ILLNESS: Biopsy done 04/2023 confirmed presence of lichenoid dermatitis. She has been using clobetasol twice weekly and this really has not resolved her symptoms. She also reports pain/discomfort from labial hypertrophy. She states they get caught on her clothes and they often pinch when she sits on them. Regarding her other vaginal symptoms, Her main symptom is burning. She states that using coconut oil and aquaphor helps. She denies itching. She is taking oxybutynin for OAB. She has had some issues with her memory lately. Comments: Marked elongation of the labia minora extending far outside the labia majora ~5-6 cm in length. Significant vaginal atrophy. Assessment and Plan Problem List Items Addressed This Visit Nephrology OAB (overactive bladder) Stop oxybutynin and trial Gemtesa. Relevant Medications vibegron (GEMTESA) 75 mg tablet Asymptomatic microscopic hematuria We will determine next steps as needed once we have the results of her microscopic urinalysis. 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 I explained to her that a very minimal amount of estrogen cream is absorbed into her system and that it is not going to put her at an increased risk for breast cancer UNLESS SHE IS ON AN AROMATASE INHIBITOR. ESTROGEN CREAM PLUS AI MAY RESULT IN HIGH A 39% INCREASED RISK OF RECURRENT BREAST CANCER. We also discussed the dylan hogana touch vaginal laser therapy for her vaginal atrophy. Consider PROFESSIONAL MODEL in future if needed. Relevant Medications estradiol (ESTRACE) 0.01 % (0.1 mg/gram) vaginal cream Other Lichen sclerosus et atrophicus - Primary Her pathology showed lichenoid dermatitis but her exam today is consistent mainly with vaginal atrophy. No Cigarette-paper appearnce to labia skin. No lesions noted. Expectant management for now. Labial hypertrophy For her labial hypertrophy, we discussed the option of labiaplasty in the OR or in the office. If done in the office, this would be done with local anesthesia, valium and the TempSure Surgical device. Plan labial reduction/labioplasty in the office. MD Bhavya Kennedy Jennifer, RN 01/07/2024 12:01 PM Signed Verified name and .. Pt called RN back. Pt was wondering if there was anything else she can do to help with her labial burning. PT stated she using cold gel pack, and that she is using coconut oil and aquaphor and estrace cream. She denies itching. RN stated pt is doing all the right things at home. Just added to wear loose fitting clothes around the crotch area. Pt is scheduled for labioplasty in office procedure at on 01/22/[address] Fall. Erin Latif, Irena Flores, JOSÉ.MANAGER VEHICLE 01/07/2024 1:59 PM Signed Agree with RN No additional recs Esther Jason RN 01/07/2024 4:00 PM Signed Attempted to reach patient, left VM for her to return call to office. Will send Konoz message as well. Esther Jason RN Allergies As of Date: 01/07/2024 (No Known Allergies) Date Reviewed: 12/10/2023 Reviewed by: Aida Smith MA - Fully Assessed Reason for Visit: medical question [Other] Primary Visit Diagnosis:Lichen sclerosus et atrophicus [L90.0] Other Visit Diagnosis:Labial hypertrophy [N90.60] Prescriptions as of 01/07/2024 - ipratropium bromide (ATROVENT) 42 mcg (0.06 %) nasal spray instill 2 sprays into each nostril three times a day if needed for runny nose - sucralfate (CARAFATE) 1 gram tablet Take 1 tablet by mouth every 12 hours. - vibegron (GEMTESA) 75 mg tablet Take 1 tablet by mouth once daily. - estradiol (ESTRACE) 0.01 % (0.1 mg/gram) vaginal cream Use a pea-size amount vaginally three times per week. May use as often as daily. Do not use applicator (more content not included)... Normal [facility] Internal Medicine Office Vis nico 12-22-2023 Internal Medicine Office Visit [facility] [place], [place] [address] OFFICE VISIT Date of Service: 12/22/23 MR#: [id number] Acct: [id number] Name: RICHIE JOHNSON Rep #: [id number] : 1945 Provider: DOUGLAS berger Age/Sex: 78/F Location: [facility] Status: Signed Intake Vital Signs 12/08/23 09:15 12/22/23 09:55 Height 5 ft 6 in 5 ft 6 in Weight: 166 lb BMI 26.8 BP 116/74 Blood Pressure Location Lt brachial Position Sitting Respiration 16 Pulse 63 Pulse Source Monitor Temp 97.7 F L Temp Source Temporal Pulse Oximetry (%) 97 Oxygen Delivery Method room air Intake Visit Reasons: ACUTE - FU FROM COLONOSCOPY Chief Complaint: f/u from colonoscopy [place] Required: No Accompanied by: Self Is patient in pain?: No Allergies No Known Allergies Allergy (Verified 12/22/23 09:47) Medications ???Medication ???Instructions ???Recorded ???Confirmed ???Type calcium 2,000 mg PO DAILY 08/31/23 12/22/23 History ibandronate 150 mg tablet 150 mg PO QMONTH #7 tabs 09/04/23 12/22/23 Rx bupropion HCl 75 mg tablet 75 mg PO DAILY #90 tabs 10/19/23 12/22/23 Rx citalopram 20 mg tablet 20 mg PO DAILY #90 tabs 10/19/23 12/22/23 Rx celecoxib 200 mg capsule 200 mg PO DAILY PRN pain #60 caps 11/06/23 12/22/23 Rx ipratropium bromide 42 mcg (0.06 2 spray intranasal TID PRN runny 11/06/23 12/22/23 Rx %) nasal spray nose #15 mL sucralfate 1 gram tablet (Carafate) 1 g PO BID #30 tabs 12/08/23 12/22/23 Rx estradiol 0.01% (0.1 mg/gram) vaginal 3XW 12/22/23 12/22/23 History vaginal cream omeprazole 20 mg capsule,delayed 20 mg PO BID 90 days #180 caps 12/22/23 12/22/23 Rx release vibegron 75 mg tablet (Gemtesa) 75 mg PO QDAY 12/22/23 12/22/23 History Have you fallen in the past year?: No PFSH Medical History Elevated blood pressure reading in office without diagnosis of hypertension Anxiety and depression Age-related cognitive decline Wears hearing aid Loss of hearing Cardiology follow-up encounter Chronic back pain Osteopenia with high risk of fracture Weight loss, non-intentional Barretts esophagus Broken wrist Broken humerus FH: cholecystectomy Vision problems Stomach ulcer GERD (gastroesophageal reflux disease) Osteoarthritis Neuropathy Heart murmur Hearing problem Chronic headaches GI problem Gall stones Emotional problems Bronchitis Carpal tunnel syndrome Bone fracture Back problem Arthritis Allergies Osteoporosis Depression Surgical History History of carpal tunnel surgery Previous section Family History Brother Alcoholism Diabetes Liver cancer Seizures Epilepsy Sister Anxiety Autoimmune disorder Cancer Osteoporosis Father Colon cancer Social History adopted: No household members: spouse current occupational status: retired history of recent travel: No Smoking Status: Former smoker quit date: 08/26/84 alcohol intake: current alcohol intake frequency: other Alcohol type: other details: rarely, pt states she feels she may be allergic to alcohol. substance use type: does not use what type of physical activity do you participate in: walking frequency: daily seatbelt use: always do you feel safe at home: Yes HPI HPI Chief Complaint: f/u from colonoscopy Details: RICHIE JOHNSON, is a 78 F who presents to the office today for an acute visit to discuss several questions/concerns. She states she was originally diagnosed with lichen sclerosis however found out that she actually has atrophic vaginitis. She was previously following with [facility] women's care and is now following with Dr. Fall in [place]. She was prescribed topical estrogen therapy. She was also found to have excessive labial tissue which is causing her pain and is pinching when she sits. She plans to have a surgical resection of excessive labial tissue soon with Dr. Fall. She states additionally oxybutynin was discontinued and she was placed on gemtesa to help with cognitive abilities. She states her cognitive status has improved with cessation of oxybutynin. She additionally has questions regarding recent colonoscopy and EGD results. She is inquiring about gastric polyps and what to do about these. She also states omeprazole dose has been decreased to 20 mg twice daily as this lower dose controls her symptoms. She reports she rarely has breakthrough symptoms. She also was prescribed Carafate after her EGD and is inquiring on how to properly take this medication. ROS Const Constitutional: No body ache, chills, excessive sweating, fatigue, fever(s), frequen (more content not included)... Normal [facility] CNOVon 12-10-2023 CNOV Office Visit (GYURWP ) RICHIE JOHNSON ([id number]) 1945 F Date Time Provider Department 12/10/23 8:00 AM MARY BETH FALL During your visit today, we recorded the following information about you: Blood pressure Weight Height 134/72 74.4 kg 1.676 m Mary Beth Fall MD 12/10/2023 8:47 AM Signed Female Pelvic Medicine AND Reconstructive Surgery Consult CHIEF COMPLAINT: Richie Johnson is a 78 year old female who presents for consultation requested by Dr. Kiara Razo for an opinion regarding lichen sclerosus (consider PROFESSIONAL MODEL) and discuss labial hypertrophy. My final recommendations will be communicated back to the requesting physician by way of shared Medical record or letter to requesting physician via US mail. HISTORY OF PRESENT ILLNESS: Biopsy done 04/2023 confirmed presence of lichenoid dermatitis. She has been using clobetasol twice weekly and this really has not resolved her symptoms. She also reports pain/discomfort from labial hypertrophy. She states they get caught on her clothes and they often pinch when she sits on them. Regarding her other vaginal symptoms, Her main symptom is burning. She states that using coconut oil and aquaphor helps. She denies itching. She is taking oxybutynin for OAB. She has had some issues with her memory lately. Medical and Symptom History: LMP: No LMP recorded. Patient is postmenopausal.; Menopause yes: ALLERGIES No Known Allergies Current Outpatient Medications Medication Sig ipratropium bromide (ATROVENT) 42 mcg (0.06 %) nasal spray instill 2 sprays into each nostril three times a day if needed for runny nose sucralfate (CARAFATE) 1 gram tablet Take 1 tablet by mouth every 12 hours. estradiol (ESTRACE) 0.01 % (0.1 mg/gram) vaginal cream Use 1 g vaginally once daily. Use fingertip amount of vaginal tissue nightly x 2 weeks then use 2-3 times weekly. buPROPion (WELLBUTRIN) 75 mg tablet Take 1 tablet by mouth every afternoon. celecoxib (CELEBREX) 200 mg capsule Take 1 capsule by mouth every afternoon. citalopram (CELEXA) 20 mg tablet Take 1 tablet by mouth every afternoon. omeprazole (PRILOSEC) 20 mg capsule take 1 capsule by mouth twice a day 30 TO 45 MINUTES BEFORE MEALS vibegron (GEMTESA) 75 mg tablet Take 1 tablet by mouth once daily. estradiol (ESTRACE) 0.01 % (0.1 mg/gram) vaginal cream Use a pea-size amount vaginally three times per week. May use as often as daily. Do not use applicator. clobetasol (TEMOVATE) 0.05 % cream Apply to affected area 2x/day for 2 weeks, then 1x/day for a week, than 1-3x/week for maintenance. (Patient not taking: Reported on 12/10/2023) No current facility-administered medications for this visit. 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 No date: Depression, unspecified No date: GERD (gastroesophageal reflux disease) FAMILY HISTORY Problem Relation Age of Onset Heart disease Mother Colon Cancer Father other (non hodgkins lymphoma) Sister Skin Cancer Sister Skin Cancer Sister Liver Cancer Brother other (Bladder Cancer) Brother No Known Problems Maternal Grandmother No Known Problems Maternal Grandfather No Known Problems Paternal Grandmother No Known Problems Paternal Grandfather SOCIAL HISTORY Social History Tobacco Use Smoking status: Former Types: Cigarettes Quit date: 1984 Years since quittin.6 Smokeless tobacco: Never Vaping Use Vaping Use: Never used Substance Use Topics Alcohol use: Not Currently Drug use: Never Occupation: Retired Marital Status: Sexually active: is not sexually active because she has no desire. Review of Systems Constitutional: Negative for chills, diaphoresis and fever. HENT: Negative for drooling, ear discharge, facial swelling, nosebleeds, sore throat and trouble swallowing. Eyes: Negative for discharge, redness, itching and visual disturbance. Respiratory: Negative for apnea, choking, chest tightness, shortness of breath, wheezing and stridor. Cardiovascular: Negative for chest pain and palpitations. Gastrointestinal: Negative for abdominal distention, abdominal pain, anal bleeding, blood in stool, nausea and vomiting. Endocrine: Negative for cold intolerance and heat intolerance. Genitourinary: Negative for genital sores, menstrual problem and vaginal bleeding. Musculoskeletal: Negative for gait problem, myalgias, neck pain and neck stiffness. Skin: Negative for pallor, rash and wound. Allergic/Immunologic: Negative for environmental allergies, food allergies and immunocompromised state. Neurological: Negative for dizziness, seizures, facial asymmetry, speech difficulty, light (more content not included)... Normal [facility] 12-10-2023 [facility] Telephone (GYURWP) RICHIE JOHNSON ([id number]) 1945 F Date Time Provider Department 12/10/23 MARY BETH FALL GYURWP During your visit today, we recorded the following information about you: Esther Jara RN 12/10/2023 10:12 AM Signed Referral received for Labioplasty from Dr. Fall. Authorization entered, Will monitor status. Esther Jara RN December 10, 2023 10:08 AM Mary Beth Fall MD P Ogi Urogyn Cc Pool Need prior authorization for labial reduction/labioplasty for labial hypertrophy. Please let me know if there is any issue with prior authorization. She is willing to pay out of pocket if necessary but I want to be involved. Janel Edmond RN 12/22/2023 10:37 AM Signed Labioplasty approved through 05/03/24 - NPCR. Updated sticky note. Janel Edmond RN December 22, 2023 10:37 AM Allergies As of Date: 12/10/2023 (No Known Allergies) Date Reviewed: 12/10/2023 Reviewed by: Aida Smith MA - Fully Assessed Reason for Visit: Care Coordination [3491] Cmt: Labioplasty Prescriptions as of 12/22/2023 - ipratropium bromide (ATROVENT) 42 mcg (0.06 %) nasal spray instill 2 sprays into each nostril three times a day if needed for runny nose - sucralfate (CARAFATE) 1 gram tablet Take 1 tablet by mouth every 12 hours. - vibegron (GEMTESA) 75 mg tablet Take 1 tablet by mouth once daily. - estradiol (ESTRACE) 0.01 % (0.1 mg/gram) vaginal cream Use a pea-size amount vaginally three times per week. May use as often as daily. Do not use applicator. - estradiol (ESTRACE) 0.01 % (0.1 mg/gram) vaginal cream Use 1 g vaginally once daily. Use fingertip amount of vaginal tissue nightly x 2 weeks then use 2-3 times weekly. - clobetasol (TEMOVATE) 0.05 % cream Apply to affected area 2x/day for 2 weeks, then 1x/day for a week, than 1-3x/week for maintenance. - buPROPion (WELLBUTRIN) 75 mg tablet Take 1 tablet by mouth every afternoon. - celecoxib (CELEBREX) 200 mg capsule Take 1 capsule by mouth every afternoon. - citalopram (CELEXA) 20 mg tablet Take 1 tablet by mouth every afternoon. - omeprazole (PRILOSEC) 20 mg capsule take 1 capsule by mouth twice a day 30 TO 45 MINUTES BEFORE MEALS Problem List As Of Date 12/10/2023 Noted Resolved Lichen sclerosus et atrophicus [L90.0] 12/09/2023 OAB (overactive bladder) [N32.81] 12/10/2023 Labial hypertrophy [N90.60] 12/10/2023 Vaginal atrophy [N95.2] 12/10/2023 Asymptomatic microscopic hematuria [R31.21] 12/10/2023 Encounter Status:Closed by ESTHER JARA on 12/10/23 Normal [facility] UA DIP, URINE (POC)on 2023 BILIRUBIN UA (POCT) Negative Negative [facility] CLARITY UA (POCT) Clear [facility] COLOR UA (POCT) Yellow [facility] GLUCOSE UA (POCT) Negative Negative mg/dL [facility] Hemoglobin Ql (U) Trace-intact Abnormal Negative [facility] Interpretation and review of laboratory results Abnormal [facility] KETONE UA (POCT) Negative Negative mg/dL [facility] LEUKOCYTES UA (POCT) Trace Abnormal Negative [facility] NITRITE UA (POCT) Negative Negative [facility] PH UA (POCT) 6.0 4.5 - 8.0 [facility] Protein Ql (U) Negative Negative mg/dL [facility] SPECIFIC GRAVITY UA (POCT) 1.020 1.005 - 1.030 [facility] UROBILINOGEN UA (POCT) 0.2 Dori l E.U./dL [facility] Location:[facility] UROGYNECOLOGY, [address] [place] [address], [address] [place] [address] POINT OF CARE [facility] Urinalysis complete panel (U )on 12-10-2023 Bacteria LM.HPF (Urine sed) [#/Area] Negative Normal Negative [facility] Comment on above: Order Comment: Speci men Type: URINE SPECIMENOrdering Facility: [facility] Address: [address] [place] [address] Performed By: #### 2 4356-8 ####[facility] LABCLIA [id number] [place] [address] [place] Bilirubin Ql (U) Negative Normal Negative [facility] Comment on above: Order Comment: Speci men Type: URINE SPECIMENOrdering Facility: [facility] Address: [address] [place] [address] Performed By: #### 2 4356-8 ####[facility] LABCLIA [id number] [place] [address] [place] Clarity (Unsp spec) Clear Normal Clear [facility] Comment on above: Order Comment: Speci men Type: URINE SPECIMENOrdering Facility: [facility] Address: [address] [place] [address] Performed By: #### 2 4356-8 ####[facility] LABCLIA [id number] [place] [address] [place] Color (U) Yellow Normal Yellow [facility] Comment on above: Order Comment: Speci men Type: URINE SPECIMENOrdering Facility: [facility] Address: [address] [place] [address] Performed By: #### 2 4356-8 ####[facility] LABCLIA [id number] [place] [address] [place] Epithelial cells LM.HPF (Urine sed) [#/Area] Moderate Normal [facility] Comment on above: Order Comment: Speci men Type: URINE SPECIMENOrdering Facility: [facility] Address: [address] [place] [address] Performed By: #### 2 4356-8 ####[facility] LABCLIA [id number] [place] [address] [place] Glucose Test strip (U) [Mass/Vol] Negative Normal Negative [facility] Comment on above: Order Comment: Speci men Type: URINE SPECIMENOrdering Facility: [facility] Address: [address] [place] [address] Performed By: #### 2 4356-8 ####[facility] LABCLIA [id number] [place] [address] [place] Hemoglobin Ql (U) Negative Normal Negative [facility] Comment on above: Order Comment: Speci men Type: URINE SPECIMENOrdering Facility: [facility] Address: [address] [place] [address] Performed By: #### 2 4356-8 ####[facility] LABCLIA [id number] [place] [address] [place] Hyaline casts (Urine sed) [#/Area] 0 /[LPF] Normal 0 /LPF [facility] [facility] Comment on above: Order Comment: Speci men Type: URINE SPECIMENOrdering Facility: [facility] Address: [address] [place] [address] Performed By: #### 2 4356-8 ####[facility] LABCLIA [id number] [place] [address] [place] Ketones Ql (U) Negative Normal Negative [facility] Comment on above: Order Comment: Speci men Type: URINE SPECIMENOrdering Facility: [facility] Address: [address] [place] [address] Performed By: #### 2 4356-8 ####[facility] LABCLIA [id number] [place] [address] [place] Leukocyte esterase Test strip Ql (U) Trace Abnormal Negative [facility] Comment on above: Order Comment: Speci men Type: URINE SPECIMENOrdering Facility: [facility] Address: [address] [place] [address] Performed By: #### 2 4356-8 ####[facility] LABCLIA [id number] [place] [address] [place] Nitrite Ql (U) Negative Normal Negative [facility] Comment on above: Order Comment: Speci men Type: URINE SPECIMENOrdering Facility: [facility] Address: [address] [place] [address] Performed By: #### 2 4356-8 ####[facility] LABCLIA [id number] [place] [address] [place] pH (U) 6.0 [pH] Normal <8.5 [facility] Comment on above: Order Comment: Speci men Type: URINE SPECIMENOrdering Facility: [facility] Address: [address] [place] [address] Performed By: #### 2 4356-8 ####[facility] LABIA [id number] [place] [address] [place] Protein (U) [Mass/Vol] Negative Normal Negative Cl [facility] Comment on above: Order Comment: Speci men Type: URINE SPECIMENOrdering Facility: [facility] Address: [address] [place] [address] Performed By: #### 2 4356-8 ####[facility] LABIA [id number] [place] [address] [place] RBC LM.HPF (Urine sed) [#/Area] 0-2 /HPF Normal 0-2 /HPF [facility] Comment on above: Order Comment: Speci men Type: URINE SPECIMENOrdering Facility: [facility] Address: [address] [place] [address] Performed By: #### 2 4356-8 ####[facility] H[facility]PITAL[facility] [id number] [place] [address] [place] Specific gravity (U) [Rel density] 1.024 Normal 1.005-1.030 [facility] Comment on above: Order Comment: Speci men Type: URINE SPECIMENOrdering Facility: [facility] Address: [address] [place] [address] Performed By: #### 2 4356-8 ####[facility] LABIA [id number] [place] [address] [place] Urobilinogen Ql (U) 0.2 EU/dL Normal 0.2-1.0 EU/dL [facility] Comment on above: Order Comment: Speci men Type: URINE SPECIMENOrdering Facility: [facility] Address: [address] [place] [address] Performed By: #### 2 4356-8 ####[facility] LABIA [id number] [place] [address] [place] [facility] WBC LM.HPF (Urine sed) [#/Area] 0-5 /HPF Normal 0-5 /HPF [facility] Comment on above: Order Comment: Speci men Type: URINE SPECIMENOrdering Facility: [facility] Address: [address] [place] [address] Performed By: #### 2 4356-8 ####[facility] LABCLIA [id number] [address] [address] [place] Colonoscopy Reporton 024 Colonoscopy Report [facility] Medical Records Department [address] [place] [address] Colonoscopy Report MR#: [id number] Acct: [id number] Name: RICHIE JOHNSON Rep #: [id number] : 1945 78 From: Zhao Abebe MD PCP: Dr. Alia Condon MD Status:[facility] Patient Name: Richie Johnson Procedure Date: 12/08/2023 11:02 AM Date of : 1945 Age: 78 Procedure: Colonoscopy Indications: High risk colon cancer surveillance: Personal history of non-advanced adenoma Providers: Zhao Abebe MD Referring MD: Alia Condon MD Medicines: See the Anesthesia note for documentation of the administered medications Patient Profile: Refer to note in patient chart for documentation of history and physical. Last Colonoscopy: 3 years ago. Complications: No immediate complications. Estimated blood loss: Minimal. Procedure: Pre-Anesthesia Assessment: - The heart rate, respiratory rate, oxygen saturations, blood pressure, adequacy of pulmonary ventilation, and response to care were monitored throughout the procedure. After I obtained informed consent, the scope was passed under direct vision. Throughout the procedure, the patient's blood pressure, pulse, and oxygen saturations were monitored continuously. The colonoscope was introduced through the anus and advanced to the cecum, identified by the appendiceal orifice, ileocecal valve and palpation. The colonoscopy was somewhat difficult due to poor bowel prep with stool present. Successful completion of the procedure was aided by lavage. The patient tolerated the procedure well. Scope In: 11:06:32 AM Scope Withdrawal Time 0 hours 36 minutes 24 seconds Scope Out: 11:51:54 AM Total Procedure Duration Time 0 hours 45 minutes 22 seconds Findings: The perianal and digital rectal examinations were normal. A 3 mm polyp was found in the cecum. The polyp was semi-sessile. The polyp was removed with a hot snare. Resection and retrieval were complete. Estimated blood loss was minimal. A few small-mouthed diverticula were found in the sigmoid colon. There was no evidence of diverticular bleeding. No biopsies or other specimens were collected for this exam. The entire examined colon appeared normal on direct and retroflexion views. Multiple semi-sessile polyps were found in the rectum. The polyps were 2 to 4 mm in size. Biopsies were taken with a cold forceps for histology. Estimated blood loss was minimal. Impression: - One 3 mm polyp in the cecum, removed with a hot snare. Resected and retrieved. - Mild diverticulosis in the sigmoid colon. There was no evidence of diverticular bleeding. No specimens collected. - The entire examined colon is normal on direct and retroflexion views. - Multiple 2 to 4 mm polyps in the rectum. Biopsied. Recommendation: - Discharge patient to home (via wheelchair). - Resume previous diet today. - Continue present medications. - Await pathology results. - Telephone my office for pathology results in 1 week. - No recommendation at this time regarding repeat colonoscopy due to age. Procedure Code(s): --- Professional --- 50815, Colonoscopy, flexible; with removal of tumor(s), polyp(s), or other lesion(s) by snare technique 31249, 59, Colonoscopy, flexible; with biopsy, single or multiple Diagnosis Code(s): --- Professional --- Z86.010, Personal history of colonic polyps D12.0, Benign neoplasm of cecum D12.8, Benign neoplasm of rectum K57.30, Diverticulosis of large intestine without perforation or abscess without bleeding CPT copyright 2021 [employer]. All rights reserved. The codes documented in this report are preliminary and upon special loan officer review may be revised to meet current compliance requirements. Zhao Abebe MD 12/08/2023 12:11:25 PM This report has been signed electronically. Number of Addenda: 0 Note Initiated On: 12/08/2023 11:02 AM 12/08/23 1211 Date Zhao Abebe MD Cosign Signature: Date (if indicated) CC: Dr. Alia Condon MD; Dr. Zhao Abebe MD Date Dictated: 12/08/23 1102 Date Transcribed: Roller Operator: VASHTI Signed Normal [facility] EGD Reporton 12-08-2023 EGD Report [facility] Medical Records Department [address] [facility] [place] [address] EGD Report MR#: [id number] Acct: [id number] Name: RICHIE JOHNSON Rep #: [id number] : 1945 78 From: Zhao Abebe MD PCP: Dr. Alia Condon MD Status:[facility] Patient Name: Richie Johnson Procedure Date: 12/08/2023 10:15 AM Date of : 1945 Age: 78 Procedure: Upper GI endoscopy Indications: Surveillance for malignancy due to personal history of Tam's esophagus, Gastro-esophageal reflux disease Providers: Zhao Abebe MD Referring MD: Alia Condon MD Medicines: See the Anesthesia note for documentation of the administered medications Patient Profile: Refer to note in patient chart for documentation of history and physical. Complications: No immediate complications. Estimated blood loss: Minimal. Procedure: Pre-Anesthesia Assessment: - The heart rate, respiratory rate, oxygen saturations, blood pressure, adequacy of pulmonary ventilation, and response to care were monitored throughout the procedure. After obtaining informed consent, the endoscope was passed under direct vision. Throughout the procedure, the patient's blood pressure, pulse, and oxygen saturations were monitored continuously. The Endoscope was introduced through the mouth, and advanced to the second part of duodenum. The upper GI endoscopy was accomplished without difficulty. The patient tolerated the procedure well. Scope In: 10:35:42 AM Scope Out: 11:02:44 AM Total Procedure Duration Time 0 hours 27 minutes 2 seconds Findings: No gross lesions were noted in the duodenal bulb, in the first portion of the duodenum and in the second portion of the duodenum. No biopsies or other specimens were collected for this exam. Bilious fluid was found in the gastric antrum. Diffuse moderately erythematous mucosa without bleeding was found in the gastric antrum. Biopsies were taken with a cold forceps for Helicobacter pylori testing. Estimated blood loss was minimal. Multiple 6 to 25 mm pedunculated and sessile polyps with no bleeding and no stigmata of recent bleeding were found in the gastric fundus. These polyps were removed with a hot snare. Resection and retrieval were complete. Estimated blood loss was minimal. The Z-line was irregular and was found 38 cm from the incisors. Biopsies were taken with a cold forceps for histology. Estimated blood loss was minimal. A medium-sized hiatal hernia was present. No biopsies or other specimens were collected for this exam. The exam was otherwise without abnormality. Impression: - No gross lesions in the duodenal bulb, in the first portion of the duodenum and in the second portion of the duodenum. No specimens collected. - Bilious gastric fluid. - Erythematous mucosa in the antrum. Biopsied. - Multiple gastric polyps. Resected and retrieved. - Z-line irregular, 38 cm from the incisors. Biopsied. - Medium-sized hiatal hernia. No specimens collected. - The examination was otherwise normal. Recommendation: - Discharge patient to home (via wheelchair). - Resume previous diet today. - No aspirin, ibuprofen, naproxen, or other non-steroidal anti-inflammatory drugs for 2 days after biopsy. - Await pathology results. - Telephone my office for pathology results in 1 week. Procedure Code(s): --- Professional --- 65069, 59, Esophagogastroduodenosc opy, flexible, transoral; with biopsy, single or multiple Diagnosis Code(s): --- Professional --- K22.70, 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 K31.89, Other diseases of stomach and duodenum K31.7, Polyp of stomach and duodenum K22.89, Other specified disease of esophagus K44.9, Diaphragmatic hernia without obstruction or gangrene K21.9, Gastro-esophageal reflux disease without esophagitis CPT copyright 2021 [employer]. All rights reserved. The codes documented in this report are preliminary and upon special loan officer review may be revised to meet current compliance requirements. Zhao Abebe MD 12/08/2023 12:03:36 PM This report has been signed electronically. Number of Addenda: 0 Note Initiated On: 12/08/2023 10:15 AM 12/08/23 1203 Date Zhao Abebe MD Cosigner Signature: Date (if indicated) CC: Dr. Alia Condon MD; Dr. Zhao Abebe MD Date Dictated: 12/08/23 1015 Date Transcribed: Roller Operator: VASHTI Signed [facility] H Pylori (initial)on 024 H Pylori (initial) --- Patient Age/Sex Location Account Attending Physician RICHIE JOHNSON 78/F EN [id number] Dr. Zhao Abebe MD Specimen: [id number] Received: 12/09/23 Status: ANNABELLA Cronin Num: [id number] Spec Type: IMMUNO Subm Dr: Dr. Zhao Abebe MD PHYSICIAN INSTITUTION [place] [address] SPECIMEN INFORMATION: Tissue Source: A. Antral biopsy Clinical Info: History of polyps, dysphagia, GERD, Tam's esophagus Specimen Number: [id number] CPT code: 61382k7,38706 METHODOLOGY: Deparaffinized sections of prefer/formalin-fixed tissue or PAP/DQ stained slides are incubated with monoclonal/polyclonal antibodies/oligonucleot alejandro probes. Localization is made via biotin free immunoperoxidase method. Appropriate controls are performed and reacted as expected. Results on target cell population are indicated in the following table: RESULTS: ANTIBODY / CLONE RESULT Block A H Pylori (polyclonal) negative Block B P53 (DO-7) positive, wild type Ki-67 (30-9) positive, low These tests were developed and their performance characteristics determined by [facility]. They may not have been cleared or approved by the U.S. Food and Drug Administration. The FDA has determined that such clearance or approval is not necessary. The above immunohistochemical/ibis Cedrick markers are ordered and reviewed by the Pathologist. INTERPRETATION: A. Antrum, biopsy: Negative for Helicobacter pylori organisms. B. Gastroesophageal junction, biopsy: No evidence of dysplasia. AM/ 12/11/2023 Signed (signature on file) Dr. Sina Stephenson, DO 12/11/23 1059 Normal [facility] Comment on above: Performed By: #### P H.PYLORI #### [facility] [address] [place], [address] MR/POSTOP.ANEon 12-08-2023 MR/POSTOP.ANE [facility] Medical Records Department [address] [place] [address] Anesthesia Postop Eval I 12/08/23 1201 MR#: [id number] Acct: [id number] Name: RICHIE JOHNSON Rep #: [id number] : 1945 78 From: Alfonzo Tariq PCP: Dr. Alia Condon MD Status:REG SDC Y Race: C Location: [place] [address] Anesthesia: Postop Eval I Current Vital Signs Temperature: 97.3 F Pulse Rate: 74 Blood Pressure: 142/70 Respiratory Rate: 16 Pulse Ox: 95 Oxygen Delivery Method: Room Air Assessment Airway patent: Yes Spontaneous unlabored respirations: Yes Mental status: Awake and Calm nausea: No Vomiting: No Anesthesia Complication: No Fluid Hydration Crystalloid volume administer (ml): 900 Total IV fluid infused: 900 Progress Note Anesthesia document: Postop Eval 1 completed: Yes 12/08/23 1202 Date Alfonzo Hazel Signature: Date CC: Signed Normal [facility] MR/[id number] 12-08-2023 MR/POSTOPAN2 [facility] Medical Records Department [address] [place] [address] Anesthesia Postop Eval II 12/08/23 1203 MR#: [id number] Acct: [id number] Name: RICHIE JHONSON Rep #: [id number] : 1945 78 From: Carlos House MD PCP: Dr. Alia Condon MD Status:REG SDC Y Race: C Location: [place] [address] Anesthesia Postop Eval I Sum Postop Eval Completion status Anesthesia document: Postop Eval 1 completed: Yes Anesthesia Postop Eval I Summary Anesthesia Postop Eval I Summary: Anesthesia Postop Eval I: Assessment Summary Airway patent Yes 12/08/23 12:02 [email or web address] Spontaneous unlabored Yes 12/08/23 12:02 [email or web address] respirations Mental status Awake,Calm 12/08/23 12:02 [email or web address] nausea No 12/08/23 12:02 [email or web address] Vomiting No 12/08/23 12:02 [email or web address] Anesthesia Postop Eval I: Fluid Summary Crystalloid volume administer 900 12/08/23 12:02 [email or web address] (ml) Colloids volume administered ( ml) Blood Product volume administered (ml) Total IV fluid infused 900 12/08/23 12:02 [email or web address] Anesthesia Postop Eval I: Summary Notes Anesthesia Complication No 12/08/23 12:02 [email or web address] Anesthesia Complication Comment: Post-operative progress note Anesthesia: Postop Eval II Evaluation Mental status: Awake Pain Level: 0 nausea: No Vomiting: No 12/08/23 1203 Date Carlos Garciaigner Signature: Date CC: Signed Normal [facility] Surgery Specimen Level Naomi 12-08-2023 Surgery Specimen Level IV Patient Age/Sex Location Account Attending Physician RICHIE JOHNSON 78/F EN [id number] Dr. Zhao Abebe MD Specimen: [id number] Received: 12/08/23 Status: ANNABELLA Cronin Num: [id number] Spec Type: EGD BIOPSY Subm Dr: Dr. Zhao Abebe MD THIS IS A CORRECTED REPORT 12/11/23 HEADER OPERATION: Colonoscopy with polypectomy, EGD with biopsy PRE-OP DIAGNOSIS: History of polyps, dysphagia, GERD, Tam's esophagus TISSUE SUBMITTED: A- Antral biopsy, B- Gastroesophageal junction biopsy, C- Gastric body polyp biopsy, D- Gastric body polyp snare, multiple, E- Cecal polyp snare, F- Rectal polyps biopsy MICROSCOPIC DIAGNOSIS A. Gastric antrum, biopsy: Chronic gastritis. See comment. B. Gastroesophageal junction, biopsy: Mild chronic inflammation. 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 Focal changes of reflux. No evidence of dysplasia. See comment. C. Gastric body polyp, biopsy: Fundic gland polyp. D. Gastric body polyps, biopsy: Fundic gland polyps.E. Cecal polyp, biopsy: Cauterized fragments of colonic mucosa. See comment. F. Rectal polyps, biopsy: Fragments of colonic mucosa with focal hyperplastic change. AM/mr 12/10/2023 COMMENT A. The results of immunohistochemistry for Helicobacter pylori will be reported separately ([id number]). B. Alcian blue/PAS stain with matched control supports the above diagnosis. Immunohistochemistry ([id number]) supports the above diagnosis. E. Focal hyperplastic change can not be entirely excluded. Clinical correlation is suggested. MICROSCOPIC DESCRIPTION Slides are reviewed. Patient Age/Sex Location Account Attending Physician RICHIE JOHNSON 78/F EN [id number] Dr. Zhao Abebe MD GROSS DESCRIPTION A. Received in fixative is one container labeled with the patient's name and designated Antrum biopsy. The specimen consists of one irregular fragment of light kong soft tissue that measures 0.3 x 0.3 x 0.1 cm. The specimen is totally submitted in one cassette. B. Received in fixative is one container labeled with the patient's name and designated GE junction biopsy. The specimen consists of two irregular fragments of light kong soft tissue that measures 0.5 x 0.4 x 0.1 cm. The specimen is totally submitted in one cassette. C. Received in fixative is one container labeled with the patient's name and designated Gastric body polyp biopsy. The specimen consists of one irregular fragment of light kong soft tissue that measures 0.4 x 0.3 x 0.1 cm. The specimen is totally submitted in one cassette. D. Received in fixative is one container labeled with the patient's name and designated Gastric body polyp snare. The specimen consists of multiple polypoid fragments of kong mucosal tissue measuring in aggregate 3.0 x 2.5 x 0.3cm. Also present in the container is a large polyp measuring 1.5 x 1.0 x 1.0cm. Presumed base of largest polyp is inked black. The largest polyp is serially sectioned. Second smaller polyp is bisected. The entire specimen is submitted in two cassettes. E. Received in fixative is one container labeled with the patient's name and designated Cecal polyp snare. The specimen consists of multiple irregular fragments of light kong soft tissue that in aggregate measure 0.5 x 0.3 x 0.1 cm. The specimen is totally submitted in one cassette. F. Received in fixative is one container labeled with the patient's name and designated Rectal polyp. The specimen consists of multiple irregular fragments of light kong soft tissue that in aggregate measure 1.5 x 0.3 x 0.1 cm. The specimen is totally submitted in one cassette. Julianna 12/09/2023 TC:1 CPT:74281d9 Patient Age/Sex Location Account Attending Physician RICHIE JOHNSON 78/F EN [id number] Dr. Zhao Abebe MD Signed (signature on file) Dr. Sina Stephenson DO 12/11/23 1151 Normal [facility] Comment on above: Performed By: #### P SUIV ####[facility] [id number] [place], [address] Internal Medicine Office Vis itomaximilian 12-04-2023 Internal Medicine Office Visit [facility] [address] [place] [address] [place], [place] [address] OFFICE VISIT Date of Service: 12/04/23 MR#: [id number] Acct: [id number] Name: RICHIE JOHNSON DORON Rep #: [id number] : 1945 Provider: Dr. Alia abdullahi MD Age/Sex: 78/F Location: [facility] Status: Signed Intake Vital Signs 08/31/23 15:06 11/06/23 14:28 12/04/23 10:46 Height 5 ft 6 in 5 ft 6 in 5 ft 6 in Weight: 167 lb BMI 26.9 BP 146/76 H Blood Pressure Location Rt brachial Position Sitting Respiration 17 Pulse 60 Pulse Source Monitor Temp 97.4 F L Temp Source Temporal Pulse Oximetry (%) 96 Oxygen Delivery Method room air Intake Visit Reasons: 3 M FU Chief Complaint: 3 M FU Is patient in pain?: No Allergies No Known Allergies Allergy (Verified 12/04/23 10:45) Medications ???Medication ???Instructions ???Recorded ???Confirmed ???Type calcium 2,000 mg PO DAILY 08/31/23 12/04/23 History omeprazole 40 mg capsule,delayed 40 mg PO BID 3 months #180 caps 08/31/23 12/04/23 Rx release oxybutynin chloride 5 mg tablet 5 mg PO DAILY 08/31/23 12/04/23 History ibandronate 150 mg tablet 150 mg PO QMONTH #7 tabs 09/04/23 12/04/23 Rx bupropion HCl 75 mg tablet 75 mg PO DAILY #90 tabs 10/19/23 12/04/23 Rx citalopram 20 mg tablet 20 mg PO DAILY #90 tabs 10/19/23 12/04/23 Rx celecoxib 200 mg capsule 200 mg PO DAILY PRN pain #60 caps 11/06/23 12/04/23 Rx ipratropium bromide 42 mcg (0.06 2 spray intranasal TID PRN runny 11/06/23 12/04/23 Rx %) nasal spray nose #15 mL Have you fallen in the past year?: No PFSH Medical History (Updated 12/04/23 @ 13:[address] Alia Condon MD) Elevated blood pressure reading in office without diagnosis of hypertension Anxiety and depression Age-related cognitive decline Wears hearing aid Loss of hearing Cardiology follow-up encounter Chronic back pain Osteopenia with high risk of fracture Weight loss, non-intentional Barretts esophagus Broken wrist Broken humerus FH: cholecystectomy Vision problems Stomach ulcer GERD (gastroesophageal reflux disease) Osteoarthritis Neuropathy Heart murmur Hearing problem Chronic headaches GI problem Gall stones Emotional problems Bronchitis Carpal tunnel syndrome Bone fracture Back problem Arthritis Allergies Osteoporosis Depression Surgical History History of carpal tunnel surgery Previous section Family History Brother Alcoholism Diabetes Liver cancer Seizures Epilepsy Sister Anxiety Autoimmune disorder Cancer Osteoporosis Father Colon cancer Social History adopted: No household members: spouse current occupational status: retired history of recent travel: No Smoking Status: Former smoker quit date: 08/26/84 alcohol intake: current alcohol intake frequency: other Alcohol type: other details: rarely, pt states she feels she may be allergic to alcohol. substance use type: does not use what type of physical activity do you participate in: walking frequency: daily seatbelt use: always do you feel safe at home: Yes HPI HPI Chief Complaint: 3 M FU Details: RICHIE JOHNSON, is a 78 F who presents to the office today for follow-up of her chronic medical conditions. Also has some concerns. She reports some memory concerns. Occasionally forgets what she can to her room to get but with time, she states that it comes to her. Still able to carry out her activities without any significant limitation spouse was present during the visit as well and apart from what patient reported, have noted no other significant concerns. Sleep is stable. Chronic history of anxiety and depression, they have recent stressors or changes. Other chronic medical conditions are stable as well. History of lichen sclerosis, has an appointment with urology for labial resection and laser therapy. ROS Const Constitutional: No body ache, chills, excessive sweating, fatigue, fever(s), frequent falls, headache(s), snoring, weight change, sleep problems, abnormal sleep pattern or change in appetite Eyes Eyes: No blurry vision, change in vision, floaters, visual disturbances, eye pain or Light sensitivity ENT ENT: No abnormal hearing, ear or mastoid pain, tinnitus, balance problems, nosebleed/epistaxis, nasal congestion, headache(s), neck pain or sore throat Resp Respiratory: No cough, pain on inspiration, shortness of breath, snoring or wheezing Cardio Cardiology: No chest pain at rest, chest pain with exertion, excessive sweating, shortness of breath, dyspnea on exertion, lightheadedness, orthopnea or palpitations Gastro GI: No abdominal pain, change in bowel (more content not included)... Normal [facility] CBC W/Diff, Automatedon 07-0 Absolute Lymph 2.94 X10 3/uL Normal 0.83-4.51 [facility] Comment on above: Performed By: #### L 100.0100, L500.4050, L501.5200 #### [facility] [address] [place], [address] Absolute Neut 4.5 X10 3/uL Normal 2.0-7.7 [facility] Comment on above: Performed By: #### L 100.0100, L500.4050, L501.5200 #### [facility] [address] [place], [address] Basophils/100 WBC (Bld) 0.6 % Normal 0-1 [facility] Comment on above: Performed By: #### L 100.0100, L500.4050, L501.5200 #### [facility] [address] [place], [address] Eosinophils/100 WBC (Bld) 3.1 % Normal 0-5 [facility] Comment on above: Performed By: #### L 100.0100, L500.4050, L501.5200 #### [facility] [address] [place], [address] Erythrocyte distribution width (RBC) [Ratio] 13.2 % Normal 11.6-14.6 [facility] Comment on above: Performed By: #### L 100.0100, L500.4050, L501.5200 #### [facility] [address] [place], [address] Hematocrit (Bld) [Volume fraction] 41.6 % Normal 37-47 [facility] Comment on above: Performed By: #### L 100.0100, L500.4050, L501.5200 #### [facility] [address] [place], [address] Hemoglobin (Bld) [Mass/Vol] 13.3 g/dL Normal 12.0-15.0 [facility] Comment on above: Performed By: #### L 100.0100, L500.4050, L501.5200 #### [facility] [address] [place], [address] IG% 0.200 Normal 0.0-0.9 [facility] Comment on above: Result Comment: IG% - Immature Granulocytes (promyelocytes, myelocytes and metamyelocytes) > 1% indicates that a LEFT SHIFT is Present. Performed By: #### L 100.0100, L500.4050, L501.5200 #### [facility] [address] [place], [address] Lymphocytes/100 WBC (Bld) 35.0 % Normal 19-41 [facility] Comment on above: Performed By: #### L 100.0100, L500.4050, L501.5200 #### [facility] [address] [place], [address] MCH (RBC) [Entitic mass] 29.2 pg Normal 27.0-32.0 [facility] Comment on above: Performed By: #### L 100.0100, L500.4050, L501.5200 #### [facility] [address] [place], [address] MCHC (RBC) [Mass/Vol] 32.0 g/dL Normal 32-36 [facility] Comment on above: Performed By: #### L 100.0100, L500.4050, L501.5200 #### [facility] [address] [place], [address] MCV (RBC) [Entitic vol] 91.2 fL Normal 81-99 [facility] Comment on above: Performed By: #### L 100.0100, L500.4050, L501.5200 #### [facility] [address] [place], [address] Monocytes/100 WBC (Bld) 7.3 % Normal 0-10 [facility] Comment on above: Performed By: #### L 100.0100, L500.4050, L501.5200 #### [facility] [address] [place], [address] Neutrophils/100 WBC (Bld) 53.8 % Normal 47-70 [facility] Comment on above: Performed By: #### L 100.0100, L500.4050, L501.5200 #### [facility] [address] [place], [address] Nucleated RBC (Bld) [#/Vol] 0 10*3/uL Normal 0-5 [facility] Comment on above: Performed By: #### L 100.0100, L500.4050, L501.5200 #### [facility] [address] [place], [address] Platelet mean volume (Bld) [Entitic vol] 10.4 fL Normal 6.2-12.0 [facility] Comment on above: Performed By: #### L 100.0100, L500.4050, L501.5200 #### [facility] [address] [place], [address] Platelets (Bld) [#/Vol] 317 10*3/uL Normal 150-450 [facility] Comment on above: Performed By: #### L 100.0100, L500.4050, L501.5200 #### [facility] [address] [place], [address] RBC (Bld) [#/Vol] 4.56 10*6/uL Normal 4.2-5.4 [facility] Comment on above: Performed By: #### L 100.0100, L500.4050, L501.5200 #### [facility] [address] [place], [address] RDW SD 44.3 fl High 35.1-43.9 [facility] Comment on above: Performed By: #### L 100.0100, L500.4050, L501.5200 #### [facility] [address] [place], [address] WBC (Bld) [#/Vol] 8.4 10*3/uL Normal 4.4-11.0 [facility] Comment on above: Performed By: #### L 100.0100, L500.4050, L501.5200 #### [facility] [address] [place], [address] Comprehensive Metabolic Prof sdon 11-06-2023 Albumin [Mass/Vol] 3.6 g/dL Normal 3.2-5.0 [facility] Comment on above: Performed By: #### L 100.0100, L500.4050, L501.5200 #### [facility] [address] [place], [address] Albumin/Globulin [Mass ratio] 1.1 {ratio} Normal 0.9-2.4 [facility] Comment on above: Performed By: #### L 100.0100, L500.4050, L501.5200 #### [facility] [address] [place], [address] ALK P 70 U/L Normal 45-117 [facility] Comment on above: Performed By: #### L 100.0100, L500.4050, L501.5200 #### [facility] [address] [place], [address] ALT [Catalytic activity/Vol] 19 U/L Normal 13-56 [facility] Comment on above: Performed By: #### L 100.0100, L500.4050, L501.5200 #### [facility] [address] [place], [address] AST [Catalytic activity/Vol] 15 U/L Normal 15-37 [facility] Comment on above: Performed By: #### L 100.0100, L500.4050, L501.5200 #### [facility] [address] [place], [address] Bilirubin [Mass/Vol] 0.40 mg/dL Normal 0.20-1.00 [facility] Comment on above: Result Comment: For patients on eltrombopag therapy, use of Dimension [place] TBIL is not recommended. Performed By: #### L 100.0100, L500.4050, L501.5200 #### [facility] [address] [place], [address] BUN/CRE 21.9 RATIO High 10-20 [facility] Comment on above: Performed By: #### L 100.0100, L500.4050, L501.5200 #### [facility] [address] [place], [address] CA,Total 9.2 mg/dL Normal 8.5-10.1 [facility] Comment on above: Performed By: #### L 100.0100, L500.4050, L501.5200 #### [facility] [address] [place], [address] Chloride [Moles/Vol] 107 mmol/L Normal 98-107 [facility] Comment on above: Performed By: #### L 100.0100, L500.4050, L501.5200 #### [facility] [address] [place], [address] CO2 [Moles/Vol] 27.0 mmol/L Normal 21.0-32.0 [facility] Comment on above: Performed By: #### L 100.0100, L500.4050, L501.5200 #### [facility] [address] [place], [address] Creatinine [Mass/Vol] 0.78 mg/dL Normal 0.55-1.02 [facility] Comment on above: Result Comment: The validity of the calculated GFR GFRAA in patients over 70 years has not been determined. Clinical correlation is essential. Performed By: #### L 100.0100, L500.4050, L501.5200 #### [facility] [address] [place], [address] EST GFR - AA 92 mL/min Normal >60 [facility] Comment on above: Result Comment: Afri can Palestinian GFR Calc Performed By: #### L 100.0100, L500.4050, L501.5200 #### [facility] [address] [place], [address] GAP 7 Normal 5-15 [facility] Comment on above: Performed By: #### L 100.0100, L500.4050, L501.5200 #### [facility] [address] [place], [address] GFR/1.73 sq M.predicted among non-blacks MDRD (S/P/Bld) [Vol rate/Area] 76 mL/min/{1.73_m2} Normal >60 [facility] Comment on above: Result Comment: Non- GFR Calc Performed By: #### L 100.0100, L500.4050, L501.5200 #### [facility] [address] [place], [address] Globulin (S) [Mass/Vol] 3.3 g/dL Normal 2.2-4.2 [facility] Comment on above: Performed By: #### L 100.0100, L500.4050, L501.5200 #### [facility] [address] [place], [address] Glucose [Mass/Vol] 135 mg/dL High 74-106 [facility] Comment on above: Result Comment: Fast ing Glucose result greater than or equal to 126 mg/dL suggests DIABETES MELLITUS per A.D.A. criteria. Performed By: #### L 100.0100, L500.4050, L501.5200 #### [facility] [address] [place], [address] Potassium [Moles/Vol] 3.6 mmol/L Normal 3.5-5.1 [facility] Comment on above: Performed By: #### L 100.0100, L500.4050, L501.5200 #### [facility] [address] [place], [address] Sodium [Moles/Vol] 141 mmol/L Normal 136-145 [facility] Comment on above: Performed By: #### L 100.0100, L500.4050, L501.5200 #### [facility] [address] [place], [address] T PROT 6.9 g/dL Normal 6.4-8.2 [facility] Comment on above: Performed By: #### L 100.0100, L500.4050, L501.5200 #### [facility] [address] [place], [address] Urea nitrogen [Mass/Vol] 17 mg/dL Normal 7-18 [facility] Comment on above: Performed By: #### L 100.0100, L500.4050, L501.5200 #### [facility] [address] [place], [address] Hemoglobin A1con 11-06-2023 HbA1c (Bld) [Mass fraction] 5.5 % Normal 3.8-5.6 [facility] Comment on above: Result Comment: Norm al < 5.7 % Prediabetic 5.7 - 6.4 % Diabetic >or= 6.5 % Please note range changes. Performed By: #### L 500.4100, L501.9985 ####[facility] [address] [place], [address] Internal Medicine Office Vis itomaximilian 11-06-2023 Internal Medicine Office Visit [facility] [address] [place] [address] [place] [address] OFFICE VISIT Date of Service: 11/06/23 MR#: [id number] Acct: [id number] Name: RICHIE JOHNSON Rep #: [id number] : 1945 Provider: DOUGLAS berger Age/Sex: 78/F Location: [facility] Status: Signed Intake Vital Signs 10/22/23 08:54 11/06/23 10:54 11/06/23 14:28 Height 5 ft 6 in 5 ft 6 in 5 ft 6 in Weight: 166 lb BMI 26.8 BP 130/60 H Blood Pressure Location Lt brachial Position Sitting Respiration 18 Pulse 53 L Pulse Source Monitor Temp 97.7 F L Temp Source Temporal Pulse Oximetry (%) 98 Oxygen Delivery Method room air Intake Visit Reasons: ACUTE CONTINUED COVID SX Chief Complaint: covid sx continue [place] Required: No Accompanied by: Is patient in pain?: No Allergies No Known Allergies Allergy (Verified 11/06/23 14:24) Medications ???Medication ???Instructions ???Recorded ???Confirmed ???Type calcium PO 08/31/23 11/06/23 History clobetasol-cocunut oil topical 08/31/23 11/06/23 History omeprazole 40 mg capsule,delayed 40 mg PO BID 3 months #180 caps 08/31/23 11/06/23 Rx release oxybutynin chloride 5 mg tablet 5 mg PO DAILY 08/31/23 11/06/23 History ibandronate 150 mg tablet 150 mg PO QMONTH #7 tabs 09/04/23 11/06/23 Rx bupropion HCl 75 mg tablet 75 mg PO DAILY #90 tabs 10/19/23 11/06/23 Rx citalopram 20 mg tablet 20 mg PO DAILY #90 tabs 10/19/23 11/06/23 Rx celecoxib 200 mg capsule 200 mg PO DAILY PRN pain #60 caps 11/06/23 11/06/23 Rx dexamethasone 6 mg tablet 6 mg PO ONCE #1 TAB 11/06/23 11/06/23 Rx ipratropium bromide 42 mcg (0.06 2 spray intranasal TID PRN runny 11/06/23 11/06/23 Rx %) nasal spray nose #15 mL Have you fallen in the past year?: No PFSH Medical History Chronic back pain Osteopenia with high risk of fracture Weight loss, non-intentional Barretts esophagus Broken wrist Broken humerus FH: cholecystectomy Vision problems Stomach ulcer GERD (gastroesophageal reflux disease) Osteoarthritis Neuropathy Heart murmur Hearing problem Chronic headaches GI problem Gall stones Emotional problems Bronchitis Carpal tunnel syndrome Bone fracture Back problem Arthritis Allergies Osteoporosis Depression Surgical History History of carpal tunnel surgery Previous section Family History Brother Alcoholism Diabetes Liver cancer Seizures Epilepsy Sister Anxiety Autoimmune disorder Cancer Osteoporosis Father Colon cancer Social History adopted: No household members: spouse current occupational status: retired history of recent travel: No Smoking Status: Former smoker quit date: 08/26/84 alcohol intake: current alcohol intake frequency: other Alcohol type: other details: rarely, pt states she feels she may be allergic to alcohol. substance use type: does not use what type of physical activity do you participate in: walking frequency: daily seatbelt use: always do you feel safe at home: Yes HPI HPI Chief Complaint: covid sx continue Details: RICHIE JOHNSON, is a pleasant 78 F who presents to the office today for an acute visit for ongoing symptoms related to COVID-19. Patient reports she began developing symptoms about upper respiratory infection on 10/15/2023. This occurred after she went to a [place] young children. She then presented to the emergency department on 10/22/2023 for further evaluation for symptoms including runny nose, sore throat, congestion, dry cough headache, body aches. Viral testing was confirmatory for COVID-19. Negative for strep, RSV and influenza. No prescriptions were provided during emergency department visit and symptom management was discussed. She presents today with ongoing symptoms reporting sore throat, decreased energy/fatigue, runny nose with clear rhinorrhea, sinus drainage, chills, body aches. She reports a dry cough that is worse at night when lying down. She has tried Tylenol for her symptoms, Mucinex and sinus rinses without significant improvement. She also reports at times she feels heart fluttering that occurs for a few minutes at a time. She denies associated symptoms with heart fluttering. No reports of fluttering does not occur every day but may be a few times per week. She does endorse nausea/stomachache but denies vomiting, or diarrhea. ROS Const Constitutional: Positive for chills, fatigue, headache(s), decreased energy, malaise and change in appetite; No body ache, excessive sweating, fever(s), frequent falls, snoring or weakness Eyes Eyes: No blurry vision, change in vision, (more content not included)... Normal [facility] Lipid Profileon 11-06-2023 Cholesterol [Mass/Vol] 210 mg/dL High 200 [facility] Comment on above: Result Comment: <200 mg/dL Desirable 200-240 mg/dL Borderline >240 mg/dL High Risk Performed By: #### L 500.4100, L501.9985 #### [facility] [address] [facility] [address] Cholesterol in HDL [Mass/Vol] 66 mg/dL Normal [facility] Comment on above: Result Comment: The drugs N-Acetylcysteine and Metamizole may falsely depress this assay. Reference Range HDL <40 mg/dL Low HDL Cholesterol HDL >or= 60 mg/dL High HDL Cholesterol Performed By: #### L 500.4100, L501.9985 #### [facility] [address] [facility] [address] Cholesterol in LDL [Mass/Vol] 116 mg/dL Normal 0-130 [facility] Comment on above: Performed By: #### L 500.4100, L501.9985 #### [facility] [address] [place], [address] Cholesterol in VLDL [Mass/Vol] 28 mg/dL Normal 5-40 [facility] Comment on above: Performed By: #### L 500.4100, L501.9985 #### [facility] [address] [facility] [address] Triglyceride [Mass/Vol] 142 mg/dL Normal [facility] Comment on above: Result Comment: The drugs N-Acetylcysteine and Metamizole may falsely depress this assay. Serum Triglycerides Reference Interval Normal <150 mg/dL Borderline high 150 - 199 mg/dL High 200 - 499 mg/dL Very High > or = 500 mg/dL Performed By: #### L 500.4100, L501.9985 #### [facility] [address] [place], [address] Magnesiumon 11-06-2023 Magnesium [Mass/Vol] 2.2 mg/dL Normal 1.6-2.6 [facility] Comment on above: Performed By: #### L 100.0100, L500.4050, L501.5200 #### [facility] [address] [place], [address] Emergency Department Summary on 10-22-2023 Emergency Department Summary [facility] Medical Records Department [address] [place] [address] Emergency Department Summary 10/22/23 MR#: [id number] Acct: [id number] Name: RICHIE JOHNSON Rep #: [id number] : 1945 78 From: Maximo Rouse MD PCP: Dr. Alia Condon MD Status:REG ER Location: ED HPI HPI - URI History of Present Illness Chief Complaint: Sore Throat Informant: patient and spouse/S.O. 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 She called her doctor's office to be seen for it and she was directed to the ER. She has been having sore throat with odynophagia, runny nose and congestion, nonproductive cough, headaches, myalgias, malaise, but no fevers or chills. She has also had a little bit of diarrhea no blood. No abdominal pain, nausea, vomiting. No dyspnea. ROS ROS ED Constitutional Constitutional ED: Reports malaise; Denies chills or fever(s) Eyes Eyes: Denies change in vision ENT ENT ED: Reports ear pain bilateral, nasal congestion, rhinorrhea and sore throat Cardiovascular Cardiovascular: Denies chest pain, leg edema or palpitations Respiratory/Chest Respiratory/Chest: Reports cough; Denies dyspnea or sputum Gastrointestinal Gastrointestinal: Reports diarrhea; Denies abdominal pain, nausea or vomiting Genitourinary Genitourinary ED: Denies dysuria or hematuria Musculoskeletal Musculoskeletal: Reports myalgias; Denies neck pain Integumentary Denies abscess or rash Neurologic Neurologic: Reports headache(s); Denies paresthesias or weakness Psychiatric Psychiatric: Denies depression or suicidal thoughts Endocrine Endocrinology: Denies polydipsia or polyuria [facility] Medical History Chronic back pain Osteopenia with high risk of fracture Weight loss, non-intentional Barretts esophagus Broken wrist Broken humerus FH: cholecystectomy Vision problems Stomach ulcer GERD (gastroesophageal reflux disease) Osteoarthritis Neuropathy Heart murmur Hearing problem Chronic headaches GI problem Gall stones Emotional problems Bronchitis Carpal tunnel syndrome Bone fracture Back problem Arthritis Allergies Osteoporosis Depression Home Medications ???Medication ???Instructions ???Recorded ???Last Taken ???Type calcium PO 08/31/23 Unknown History celecoxib 200 mg capsule 200 mg PO DAILY PRN pain #60 caps 08/31/23 Unknown Rx clobetasol-cocunut oil topical 08/31/23 Unknown History omeprazole 40 mg capsule,delayed 40 mg PO BID 3 months #180 caps 08/31/23 Unknown Rx release oxybutynin chloride 5 mg tablet 5 mg PO DAILY 08/31/23 Unknown History ibandronate 150 mg tablet 150 mg PO QMONTH #7 tabs 09/04/23 Unknown Rx bupropion HCl 75 mg tablet 75 mg PO DAILY #90 tabs 10/19/23 Unknown Rx citalopram 20 mg tablet 20 mg PO DAILY #90 tabs 10/19/23 Unknown Rx Allergy/AdvReac Type Severity Reaction Status Date / Time No Known Allergies Allergy Verified 10/22/23 08:54 Family History (Updated 08/31/23 @ 15:23 by Araceli Rangel LPN) Brother Alcoholism Diabetes Liver cancer Seizures Epilepsy Sister Anxiety Autoimmune disorder Cancer Osteoporosis Father Colon cancer Surgical History History of carpal tunnel surgery Previous section Social History adopted: No household members: spouse current occupational status: retired history of recent travel: No Smoking Status: Former smoker quit date: 08/26/84 alcohol intake: current alcohol intake frequency: other Alcohol type: other details: rarely, pt states she feels she may be allergic to alcohol. substance use type: does not use what type of physical activity do you participate in: walking frequency: daily seatbelt use: always do you feel safe at home: Yes EXAM Physical Exam Const Vital Signs: 10/22/23 08:54 Temperature 97.0 F L Temperature Source Temporal Pulse Rate 52 L Respiratory Rate 16 Blood Pressure 150/65 H Blood Pressure Mean 93 Pulse Ox 99 Oxygen Delivery Method Room Air Positive well nourished and well developed Constitutional Narrative: Well-appearing, conversive in full sentences, pleasant. General Appearance ED: well developed and NAD HEENT Reports moist mucous membranes HEENT Narrative: TMs normal bilaterally normocephalic and atraumatic Throat: Negative for posterior oropharynx abnormal Eyes PERRL and EOMs intact bilaterally Neck no lymphadenopathy, supple and no meningeal signs Resp normal respirat (more content not included)... Normal [facility] M100.677on 10-22-2023 M100.677 Normal Reference Ran ge = Negative GeneXpert Instrument, PCR method Rapid Strep A PCR NEGATIVE Normal [facility] Comment on above: Performed By: #### M 100.678, M100.677 ####[facility] [id number] [place], [address] M100.678on 10-22-2023 SARS-CoV-2 (COVID-19) Ab IA Ql Normal Reference Range = Negative FLUABV+SARS-CoV-2+RSV Pnl Resp FARAZ+probe GeneXpert Instrument, PCR method FLUABV+SARS-CoV-2+RSV Pnl Resp FARAZ+probe Copy of report sent to Infection Control Printer [id number] 10/22/23 1113 BLUCAS. SARS-CoV-2 (COVID 19) A Positive A INFLUENZA A Negative INFLUENZA B Negative RSV PCR Negative SARS-CoV-2 (COVID 19 PCR) Normal [facility] Comment on above: Performed By: #### M 100.678, M100.677 ####[facility] [id number] [place], [place], [address] Esophagus Dual Contraston Esophagus Dual Contrast [facility] Imaging Services [address] [place] [address] Esophagus Dual Contrast MR#: [id number] Acct: [id number] Name: RICHIE JOHNSON Rep #: [id number] : 1945 F 78 From: David sanabria MD PCP: Dr. Alia Condon MD Status: [facility] Study: Esophagus Dual Contrast Date of Exam: 10/12/23 Exam# [id number] Ordering [place]: [place] [id number] STUDY: X-RAY - ESOPHAGUS (BARIUM SWALLOW) WITH FLUOROSCOPY REASON FOR EXAM: Female, 78 years old. Barium swallow TECHNIQUE: 14 view(s) of the esophagus were obtained following swallowing of barium. FLUOROSCOPY TIME (if supplied): (24 seconds) minutes/seconds. 5.23 mCi COMPARISON: None. FINDINGS: There is no demonstrated esophageal foreign body. There is no demonstrated stricture or mucosal abnormality. Normal gastroesophageal junction, without a demonstrated hiatal hernia. The patient ingested a 12 mm tablet of barium without any difficulty. There is atherosclerotic calcification of the aortic arch with tortuosity of the descending aorta. Normal visualized pulmonary parenchyma. There are diffuse degenerative changes of the visualized thoracic spine. RAD/Esophagus Dual Contrast IMPRESSION: Normal plain film x-ray examination (barium swallow) of the esophagus. Electronically Signed: David Warren MD at 11:04 EDT , CC: Dr. Alia Condon MD; Dr. Zhao Abebe MD Roller Operator: Signed Normal [facility] Whole blood hemoglobin A1c/t otal hemoglobin ratio (mass fraction)Ordered By: Alia Condon on 09-01-2023 HbA1c (Bld) [Mass fraction] 5.7 % 3.8-5.6 [facility] Comment on above: Normal < 5.7 % Predi abetic 5.7 - 6.4 % Diabetic >or= 6.5 % Please note range changes. Absolute lymphocyte countOrd ered By: Alia Condon on 08-31-2023 Lymphocytes Auto (Unsp spec) [#/Vol] 2.74 10*3/uL 0.83-4.51 [facility] Automated lymphocyte count a s percentage of total leukocytesOrdered By: Alia Condon on 08-31-2023 Lymphocytes/100 WBC Auto (Unsp spec) 22.6 % 19-41 [facility] [place] Basophil percentageOrdered B y: Alia Condon on 08-31-2023 Basophils/100 WBC (Bld) 0.6 % 0-1 [facility] Bilirubin [Mass/Vol] 0.40 mg/dL 0.20-1.00 [facility] Comment on above: For patients on eltr ombopag therapy, use of Dimension [place] TBIL is not recommended. Chloride [Moles/Vol] 108 mmol/L 98-107 [facility] Cholesterol [Mass/Vol] 212 mg/dL <200 [facility] Comment on above: <200 mg/dL Desirable 200-240 mg/dL Borderline >240 mg/dL High Risk Eosinophils/100 WBC (Bld) 3.0 % 0-5 [facility] [place] Glucose [Mass/Vol] 104 mg/dL 74-106 [facility] Comment on above: Fasting Glucose resu lt from 100 to 125 mg/dL suggests IMPAIRED HOMEOSTASIS per A.D.A. criteria. Hemoglobin (Bld) [Mass/Vol] 13.0 g/dL 12.0-15.0 [facility] [place] Monocytes/100 WBC (Bld) 7.7 % 0-10 [facility] Neutrophils (Bld) [#/Vol] 7.9 10*3/uL 2.0-7.7 [facility] [place] Neutrophils/100 WBC (Bld) 65.3 % 47-70 [facility] [place] Potassium [Moles/Vol] 4.1 mmol/L 3.5-5.1 [facility] Protein [Mass/Vol] 6.9 g/dL 6.4-8.2 [facility] Sodium [Moles/Vol] 140 mmol/L 136-145 [facility] Triglyceride [Mass/Vol] 169 mg/dL <199 [facility] Comment on above: The drugs N-Acetylcy steine and Metamizole may falsely depress this assay.Serum Triglycerides Reference Interval Normal <150 mg/dL Borderline high 150 - 199 mg/dL High 200 - 499 mg/dL Very High > or = 500 mg/dL WBC (Bld) [#/Vol] 12.2 10*3/uL 4.4-11.0 [facility] Determination of erythrocyte mean corpuscular volume (MCV)Ordered By: Alia Condon on 08-31-2023 MCV (RBC) [Entitic vol] 90.0 fL 81-99 [facility] Erythrocyte distribution wid th ratioOrdered By: Alia Condon on 08-31-2023 Erythrocyte distribution width (RBC) [Ratio] 13.8 % 11.6-14.6 [facility] [place] Erythrocyte distribution wid th standard deviationOrdered By: Alia Condon on 08-31-2023 Erythrocyte distribution width (RBC) [Entitic vol] 44.8 fL 35.1-43.9 [facility] [place] Erythrocyte sedimentation ra teOrdered By: Alia Condon on 08-31-2023 ESR (Bld) [Velocity] 9 mm/h 0-30 [facility] Hematocrit Auto (Bld) [Volum e fraction]Ordered By: Alia Condon on 08-31-2023 Hematocrit (Bld) [Volume fraction] 39.8 % 37-47 [facility] [place] Immature granulocytes/100 WB C Auto (Bld)Ordered By: Alia Condon on 08-31-2023 Immature granulocytes/100 WBC (Bld) 0.800 % 0.0-0.9 [facility] [place] Comment on above: IG% - Immature Granu locytes (promyelocytes, myelocytes and metamyelocytes) > 1% indicates that a LEFT SHIFT is Present. Laboratory - Chemistry and C hemistry - challengeOrdered By: Alia Condon on 08-31-2023 Albumin/Globulin [Mass ratio] 1.0 {ratio} 0.9-2.4 [facility] [place] ALP [Catalytic activity/Vol] 72 U/L 45-117 [facility] [place] ALT [Catalytic activity/Vol] 23 U/L 13-56 [facility] [place] Cholesterol in HDL [Mass/Vol] 63 mg/dL >40 [facility] [place] Comment on above: The drugs N-Acetylcy steine and Metamizole may falsely depress this assay. Reference Range HDL <40 mg/dL Low HDL Cholesterol HDL >or= 60 mg/dL High HDL Cholesterol Cholesterol in LDL [Mass/Vol] 115 mg/dL 0-130 [facility] [place] CO2 [Moles/Vol] 22.0 mmol/L 21.0-32.0 [facility] [place] Globulin (S) [Mass/Vol] 3.5 g/dL 2.2-4.2 [facility] Urea nitrogen/Creatinine [Mass ratio] 30.6 mg/mg 10-20 [facility] [place] Laboratory - Hematology and Cell countsOrdered By: Alia Condon on 08-31-2023 MCH (RBC) [Entitic mass] 29.4 pg 27.0-32.0 [facility] [place] MCHC (RBC) [Mass/Vol] 32.7 g/dL 32-36 [facility] Nucleated RBC/100 WBC (Bld) [Ratio] 0 % 0-5 [facility] [place] Platelet mean volume (Bld) [Entitic vol] 9.8 fL 6.2-12.0 [facility] [place] Platelets (Bld) [#/Vol] 338 10*3/uL 150-450 [facility] [place] No Panel InformationOrdered By: Alia Condon on 04-29-2024 Estimated GFR (MDRD) Amer 83 mL/min >60 [facility] [place] Comment on above: GFR Calc Estimated GFR (MDRD) Non-Af Amer 69 mL/min >60 [facility] [place] Comment on above: Non- GFR Calc Vitamin D 25-Hydroxy 46.8 ng/mL [facility] Comment on above: Vitamin D 25(OH) Sta tus Range Deficiency <20 ng/mL (50nmol/L) Insufficiency 20 - 30 ng/mL (50 - 75 nmol/L) Sufficiency 30 - 100 ng/mL (75 - 250 nmol/L) Toxicity >100 ng/mL (>250 nmol/L) VLDL Cholesterol 34 mg/dL 5-40 [facility] [place] RBC Auto (Bld) [#/Vol]Ordere d By: Alia Condon on 08-31-2023 RBC (Bld) [#/Vol] 4.42 10*6/uL 4.2-5.4 [facility] Serum or plasma calcium morteza urement (mass/volume)Ordered By: Alia Condon on 08-31-2023 Calcium [Mass/Vol] 9.5 mg/dL 8.5-10.1 [facility] Serum or plasma creatinine m easurement (mass/volume)Ordered By: Alia Condon on 08-31-2023 Creatinine [Mass/Vol] 0.85 mg/dL 0.55-1.02 [facility] Comment on above: The validity of the calculated GFR & GFRAA in patients over 70 years has not been determined. Clinical correlation is essential. Serum or plasma thyroid stim ulating hormone (TSH) measurement (units/volume)Ordered By: Alia Condon on 08-31-2023 TSH Qn 1.04 uIU/mL 0.358-3.74 [facility] [place] Serum or plasma urea nitroge n measurement (mass/volume)Ordered By: Alia Condon on 08-31-2023 Urea nitrogen [Mass/Vol] 26 mg/dL 7-18 [facility] [place] Thin prep Papanicolaou smear with manual screeningOrdered By: Alia Condon on 08-31-2023 Thin prep Papanicolaou smear with manual screening 3.4 g/dL 3.2-5.0 [facility] [place] Thin prep Papanicolaou smear with manual screening 17 U/L 15-37 [facility] [place] Thin prep Papanicolaou smear with manual screening 10 5-15 [facility] [place] Thin prep Papanicolaou smear with manual screening 1.13 ng/dL 0.76-1.46 [facility] [place] CNOVon 2023 CNOV Office Visit (OBGYWM ) RICHIE JOHNSON ([id number]) 1945 F Date Time Provider Department 07/08/23 8:40 AM MARY GARCIA OBGYWM During your visit today, we recorded the following information about you: Blood pressure Weight 120/72 76.7 kg Mary Garcia MD 2023 1:34 PM Signed [employer] Consultant offered: Patient declines. Richie Johnson is a 77 year old female who presents for complaints regarding persistent vulvar discomfort despite using clobetasol BID since April. Pt reports has removed all vulvar/vaginal irritants and still no resolution. Pt reports it is painful to sit all day- it feels sore. Pt denies vaginal discharge. Pt reports she has looked with mirror and her anatomy to her looks so distorted. Pt reports some itching and burning. 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 History Comments: Sexual Activity: Not Currently; Male Contraception: No contraception data on record PAST MEDICAL HISTORY Diagnosis Date Anxiety, generalized Tam's esophagus Depression, unspecified GERD (gastroesophageal reflux disease) PAST SURGICAL HISTORY Procedure Laterality Date SECTION HX 07/05/1970 FAMILY HISTORY Problem Relation Age of Onset Heart disease Mother Colon Cancer Father other (non hodgkins lymphoma) Sister Skin Cancer Sister Skin Cancer Sister Liver Cancer Brother other (Bladder Cancer) Brother No Known Problems Maternal Grandmother No Known Problems Maternal Grandfather No Known Problems Paternal Grandmother No Known Problems Paternal Grandfather Social History Tobacco Use Smoking status: Former Types: Cigarettes Quit date: 1984 Years since quittin.2 Smokeless tobacco: Never Vaping Use Vaping Use: Never used Substance Use Topics Alcohol use: Not Currently Drug use: Never Current Outpatient Medications Medication Sig clobetasol (TEMOVATE) 0.05 % cream Apply to affected area 2x/day for 2 weeks, then 1x/day for a week, than 1-3x/week for maintenance. buPROPion (WELLBUTRIN) 75 mg tablet Take 1 tablet by mouth every afternoon. celecoxib (CELEBREX) 200 mg capsule Take 1 capsule by mouth every afternoon. citalopram (CELEXA) 20 mg tablet Take 1 tablet by mouth every afternoon. omeprazole (PRILOSEC) 20 mg capsule take 1 capsule by mouth twice a day 30 TO 45 MINUTES BEFORE MEALS oxybutynin ER (DITROPAN XL) 10 mg 24 hr tablet Take 1 tablet by mouth every afternoon. No current facility-administered medications for this visit. Allergies As of Date: 2023 (No Known Allergies) Fully Assessed 04/23/2023 REVIEW OF SYSTEMS Abdomen: no pain Bladder: no dysuria.. Expanded ROS: neg fever Allergies and current medication updated:Yes EXAM: BP 120/72 Wt 169 lb (76.7kg) GENERAL: pleasant, female in no apparent distress HEENT: Normocephalic and atraumatic NECK: full range of motion DERMATOLOGY: Normal and without lesions PELVIC: external genitalia normal, normal Bartholin's glands, urethra, [place]'s glands, no vulvar lesions, normal appearing perineal body and perianal region, no hypopigmentation or erythema noted, no ulcerations. Labia minora large and do extend well beyond majora -mild vulvar and vaginal atrophy NEURO: alert and oriented x3,exam grossly non-focal EXTREMITIES: normal ASSESSMENT AND PLAN: Encounter Diagnosis ICD-10-CM 1. Vulvar pain R10.2 2. Vulvar dermatitis L30.9 3. 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 Discussed with the patient that her pain may be coming from the labial hypertrophy. Discussed with the patient that if her pain is more when she is sitting I do feel that the labial hypertrophy is adding to her pain. I do not see any ulcerations or any other signs of worsening dermatitis. Discussed with the patient trying to use a lubrication daily to help prevent any further discomfort of the labia sticking to other tissue. Briefly discussed with the patient labioplasty to decrease their size which may decrease her pain. Discussed a trial of estrogen cream on the external tissue. 6. Vaginal estrogen. Medical Decision Making: Problems: Moderate: 1+ chronic illnesses with change Risk: Moderate: Drug management Medical Decision Making Level: 4 - Moderate Mary Ramirez MD Allergies As of Date: 2023 (No Known Allergies) Date Reviewed: 2023 Reviewed by: Nazanin Armijo Ma - Fully Assessed Reason for Visit: Vaginal Problem [117] Primary Visit Diagnosis:Vulvar pain [R10.2] Other Visit Diagnoses:Vulvar dermatitis [L30.9] Labial hypertrophy [N90.60] Vulvar atrophy [N90.5] Order(s):estradiol (ESTRACE) 0.01 % (0.1 mg/gram) vaginal creamUse 1 g vaginally once daily. Use fingertip amount o (more content not included)... Normal [facility] 04-28-2023 CNPN Telephone (OBGYWM) RICHIE JOHNSON ([id number]) 1945 F Date Time Provider Department 04/28/23 ANAYELI ZARCO OBGYWM During your visit today, we recorded the following information about you: Anayeli Zarco APRN.CNP 04/28/2023 6:59 AM Signed Please let the pt know that her urine culture is negative for infection. MEKA Mohan Jennifer, RN 04/28/2023 8:36 AM Signed Left message for patient to call office. SHANTA Xavier Danielle, RN 04/28/2023 8:43 AM Signed Patient notified. ELEONORA DAMON RN Allergies As of Date: 04/28/2023 (No Known Allergies) Date Reviewed: 04/23/2023 Reviewed by: Araceli Murray LPN - Fully Assessed Reason for Visit: Results [95] Prescriptions as of 04/28/2023 - clobetasol (TEMOVATE) 0.05 % cream Apply to affected area 2x/day for 2 weeks, then 1x/day for a week, than 1-3x/week for maintenance. - buPROPion (WELLBUTRIN) 75 mg tablet Take 1 tablet by mouth every afternoon. - celecoxib (CELEBREX) 200 mg capsule Take 1 capsule by mouth every afternoon. - citalopram (CELEXA) 20 mg tablet Take 1 tablet by mouth every afternoon. - omeprazole (PRILOSEC) 20 mg capsule take 1 capsule by mouth twice a day 30 TO 45 MINUTES BEFORE MEALS - oxybutynin ER (DITROPAN XL) 10 mg 24 hr tablet Take 1 tablet by mouth every afternoon. 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 I have sent in some clobetasol cream in for her to start using. Instruction are on the RX. Anayeli Zarco APRN.Trisha Chamorro RN 04/24/2023 3:28 PM Signed Patient notified. Trisha Gutiérrez RN The following approved medication requests have been transmitted electronically. Requested Prescriptions Signed Prescriptions Disp Refills clobetasol (TEMOVATE) 0.05 % cream 60 g 0 Sig: Apply to affected area 2x/day for 2 weeks, then 1x/day for a week, than 1-3x/week for maintenance. Authorizing Provider: ANAYELI ZARCO Pharmacy Information Pharmacy Address [id number] [address] [place] [address] Allergies As of Date: 04/24/2023 (No Known Allergies) Date Reviewed: 04/23/2023 Reviewed by: Araceli Murray LPN - Fully Assessed Reason for Visit: Results [95] Order(s):clobetasol (TEMOVATE) 0.05 % creamApply to affected area 2x/day for 2 weeks, then 1x/day for a week, than 1-3x/week for maintenance.Disp: 60 gRfl: 0 Prescriptions as of 04/24/2023 - clobetasol (TEMOVATE) 0.05 % cream Apply to affected area 2x/day for 2 weeks, then 1x/day for a week, than 1-3x/week for maintenance. - buPROPion (WELLBUTRIN) 75 mg tablet Take 1 tablet by mouth every afternoon. - celecoxib (CELEBREX) 200 mg capsule Take 1 capsule by mouth every afternoon. - citalopram (CELEXA) 20 mg tablet Take 1 tablet by mouth every afternoon. - omeprazole (PRILOSEC) 20 mg capsule take 1 capsule by mouth twice a day 30 TO 45 MINUTES BEFORE MEALS - oxybutynin ER (DITROPAN XL) 10 mg 24 hr tablet Take 1 tablet by mouth every afternoon. Problem List As Of Date: 04/24/2023 (None) Prescriptions ordered this encounter Disp Refills Start End CLOBETASOL 0.05 % TOPICAL CREAM 60 g 0 04/24/2023 Sig: Apply to affected area 2x/day for 2 weeks, then 1x/day for a week, than 1-3x/week for maintenance. Encounter Status:Closed by TRISHA GUTIÉRREZ on 04/24/23 Normal [facility] Bacteria Ur Culton 3 Bacteria identified Cx Nom (U) ORGANISM ID: 1 10,000 -<50,000 CFU/ml Normal urogenital cassie Normal [facility] Comment on above: Performed By: #### 6 30-4 ####[facility] LABCLIA [id number] [address] OF [facility] CNOVon 04-23-2023 CNOV Office Visit (OBGYWM ) RICHIE JOHNSON ([id number]) 1945 F Date Time Provider Department 04/23/23 11:00 AM ANAYELI ZARCO OBGYWM During your visit today, we recorded the following information about you: Pulse Respiration Blood pressure Weight 52/minute 14/minute 150/72 78.2 kg Height 1.676 m Anayeli Zarco APRN.CNP 04/23/2023 12:29 PM Signed [employer] Consultant offered: Patient declines. Richie Johnson is a [...] 1.5mL 1% lidocaine with 1:100,000 epi. 4mm [place] punch used to biopsy region. HEMOSTASIS: Obtained with silver nitrate and pressure Procedure Summary: Patient tolerated procedure well. ASSESSMENT: Chronic vulvar burning PLAN: Specimens labeled and sent to Pathology. Will notify patient of results in 1-2 weeks. Post-procedure instructions reviewed and written material given to the patient. Anayeli Zarco APRN.MANAGER VEHICLE Referring Provider: ANAYELI ZARCO [[id number]] Allergies As of Date: 04/23/2023 (No Known Allergies) Date Reviewed: 04/23/2023 Reviewed by: Araceli Murray LPN - Fully Assessed Reason for Visit: Vaginal Problem [117] Primary Visit Diagnosis:Vulvar burning [N94.89] Order(s):SURGICAL PATHOLOGY [TYM0254] Order #: [id number]. #:[id number] [id number] DIP, URINE (POC) [[id number]] Order #: [id number]. #:[id number] URINE CULTURE [SQURCUL] Order #: [id number]. #:[id number] Prescriptions as of 04/23/2023 - buPROPion (WELLBUTRIN) 75 mg tablet Take 1 tablet by mouth every afternoon. - celecoxib (CELEBREX) 200 mg capsule Take 1 capsule by mouth every afternoon. - citalopram (CELEXA) 20 mg tablet Take 1 tablet by mouth every afternoon. - omeprazole (PRILOSEC) 20 mg capsule take 1 capsule by mouth twice a day 30 TO 45 MINUTES BEFORE MEALS - oxybutynin ER (DITROPAN XL) 10 mg 24 hr tablet Take 1 tablet by mouth every afternoon. Problem List As Of Date: 04/23/2023 (None) Encounter Status:Closed by ANAYELI ZARCO on 04/23/23 Normal [facility] SURGICAL PATHOLOGYon 023 CASE REPORT Normal [facility] Comment on above: Order Comment: Speci men Type: TISSUE SPECIMENOrdering Facility: [facility] Address: [address] [place] [address] Result Comment: Surg ica Pathology Report Case: [id number] Authorizing Provider: Anayeli Zarco APRN.MANAGER VEHICLE Collected: 04/23/2023 12:02 PM Ordering Location: OB/Gynecology Received: 04/23/2023 12:14 PM Pathologist: Erin Jaimes MD Specimen: VULVA BIOPSY Performed By: #### S ####[facility] LABCLIA [id number] [address] CLINICAL HISTORY burning Normal [facility] Comment on above: Order Comment: Speci men Type: TISSUE SPECIMENOrdering Facility: [facility] Address: [address] [place] [address] Performed By: #### S ####[facility] LABIA [id number] [address] DIAGNOSIS COMMENT Normal [facility] Comment on above: Order Comment: Speci men Type: TISSUE SPECIMENOrdering Facility: [facility] Address: [address] [place] [address] Result Comment: Hist ologic sections reveal compact orthokeratosis overlying a mildly spongiotic. Within the underlying dermis, there is a focus of papillary dermal collagen homogenization. There is a perivascular to focally lichenoid lymphohistiocytic infiltrate with rare eosinophils. Overall, the histologic features are those of a lichenoid dermatitis and could be consistent with early evolving lichen sclerosus in the appropriate clinical context. An ezematous dermatitis cannot be entirely excluded. Clinical correlation is recommended. Performed By: #### S ####[facility] LABIA [id number] [address] FINAL DIAGNOSIS Normal [facility] Comment on above: Order Comment: Speci men Type: TISSUE SPECIMENOrdering Facility: [facility] Address: [address] [place] [address] Result Comment: A. Isreal carvajal, biopsy: - Lichenoid dermatitis (see comment). MELVA/JEFRY/mm/04/24/2023 Performed By: #### S ####[facility] LABCLIA [id number] [place] [address] [place] FINAL PERFORMING LAB Normal [facility] Comment on above: Order Comment: Speci men Type: TISSUE SPECIMENOrdering Facility: [facility] Address: [address] [place] [address] Result Comment: Diag nostic interpretation performed at [facility], [address] [place] [address] CLIA# [id number] Shot Peen Operator: Tray Trimble M.D. Performed By: #### S ####[facility] LABCLIA [id number] [place] [address] [place] GROSS DESCRIPTION A. VULVA BIOPSY Normal Cl [facility] Comment on above: Order Comment: Speci men Type: TISSUE SPECIMENOrdering Facility: [facility] Address: [address] [place] [address] Result Comment: Rece ived in formalin are two pieces of kong-pink to red, rubbery irregular tissue aggregating to 0.8 x 0.3 x 0.2 cm. Totally submitted in one cassette. Gross examination performed at [facility], [address] [place] [address] JT 04/23/2023 9:52 PM Performed By: #### S ####[facility] LABCLIA [id number] [address] [place] UA DIP, URINE (POC)on 2022 BILIRUBIN UA (POCT) Negative Negative [facility] CLARITY UA (POCT) Clear [facility] COLOR UA (POCT) Yellow [facility] GLUCOSE UA (POCT) Negative Negative mg/dL [facility] Hemoglobin Ql (U) Trace-lysed Abnormal Negative [facility] KETONE UA (POCT) Negative Negative mg/dL [facility] LEUKOCYTES UA (POCT) Small Abnormal Negative [facility] NITRITE UA (POCT) Negative Negative [facility] PH UA (POCT) 8.5 Abnormal 4.5 - 8.0 [facility] Protein Ql (U) Negative Negative mg/dL [facility] SPECIFIC GRAVITY UA (POCT) 1.020 1.005 - 1.030 [facility] UROBILINOGEN UA (POCT) 0.2 E.U./dL Dori l E.U./dL [facility] Basophil percentageOrdered B y: Jermaine Sigala on 12-29-2022 Basophil percentage 0-5 SEEN /hpf 0-5 [facility] Bilirubin Test strip Ql (U)O rdered By: Jermaine Sigala on 12-29-2022 Bilirubin Ql (U) Negative Negative [facility] Ketones Test strip Ql (U)Ord ered By: Jermaine Sigala on 12-29-2022 Ketones Ql (U) Negative Negative [facility] Mucus LM Ql (Urine sed)Order ed By: Jermaine Sigala on 12-29-2022 Mucus Ql (Urine sed) 0 SEEN /hpf [facility] Nitrite Test strip Ql (U)Ord ered By: Jermaine Sigala on 12-29-2022 Nitrite Ql (U) Negative Negative [facility] Protein Test strip Ql (U)Ord ered By: Jermaine Sigala on 12-29-2022 Protein Ql (U) Negative Negative [facility] Squamous epithelial cells de tection in urine sediment by light microscopyOrdered By: Jermaine Sigala on 12-29-2022 Epithelial cells.squamous LM Ql (Urine sed) 0-5 SEEN /hpf 5-10 [facility] Urine blood detectionOrdered By: Jermaine Sigala on 12-29-2022 RBC Ql (U) 10 /ul Negative [facility] RBC Ql (U) 0-5 SEEN /hpf 0-5 [facility] Urine clarityOrdered By: Jamie Sigala on 12-29-2022 Clarity (U) Clear Clear [facility] Urine color determinationOrd ered By: Jermaine Sigala on 12-29-2022 Color (U) Straw Yellow [facility] Urine glucose detectionOrder ed By: Jermaine Sigala on 12-29-2022 Glucose Ql (U) Normal mg/dl Normal [facility] Urine leukocyte esterase det ection by dipstickOrdered By: Jermaine Sigala on 12-29-2022 Leukocyte esterase Test strip Ql (U) 25 /ul Negative [facility] Urine pHOrdered By: Jermaine trent on 12-29-2022 pH (U) 7.0 [pH] 5.0 - 8.0 [facility] Urine sediment bacteria coun t by microscopy (number/high power field)Ordered By: Jermaine Sigala on 12-29-2022 Bacteria LM.HPF (Urine sed) [#/Area] 0 /[HPF] None Seen [facility] Urine specific gravity measu rementOrdered By: Jermaine Sigala on 12-29-2022 Specific gravity (U) [Rel density] 1.010 1.002-1.030 [facility] Urobilinogen Auto test strip Ql (U)Ordered By: Jermaine Sigala on 12-29-2022 Urobilinogen Ql (U) Normal mg/dl Normal [facility] Whole blood hemoglobin A1c/t otal hemoglobin ratio (mass fraction)Ordered By: Jermaine Sigala on 12-29-2022 HbA1c (Bld) [Mass fraction] 5.7 % 3.8-5.6 [facility] Comment on above: Normal < 5.7 % Predi abetic 5.7 - 6.4 % Diabetic >or= 6.5 % Please note range changes. Absolute lymphocyte countOrd ered By: Jermaine Sigala on 12-23-2022 Lymphocytes Auto (Unsp spec) [#/Vol] 2.52 10*3/uL 0.83-4.51 [facility] Basophil percentageOrdered B y: Jermaine Sigala on 12-23-2022 Basophil percentage 10-25 SEEN /hpf 0-5 [facility] Basophils/100 WBC (Bld) 0.7 % 0-1 [facility] Bilirubin [Mass/Vol] 0.20 mg/dL 0.20-1.00 [facility] Comment on above: For patients on eltr ombopag therapy, use of Dimension [place] TBIL is not recommended. Chloride [Moles/Vol] 109 mmol/L 98-107 [facility] Eosinophils/100 WBC (Bld) 3.1 % 0-5 [facility] Glucose [Mass/Vol] 102 mg/dL 74-106 [facility] Comment on above: Fasting Glucose resu lt from 100 to 125 mg/dL suggests IMPAIRED HOMEOSTASIS per A.D.A. criteria. Neutrophils (Bld) [#/Vol] 5.5 10*3/uL 2.0-7.7 [facility] Neutrophils/100 WBC (Bld) 59.5 % 47-70 [facility] Potassium [Moles/Vol] 3.8 mmol/L 3.5-5.1 [facility] Protein [Mass/Vol] 7.1 g/dL 6.4-8.2 [facility] Sodium [Moles/Vol] 140 mmol/L 136-145 [facility] WBC (Bld) [#/Vol] 9.2 10*3/uL 4.4-11.0 [facility] Bilirubin Test strip Ql (U)O rdered By: Jermaine Sigala on 12-23-2022 Bilirubin Ql (U) Negative Negative [facility] Blood erythrocytes count (nu mber/volume)Ordered By: Jermaine Sigala on 12-23-2022 RBC (Bld) [#/Vol] 4.70 10*6/uL 4.2-5.4 [facility] Blood hemoglobin measurement (mass/volume)Ordered By: Jermaine Sigala on 12-23-2022 Hemoglobin (Bld) [Mass/Vol] 13.9 g/dL 12.0-15.0 [facility] Blood lymphocytes/100 leukoc ytesOrdered By: Jermaine Sigala on 12-23-2022 Lymphocytes/100 WBC (Bld) 27.3 % 19-41 [facility] Blood monocytes/100 leukocyt esOrdered By: Jermaine Sigala on 12-23-2022 Monocytes/100 WBC (Bld) 9.0 % 0-10 [facility] Blood platelet mean volumeOr dered By: Jermaine Sigala on 12-23-2022 Platelet mean volume (Bld) [Entitic vol] 10.6 fL 6.2-12.0 [facility] Determination of erythrocyte mean corpuscular volume (MCV)Ordered By: Jermaine Sigala on 12-23-2022 MCV (RBC) [Entitic vol] 89.1 fL 81-99 [facility] Hematocrit Auto (Bld) [Volum e fraction]Ordered By: Jermaine Sigala on 12-23-2022 Hematocrit (Bld) [Volume fraction] 41.9 % 37-47 [facility] Ketones Test strip Ql (U)Ord ered By: Jermaine Sigala on 12-23-2022 Ketones Ql (U) Negative Negative [facility] Laboratory - Chemistry and C hemistry - challengeOrdered By: Jermaine Sigala on 12-23-2022 ALP [Catalytic activity/Vol] 71 U/L 45-117 [facility] ALT [Catalytic activity/Vol] 18 U/L 13-56 [facility] CO2 [Moles/Vol] 24.0 mmol/L 21.0-32.0 [facility] Globulin (S) [Mass/Vol] 3.5 g/dL 2.2-4.2 [facility] Urea nitrogen/Creatinine [Mass ratio] 24.0 mg/mg 10-20 [facility] Laboratory - Hematology and Cell countsOrdered By: Jermaine Sigala on 12-23-2022 Erythrocyte distribution width (RBC) [Entitic vol] 42.9 fL 35.1-43.9 [facility] Erythrocyte distribution width (RBC) [Ratio] 13.1 % 11.6-14.6 [facility] Immature granulocytes/100 WBC (Bld) 0.400 % 0.0-0.9 [facility] Comment on above: IG% - Immature Granu locytes (promyelocytes, myelocytes and metamyelocytes) > 1% indicates that a LEFT SHIFT is Present. MCH (RBC) [Entitic mass] 29.6 pg 27.0-32.0 [facility] Nucleated RBC/100 WBC (Bld) [Ratio] 0 % 0-5 [facility] MCHC Auto (RBC) [Mass/Vol]Or dered By: Jermaine Sigala on 12-23-2022 MCHC (RBC) [Mass/Vol] 33.2 g/dL 32-36 [facility] Mucus LM Ql (Urine sed)Order ed By: Jermaine Sigala on 12-23-2022 Mucus Ql (Urine sed) 0 SEEN /hpf [facility] Nitrite Test strip Ql (U)Ord ered By: Jermaine Sigala on 12-23-2022 Nitrite Ql (U) Negative Negative [facility] No Panel InformationOrdered By: Jermaine Sigala on 12-23-2022 Estimated GFR (MDRD) Amer 80 mL/min >60 [facility] Comment on above: GFR Calc Estimated GFR (MDRD) Non-Af Amer 66 mL/min >60 [facility] Comment on above: Non- GFR Calc Vitamin D 25-Hydroxy 38.0 ng/mL [facility] Comment on above: Vitamin D 25(OH) Sta tus Range Deficiency <20 ng/mL (50nmol/L) Insufficiency 20 - 30 ng/mL (50 - 75 nmol/L) Sufficiency 30 - 100 ng/mL (75 - 250 nmol/L) Toxicity >100 ng/mL (>250 nmol/L) Platelets bldOrdered By: Jamie Sigala on 12-23-2022 Platelets (Bld) [#/Vol] 282 10*3/uL 150-450 [facility] Protein Test strip Ql (U)Ord ered By: Jermaine Sigala on 12-23-2022 Protein Ql (U) Negative Negative [facility] Serum or plasma albumin morteza urement (mass/volume)Ordered By: Jermaine Sigala on 12-23-2022 Albumin [Mass/Vol] 3.6 g/dL 3.2-5.0 [facility] Serum or plasma albumin/glob ulin mass ratioOrdered By: Jermaine Sigala on 12-23-2022 Albumin/Globulin [Mass ratio] 1.0 {ratio} 0.9-2.4 [facility] Serum or plasma calcium morteza urement (mass/volume)Ordered By: Jermaine Sigala on 12-23-2022 Calcium [Mass/Vol] 9.7 mg/dL 8.5-10.1 [facility] Serum or plasma creatinine m easurement (mass/volume)Ordered By: Jermaine Sigala on 12-23-2022 Creatinine [Mass/Vol] 0.88 mg/dL 0.55-1.02 [facility] Comment on above: The validity of the calculated GFR & GFRAA in patients over 70 years has not been determined. Clinical correlation is essential. Serum or plasma urea nitroge n measurement (mass/volume)Ordered By: Jermaine Sigala on 12-23-2022 Urea nitrogen [Mass/Vol] 21 mg/dL 7-18 [facility] Squamous epithelial cells de tection in urine sediment by light microscopyOrdered By: Jermaine Sigala on 12-23-2022 Epithelial cells.squamous LM Ql (Urine sed) 5-10 SEEN /hpf 5-10 [facility] Thin prep Papanicolaou smear with manual screeningOrdered By: Jermaine Sigala on 12-23-2022 Thin prep Papanicolaou smear with manual screening 14 U/L 15-37 [facility] Thin prep Papanicolaou smear with manual screening 7 5-15 [facility] Urine blood detectionOrdered By: Jermaine Sigala on 12-23-2022 RBC Ql (U) 50 /ul Negative [facility] RBC Ql (U) 5-10 SEEN /hpf 0-5 [facility] Urine clarityOrdered By: Jamie Sigala on 12-23-2022 Clarity (U) Sl Cldy Clear [facility] Comment on above: Previous reported re sult: Clear Edited by: FAY on 12/23/22:1858 Urine color determinationOrd ered By: Jermaine Sigala on 12-23-2022 Color (U) Yellow Yellow [facility] Urine glucose detectionOrder ed By: Jermaine Sigala on 12-23-2022 Glucose Ql (U) Normal mg/dl Normal [facility] Urine leukocyte esterase det ection by dipstickOrdered By: Jermaine Sigala on 12-23-2022 Leukocyte esterase Test strip Ql (U) 500 /ul Negative [facility] Urine pHOrdered By: Jermaine trent on 12-23-2022 pH (U) 6.0 [pH] 5.0 - 8.0 [facility] Urine sediment bacteria coun t by microscopy (number/high power field)Ordered By: Jermaine Sigala on 12-23-2022 Bacteria LM.HPF (Urine sed) [#/Area] 0 /[HPF] None Seen [facility] Urine specific gravity measu rementOrdered By: Jermaine Sigala on 12-23-2022 Specific gravity (U) [Rel density] 1.015 1.002-1.030 [facility] Urobilinogen Auto test strip Ql (U)Ordered By: Jermaine Sigala on 12-23-2022 Urobilinogen Ql (U) Normal mg/dl Normal [facility] Whole blood hemoglobin A1c/t otal hemoglobin ratio (mass fraction)Ordered By: Jermaine Sigala on 12-23-2022 HbA1c (Bld) [Mass fraction] 5.7 % 3.8-5.6 [facility] Comment on above: Normal < 5.7 % Predi abetic 5.7 - 6.4 % Diabetic >or= 6.5 % Please note range changes. Basophil percentageOrdered B y: Asya Diaz on 06-12-2022 Bilirubin [Mass/Vol] 0.50 mg/dL 0.20-1.00 [facility] Comment on above: For patients on eltr ombopag therapy, use of Dimension [place] TBIL is not recommended. Chloride [Moles/Vol] 103 mmol/L 98-107 [facility] Cholesterol [Mass/Vol] 220 mg/dL <200 [facility] Comment on above: <200 mg/dL Desirable 200-240 mg/dL Borderline >240 mg/dL High Risk Glucose [Mass/Vol] 105 mg/dL 74-106 [facility] Comment on above: Fasting Glucose resu lt from 100 to 125 mg/dL suggests IMPAIRED HOMEOSTASIS per A.D.A. criteria. Potassium [Moles/Vol] 4.0 mmol/L 3.5-5.1 [facility] Protein [Mass/Vol] 7.5 g/dL 6.4-8.2 [facility] Sodium [Moles/Vol] 139 mmol/L 136-145 [facility] Triglyceride [Mass/Vol] 149 mg/dL <199 [facility] Comment on above: The drugs N-Acetylcy steine and Metamizole may falsely depress this assay.Serum Triglycerides Reference Interval Normal <150 mg/dL Borderline high 150 - 199 mg/dL High 200 - 499 mg/dL Very High > or = 500 mg/dL Laboratory - Chemistry and C hemistry - challengeOrdered By: Asya Diaz on 06-12-2022 ALP [Catalytic activity/Vol] 70 U/L 45-117 [facility] ALT [Catalytic activity/Vol] 23 U/L 13-56 [facility] CO2 [Moles/Vol] 27.0 mmol/L 21.0-32.0 [facility] Globulin (S) [Mass/Vol] 3.9 g/dL 2.2-4.2 [facility] Urea nitrogen/Creatinine [Mass ratio] 19.8 mg/mg 10-20 [facility] No Panel InformationOrdered By: Asya Diaz on 06-12-2022 Estimated GFR (MDRD) Amer 65 mL/min >60 [facility] Comment on above: GFR Calc Estimated GFR (MDRD) Non-Af Amer 53 mL/min >60 [facility] Comment on above: Non- GFR Calc Vitamin D 25-Hydroxy 39.3 ng/mL [facility] Comment on above: Vitamin D 25(OH) Sta tus Range Deficiency <20 ng/mL (50nmol/L) Insufficiency 20 - 30 ng/mL (50 - 75 nmol/L) Sufficiency 30 - 100 ng/mL (75 - 250 nmol/L) Toxicity >100 ng/mL (>250 nmol/L) Serum or plasma albumin morteza urement (mass/volume)Ordered By: Asya Diaz on 06-12-2022 Albumin [Mass/Vol] 3.6 g/dL 3.2-5.0 [facility] Serum or plasma albumin/glob ulin mass ratioOrdered By: Asya Diaz on 06-12-2022 Albumin/Globulin [Mass ratio] 0.9 {ratio} 0.9-2.4 [facility] Serum or plasma calcium morteza urement (mass/volume)Ordered By: Asya Diaz on 06-12-2022 Calcium [Mass/Vol] 9.5 mg/dL 8.5-10.1 [facility] Serum or plasma cholesterol in HDL measurement (mass/volume)Ordered By: Asya Diaz on 06-12-2022 Cholesterol in HDL [Mass/Vol] 68 mg/dL >40 [facility] Comment on above: The drugs N-Acetylcy steine and Metamizole may falsely depress this assay. Reference Range HDL <40 mg/dL Low HDL Cholesterol HDL >or= 60 mg/dL High HDL Cholesterol Serum or plasma cholesterol in VLDL measurement (mass/volume)Ordered By: Asya Diaz on 06-12-2022 Cholesterol in VLDL [Mass/Vol] 30 mg/dL 5-40 [facility] Serum or plasma creatinine m easurement (mass/volume)Ordered By: Asya Diaz on 02-09-2023 Creatinine [Mass/Vol] 1.06 mg/dL 0.55-1.02 [facility] Comment on above: The validity of the calculated GFR & GFRAA in patients over 70 years has not been determined. Clinical correlation is essential. Serum or plasma low density lipoprotein (LDL) cholesterol measurement (mass/volume)Ordered By: [facility] on 06-12-2022 Cholesterol in LDL [Mass/Vol] 122 mg/dL 0-130 [facility] Serum or plasma urea nitroge n measurement (mass/volume)Ordered By: [facility] on 06-12-2022 Urea nitrogen [Mass/Vol] 21 mg/dL 7-18 [facility] Thin prep Papanicolaou smear with manual screeningOrdered By: [facility] on 06-12-2022 Thin prep Papanicolaou smear with manual screening 14 U/L 15-37 [facility] Thin prep Papanicolaou smear with manual screening 9 5-15 [facility] Absolute lymphocyte counton 11-18-2021 Lymphocytes Auto (Unsp spec) [#/Vol] 2.74 10*3/uL 0.83-4.51 [facility] Work Phone: Basophil percentageon 2021 Basophils/100 WBC (Bld) 0.6 % 0-1 [facility] Work Phone: Bilirubin [Mass/Vol] 0.30 mg/dL 0.20-1.00 [facility] Work Phone: Comment on above: For patients on eltr ombopag therapy, use of Dimension [place] TBIL is not recommended. Chloride [Moles/Vol] 105 mmol/L 98-107 [facility] Work Phone: Cholesterol [Mass/Vol] 193 mg/dL <200 [facility] Work Phone: Comment on above: <200 mg/dL Desirable 200-240 mg/dL Borderline >240 mg/dL High Risk Eosinophils/100 WBC (Bld) 2.9 % 0-5 [facility] Work Phone: Glucose [Mass/Vol] 87 mg/dL 74-106 [facility] Work Phone: Neutrophils (Bld) [#/Vol] 4.6 10*3/uL 2.0-7.7 [facility] Work Phone: Neutrophils/100 WBC (Bld) 55.9 % 47-70 [facility] Work Phone: Potassium [Moles/Vol] 3.5 mmol/L 3.5-5.1 [facility] Work Phone: Protein [Mass/Vol] 7.2 g/dL 6.4-8.2 [facility] Work Phone: Sodium [Moles/Vol] 140 mmol/L 136-145 [facility] Work Phone: Triglyceride [Mass/Vol] 173 mg/dL <199 [facility] Work Phone: Comment on above: The drugs N-Acetylcy steine and Metamizole may falsely depress this assay.Serum Triglycerides Reference Interval Normal <150 mg/dL Borderline high 150 - 199 mg/dL High 200 - 499 mg/dL Very High > or = 500 mg/dL WBC (Bld) [#/Vol] 8.2 10*3/uL 4.4-11.0 [facility] Work Phone: Blood erythrocytes count (nu mber/volume)on 11-18-2021 RBC (Bld) [#/Vol] 4.57 10*6/uL 4.2-5.4 [facility] Work Phone: Blood hemoglobin measurement (mass/volume)on 11-18-2021 Hemoglobin (Bld) [Mass/Vol] 13.5 g/dL 12.0-15.0 [facility] Work Phone: Blood lymphocytes/100 leukoc yteson 11-18-2021 Lymphocytes/100 WBC (Bld) 33.3 % 19-41 [facility] Work Phone: Blood monocytes/100 leukocyt eson 11-18-2021 Monocytes/100 WBC (Bld) 6.9 % 0-10 [facility] Work Phone: [phone] Blood platelet mean volumeon 11-18-2021 Platelet mean volume (Bld) [Entitic vol] 10.6 fL 6.2-12.0 [facility] Work Phone: [phone] Determination of erythrocyte mean corpuscular volume (MCV)on 11-18-2021 MCV (RBC) [Entitic vol] 89.5 fL 81-99 [facility] Work Phone: [phone] Hematocrit Auto (Bld) [Volum e fraction]on 11-18-2021 Hematocrit (Bld) [Volume fraction] 40.9 % 37-47 [facility] Work Phone: Laboratory - Chemistry and C hemistry - challengeon 11-18-2021 ALP [Catalytic activity/Vol] 62 U/L 45-117 [facility] Work Phone: ALT [Catalytic activity/Vol] 17 U/L 13-56 [facility] Work Phone: [phone] CO2 [Moles/Vol] 27.0 mmol/L 21.0-32.0 [facility] Work Phone: [phone] Free T4 [Mass/Vol] 1.34 ng/dL 0.76-1.46 [facility] Work Phone: [phone] Globulin (S) [Mass/Vol] 3.6 g/dL 2.2-4.2 [facility] Work Phone: [phone] Magnesium [Mass/Vol] 2.0 mg/dL 1.6-2.[address] [facility] Work Phone: [phone] Urea nitrogen/Creatinine [Mass ratio] 16.8 mg/mg 10-20 [facility] Work Phone: [phone] Laboratory - Hematology and Cell countson 11-18-2021 Erythrocyte distribution width (RBC) [Entitic vol] 42.7 fL 35.1-43.9 [facility] Work Phone: [phone] Erythrocyte distribution width (RBC) [Ratio] 13.0 % 11.6-14.6 [facility] Work Phone: [phone] Immature granulocytes/100 WBC (Bld) 0.400 % 0.0-0.9 [facility] Work Phone: Comment on above: IG% - Immature Granu locytes (promyelocytes, myelocytes and metamyelocytes) > 1% indicates that a LEFT SHIFT is Present. MCH (RBC) [Entitic mass] 29.5 pg 27.0-32.0 [facility] Work Phone: Nucleated RBC/100 WBC (Bld) [Ratio] 0 % 0-5 [facility] Work Phone: [phone] MCHC Auto (RBC) [Mass/Vol]on 11-18-2021 MCHC (RBC) [Mass/Vol] 33.0 g/dL 32-36 [facility] Work Phone: No Panel Informationon 11-18 Estimated GFR (MDRD) Amer 86 mL/min >60 [facility] Work Phone: Comment on above: GFR Calc Estimated GFR (MDRD) Non-Af Amer 71 mL/min >60 [facility] Work Phone: Comment on above: Non- GFR Calc Thyroid Stimulating Hormone (TSH) 1.11 uIU/mL 0.358-3.74 [facility] Work Phone: Vitamin D 25-Hydroxy 33.2 ng/mL [facility] Work Phone: Comment on above: Vitamin D 25(OH) Sta tus Range Deficiency <20 ng/mL (50nmol/L) Insufficiency 20 - 30 ng/mL (50 - 75 nmol/L) Sufficiency 30 - 100 ng/mL (75 - 250 nmol/L) Toxicity >100 ng/mL (>250 nmol/L) Platelets bldon 11-18-2021 Platelets (Bld) [#/Vol] 304 10*3/uL 150-450 [facility] Work Phone: [phone] Serum or plasma albumin morteza urement (mass/volume)on 11-18-2021 Albumin [Mass/Vol] 3.6 g/dL 3.2-5.0 [facility] Work Phone: [phone] Serum or plasma albumin/glob ulin mass ratioon 11-18-2021 Albumin/Globulin [Mass ratio] 1.0 {ratio} 0.9-2.4 [facility] Work Phone: [phone] Serum or plasma calcium morteza urement (mass/volume)on 11-18-2021 Calcium [Mass/Vol] 9.0 mg/dL 8.5-10.1 [facility] Work Phone: [phone] Serum or plasma cholesterol in HDL measurement (mass/volume)on 11-18-2021 Cholesterol in HDL [Mass/Vol] 58 mg/dL >40 [facility] Work Phone: Comment on above: The drugs N-Acetylcy steine and Metamizole may falsely depress this assay. Reference Range HDL <40 mg/dL Low HDL Cholesterol HDL >or= 60 mg/dL High HDL Cholesterol Serum or plasma cholesterol in VLDL measurement (mass/volume)on 11-18-2021 Cholesterol in VLDL [Mass/Vol] 35 mg/dL 5-40 [facility] Work Phone: [phone] Serum or plasma creatinine m easurement (mass/volume)on 11-18-2021 Creatinine [Mass/Vol] 0.83 mg/dL 0.55-1.02 [facility] Work Phone: Comment on above: The validity of the calculated GFR & GFRAA in patients over 70 years has not been determined. Clinical correlation is essential. Serum or plasma low density lipoprotein (LDL) cholesterol measurement (mass/volume)on 11-18-2021 Cholesterol in LDL [Mass/Vol] 100 mg/dL 0-130 [facility] Work Phone: [phone] Serum or plasma urea nitroge n measurement (mass/volume)on 11-18-2021 Urea nitrogen [Mass/Vol] 14 mg/dL 7-18 [facility] Work Phone: [phone] Thin prep Papanicolaou smear with manual screeningon 11-18-2021 Thin prep Papanicolaou smear with manual screening 19 U/L 15-37 [facility] Work Phone: [phone] Thin prep Papanicolaou smear with manual screening 8 5-15 [facility] Work Phone: Basic metabolic 2000 panelon 05-30-2021 Anion gap [Moles/Vol] 17 mmol/L 10 - 2 0 mmol/L [facility] Calcium [Mass/Vol] 8.7 mg/dL 8.4 - 10. 2 mg/dL [facility] Chloride [Moles/Vol] 104 mmol/L 98 - 10 8 mmol/L [facility] Creatinine [Mass/Vol] 0.73 mg/dL 0.60 - 1.20 [facility] GFR/1.73 sq M.predicted CKD-EPI (S/P/Bld) [Vol rate/Area] 80 >=60 mL/min/1.73 m2 [facility] Glucose [Mass/Vol] 105 mg/dL High 65 - 99 mg/dL [facility] HCO3 [Moles/Vol] 23 mmol/L 21 - 32 mmol/L [facility] Interpretation and review of laboratory results Abnormal [facility] Potassium [Moles/Vol] 3.7 mmol/L 3.5 - 5.1 mmol/L [facility] Sodium [Moles/Vol] 140 mmol/L 135 - 145 mmol/L [facility] Urea nitrogen [Mass/Vol] 13 mg/dL 8 - 25 mg/dL [facility] Urea nitrogen/Creatinine [Mass ratio] 17.8 mg/mg [facility] The eGFR should be u sed for monitoring renal function only and not for medication dosing. [facility] CBC panel Auto (Bld)on 05-30 Erythrocyte distribution width (RBC) [Entitic vol] 13.2 % 11.6 - 14.8 % [facility] Hematocrit (Bld) [Volume fraction] 40.2 % 36.0 - 46.0 % [facility] Hemoglobin (Bld) [Mass/Vol] 12.8 g/dL 12.0 - 16.0 g/dL [facility] MCH (RBC) [Entitic mass] 28.2 pg 26.0 - 34.0 pg [facility] MCHC (RBC) [Mass/Vol] 31.8 g/dL 31.0 - 37.0 g/dL [facility] MCV (RBC) [Entitic vol] 88.5 fL 80.0 - 100.0 fL [facility] Nucleated RBC (Bld) [#/Vol] 0.00 10*3/uL [facility] Nucleated RBC/100 WBC (Bld) [Ratio] 0.0 % [facility] Platelet mean volume (Bld) [Entitic vol] 10.1 fL 9.4 - 12.4 fL [facility] Platelets (Bld) [#/Vol] 250 10*3/uL [facility] RBC (Bld) [#/Vol] 4.54 10*6/uL [facility] WBC (Bld) [#/Vol] 8.47 10*3/uL [facility] COVID-19, MOLECULARon 2021 SARS-CoV-2 (COVID-19) RNA FARAZ+probe Ql (Unsp spec) Not detected Normal Not Detected [facility] Comment on above: Result Comment: This test was performed under the FDA's Emergency Use Authorization (EUA). Testing was performed using the Xpert?? Xpress SARS-CoV-2/Flu/RSV plus RT-PCR Cepheid assay on the [employer] Xpress System. This test has not been approved for use in asymptomatic patients and its performance in this patient population has not been evaluated. Negative results do not rule out the presence of SARS-CoV-2/COVID-19. Fact sheets for this EUA can be found at the following links: For Healthcare Providers: https://www.fda.gov/media/920165/download For Patients: https://www.fda.gov/media/689287/download Performed By: #### L [id number] #### [facility] [address] [address] Cesar Benitez, Ph.d. [id number] COVID-19, MolecularOrdered B y: Balwinder Demian on 05-30-2021 SARS-CoV-2 (COVID-19) RNA FARAZ+probe Ql (Resp) Not detected Not Detected [facility] Comment on above: This test was perfor med under the FDA's Emergency Use Authorization (EUA). Testing was performed using the Xpert Xpress SARS-CoV-2/Flu/RSV plus RT-PCR Cepheid assay on the [employer] Xpress System. This test has not been approved for use in asymptomatic patients and its performance in this patient population has not been evaluated. Negative results do not rule out the presence of SARS-CoV-2/COVID-19. Fact sheets for this EUA can be found at the following links: For Healthcare Providers: https://www.fda.gov/media/678389/download For Patients: https://www.fda.gov/media/784130/download HbA1c (Bld) [Mass fraction]o n 05-30-2021 Average glucose Estimated from glycated hemoglobin (Bld) [Mass/Vol] 120 mg/dL High 74 - 114 mg/dL [facility] Interpretation and review of laboratory results Abnormal [facility] Normal: 4.2% - 5.6% Increased risk for diabetes: 5.7% - 6.4% Diabetes: >= 6.5% Pediatrics: No established reference range Estimated average glucose: 74-114 mg/dL [facility] Hemoglobin A1con 05-30-2021 HbA1c (Bld) [Mass fraction] 5.8 % High 4.2 - 5.6 % [facility] SARS-CoV-2 (COVID-19) RNA NA A+probe Ql (Resp)Ordered By: Balwinder Arciniega on 05-30-2021 Interpretation and review of laboratory results Normal [facility] CBC Auto Differentialon 05-05 Basophils (Bld) [#/Vol] 0.06 10*3/uL [facility] Basophils/100 WBC (Bld) 0.5 % [facility] Eosinophils (Bld) [#/Vol] 0.25 10*3/uL [facility] Eosinophils/100 WBC (Bld) 2.1 % [facility] Erythrocyte distribution width (RBC) [Entitic vol] 13.4 % 11.6 - 14.8 % [facility] Hematocrit (Bld) [Volume fraction] 43.2 % 36.0 - 46.0 % [facility] Hemoglobin (Bld) [Mass/Vol] 14.2 g/dL 12.0 - 16.0 g/dL [facility] Immature granulocytes (Bld) [#/Vol] 0.03 10*3/uL [facility] Immature granulocytes/100 WBC (Bld) 0.30 % [facility] Comment on above: The IG parameter is the percentage of metamyelocytes, myelocytes and promyelocytes. An immature granulocyte count (IG) of 1% or more suggests the possibility of infection, an IG count of 3% is very likely related to an infection. Interpretation and review of laboratory results Abnormal [facility] Lymphocytes (Bld) [#/Vol] 2.35 10*3/uL [facility] Lymphocytes/100 WBC (Bld) 20.1 % [facility] MCH (RBC) [Entitic mass] 28.8 pg 26.0 - 34.0 pg [facility] MCHC (RBC) [Mass/Vol] 32.9 g/dL 31.0 - 37.0 g/dL [facility] MCV (RBC) [Entitic vol] 87.6 fL 80.0 - 100.0 fL [facility] Monocytes (Bld) [#/Vol] 0.68 10*3/uL [facility] Monocytes/100 WBC (Bld) 5.8 % [facility] Neutrophils (Bld) [#/Vol] 8.34 10*3/uL [facility] Neutrophils/100 WBC (Bld) 71.2 % [facility] Nucleated RBC (Bld) [#/Vol] 0.00 10*3/uL [facility] Nucleated RBC/100 WBC (Bld) [Ratio] 0.0 % [facility] Platelet mean volume (Bld) [Entitic vol] 11.4 fL 9.4 - 12.4 fL [facility] Platelets (Bld) [#/Vol] 300 10*3/uL [facility] RBC (Bld) [#/Vol] 4.93 10*6/uL [facility] ealth WBC (Bld) [#/Vol] 11.71 10*3/uL [facility] CT ABDOMEN PELVIS WITH IV CO NTRAST ONLYon 05-29-2021 CT ABDOMEN PELVIS WITH IV CONTRAST ONLY EXAMINATION: CT ABDOMEN PELVIS WITH IV CONTRAST ONLY HISTORY: ORDERING SYSTEM PROVIDED HISTORY: PYELO, TECHNOLOGIST PROVIDED HISTORY: Illness/Other Reason for exam: PYELO COMPARISON: None TECHNIQUE: CT examination of the abdomen and pelvis following the administration of intravenous contrast. Coronal and sagittal reformations were performed. Dose reduction techniques were achieved by using automated exposure control and/or adjustment of mA and/or kV according to patient size and/or use of iterative reconstruction technique. CONTRAST: IOPAMIDOL 76 % INTRAVENOUS SOLUTION - 75 mL, FINDINGS: Postsurgical changes of cholecystectomy. Normal appearance of the liver and spleen. No biliary dilatation. Moderate fatty replacement in the pancreas. Small hiatal hernia. Otherwise unremarkable appearance of the stomach. No bowel obstruction. Appendix not clearly seen. However, no inflammatory changes in the right lower quadrant. No intraabdominal free air or fluid fluid. No abdominal or retroperitoneal lymphadenopathy. Normal appearance of the adrenal glands. No significant perinephric inflammatory changes or obvious parenchymal lesion. No hydronephrosis. 2 mm density in the lower pole of the left kidney may represent nonobstructing renal stone. Normal caliber of the visualized ureters without stone or obstruction. Normal appearance of the urinary bladder. Normal appearance of the uterine and adnexa. No intrapelvic free fluid or lymphadenopathy. Patent major intraabdominal vessels. Scattered mild atherosclerotic calcifications of the abdominal aorta. 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 Straightening of the lumbar spine lordosis. Multilevel moderate to severe degenerative changes of the lumbar spine. Chronic appearing compression deformity of T12 and L2 vertebrae. No acute osseous abnormality. Fat containing 1.3 cm umbilical hernia with the hernia neck measuring 8 mm. No hernia complication. Mild subsegmental atelectasis in the lung bases. IMPRESSION: *Probable 2 mm nonobstructing stone in the left lower pole kidney. No hydronephrosis or urinary obstruction. *Small hiatal hernia. *Fat containing 1.3 cm umbilical hernia without complication. Workstation ID: [id number] Dictated by: CINDY OROURKE on ThuMay 29, 2021 8:52:52 PM EST Transcribed by: CINDY OROURKE on ThuMay 29, 2021 8:52:52 PM EST Finalized by: CINDY OROURKE on ThuMay 29, 2021 8:52:52 PM EST Normal [facility] Comment on above: Order Comment: Injur y/Trauma or Illness?:Illness/Other How long have you had these symptoms (acute/chronic)?:Chronic Reason for exam?:PYELO Type of Exam?:Initial Additional signs and symptoms?:na CT Abdomen Pelvis With IV Co ntrast Onlyon 05-29-2021 *Probable 2 mm nonobstructing stone in the left lower pole kidney. No hydronephrosis or urinary obstruction. *Small hiatal hernia. *Fat containing 1.3 cm umbilical hernia without complication. Workstation ID: [id number] [facility] EXAMINATION: CT ABDOMEN PELVIS WITH IV CONTRAST ONLY HISTORY: ORDERING SYSTEM PROVIDED HISTORY: PYELO, TECHNOLOGIST PROVIDED HISTORY: Illness/Other Reason for exam: PYELO COMPARISON: None TECHNIQUE: CT examination of the abdomen and pelvis following the administration of intravenous contrast. Coronal and sagittal reformations were performed. Dose reduction techniques were achieved by using automated exposure control and/or adjustment of mA and/or kV according to patient size and/or use of iterative reconstruction technique. CONTRAST: IOPAMIDOL 76 % INTRAVENOUS SOLUTION - 75 mL, FINDINGS: Postsurgical changes of cholecystectomy. Normal appearance of the liver and spleen. No biliary dilatation. Moderate fatty replacement in the pancreas. Small hiatal hernia. Otherwise unremarkable appearance of the stomach. No bowel obstruction. Appendix not clearly seen. However, no inflammatory changes in the right lower quadrant. No intraabdominal free air or fluid fluid. No abdominal or retroperitoneal lymphadenopathy. Normal appearance of the adrenal glands. No significant perinephric inflammatory changes or obvious parenchymal lesion. No hydronephrosis. 2 mm density in the lower pole of the left kidney may represent nonobstructing renal stone. Normal caliber of the visualized ureters without stone or obstruction. Normal appearance of the urinary bladder. Normal appearance of the uterine and adnexa. No intrapelvic free fluid or lymphadenopathy. Patent major intraabdominal vessels. Scattered mild atherosclerotic calcifications of the abdominal aorta. 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 Straightening of the lumbar spine lordosis. Multilevel moderate to severe degenerative changes of the lumbar spine. Chronic appearing compression deformity of T12 and L2 vertebrae. No acute osseous abnormality. Fat containing 1.3 cm umbilical hernia with the hernia neck measuring 8 mm. No hernia complication. Mild subsegmental atelectasis in the lung bases. [facility] Parisa Orourke MD - 05/29/2021 EXAMINATION: CT ABDOMEN PELVIS WITH IV CONTRAST ONLY HISTORY: ORDERING SYSTEM PROVIDED HISTORY: PYELO, TECHNOLOGIST PROVIDED HISTORY: Illness/Other Reason for exam: PYELO COMPARISON: None TECHNIQUE: CT examination of the abdomen and pelvis following the administration of intravenous contrast. Coronal and sagittal reformations were performed. Dose reduction techniques were achieved by using automated exposure control and/or adjustment of mA and/or kV according to patient size and/or use of iterative reconstruction technique. CONTRAST: IOPAMIDOL 76 % INTRAVENOUS SOLUTION - 75 mL, FINDINGS: Postsurgical changes of cholecystectomy. Normal appearance of the liver and spleen. No biliary dilatation. Moderate fatty replacement in the pancreas. Small hiatal hernia. Otherwise unremarkable appearance of the stomach. No bowel obstruction. Appendix not clearly seen. However, no inflammatory changes in the right lower quadrant. No intraabdominal free air or fluid fluid. No abdominal or retroperitoneal lymphadenopathy. Normal appearance of the adrenal glands. No significant perinephric inflammatory changes or obvious parenchymal lesion. No hydronephrosis. 2 mm density in the lower pole of the left kidney may represent nonobstructing renal stone. Normal caliber of the visualized ureters without stone or obstruction. Normal appearance of the urinary bladder. Normal appearance of the uterine and adnexa. No intrapelvic free fluid or lymphadenopathy. Patent major intraabdominal vessels. Scattered mild atherosclerotic calcifications of the abdominal aorta. 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 Straightening of the lumbar spine lordosis. Multilevel moderate to severe degenerative changes of the lumbar spine. Chronic appearing compression deformity of T12 and L2 vertebrae. No acute osseous abnormality. Fat containing 1.3 cm umbilical hernia with the hernia neck measuring 8 mm. No hernia complication. Mild subsegmental atelectasis in the lung bases. IMPRESSION: *Probable 2 mm nonobstructing stone in the left lower pole kidney. No hydronephrosis or urinary obstruction. *Small hiatal hernia. *Fat containing 1.3 cm umbilical hernia without complication. Workstation ID: [id number] [facility] Radiology Study observation (narrative) CT Abdomen Pelvis With IV Co ntrast OnlyOrdered By: Cindy Orourke on 05-29-2021 [facility] Work Phone: Comprehensive metabolic 2000 panelOrdered By: Gallo Godinez on 05-29-2021 Albumin [Mass/Vol] 4.3 g/dL 3.2 - 5.2 g/dL [facility] ALP [Catalytic activity/Vol] 69 U/L 40 - 150 U/L [facility] ALT [Catalytic activity/Vol] 11 U/L 0 - 40 U/L [facility] Anion gap [Moles/Vol] 21 mmol/L High 10 - 2 0 mmol/L [facility] AST [Catalytic activity/Vol] 23 U/L 0 - 45 U/L [facility] Bilirubin [Mass/Vol] 0.2 mg/dL 0.0 - 1 .3 mg/dL [facility] Calcium [Mass/Vol] 9.5 mg/dL 8.4 - 10. 2 mg/dL [facility] Chloride [Moles/Vol] 103 mmol/L 98 - 10 8 mmol/L [facility] Creatinine [Mass/Vol] 0.79 mg/dL 0.60 - 1.20 [facility] GFR/1.73 sq M.predicted CKD-EPI (S/P/Bld) [Vol rate/Area] 73 >=60 mL/min/1.73 m2 [facility] Glucose [Mass/Vol] 121 mg/dL High 65 - 99 mg/dL [facility] HCO3 [Moles/Vol] 19 mmol/L Low 21 - 32 mmol/L [facility] Interpretation and review of laboratory results Abnormal [facility] Potassium [Moles/Vol] 4.4 mmol/L 3.5 - 5.1 mmol/L [facility] Comment on above: Slightly Hemolyzed Protein [Mass/Vol] 7.3 g/dL 6.0 - 8.0 g/dL [facility] Sodium [Moles/Vol] 139 mmol/L 135 - 145 mmol/L [facility] Urea nitrogen [Mass/Vol] 16 mg/dL 8 - 25 mg/dL [facility] Urea nitrogen/Creatinine [Mass ratio] 20.3 mg/mg High [facility] The eGFR should be u sed for monitoring renal function only and not for medication dosing. [facility] UrinalysisOrdered By: Cecilio duke on 05-29-2021 Bacteria Auto Ql (U) Rare Abnormal None Se en /hpf [facility] Bilirubin Ql (U) Negative Negative [facility] th Clarity Refractometry automated (U) Hazy Abnormal Clear [facility] Color (U) Yellow Colorless, Yellow [facility] Epithelial cells.squamous Auto (Urine sed) [#/Area] <1 [facility] Glucose Auto test strip (U) [Mass/Vol] Negative Negative mg/dL [facility] Hemoglobin Auto test strip Ql (U) Negative Negative [facility] Interpretation and review of laboratory results Abnormal [facility] Ketones (U) [Mass/Vol] Negative Negat abraham mg/dL [facility] Leukocyte esterase Auto test strip Ql (U) Small Abnormal Negative [facility] Nitrite Auto test strip Ql (U) Negative Negative [facility] pH (U) 6.0 [pH] [facility] Protein (U) [Mass/Vol] Negative Negat abraham mg/dL [facility] RBC Auto (Urine sed) [#/Area] 5 High [facility] Specific gravity (U) [Rel density] 1.017 [facility] Urobilinogen (U) [Mass/Vol] mg/dL <2.0 mg/dL [facility] WBC Auto (Urine sed) [#/Area] 4 [facility] Microscopic examinat ion is performed on all urinalysis samples and only positive findings are reported. The test for blood on the chemical analytic portion of urinalysis may also be positive due to hemoglobinuria and myoglobinuria and if red blood cells are present they are quantified by microscopic examination. [facility] XR ABDOMEN /KUB/FLAT PLATE/1 VIEWon 01-25-2021 XR ABDOMEN /KUB/FLAT PLATE/1 VIEW EXAMINATION: XR ABDOMEN /KUB/FLAT PLATE/1 VIEW 01/25/2021 10:48 am HISTORY: ORDERING SYSTEM PROVIDED HISTORY: Diarrhea, unspecified type, TECHNOLOGIST PROVIDED HISTORY: Illness/Other Reason for exam: Diarrhea, unspecified type Cancer History: no Surgery, RadiationHistory: none to right foot Encounter Type: Initial Additional signs and symptoms: no ORDERING SYSTEM PROVIDED DIAGNOSIS CODES: R19.7 Diarrhea, unspecified type COMPARISON: None. FINDINGS: Single supine frontal view of the abdomen and pelvis was obtained. No dilated gas-filled loops of bowel. Formed stool is present throughout the colon. Moderate stool burden. Cholecystectomy clips are present. Degenerative changes are present in the lumbar spine. IMPRESSION: Nonobstructive bowel gas pattern. Moderate stool burden. RPS/jcw Workstation ID: [id number] Dictated by: JEFFERY WILKES on ThuJan 25, 2021 5:09:01 PM EDT Transcribed by: JERMAINE OLIVARES on ThuJan 25, 2021 5:09:58 PM EDT Finalized by: JEFFERY WILKES on ThuJan 25, 2021 5:23:27 PM EDT [facility] Comment on above: Order Comment: Injur y/Trauma or Illness?:Illness/Other How long have you had these symptoms (acute/chronic)?:Acute Reason for exam?:Diarrhea, unspecified type History of cancer?:no Surgeries, chemotherapy, or radiation?:none to right foot Type of Exam?:Initial Additional signs and symptoms?:no ECHOCARDIOGRAM COMPLETEon ECHOCARDIOGRAM COMPLETE Transthoracic Echocardiogram _ Patient: HOLLIE Garcia [facility] Rec#: [id number] (Age): 1945(74y) Height: 167(cm)/65(in) Study Date: 01/05/2020 Weight: 77.57(kg)/171(l Room#: BSA: 1.87 Type: Outpatient Loc: Echo Room 1 Sex: F _ Reading: Eliezer Whittington MD Referring: Efrem Vee DO [employer] Member: Junie Catherine RDCS History: GERD. Diagnosis: ICD-10-PCS Abnormal electrocardiogram [ECG] [EKG] (R94.31) Abnormal EKG (794.31) CPT Code(s): ECHO COMPLETE W/ DOPPLER (34782) Study Quality The study quality is technically difficult. Summary: Patient identity verified and ID band on (pause and confirm). Current HP present on patient chart. Procedure explained and patient verified understanding. Conclusions: Mild to moderate concentric left ventricular hypertrophy is observed. The estimated ejection fraction is 60-65%. Findings Reason For Study: Abnormal EKG. Other. LV hypertrophy Left Ventricle: The left ventricular chamber size is normal. Mild to moderate concentric left ventricular hypertrophy is observed. Global left ventricular wall motion and contractility are within normal limits. There is normal left ventricular systolic function. The estimated ejection fraction is 60-65%. Normal left ventricular diastolic filling is observed. Left Atrium: The left atrial chamber size is grossly normal. Right Ventricle: The right ventricular cavity size is normal. The right ventricular global systolic function is normal. Right Atrium: The right atrial cavity size is normal. Aortic Valve: The aortic valve is trileaflet. There is no dilatation of the thoracic aorta. Systolic excursion of the aortic valve is normal. There is no hemodynamically significant stenosis. There is no evidence of aortic regurgitation. Mitral Valve: The mitral valve leaflets appear normal. Mitral valve leaflet mobility appears normal. There is no evidence of mitral stenosis. There is a trace of mitral regurgitation. Tricuspid Valve: The tricuspid valve leaflets are normal. Tricuspid valve leaflet mobility appears normal. There is no evidence of tricuspid valve regurgitation. Pulmonic Valve: The pulmonic valve is not well visualized. There is no pulmonic stenosis. There is no evidence of pulmonic regurgitation. Pericardium: There is no pericardial effusion. HR 75 BP 148/72 Measurements Chambers MM Name Value Normal Range AV cusp separation (MM) 1.4 cm none Chambers 2D Name Value Normal Range IVSd (2D) 1.68 cm none LVPWd (2D) 1.19 cm none IVS:LVPW ratio (2D) 1.41 ratio none LVIDd (2D) 4.31 cm none LVIDs (2D) 2.6 cm none LV FS (Teichholz) (2D) 39.7 % none LV FS (cube) (2D) 39.7 % none EF Teichholz (2D) 70.5 % none Ao root diameter (2D) 3.2 cm none LA dimension (AP) 2D 3.8 cm none LA:Ao ratio (2D) 1.19 ratio none Volumes/Mass Name Value Normal Range LA ESV SP 4CH (MOD) 21.5 ml none LA ESV SP 2CH (MOD) 34.8 ml none LA ESV BP (MOD) 29.4 ml none LA ESV BP (MOD) index 15.7 ml/m2 none LV EDV SP 2CH (MOD) 49.7 ml none LV ESV SP 2CH (MOD) 18.5 ml none EF SP 2CH (MOD) 62.7 % none Diastolic/Systolic Function Name Value Normal Range MV E-wave Vmax 0.6 m/sec none MV deceleration time 299 msec none MV A-wave Vmax 0.8 m/sec none MV E:A ratio 0.8 ratio (1.1 - 1.5) LV E:e' septal ratio 10.9 ratio none LV E:e' lateral ratio 10.6 ratio none Aortic Valve Name Value Normal Range AV Vmax 1.19 m/sec (1 - 1.7) AV peak gradient 6 mmHg (Less Than 36) LVOT diameter 1.9 cm (1.7 - 2.5) LVOT Vmax 1.04 m/sec (0.7 - 1.1) LVOT peak gradient 4 mmHg none SYLVIA (continuity Vmax) 2.48 cm2 none AR PHT 414 msec none AR peak gradient 13 mmHg none Ascending Ao 3.4 cm none Tricuspid Valve Name Value Normal Range TR Vmax 0.82 m/sec none TR peak gradient 3 mmHg none Pulmonic Valve/Qp:Qs Name Value Normal Range PV Vmax 1.01 m/sec (0.6 - 0.9) PV peak gradient 4 mmHg none PV acceleration time 109 msec none Electronically Signed at 01/05/2020 13:55:35 by: Eliezer Whittington MD [facility] Transthoracic Echocardiogram _ Patient: HOLLIE Garcia [facility] Rec#: [id number] (Age): 1945(74y) Height: 167(cm)/65(in) Study Date: 01/05/2020 Weight: 77.57(kg)/171(l Room#: BSA: 1.87 Type: Outpatient Loc: Echo Room 1 Sex: F _ Reading: Eliezer Whittington MD Referring: Efrem Vee DO [employer] Member: Junie Catherine DIVYA History: GERD. Diagnosis: ICD-10-PCS Abnormal electrocardiogram [ECG] [EKG] (R94.31) Abnormal EKG (794.31) CPT Code(s): ECHO COMPLETE W/ DOPPLER (09163) Study Quality The study quality is technically difficult. Summary: Patient identity verified and ID band on (pause and confirm). Current HP present on patient chart. Procedure explained and patient verified understanding. Conclusions: Mild to moderate concentric left ventricular hypertrophy is observed. The estimated ejection fraction is 60-65%. Findings Reason For Study: Abnormal EKG. Other. LV hypertrophy Left Ventricle: The left ventricular chamber size is normal. Mild to moderate concentric left ventricular hypertrophy is observed. Global left ventricular wall motion and contractility are within normal limits. There is normal left ventricular systolic function. The estimated ejection fraction is 60-65%. Normal left ventricular diastolic filling is observed. Left Atrium: The left atrial chamber size is grossly normal. Right Ventricle: The right ventricular cavity size is normal. The right ventricular global systolic function is normal. Right Atrium: The right atrial cavity size is normal. Aortic Valve: The aortic valve is trileaflet. There is no dilatation of the thoracic aorta. Systolic excursion of the aortic valve is normal. There is no hemodynamically significant stenosis. There is no evidence of aortic regurgitation. Mitral Valve: The mitral valve leaflets appear normal. Mitral valve leaflet mobility appears normal. There is no evidence of mitral stenosis. There is a trace of mitral regurgitation. Tricuspid Valve: The tricuspid valve leaflets are normal. Tricuspid valve leaflet mobility appears normal. There is no evidence of tricuspid valve regurgitation. Pulmonic Valve: The pulmonic valve is not well visualized. There is no pulmonic stenosis. There is no evidence of pulmonic regurgitation. Pericardium: There is no pericardial effusion. HR 75 BP 148/72 Measurements Chambers MM Name Value Normal Range AV cusp separation (MM) 1.4 cm none Chambers 2D Name Value Normal Range IVSd (2D) 1.68 cm none LVPWd (2D) 1.19 cm none IVS:LVPW ratio (2D) 1.41 ratio none LVIDd (2D) 4.31 cm none LVIDs (2D) 2.6 cm none LV FS (Teichholz) (2D) 39.7 % none LV FS (cube) (2D) 39.7 % none EF Teichholz (2D) 70.5 % none Ao root diameter (2D) 3.2 cm none LA dimension (AP) 2D 3.8 cm none LA:Ao ratio (2D) 1.19 ratio none Volumes/Mass Name Value Normal Range LA ESV SP 4CH (MOD) 21.5 ml none LA ESV SP 2CH (MOD) 34.8 ml none LA ESV BP (MOD) 29.4 ml none LA ESV BP (MOD) index 15.7 ml/m2 none LV EDV SP 2CH (MOD) 49.7 ml none LV ESV SP 2CH (MOD) 18.5 ml none EF SP 2CH (MOD) 62.7 % none Diastolic/Systolic Function Name Value Normal Range MV E-wave Vmax 0.6 m/sec none MV deceleration time 299 msec none MV A-wave Vmax 0.8 m/sec none MV E:A ratio 0.8 ratio (1.1 - 1.5) LV E:e' septal ratio 10.9 ratio none LV E:e' lateral ratio 10.6 ratio none Aortic Valve Name Value Normal Range AV Vmax 1.19 m/sec (1 - 1.7) AV peak gradient 6 mmHg (Less Than 36) LVOT diameter 1.9 cm (1.7 - 2.5) LVOT Vmax 1.04 m/sec (0.7 - 1.1) LVOT peak gradient 4 mmHg none SYLVIA (continuity Vmax) 2.48 cm2 none AR PHT 414 msec none AR peak gradient 13 mmHg none Ascending Ao 3.4 cm none Tricuspid Valve Name Value Normal Range TR Vmax 0.82 m/sec none TR peak gradient 3 mmHg none Pulmonic Valve/Qp:Qs Name Value Normal Range PV Vmax 1.01 m/sec (0.6 - 0.9) PV peak gradient 4 mmHg none PV acceleration time 109 msec none Electronically Signed at 01/05/2020 13:55:35 by: Eliezer Whittington MD [facility] Interface, Rad In [facility] - 01/05/2020 1:56 PM EDT Transthoracic Echocardiogram _ Patient: HOLLIE Garcia [facility] Rec#: [id number] (Age): 1945(74y) Height: 167(cm)/65(in) Study Date: 01/05/2020 Weight: 77.57(kg)/171(l Room#: BSA: 1.87 Type: Outpatient Loc: Echo Room 1 Sex: F _ Reading: Eliezer Whittington MD Referring: Efrem Vee DO [employer] Member: Junie Catherine RDCS History: GERD. Diagnosis: ICD-10-PCS Abnormal electrocardiogram [ECG] [EKG] (R94.31) Abnormal EKG (794.31) CPT Code(s): ECHO COMPLETE W/ DOPPLER (52040) Study Quality The study quality is technically difficult. Summary: Patient identity verified and ID band on (pause and confirm). Current HP present on patient chart. Procedure explained and patient verified understanding. Conclusions: Mild to moderate concentric left ventricular hypertrophy is observed. The estimated ejection fraction is 60-65%. Findings Reason For Study: Abnormal EKG. Other. LV hypertrophy Left Ventricle: The left ventricular chamber size is normal. Mild to moderate concentric left ventricular hypertrophy is observed. Global left ventricular wall motion and contractility are within normal limits. There is normal left ventricular systolic function. The estimated ejection fraction is 60-65%. Normal left ventricular diastolic filling is observed. Left Atrium: The left atrial chamber size is grossly normal. Right Ventricle: The right ventricular cavity size is normal. The right ventricular global systolic function is normal. Right Atrium: The right atrial cavity size is normal. Aortic Valve: The aortic valve is trileaflet. There is no dilatation of the thoracic aorta. Systolic excursion of the aortic valve is normal. There is no hemodynamically significant stenosis. There is no evidence of aortic regurgitation. Mitral Valve: The mitral valve leaflets appear normal. Mitral valve leaflet mobility appears normal. There is no evidence of mitral stenosis. There is a trace of mitral regurgitation. Tricuspid Valve: The tricuspid valve leaflets are normal. Tricuspid valve leaflet mobility appears normal. There is no evidence of tricuspid valve regurgitation. Pulmonic Valve: The pulmonic valve is not well visualized. There is no pulmonic stenosis. There is no evidence of pulmonic regurgitation. Pericardium: There is no pericardial effusion. HR 75 BP 148/72 Measurements Chambers MM Name Value Normal Range AV cusp separation (MM) 1.4 cm none Chambers 2D Name Value Normal Range IVSd (2D) 1.68 cm none LVPWd (2D) 1.19 cm none IVS:LVPW ratio (2D) 1.41 ratio none LVIDd (2D) 4.31 cm none LVIDs (2D) 2.6 cm none LV FS (Teichholz) (2D) 39.7 % none LV FS (cube) (2D) 39.7 % none EF Teichholz (2D) 70.5 % none Ao root diameter (2D) 3.2 cm none LA dimension (AP) 2D 3.8 cm none LA:Ao ratio (2D) 1.19 ratio none Volumes/Mass Name Value Normal Range LA ESV SP 4CH (MOD) 21.5 ml none LA ESV SP 2CH (MOD) 34.8 ml none LA ESV BP (MOD) 29.4 ml none LA ESV BP (MOD) index 15.7 ml/m2 none LV EDV SP 2CH (MOD) 49.7 ml none LV ESV SP 2CH (MOD) 18.5 ml none EF SP 2CH (MOD) 62.7 % none Diastolic/Systolic Function Name Value Normal Range MV E-wave Vmax 0.6 m/sec none MV deceleration time 299 msec none MV A-wave Vmax 0.8 m/sec none MV E:A ratio 0.8 ratio (1.1 - 1.5) LV E:e' septal ratio 10.9 ratio none LV E:e' lateral ratio 10.6 ratio none Aortic Valve Name Value Normal Range AV Vmax 1.19 m/sec (1 - 1.7) AV peak gradient 6 mmHg (Less Than 36) LVOT diameter 1.9 cm (1.7 - 2.5) LVOT Vmax 1.04 m/sec (0.7 - 1.1) LVOT peak gradient 4 mmHg none SYLVIA (continuity Vmax) 2.48 cm2 none AR PHT 414 msec none AR peak gradient 13 mmHg none Ascending Ao 3.4 cm none Tricuspid Valve Name Value Normal Range TR Vmax 0.82 m/sec none TR peak gradient 3 mmHg none Pulmonic Valve/Qp:Qs Name Value Normal Range PV Vmax 1.01 m/sec (0.6 - 0.9) PV peak gradient 4 mmHg none PV acceleration time 109 msec none Electronically Signed at 01/05/2020 13:55:35 by: Eliezer Whittington MD [facility] SCAN OTHER ORDERSon 12-22-19 Ordered by an unspecified provider. [facility] SCAN OTHER ORDERSon 12-21-19 20 Ordered by an unspecified provider. [facility] ECG 12-LEADon 12-12-2019 Atrial Rate [facility] P [place] [facility] P-R Interval [facility] Q-T Interval [facility] Q-T Interval (corrected) [facility] QRS Duration [facility] QTC Calculation (Bezet) [facility] T Jefferson [facility] Ventricular Rate [facility] th OR Nursingon 11-17-2019 OR Nursing CO G2 OP Nursing Rec ord Summary Primary Physician: Elvin Tello MD Finalized Date/Time: 11/17/19 13:58:12 Pt. Name: RICHIE JOHNSON /Sex: 1945 Female Med Rec #: [id number] Physician: Financial #: [id number] Pt. Type: I Room/Bed: / Admit/Disch: 11/17/19 12:33:00 - 11/17/19 13:25:00 Institution: CO G2 OP Case Times Entry 1 Patient Times Patient In Room 11/17/19 13:09:00 Patient Out Room 11/17/19 13:13:00 Surgical Times Start Time 11/17/19 13:10:00 Stop Time 11/17/19 13:12:00 Last Modified By: Erin Diehl RN 11/17/19 13:14:18 CO G2 OP Case Attendees Entry 1 Entry 2 Entry 3 Case Attendee Omer CHEN , Elvin Diehl RN , Erin Ziegler RN , Camila Azevedo Role Performed Primary Surgeon continuity coordinator RN Scrub Time In 11/17/19 13:09:00 11/17/19 13:09:00 11/17/19 13:09:00 Time Out 11/17/19 13:13:00 11/17/19 13:13:00 11/17/19 13:13:00 Procedure Injection Epidural Injection Epidural Injection Epidural Lumbar(N/A) Lumbar(N/A) Lumbar(N/A) Attendee Comment Relief Reason Last Modified By: Fazal WOMACK , Erin Diehl RN , Erin Lutz RN 11/17/19 13:14:19 11/17/19 13:14:19 11/17/19 13:14:19 Entry 4 Case Attendee Jia Rousseau V Role Performed Photovoltaic Technician Time In 11/17/19 13:09:00 Time Out 11/17/19 13:13:00 Procedure Injection Epidural Lumbar(N/A) Attendee Comment Relief Reason Last Modified By: Erin Diehl RN 11/17/19 13:14:19 CO G2 OP General Case Public Health Epidemiologist 1 OR CO G2 OPS 05 ASA Class Not attended by Anesthesia Case Wound Class Clean Specialty Pain Service Case Level N/A Diagnosis Preop Diagnosis M51.36 Other Postop Same As Preop Yes intervertebral disc degeneration, lumbar region Postop Diagnosis M51.36 Other intervertebral disc degeneration, lumbar region This is a down time No record. Last Modified By: Erin Diehl RN 11/17/19 13:02:08 CO G2 OP Skin Prep Entry 1 Hair Removal Method None Skin Prep Prep Agents Duraprep Prep by Camila Ziegler RN Procedure Injection Epidural Lumbar(N/A) Last Modified By: Erin Diehl RN 11/17/19 13:02:14 CO G2 OP Fire Risk Assessment Entry 1 Alcohol Based Prep Yes Solution Dry Time >3 Minutes or According to Manufactures Instructions. No Pooling Observed. (No Alcohol Prep used Select N/A) Fire Risk Factors Yes = 1, No or N/A = 0 Procedure No Open O2 Source No Site/Incision Above (Face Mask/Nasal Xyphoid Process Cannula) Ignition source No Fire Risk Total N/A (Cautery, Laser, Score Fiberoptic Light Source) Last Modified By: Erin Diehl RN 11/17/19 13:02:20 CO OP Surgical Safety Checklist Entry 1 TIme Out Verified 11/17/19 13:09:00 Procedure Injection Epidural At: Lumbar(N/A) Pre-Induction Patient confirms Fire Risk Yes Additional identity, site and Assessment Completed Verification procedure, Confirm patient allergies, Implants, devices, special equipment available and functioning Last Modified By: Erin Diehl RN 11/17/19 13:09:58 CO OP Dressing/Packing Entry 1 Dressing Dressing/Packing Bandaid to injection Comment site. Last Modified By: Erin Diehl RN 11/17/19 13:02:37 CO G2 OP PNDS Risk of Infection Entry 1 INTERVENTIONS/ACTIVI Implements aseptic OUTCOME STATEMENT: The patient is free of TIES: technique., Assesses signs and symptoms of susceptibility for infection at the infection., Performs conclusion of the skin preparations., operative period. Protects from cross-contamination., Monitors for signs and symptoms of infection., Initiates traffic control. Last Modified By: Erin Diehl RN 11/17/19 13:02:39 CO G2 OP Patient Debriefing Entry 1 Skin Assessment Unchanged from After Pre-Procedure Last Modified By: Erin Diehl RN 11/17/19 13:02:43 CO G2 OP Surgical Procedures Entry 1 Procedure Injection Epidural Primary Procedure Yes Lumbar Modifiers N/A Procedure Wound Clean Class Primary Surgeon Omer CHEN , Elvin Surgical Service Pain Service Anesthesia Type None Procedure Performed L5/S1 epidural steroid injection under fluoroscopic guidance Start 11/17/19 13:10:00 Stop 11/17/19 13:12:00 Last Modified By: Cande Sher RN 11/17/19 13:58:09 General Comments: PROCEDURE PERFORMED CHANGED PER SURGEON DOCUMENTATION IN OPERATIVE REPORT PRITESH WOMACK Case Comments Finalized By: Cande Sher RN Document Signatures Signed By: Erin Diehl RN 11/17/19 13:17 Erin Diehl RN 11/17/19 13:14 Cande Sher RN 11/17/19 13:58 Normal [facility] Tendon Sheath/Ligament Injec tion: Flexor Tendon Sheathon 09-29-2019 Efrem azevedo DO 09/29/2019 1:35 PM Tendon Sheath/Ligament Injection: Flexor Tendon Sheath Performed [...] the procedure well with no immediate complications [facility] XR Bone Density DEXA Axial a nd Appendicularon 12-16-2018 Osteoporosis by WHO classification. RWA/pji Workstation ID: [id number] [facility] EXAMINATION: XR BONE DENSITY DEXA AXIAL AND APPENDICULAR HISTORY: Screening osteoporosis. Osteoporosis, unspecified osteoporosis type, unspecified pathological fracture presence M81.0 (ICD-10-CM). COMPARISON: None. TECHNIQUE: Lunar Prodigy Advanced GE DEXA scan was performed. FINDINGS: DEXA scan evaluation reveals the L1-L4 vertebral body mean bone mineral density to be 0.942 g/cm squared, with a T-score of -2.0. Z-score is -0.5. This value is within the osteopenic range. The left forearm mean bone mineral density is 0.387 g/cm squared, with a T-score of -4.6.. This Z-score is -2.4. This value is within the osteopenic range. The left hip mean bone mineral density is 0.725 g/cm squared, with a T-score of -2.2. Z-score is -0.7. This value is within the osteoporotic range. [facility], Rad In Fu ji Speechq - 12/16/2018 1:57 PM EDT EXAMINATION: XR BONE DENSITY DEXA AXIAL AND APPENDICULAR HISTORY: Screening osteoporosis. Osteoporosis, unspecified osteoporosis type, unspecified pathological fracture presence M81.0 (ICD-10-CM). COMPARISON: None. TECHNIQUE: Lunar Prodigy Advanced GE DEXA scan was performed. FINDINGS: DEXA scan evaluation reveals the L1-L4 vertebral body mean bone mineral density to be 0.942 g/cm squared, with a T-score of -2.0. Z-score is -0.5. This value is within the osteopenic range. The left forearm mean bone mineral density is 0.387 g/cm squared, with a T-score of -4.6.. This Z-score is -2.4. This value is within the osteopenic range. The left hip mean bone mineral density is 0.725 g/cm squared, with a T-score of -2.2. Z-score is -0.7. This value is within the osteoporotic range. IMPRESSION: Osteoporosis by WHO classification. RWA/pji Workstation ID: [id number] [facility] 12-03-2018 Iiho-bs-vvoqphpd osteoarthritis without acute osseous abnormality. Hallux valgus. Diffuse demineralization. I have reviewed the images and findings and agree with the above interpretation. 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 TECHNIQUE: Three views of the right foot with attention to the 1st digit. Three radiographs obtained. FINDINGS: There is mild osteoarthritic changes of the interphalangeal joints. No acute fracture or dislocation. There is diffuse demineralization. There is mild metatarsophalangeal osteoarthritis of the 1st digit. Hallux valgus. First tarsometatarsal osteoarthritis is [id number]-ic-vpjgiuia. The overlying soft tissues are within normal limits. 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 TECHNIQUE: Three views of the right foot with attention to the 1st digit. Three radiographs obtained. FINDINGS: There is mild osteoarthritic changes of the interphalangeal joints. No acute fracture or dislocation. There is diffuse demineralization. There is mild metatarsophalangeal osteoarthritis of the 1st digit. Hallux valgus. First tarsometatarsal osteoarthritis is [id number]. The overlying soft tissues are within normal limits. IMPRESSION: Uaed-dt-xglzmbrh osteoarthritis without acute osseous abnormality. Hallux valgus. Diffuse demineralization. I have reviewed the images and findings and agree with the above interpretation. ARJUN/guzman Workstation ID: [id number] [facility] XR Shoulder Right 2+ Views ( Standard)on 11-15-2018 X-ray of the right shoulder and 3 views is obtained on today's visit. A comminuted proximal humerus fracture is healing uneventfully. There is displacement of the head. There is no evidence of avascular necrosis. There is no change in position of the fracture. [facility] Basic Metabolic Panelon 05-2 Anion gap molar conc 18 mmol/L 10 - 20 mmol/L [facility] Calcium mass conc 9.4 mg/dL 8.4 - 10.2 mg/dL [facility] Chloride molar conc 102 mmol/L 98 - 108 mmol/L [facility] Creatinine mass conc 0.59 mg/dL Low 0.6 - 1 .2 mg/dL [facility] GFR/1.73 sq M predicted among non-blacks MDRD vol rate/area (S/P/Bld) The eGFR should be used for monitoring renal function only and not for medication dosing. [facility] GFR/1.73 sq M.predicted CKD-EPI vol rate/area (S/P/Bld) 91 >=60 mL/min/1.73 m2 [facility] Glucose mass conc 110 mg/dL High 65 - 99 mg/dL [facility] HCO3 molar conc 23 mmol/L 21 - 32 mmol/L [facility] Interpretation and review of laboratory results Abnormal [facility] Potassium molar conc 3.8 mmol/L 3.5 - 5 .1 mmol/L [facility] Sodium molar conc 139 mmol/L 135 - 145 mmol/L [facility] Urea nitrogen mass conc 13 mg/dL 8 - 25 mg/dL [facility] Urea nitrogen/Creatinine mass ratio 22.0 mg/mg High [facility] CBCon 09-28-2018 Erythrocyte distribution width Entitic volume (RBC) 13.4 % 11.6 - 14.8 % [facility] Hematocrit Volume Fraction (Bld) 36.9 % 36 - 46 % [facility] Hemoglobin mass conc (Bld) 11.9 g/dL Low 12 - 16 g/dL [facility] Interpretation and review of laboratory results Abnormal [facility] MCH Entitic mass (RBC) 28.5 pg 26 - 34 pg [facility] MCHC mass conc (RBC) 32.2 g/dL 31 - 37 g/dL [facility] MCV Entitic volume (RBC) 88.5 fL 80 - 100 fL [facility] Nucleated RBC #/vol (Bld) 0.00 10*3/uL [facility] Nucleated RBC/100 WBC Ratio (Bld) 0.0 % [facility] Platelet mean volume Entitic volume (Bld) 9.9 fL 9 - 15.5 fL [facility] Platelets #/vol (Bld) 243 10*3/uL [facility] RBC #/vol (Bld) 4.17 10*6/uL [facility] WBC #/vol (Bld) 9.38 10*3/uL [facility] CBCon 09-27-2018 Erythrocyte distribution width Entitic volume (RBC) 13.3 % 11.6 - 14.8 % [facility] Hematocrit Volume Fraction (Bld) 41.1 % 36 - 46 % [facility] Hemoglobin mass conc (Bld) 13.6 g/dL 12 - 16 g/dL [facility] MCH Entitic mass (RBC) 29.2 pg 26 - 34 pg [facility] MCHC mass conc (RBC) 33.1 g/dL 31 - 37 g/dL [facility] MCV Entitic volume (RBC) 88.4 fL 80 - 100 fL [facility] Nucleated RBC #/vol (Bld) 0.00 10*3/uL [facility] Nucleated RBC/100 WBC Ratio (Bld) 0.0 % [facility] Platelet mean volume Entitic volume (Bld) 10.6 fL 9 - 15.5 fL [facility] Platelets #/vol (Bld) 331 10*3/uL [facility] RBC #/vol (Bld) 4.65 10*6/uL [facility] WBC #/vol (Bld) 7.71 10*3/uL [facility] Comprehensive Metabolic Pane mary 09-27-2018 Albumin mass conc 4.2 g/dL 3.2 - 5.2 g/dL [facility] ALP enzyme act/vol 101 U/L 40 - 150 U/L [facility] ALT enzyme act/vol 10 U/L 0 - 40 U/L [facility]th Anion gap molar conc 20 mmol/L 10 - 20 mmol/L [facility] AST enzyme act/vol 17 U/L 0 - 45 U/L [facility] Bilirubin mass conc 0.3 mg/dL 0 - 1.3 mg/dL [facility] Calcium mass conc 9.7 mg/dL 8.4 - 10.2 mg/dL [facility] Chloride molar conc 104 mmol/L 98 - 108 mmol/L [facility] Creatinine mass conc 0.72 mg/dL 0.6 - 1 .2 mg/dL [facility] GFR/1.73 sq M predicted among non-blacks MDRD vol rate/area (S/P/Bld) The eGFR should be used for monitoring renal function only and not for medication dosing. [facility] GFR/1.73 sq M.predicted CKD-EPI vol rate/area (S/P/Bld) 83 >=60 mL/min/1.73 m2 [facility] Glucose mass conc 119 mg/dL High 65 - 99 mg/dL [facility] HCO3 molar conc 20 mmol/L Low 21 - 32 mmol/L [facility] Interpretation and review of laboratory results Abnormal [facility] Potassium molar conc 4.1 mmol/L 3.5 - 5 .1 mmol/L [facility] Protein mass conc 7.1 g/dL 6 - 8 g/dL [facility] Sodium molar conc 140 mmol/L 135 - 145 mmol/L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 [facility]IAN [facility]ACARIAS [facility] Start: 05-29-2021 End: 05-30-2021 Emergency department patient visit Lala Lala DO Work Phone: [facility] Medical Observation Start: 05-06-2021 End: 05-06-2021 ambulatory EFREM MACKENZIE KADIE [facility] Ambulatory Start: 05-06-2021 End: 05-06-2021 Office outpatient visit 25 minutes Efrem Mackenzie Kadie DO Work Phone: [facility] Comment on above: Gastroesophageal ref lux disease, unspecified whether esophagitis present (Primary Dx); 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; Anxiety; Depression, unspecified depression type; Vaginal discharge; Osteoarthritis of first metatarsophalangeal (MTP) joint of right foot; Encounter for screening for malignant neoplasm of breast, unspecified screening modality Start: 04-22-2021 Refill Susan baca MA [facility] Comment on above: Osteoporosis, unspec ified osteoporosis type, unspecified pathological fracture presence Start: 04-19-2021 Refill Efrem Mackenzie Kadie DO Work Phone: [facility] Start: 04-02-2021 ambulatory EFREM MACKENZIE KADIE [facility] Ambulatory Start: 02-01-2021 Refill Efrem Mackenzie Kadie DO Work Phone: [facility] Start: 01-25-2021 End: 01-29-2021 ambulatory [facility] Start: 01-25-2021 End: 01-25-2021 ambulatory Emanuel Calvert RN [facility] [address] [facility] Start: 01-25-2021 End: 01-25-2021 Patient encounter procedure Emanuel Calvert RN [facility] [address] [facility] Start: 11-30-2020 ambulatory EFREM MACKENZIE KADIE [facility] Ambulatory Start: 11-11-2020 End: 11-11-2020 Refill Efrem Mackenzie Kadie DO Work Phone: [facility] Start: 11-02-2020 End: 11-02-2020 Refill Susan Quitnero MA [facility] Start: 08-08-2020 End: 08-08-2020 Refill Efrem Mackenzie Kadie Work Phone: [facility] Physician [facility] - [facility] Medicine [facility] Start: 06-26-2020 End: 06-26-2020 Patient encounter procedure Aida Crawford Work Phone: [facility] Comment on above: Arrived Start: 06-05-2020 End: 06-05-2020 Patient encounter procedure Becka Jamesonlakia Work Phone: [facility] Start: 05-24-2020 End: 05-24-2020 Orders Only Becka Jamesonjeffpaula Work Phone: [facility] Start: 05-10-2020 End: 05-10-2020 Refill Efrem Mackenzie Kadie Work Phone: [facility] Physician [facility] - Sports Medicine and Primary Care Start: 01-05-2020 End: 01-06-2020 Patient encounter procedure EFREM MACKENZIE KADIE [facility] Start: 01-05-2020 End: 01-05-2020 Subsequent hospital visit by physician Efrem Mackenzie Kadie Work Phone: [facility] Ultrasound Comment on above: Left ventricular hyp ertrophy Start: 12-29-2019 End: 12-29-2019 Patient encounter procedure RADHA BAKER [facility] Start: 12-29-2019 End: 12-29-2019 Subsequent hospital visit by physician Radha Baker Work Phone: [facility] Periop Comment on above: Acute post-operative pain (Primary Dx) Start: 12-13-2019 End: 12-13-2019 Documentation procedure Efrem Mackenzie Kadie Work Phone: [facility] - Sports Medicine and Primary Care Start: 12-12-2019 End: 12-12-2019 Office outpatient visit 25 minutes Efrem Mackenzie Kadie Work Phone: [facility] - Sports Medicine and Primary Care Comment on above: Preop examination (P rimary Dx); Trigger middle finger of right hand; Left ventricular hypertrophy Start: 09-29-2019 End: 09-29-2019 Office outpatient visit 15 minutes Efrem Mackenzie Kadie Work Phone: [facility] - Sports Medicine and Primary Care Comment on above: Trigger middle finge r of right hand (Primary Dx) Start: 07-03-2019 Refill Efrem Mackenzie Kadie DO Work Phone: [facility] - Sports Medicine and Primary Care Comment on above: Osteoarthritis of fi rst metatarsophalangeal (MTP) joint of right foot Start: 05-19-2019 End: 05-19-2019 Office outpatient visit 15 minutes Efrem Mackenzie Kadie Work Phone: [facility] - Sports Medicine and Primary Care Comment on above: Atypical nevus (Prim helene Dx); Osteoporosis, unspecified osteoporosis type, unspecified pathological fracture presence; At risk for falls Start: 02-17-2019 End: 02-17-2019 Office outpatient visit 15 minutes Efrem Mackenzie Kadie Work Phone: [facility] - Sports Medicine and Primary Care Comment on above: Acute non-recurrent maxillary sinusitis (Primary Dx) Start: 01-05-2019 End: 01-05-2019 Office outpatient visit 15 minutes Efrem Mackenzie Kadie Work Phone: [facility] - Sports Medicine and Primary Care Comment on above: Osteoarthritis of fi rst metatarsophalangeal (MTP) joint of right foot (Primary Dx); Osteoporosis, unspecified osteoporosis type, unspecified pathological fracture presence Start: 12-27-2018 End: 12-27-2018 Postop follow up visit related to original px Alfonzo Pearl Work Phone: [facility] Orthopedic Surgeons Comment on above: Closed 4-part fractu re of proximal end of right humerus with routine healing, subsequent encounter (Primary Dx) Start: 12-16-2018 End: 12-16-2018 Subsequent hospital visit by physician Efrem Fisher [employer] Work Phone: [facility] [employer] Comment on above: Osteoporosis, unspec ified osteoporosis type, unspecified pathological fracture presence Start: 12-03-2018 End: 12-03-2018 Subsequent hospital visit by physician Efrem Fisher [employer] Work Phone: [facility] Comment on above: 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, right Start: 12-03-2018 End: 12-03-2018 Office outpatient visit 25 minutes [employer] Work Phone: [facility] Sports Medicine Comment on above: 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, right (Primary Dx); Osteoporosis, unspecified osteoporosis type, unspecified pathological fracture presence Start: 11-15-2018 End: 11-15-2018 Postop follow up visit related to original px Alfonzo Pearl Work Phone: [facility] Orth[facility] Surgeons Comment on above: Closed 4-part fractu re of proximal end of right humerus with routine healing, subsequent encounter (Primary Dx) Start: 10-25-2018 End: 10-25-2018 Postop follow up visit related to original px Alfonzo Pearl Work Phone: [facility] Orth[facility] Surgeons Comment on above: Closed 4-part fractu re of proximal end of right humerus with routine healing, subsequent encounter (Primary Dx) Start: 10-04-2018 End: 10-04-2018 Office outpatient new 30 minutes Alfonzo Pealr Work Phone: [facility] Surgeons Comment on above: Closed 4-part fractu re of proximal end of right humerus, initial encounter Start: 10-01-2018 End: 10-01-2018 Office outpatient visit 25 minutes EfremDecisyon Work Phone: [facility] [employer] [facility] Comment on above: Fall, initial encoun ter (Primary Dx); Other closed displaced fracture of proximal end of right humerus, initial encounter Start: 09-27-2018 End: 09-29-2018 Emergency department patient visit Ashok Farmer Work Phone: [facility] Clinical Decision Unit Comment on above: Closed fracture of p roximal end of right humerus, unspecified fracture morphology, initial encounter (Primary Dx); Pain in joint of right shoulder; Fall, subsequent encounter; Acute pain of right shoulder; Depression, unspecified depression type Start: 07-29-2018 End: 07-29-2018 Office outpatient visit 25 minutes [employer] Work Phone: [facility] [employer] [facility] Comment on above: Cervical stenosis of spine (Primary Dx); Chronic low back pain, unspecified back pain laterality, with sciatica presence unspecified Start: 05-12-2018 End: 05-12-2018 Office outpatient new 30 minutes [employer] Work Phone: [facility] [employer] Comment on above: Polyp of colon, unsp ecified part of colon, unspecified type (Primary Dx); Anxiety and depression; Chronic neck pain; Chronic bilateral low back pain without sciatica Procedures Date Procedure Procedure Detail Performing Clinician Start: 12-10-2023 Urnls dip stick/tabl et rgnt auto w/o microscopy Mary Beth Fall MD Work Phone: Start: 09-07-2023 Screening mammography Jones Sigala Work Phone: Start: 08-19-2023 Pelvis X-ray Start: 08-19-2023 X-ray of lumbar spin e, two or three views Start: 05-13-2023 End: 05-13-2023 Radiologic examination of knee Start: 05-13-2023 Complete x-ray serie s of lumbar spine with bending views Start: 04-23-2023 Urnls dip stick/tabl et rgnt auto w/o microscopy Anayeli Zarco MEKA Work Phone: Start: 12-10-2022 Dual energy X-ray absorptiometry Start: 11-26-2022 US scan of thyroid Start: 01-17-2022 X-ray of both feet Start: 01-13-2022 X-ray of both feet Start: 01-13-2022 CT cervical spine wi thout contrast Start: 01-13-2022 CT of head without contrast Start: 05-30-2021 Basic metabolic pane l calcium total Jude Yanes MD Work Phone: Start: 05-29-2021 SARS-CoV-2 (COVID-19 ) RNA [Presence] in Respiratory specimen by FARAZ with probe detection Paulina Pearl PA-C Work Phone: Start: 05-29-2021 Ct abdomen & pelvis w/contrast material Lala Lala DO Work Phone: Start: 05-29-2021 Comprehensive metabolic panel Theron Recioner DO Work Phone: Start: 05-29-2021 Urnls dip stick/tabl et reagent auto microscopy Theron Gomez DO Work Phone: Start: 05-06-2021 Adult depression scr eening assessment Efrem Kadie DO Work Phone: Start: 01-05-2020 Echocardiography Efrem Mackenzie Kadie Work Phone: Start: 12-22-2019 SCAN OTHER ORDERS Provi jessica Not In System Start: 12-21-2019 SCAN OTHER ORDERS Provi jessica Not In System Start: 12-12-2019 12 lead ECG Efrem Spe ncer Kadie Work Phone: Start: 09-29-2019 Injection 1 tendon sheath/ligament aponeurosis Efrem Mackenzie Kadie Work Phone: Start: 12-16-2018 Dxa bone density sumit dy 1/> sites axial skel Efrem Mackenzie Kadie Work Phone: Start: 12-03-2018 Radex toe minimum 2 views Efrem Mackenzie Kadie Work Phone: Start: 09-28-2018 Basic metabolic 2000 [...] 05-14-2028 Screening for malignant neoplasm of colon [facility] Start: 05-30-2024 Diabetes Screening Diabetes Screening [facility] Start: 02-15-2024 End: 02-15-2024 Patient encounter procedure 02/15/2024 1:00 PM EDT Office Visit URO/Gynecology [address] [place] [address] Mary Beth Fall MD [address] [place] [address] 2 week follow up URO/Gynecology Comment on above: 2 week follow up Start: 01-28-2024 End: 01-28-2024 Patient encounter procedure 01/28/2024 11:30 AM EDT Office Visit URO/Gynecology [address] [place] [address] Mary Beth Fall MD [address] [place] [address] 1 week labioplasty follow up [facility]RO/Gynecology Comment on above: 1 week labioplasty follow up Start: 01-22-2024 End: 01-22-2024 Patient encounter procedure URO/Gynecology Comment on above: 6 week follow up Labioplasty; 6 week follow up Start: 01-03-2024 Covid-19 Vaccine ( season) Covid-19 Vaccine () [facility] Start: 01-03-2024 Covid-19 Vaccine ( season) Covid-19 Vaccine ( season) [facility] Start: 01-03-2024 Influenza vaccination Influenza Vaccine (#1) [facility] Start: 08-31-2023 Patient referral [facility] Work Phone: Start: 08-03-2023 [facility] Start: 2023 Covid-19 Vaccine ( season) Covid-19 Vaccine () [facility] Start: 05-04-2023 Advance Directive Discussion Advance Directive Discussion [facility] Start: 05-04-2023 Depression Assessment Depression Assessment [facility] Start: 01-02-2023 Influenza vaccination Sequential Influenza Vaccine (#1) [facility] Start: 05-04-2022 Advance Directive Discussion Advance Directive Discussion [facility] Start: 05-04-2022 Depression Assessment Depression Assessment [facility] Start: 05-04-2022 Tetanus vaccination [facility] Start: 05-04-2022 Urine microalbumin profile DTaP,Tdap,Td Vaccine (2 - Td or Tdap) [facility] Start: 01-02-2022 Influenza vaccination Sequential Influenza Vaccine (#1) [facility] Start: 11-05-2021 End: 11-05-2021 Patient encounter procedure 11/05/2021 Office Visit Sports Medicine Efrem Vee, DO [address] [place] [address] [facility] - Sports Medicine and Primary Care Start: 05-06-2021 End: 05-06-2021 Patient encounter procedure 05/06/2021 Office Visit Sports Medicine Efrem Vee, DO [address] [place] [address] [facility] - Sports Medicine and Primary Care Start: 03-22-2021 COVID-19 Vaccine (4 - Booster for Pfizer series) COVID-19 Vaccine (4 - Booster for Pfizer series) [facility] Start: 03-22-2021 COVID-19 Vaccine (4 - Pfizer series) COVID-19 Vaccine (4 - Pfizer series) [facility] Start: 01-21-2021 Administration of herpes zoster vaccine Zoster Vaccines (3 of 3) [facility] Start: 01-02-2021 Influenza vaccination Sequential Influenza Vaccine (#1) [facility] Start: 06-26-2020 COVID-19 Vaccine (2 of 2 - Pfizer series) COVID-19 Vaccine (2 of 2 - Pfizer series) [facility] Start: 06-26-2020 End: 06-26-2020 Immunization 06/26/2020 Immunization Primary Care Aida Crawford MD [address] [place] [address] [phone] [facility] Physician [facility] Start: 06-05-2020 End: 06-05-2020 Immunization 06/05/2020 Immunization Primary Care [facility] Start: 05-27-2020 Pneumococcal vaccination Pneumococcal Vaccine Age 65+ (2 of 2 - PPSV23) [facility] Start: 05-27-2020 Pneumococcal Vaccine: Age 65+ (2 - PPSV23 if available, else PCV20) Pneumococcal Vaccine: Age 65+ (2 - PPSV23 if available, else PCV20) [facility] Start: 05-27-2020 Pneumococcal Vaccine: Age 65+ (2 - PPSV23 or PCV20) Pneumococcal Vaccine: Age 65+ (2 - PPSV23 or PCV20) [facility] Start: 05-27-2020 Pneumococcal Vaccine: Age 65+ (2 of 2 - PPSV23) Pneumococcal Vaccine: Age 65+ (2 of 2 - PPSV23) [facility] Start: 05-25-2020 Pneumococcal Vaccine: 65+ (2 of 2 - PPSV23 or PCV20) Pneumococcal Vaccine: 65+ (2 of 2 - PPSV23 or PCV20) [facility] Start: 01-05-2020 End: 01-05-2020 Appointment 01/05/2020 Appointment Radiology Efrem Vee DO [address] [place] [address] [place] [address] [phone] [facility] Ultrasound Start: 01-03-2020 Influenza vaccination given Sequential Influenza Vaccine (#1) [facility] Start: 12-29-2019 End: 12-29-2019 Hospital Encounter [facility] Periop Comment on above: RIGHT MIDDLE FINGER A1 LOLY RELEASE WI TH TENOLYSIS SURGERY INDICATED Start: 07-20-2019 Administration of herpes zoster vaccine Zoster Vaccines (2 of 3) [facility] Start: 01-02-2019 Influenza vaccination given [facility] Start: 12-28-2018 Pneumococcal vaccination PNEUMOCOCCAL VACCINE AGE 65+ (2 of 2 - PPSV23) [facility] Start: 12-27-2018 End: 12-27-2018 Office Visit 12/27/2018 Office Visit Orthopedic Surgery Alfonzo Pearl DO [address] [address] [phone] [facility] Start: 11-15-2018 End: 11-15-2018 Office Visit 11/15/2018 Office Visit Orthopedic Surgery Alfonzo Pearl DO [address] [facility] [address] [place] [address] [phone] [facility] Start: 10-25-2018 End: 10-25-2018 Office Visit 10/25/2018 Office Visit Orthopedic Surgery Alfonzo Pearl, [address] [place] [address] [phone] [facility] Start: 10-04-2018 End: 10-04-2018 Office Visit 10/04/2018 Office Visit Orthopedic Surgery Alfonzo Pearl, [address] [facility] [address] [place] [address] [phone] [facility] Start: 01-02-2018 Influenza vaccination given SEQUENTIAL INFLUENZA VACCINE (#1) [facility] Start: 06-29-2012 Administration of herpes zoster vaccine Zoster Vaccines (2 of 3) [facility] Start: 2009 Fall risk assessment [facility] Start: 2009 Pneumococcal vaccination PNEUMOCOCCAL VACCINE AGE 65+ (1 of 2 - PCV13) [facility] Start: 2009 Screening for osteoporosis Bone Density Screening [facility] Start: 1994 Administration of herpes zoster vaccine ZOSTER VACCINES (1 of 2) [facility] Start: 1994 Screening for malignant neoplasm of colon [facility] Start: 1984 Screening for malignant neoplasm of breast Mammogram [facility] Start: 1984 Screening mammography Mammogram [facility] Start: 1962 Anxiety Screening Anxiety Screening [facility] Start: 1962 Depression Screening Depression Screening [facility] Start: 1962 Hepatitis C antibody, confirmatory test Hepatitis C Screening [facility] Start: 1962 Hepatitis C screening Hepatitis C Screening [facility] Start: 1960 COVID-19 Vaccine (1 of 2) COVID-19 Vaccine (1 of 2) [facility] Start: 1956 Adolescent depression screening assessment Depression Screening (PHQ9) [facility] Start: 1956 Depression screening using PHQ-9 (Patient Health Questionnaire 9) score [facility] Start: 07-09-1947 History and physical examination, annual for health maintenance Wellness Visit [facility] Start: 1944 End: 1944 Hepatitis C antibody, confirmatory test HEPATITIS C SCREENING [facility] Start: 1944 End: 1944 Protein mass conc [facility] Start: 1944 End: 1944 Screening for osteoporosis DEXA SCAN [facility] Start: 1944 Tetanus vaccination TETANUS EVERY 10 YR [facility] Start: 1944 Depression screening using PHQ-9 (Patient Health Questionnaire 9) score DEPRESSION SCREENING (PHQ9) [facility] Start: 1944 Fall risk assessment Falls Risk Assessment [facility] Start: 1944 Screening for malignant neoplasm of colon Colorectal Cancer Screening: Colonoscopy [facility] Start: 1944 Screening mammography Mammogram [facility] End: 05-29-2021 Bacteria identified in Unspecified specimen by Aerobe culture [facility] Work Phone: Comment on above: Once for 1 Occurrences starting 05/29/19 until 05/29/2021 End: 05-30-2021 Bacteria identified in Unspecified specimen by Aerobe culture Urine Aerobic Culture Microbiology Routine Once for 1 Occurrences starting 05/30/2021 until 05/30/2021 [facility] Work Phone: Comment on above: Once for 1 Occurrences starting 05/30/19 until 05/30/2021 Bacteria identified in Urine by Culture URINE CULTURE Microbiology Routine Vulvar burning 04/23/2023 12:25 PM [facility] Work Phone: End: 12-04-2019 Bone density scan XR Bone Density DEXA Axial Imaging Routine Osteoporosis, unspecified osteoporosis type, unspecified pathological fracture presence 1 Occurrences starting 12/03/2018 until 12/04/2019 [facility] Comment on above: 1 Occurrences starting 12/03/2018 until 12/04/2019 End: 12-12-2020 Complete blood count with white cell differential, manual CBC and Differential Lab Routine Preop examination 1 Occurrences starting 12/12/2019 until 12/12/2020 [facility] Comment on above: 1 Occurrences starting 12/12/2019 until 12/12/2020 Complete blood count with white cell differential, manual [facility] End: 12-04-2019 Complete blood count with white cell differential, manual CBC and Differential Lab Routine 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, right 1 Occurrences starting 12/03/2018 until 12/04/2019 [facility] Comment on above: 1 Occurrences starting 12/03/2018 until 12/04/2019 End: 12-12-2020 Comprehensive metabolic 2000 panel Comprehensive Metabolic Panel Lab Routine Preop examination 1 Occurrences starting 12/12/2019 until 12/12/2020 [facility] Comment on above: 1 Occurrences starting 12/12/2019 until 12/12/2020 Comprehensive metabo lic 2000 panel Comprehensive Metabolic Panel Lab Routine Preop examination 12/12/2019 1:50 PM EDT [facility] End: 12-04-2019 CRP [Mass/Vol] CRP, Inflammation Lab Routine 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, right 1 Occurrences starting 12/03/2018 until 12/04/2019 [facility] Comment on above: 1 Occurrences starting 12/03/2018 until 12/04/2019 CRP [Mass/Vol] CRP, Inflammatio n Lab Routine 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, right 12/03/2018 10:41 AM EDT [facility] End: 02-10-2021 Echocardiography Echocardiogram complete Echocardiography Routine Left ventricular hypertrophy 1 Occurrences starting 12/12/2019 until 02/10/2021 [facility] Comment on above: 1 Occurrences starting 12/12/2019 until 02/10/2021 End: 12-04-2019 ESR (Bld) [Velocity] Sedimentation rate, automated Lab Routine 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, right 1 Occurrences starting 12/03/2018 until 12/04/2019 [facility] Comment on above: 1 Occurrences starting 12/03/2018 until 12/04/2019 ESR (Bld) [Velocity] Sedimentati on rate, automated Lab Routine 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, right 12/03/2018 10:41 AM EDT [facility] Hemoglobin A1c/Hemoglobin.total in Blood [facility] Lipid 1996 panel - S homer or Plasma [facility] End: 07-04-2022 MG Breast - bilateral Screening Mammography Screening Abdoul Bilateral Imaging Routine Encounter for screening for malignant neoplasm of breast, unspecified screening modality 1 Occurrences starting 05/06/2021 until 07/04/2022 [facility] Work Phone: Comment on above: 1 Occurrences starting 05/06/2021 until 07/04/2022 Patient Education [facility] Work Phone: Patient referral [facility] Work Phone: SURGICAL PATHOLOGY SURGICAL PATH OLOGY Lab Routine Vulvar burning 04/23/2023 12:02 PM EST [facility] Work Phone: End: 12-04-2019 Urate [Mass/Vol] Uric acid Lab Routine 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, right 1 Occurrences starting 12/03/2018 until 12/04/2019 [facility] Comment on above: 1 Occurrences starting 12/03/2018 until 12/04/2019 Urate [Mass/Vol] Uric acid Lab R outine 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, right 12/03/2018 10:41 AM EDT [facility] Urinalysis complete panel - Urine URINALYSIS, WITH MICROSCOPIC Lab Routine Asymptomatic microscopic hematuria Ordered: 12/10/2023 [facility] Work Phone: Comment on above: Ordered: 12/10/2023 Immunizations Immunization Date Immunization Notes Care Provider Checo gonzalez 03-09-2023 influenza virus vacc ine, unspecified formulation Mary Beth Fall MD Work Phone: [facility] 01-25-2021 Pfizer SARS-CoV-2 Vaccination Emanuel Calvert RN [facility] 11-26-2020 zoster vaccine recombinant Emanuel Calvert RN [facility] 06-26-2020 Pfizer SARS-CoV-2 Vaccination Milly Bird [facility] 06-05-2020 Pfizer SARS-CoV-2 Vaccination Dhaval Manuel [facility] 02-02-2020 INFLUENZA IIV4 FLUAD [id number] Emanuel Calvert RN [facility] 02-02-2020 influenza, injectabl e, quadrivalent, contains preservative [facility] pneumococcal conjuga te vaccine, 13 valent Efrem Kadie [facility] 05-25-2019 pneumococcal conjuga te vaccine, 13 valent Efrem Kadie [facility] 05-25-2019 [facility]oster vaccine [facility] 05-25-2019 zoster vaccine, live Efrem Kadie [facility] 01-05-2019 Seasonal trivalent influenza vaccine, adjuvanted, preservative free Efrem Kadie [facility] 02-07-2018 influenza, high dose seasonal, preservative-free Efrem Kadie [facility] 02-07-2018 influenza, injectabl e, quadrivalent, contains preservative Efrem Kadie [facility] 12-28-2017 pneumococcal conjuga te vaccine, 13 valent Efrem Kadie [facility] 02-20-2017 influenza, high dose seasonal, preservative-free [facility] 03-06-2016 influenza, high dose seasonal, preservative-free [facility] 02-02-2016 influenza virus vacc ine, unspecified formulation [facility] 01-17-2013 influenza, seasonal, injectable [facility] 05-04-2012 tetanus toxoid, redu angel diphtheria toxoid, and acellular pertussis vaccine, adsorbed [facility] 05-04-2012 zoster vaccine, live [facility] Payers Date Payer Category Payer Self-pay 2019 Medicare [id number] [id number] [id number] 2019 Medicare [id number] 2018 Medicare xxxxxxxxx 1.2.8 [id number] 2018 Medicare [id number] 1944 Unknown [id number] 2. [id number] 1944 Unknown [id number] 2. [id number] 1944 Unknown [id number] 2. [id number] 1944 Unknown [id number] 2.16 [id number] 1944 Unknown [id number] 2.16 [id number] 1944 Unknown [id number] 2.16 [id number] 1944 Unknown [id number] 2.16 [id number] 1944 Unknown [id number] 2.16. [id number] 1944 Unknown [id number] 2.16. [id number] Medicare [id number] Unknown [id number] Unknown [id number] 2.16.8 [id number] Unknown [id number] 2.16.8 [id number] Unknown [id number] 2.16.8 [id number] Unknown [id number] 2.16.8 [id number] Unknown [id number] 2.16.8 [id number] Unknown [id number] 2.16.8 [id number] Unknown [id number] 2.16.8 [id number] Unknown [id number] 2.16.8 [id number] Unknown [id number] 2.16.8 [id number] Unknown [id number] 2.16.8 [id number] Unknown [id number] 2.16.8 [id number] Unknown [id number] 2.16.8 [id number] Unknown [id number] 2.16.8 [id number] Unknown [id number] 2.16.8 [id number] Unknown [id number] 2.16.8 [id number] Unknown [id number] 2.16.8 [id number] Unknown [id number] 2.16.8 [id number] Unknown [id number] 2.16.8 [id number] Social History Date Type Detail Facility Start: 05-12-2018 End: 01-22-2024 Tobacco smoking status NHIS Former smoker [facility] End: 05-04-1984 History of tobacco use Current smoker [facility] Start: 05-12-2018 End: 04-23-2023 Cigarettes smoked current (pack per day) - Reported [facility] Start: 1945 Sex Assigned At Not on file [facility] Start: 01-05-2019 End: 05-29-2021 Alcohol intake Current non-drinker of alcohol (finding) [facility] Start: 04-29-2021 End: 05-29-2021 Exposure to SARS-CoV-2 (event) Not sure [facility] Start: 12-29-2019 End: 01-22-2024 Tobacco use and exposure Never used [facility] Start: 1945 Sex Assigned At Female [facility] Start: 01-13-2022 End: 08-31-2023 Tobacco smoking status [facility] Unknown if ever smoked [facility] End: 05-04-1984 History of tobacco use Cigarette Smoker [facility] Start: 05-29-2021 End: 04-23-2023 Tobacco use panel [facility] Adult Depression Screening Assessment 5 [facility] Start: 09-27-2018 Gender identity Identifies as female gender (finding) [facility] Start: 10-04-2018 Sexual orientation Heterosexual (finding) [facility] Start: 04-23-2023 End: 02-15-2024 Alcohol intake Ex-drinker (finding) [facility] Clinical Notes 11-02-2020 to 02-15-2024 Mary Beth Fall MD - 02/15/2024 1:00 PM EDTTelephone Encounter - Magui Gonzalez - 02/08/2024 9:06 AM EDTTelephone Encounter - Magui Gonzalez - 02/08/2024 9:06 AM EDTPatient Instructions Note Date & Type Note Facility 02-15-2024 History of Present illness Narrative Female Pelvic Medicine & Reconstructive Surgery Follow-Up Richie Johnson is a 78 year old female, who presents for a follow-up of labial hypertrophy. History since last visit: 01/22/2024 labioplasty done, she returns today and states she is not having any pain or bleeding but is getting poked by her sutures. ALLERGIES No Known Allergies Current Outpatient Medications Medication Sig lidocaine-prilocaine (EMLA) 2.5-2.5 % cream Apply to affected area as needed. ipratropium bromide (ATROVENT) 42 mcg (0.06 %) nasal spray instill 2 sprays into each nostril three times a day if needed for runny nose sucralfate (CARAFATE) 1 gram tablet Take 1 tablet by mouth every 12 hours. vibegron (GEMTESA) 75 mg tablet Take 1 tablet by mouth once daily. estradiol (ESTRACE) 0.01 % (0.1 mg/gram) vaginal cream Use a pea-size amount vaginally three times per week. May use as often as daily. Do not use applicator. estradiol (ESTRACE) 0.01 % (0.1 mg/gram) vaginal cream Use 1 g vaginally once daily. Use fingertip amount of vaginal tissue nightly x 2 weeks then use 2-3 times weekly. clobetasol (TEMOVATE) 0.05 % cream Apply to affected area 2x/day for 2 weeks, then 1x/day for a week, than 1-3x/week for maintenance. buPROPion (WELLBUTRIN) 75 mg tablet Take 1 tablet by mouth every afternoon. celecoxib (CELEBREX) 200 mg capsule Take 1 capsule by mouth every afternoon. citalopram (CELEXA) 20 mg tablet Take 1 tablet by mouth every afternoon. omeprazole (PRILOSEC) 20 mg capsule take 1 capsule by mouth twice a day 30 TO 45 MINUTES BEFORE MEALS No current facility-administered medications for this visit. PAST SURGICAL HISTORY Procedure Laterality Date SECTION HX 07/05/1970 PAST SURGICAL HISTORY OF carpal tunnel PAST SURGICAL HISTORY OF bunionectomy REMOVAL GALLBLADDER PAST MEDICAL HISTORY Diagnosis Date Anxiety, generalized Tam's esophagus Depression, unspecified GERD (gastroesophageal reflux disease) FAMILY HISTORY Problem Relation Age of Onset Heart disease Mother Colon Cancer Father other (non hodgkins lymphoma) Sister Skin Cancer Sister Skin Cancer Sister Liver Cancer Brother other (Bladder Cancer) Brother No Known Problems Maternal Grandmother No Known Problems Maternal Grandfather No Known Problems Paternal Grandmother No Known Problems Paternal Grandfather SOCIAL HISTORY Social History Tobacco Use Smoking status: Former Current packs/day: 0.00 Types: Cigarettes Quit date: 1984 Years since quittin.7 Smokeless tobacco: Never Vaping Use Vaping status: Never Used Substance Use Topics Alcohol use: Not Currently Drug use: Never Review of Systems Constitutional: Negative for chills, diaphoresis and fever. HENT: Negative for drooling, ear discharge, facial swelling, nosebleeds, sore throat and trouble swallowing. Eyes: Negative for discharge, redness, itching and visual disturbance. Respiratory: Negative for apnea, choking, chest tightness, shortness of breath, wheezing and stridor. Cardiovascular: Negative for chest pain and palpitations. Gastrointestinal: Negative for abdominal distention, abdominal pain, anal bleeding, blood in stool, nausea and vomiting. Endocrine: Negative for cold intolerance and heat intolerance. Genitourinary: Negative for genital sores, menstrual problem and vaginal bleeding. Musculoskeletal: Negative for gait problem, myalgias, neck pain and neck stiffness. Skin: Negative for pallor, rash and wound. Allergic/Immunologic: Negative for environmental allergies, food allergies and immunocompromised state. Neurological: Negative for dizziness, seizures, facial asymmetry, speech difficulty, light-headedness, numbness and headaches. Hematological: Negative for adenopathy. Does not bruise/bleed easily. Psychiatric/Behavioral: Negative for agitation, behavioral problems, confusion and hallucinations. OBJECTIVE: There were no vitals taken for this visit. The sensitive examination was discussed with the Patient or Patient's Authorized Extrusion Technician. As applicable, any other physician, advance practice provider, medical student, or other health professional student that will be observing or involved in the sensitive examination for educational or training purposes was discussed with the Patient or Authorized Extrusion Technician. The Patient or Authorized Extrusion Technician has agreed to proceed with the sensitive examination. (Sensitive examination includes inspection and/or palpation of the breasts, pelvis, prostate and anorectal regions) Physical Exam Constitutional: Appearance: She is well-developed. HENT: Head: Normocephalic and atraumatic. Nose: Nose normal. Mouth/Throat: Mouth: Mucous membranes are moist. Pharynx: Oropharynx is clear. Eyes: Extraocular Movements: Extraocular movements intact. Conjunctiva/sclera: Conjunctivae normal. Pupils: Pupils are equal, round, and reactive to light. Cardiovascular: Rate and Rhythm: Normal rate. Pulmonary: Effort: Pulmonary effort is normal. Breath sounds: No wheezing, rhonchi or rales. Abdominal: General: Bowel sounds are normal. There is no distension. Palpations: Abdomen is soft. There is no mass. Tenderness: There is no abdominal tenderness. There is no guarding or rebound. Genitourinary: Comments: Incisions clean, dry and intact, sutures that were poking her were removed. Musculoskeletal: General: No swelling, tenderness, deformity or signs of injury. Normal range of motion. Cervical back: Normal range of motion and neck supple. Skin: General: Skin is warm and dry. Coloration: Skin is not jaundiced. Findings: No erythema or lesion. Neurological: Mental Status: She is alert and oriented to person, place, and time. Cranial Nerves: No cranial nerve deficit. Gait: Gait normal. Deep Tendon Reflexes: Reflexes are normal and symmetric. Psychiatric: Mood and Affect: Mood normal. Behavior: Behavior normal. Thought Content: Thought content normal. Judgment: Judgment normal. Assessment & Plan OAB (overactive bladder) We discussed the patient's options for her OAB which include expectant management, behavioral modification and bladder training, pelvic floor rehabilitation, anticholinergic medications, Myrbetriq (a B3 adrenergic agonist), or a combination of these treatment modalities. We also discussed the option of sacroneuromodulation (Interstim), UrgentPC, REVI or Intravesical Botox. We discussed the importance of decreasing/eliminating her caffeine intake to help improve her urgency and frequency. The patient was counseled on the importance of kegel exercises for urge control. She was given a handout on OAB, bladder training and pelvic floor exercises. Refill meds. Orders: vibegron (GEMTESA) 75 mg tablet; Take 1 tablet by mouth once daily. Allergy to environmental factors Orders: ipratropium bromide (ATROVENT) 42 mcg (0.06 %) nasal spray; Use 2 Sprays in the nose three times a day. Labial hypertrophy Healing well and doing well. No issues. Removed sutures that were poking. She is happy with results of procedure. Mary Beth Fall MD documented in this encounter [facility] 02-15-2024 Note HNO ID: [id number] Author: MARY BETH FALL MD Service: ? Author Type: Physician Type: Progress Notes Filed: 02/15/2024 13:36 Note Text: Female Pelvic Medicine AND Reconstructive Surgery Follow-Up Richie Johnson is a 78 year old female, who presents for a follow-up of labial hypertrophy. History since last visit: 01/22/2024 labioplasty done, she returns today and states she is not having any pain or bleeding but is getting poked by her sutures. ALLERGIES No Known Allergies Current Outpatient Medications Medication Sig lidocaine-prilocaine (EMLA) 2.5-2.5 % cream Apply to affected area as needed. ipratropium bromide (ATROVENT) 42 mcg (0.06 %) nasal spray instill 2 sprays into each nostril three times a day if needed for runny nose sucralfate (CARAFATE) 1 gram tablet Take 1 tablet by mouth every 12 hours. vibegron (GEMTESA) 75 mg tablet Take 1 tablet by mouth once daily. estradiol (ESTRACE) 0.01 % (0.1 mg/gram) vaginal cream Use a pea-size amount vaginally three times per week. May use as often as daily. Do not use applicator. estradiol (ESTRACE) 0.01 % (0.1 mg/gram) vaginal cream Use 1 g vaginally once daily. Use fingertip amount of vaginal tissue nightly x 2 weeks then use 2-3 times weekly. clobetasol (TEMOVATE) 0.05 % cream Apply to affected area 2x/day for 2 weeks, then 1x/day for a week, than 1-3x/week for maintenance. buPROPion (WELLBUTRIN) 75 mg tablet Take 1 tablet by mouth every afternoon. celecoxib (CELEBREX) 200 mg capsule Take 1 capsule by mouth every afternoon. citalopram (CELEXA) 20 mg tablet Take 1 tablet by mouth every afternoon. omeprazole (PRILOSEC) 20 mg capsule take 1 capsule by mouth twice a day 30 TO 45 MINUTES BEFORE MEALS No current facility-administered medications for this visit. PAST SURGICAL HISTORY Procedure Laterality Date SECTION HX 07/05/1970 PAST SURGICAL HISTORY OF carpal tunnel PAST SURGICAL HISTORY OF bunionectomy REMOVAL GALLBLADDER PAST MEDICAL HISTORY Diagnosis Date Anxiety, generalized Tam's esophagus Depression, unspecified GERD (gastroesophageal reflux disease) FAMILY HISTORY Problem Relation Age of Onset Heart disease Mother Colon Cancer Father other (non hodgkins lymphoma) Sister Skin Cancer Sister Skin Cancer Sister Liver Cancer Brother other (Bladder Cancer) Brother No Known Problems Maternal Grandmother No Known Problems Maternal Grandfather No Known Problems Paternal Grandmother No Known Problems Paternal Grandfather SOCIAL HISTORY Social History Tobacco Use Smoking status: Former Current packs/day: 0.00 Types: Cigarettes Quit date: 1984 Years since quittin.7 Smokeless tobacco: Never Vaping Use Vaping status: Never Used Substance Use Topics Alcohol use: Not Currently Drug use: Never Review of Systems Constitutional: Negative for chills, diaphoresis and fever. HENT: Negative for drooling, ear discharge, facial swelling, nosebleeds, sore throat and trouble swallowing. Eyes: Negative for discharge, redness, itching and visual disturbance. Respiratory: Negative for apnea, choking, chest tightness, shortness of breath, wheezing and stridor. Cardiovascular: Negative for chest pain and palpitations. Gastrointestinal: Negative for abdominal distention, abdominal pain, anal bleeding, blood in stool, nausea and vomiting. Endocrine: Negative for cold intolerance and heat intolerance. Genitourinary: Negative for genital sores, menstrual problem and vaginal bleeding. Musculoskeletal: Negative for gait problem, myalgias, neck pain and neck stiffness. Skin: Negative for pallor, rash and wound. Allergic/Immunologic: Negative for environmental allergies, food allergies and immunocompromised state. Neurological: Negative for dizziness, seizures, facial asymmetry, speech difficulty, light-headedness, numbness and headaches. Hematological: Negative for adenopathy. Does not bruise/bleed easily. Psychiatric/Behavioral: Negative for agitation, behavioral problems, confusion and hallucinations. OBJECTIVE: There were no vitals taken for this visit. The sensitive examination was discussed with the Patient or Patient's Authorized Extrusion Technician. As applicable, any other physician, advance practice provider, medical student, or other health professional student that will be observing or involved in the sensitive examination for educational or training purposes was discussed with the Patient or Authorized Extrusion Technician. The Patient or Authorized Extrusion Technician has agreed to proceed with the sensitive examination. (Sensitive examination includes inspection and/or palpation of the breasts, pelvis, prostate and anorectal regions) Physical Exam Constitutional: Appearance: She is well-developed. HENT: Head: Normocephalic and atraumatic. Nose: Nose normal. Mouth/Throat: Mouth: Mucous membranes are moist. Pharynx: Oropharynx is clear. Eyes: Ext (more content not included)... [facility] 02-08-2024 Telephone encounter Note Left pt a message to call the office to schedule a sooner appt. [facility] 02-08-2024 Miscellaneous Notes Left pt a message to call the office to schedule a sooner appt. Returned patient's call, verified name and . Patient is 2 weeks s/p labioplasty and is concerned that her sutures are still very bothersome. She saw Dr. Fall on 01/27 and she was advised to return in two weeks and if the sutures still haven't dissolved by then, Dr. Fall would remove them. Patient not comfortable with waiting another week, due to discomfort from feeling her sutures when sitting, she would like to be seen sooner if possible. Routing to [facility] Clerical team to see if it is possible for patient to see Dr. Fall sooner. Esther Jason RN Patient called in stating she feels like she is sitting on a ball of sutures, and would like to speak with a nurse. She is about 8 days out from a Vaginal Scar Revision documented in this encounter [facility] 02-05-2024 Telephone encounter Note Returned patient's call, verified name and . Patient is 2 weeks s/p labioplasty and is concerned that her sutures are still very bothersome. She saw Dr. Fall on 01/27 and she was advised to return in two weeks and if the sutures still haven't dissolved by then, Dr. Fall would remove them. Patient not comfortable with waiting another week, due to discomfort from feeling her sutures when sitting, she would like to be seen sooner if possible. Routing to [facility] Clerical team to see if it is possible for patient to see Dr. Fall sooner. Esther Jason RN [facility] 02-05-2024 Telephone encounter Note Patient called in stating she feels like she is sitting on a ball of sutures, and would like to speak with a nurse. She is about 8 days out from a Vaginal Scar Revision [facility] 01-28-2024 History of Present illness Narrative Female Pelvic Medicine & Reconstructive Surgery Follow-Up Richie Johnson is a 78 year old female, who presents for a follow-up of labioplasty done 01/22/2024. History since last visit: Patient returns one week after labioplasty. She is doing well with no pain. She is bothered a little by the sutures and the itching but otherwise no other issues. ALLERGIES No Known Allergies Current Outpatient Medications Medication Sig lidocaine-prilocaine (EMLA) 2.5-2.5 % cream Apply to affected area as needed. ipratropium bromide (ATROVENT) 42 mcg (0.06 %) nasal spray instill 2 sprays into each nostril three times a day if needed for runny nose sucralfate (CARAFATE) 1 gram tablet Take 1 tablet by mouth every 12 hours. vibegron (GEMTESA) 75 mg tablet Take 1 tablet by mouth once daily. estradiol (ESTRACE) 0.01 % (0.1 mg/gram) vaginal cream Use a pea-size amount vaginally three times per week. May use as often as daily. Do not use applicator. estradiol (ESTRACE) 0.01 % (0.1 mg/gram) vaginal cream Use 1 g vaginally once daily. Use fingertip amount of vaginal tissue nightly x 2 weeks then use 2-3 times weekly. clobetasol (TEMOVATE) 0.05 % cream Apply to affected area 2x/day for 2 weeks, then 1x/day for a week, than 1-3x/week for maintenance. buPROPion (WELLBUTRIN) 75 mg tablet Take 1 tablet by mouth every afternoon. celecoxib (CELEBREX) 200 mg capsule Take 1 capsule by mouth every afternoon. citalopram (CELEXA) 20 mg tablet Take 1 tablet by mouth every afternoon. omeprazole (PRILOSEC) 20 mg capsule take 1 capsule by mouth twice a day 30 TO 45 MINUTES BEFORE MEALS No current facility-administered medications for this visit. PAST SURGICAL HISTORY Procedure Laterality Date SECTION HX 07/05/1970 PAST SURGICAL HISTORY OF carpal tunnel PAST SURGICAL HISTORY OF bunionectomy REMOVAL GALLBLADDER PAST MEDICAL HISTORY Diagnosis Date Anxiety, generalized Tam's esophagus Depression, unspecified GERD (gastroesophageal reflux disease) FAMILY HISTORY Problem Relation Age of Onset Heart disease Mother Colon Cancer Father other (non hodgkins lymphoma) Sister Skin Cancer Sister Skin Cancer Sister Liver Cancer Brother other (Bladder Cancer) Brother No Known Problems Maternal Grandmother No Known Problems Maternal Grandfather No Known Problems Paternal Grandmother No Known Problems Paternal Grandfather SOCIAL HISTORY Social History Tobacco Use Smoking status: Former Current packs/day: 0.00 Types: Cigarettes Quit date: 1984 Years since quittin.7 Smokeless tobacco: Never Vaping Use Vaping status: Never Used Substance Use Topics Alcohol use: Not Currently Drug use: Never Review of Systems Constitutional: Negative for chills, diaphoresis and fever. HENT: Negative for drooling, ear discharge, facial swelling, nosebleeds, sore throat and trouble swallowing. Eyes: Negative for discharge, redness, itching and visual disturbance. Respiratory: Negative for apnea, choking, chest tightness, shortness of breath, wheezing and stridor. Cardiovascular: Negative for chest pain and palpitations. Gastrointestinal: Negative for abdominal distention, abdominal pain, anal bleeding, blood in stool, nausea and vomiting. Endocrine: Negative for cold intolerance and heat intolerance. Genitourinary: Negative for genital sores, menstrual problem and vaginal bleeding. Musculoskeletal: Negative for gait problem, myalgias, neck pain and neck stiffness. Skin: Negative for pallor, rash and wound. Allergic/Immunologic: Negative for environmental allergies, food allergies and immunocompromised state. Neurological: Negative for dizziness, seizures, facial asymmetry, speech difficulty, light-headedness, numbness and headaches. Hematological: Negative for adenopathy. Does not bruise/bleed easily. Psychiatric/Behavioral: Negative for agitation, behavioral problems, confusion and hallucinations. OBJECTIVE: BP 128/84 Ht 167.6 cm (5' 6) Wt 73.9 kg (163 lb) BMI 26.31 kg/m The sensitive examination was discussed with the Patient or Patient's Authorized Extrusion Technician. As applicable, any other physician, advance practice provider, medical student, or other health professional student that will be observing or involved in the sensitive examination for educational or training purposes was discussed with the Patient or Authorized Extrusion Technician. The Patient or Authorized Extrusion Technician has agreed to proceed with the sensitive examination. (Sensitive examination includes inspection and/or palpation of the breasts, pelvis, prostate and anorectal regions) Physical Exam Constitutional: Appearance: She is well-developed. HENT: Head: Normocephalic and atraumatic. Nose: Nose normal. Mouth/Throat: Mouth: Mucous membranes are moist. Pharynx: Oropharynx is clear. Eyes: Extraocular Movements: Extraocular movements intact. Conjunctiva/sclera: Conjunctivae normal. Pupils: Pupils are equal, round, and reactive to light. Cardiovascular: Rate and Rhythm: Normal rate. Pulmonary: Effort: Pulmonary effort is normal. Breath sounds: No wheezing, rhonchi or rales. Abdominal: General: Bowel sounds are normal. There is no distension. Palpations: Abdomen is soft. There is no mass. Tenderness: There is no abdominal tenderness. There is no guarding or rebound. Genitourinary: Comments: Incisions clean, dry and intact. Musculoskeletal: General: No swelling, tenderness, deformity or signs of injury. Normal range of motion. Cervical back: Normal range of motion and neck supple. Skin: General: Skin is warm and dry. Coloration: Skin is not jaundiced. Findings: No erythema or lesion. Neurological: Mental Status: She is alert and oriented to person, place, and time. Cranial Nerves: No cranial nerve deficit. Gait: Gait normal. Deep Tendon Reflexes: Reflexes are normal and symmetric. Psychiatric: Mood and Affect: Mood normal. Behavior: Behavior normal. Thought Content: Thought content normal. Judgment: Judgment normal. Assessment & Plan Labial hypertrophy Doing great following labioplasty. Continue routine healing. Will have her return in two weeks to re-examine and evaluate healing progress. I answered all of her questions and spent time discussing the plan moving forward. Mary Beth Fall MD documented in this encounter [facility] 01-28-2024 Note HNO ID: [id number] Author: MARY BETH FALL MD Service: ? Author Type: Physician Type: Progress Notes Filed: 01/28/2024 12:05 Note Text: Female Pelvic Medicine AND Reconstructive Surgery Follow-Up Richie Johnson is a 78 year old female, who presents for a follow-up of labioplasty done 01/22/2024. History since last visit: Patient returns one week after labioplasty. She is doing well with no pain. She is bothered a little by the sutures and the itching but otherwise no other issues. ALLERGIES No Known Allergies Current Outpatient Medications Medication Sig lidocaine-prilocaine (EMLA) 2.5-2.5 % cream Apply to affected area as needed. ipratropium bromide (ATROVENT) 42 mcg (0.06 %) nasal spray instill 2 sprays into each nostril three times a day if needed for runny nose sucralfate (CARAFATE) 1 gram tablet Take 1 tablet by mouth every 12 hours. vibegron (GEMTESA) 75 mg tablet Take 1 tablet by mouth once daily. estradiol (ESTRACE) 0.01 % (0.1 mg/gram) vaginal cream Use a pea-size amount vaginally three times per week. May use as often as daily. Do not use applicator. estradiol (ESTRACE) 0.01 % (0.1 mg/gram) vaginal cream Use 1 g vaginally once daily. Use fingertip amount of vaginal tissue nightly x 2 weeks then use 2-3 times weekly. clobetasol (TEMOVATE) 0.05 % cream Apply to affected area 2x/day for 2 weeks, then 1x/day for a week, than 1-3x/week for maintenance. buPROPion (WELLBUTRIN) 75 mg tablet Take 1 tablet by mouth every afternoon. celecoxib (CELEBREX) 200 mg capsule Take 1 capsule by mouth every afternoon. citalopram (CELEXA) 20 mg tablet Take 1 tablet by mouth every afternoon. omeprazole (PRILOSEC) 20 mg capsule take 1 capsule by mouth twice a day 30 TO 45 MINUTES BEFORE MEALS No current facility-administered medications for this visit. PAST SURGICAL HISTORY Procedure Laterality Date SECTION HX 07/05/1970 PAST SURGICAL HISTORY OF carpal tunnel PAST SURGICAL HISTORY OF bunionectomy REMOVAL GALLBLADDER PAST MEDICAL HISTORY Diagnosis Date Anxiety, generalized Tam's esophagus Depression, unspecified GERD (gastroesophageal reflux disease) FAMILY HISTORY Problem Relation Age of Onset Heart disease Mother Colon Cancer Father other (non hodgkins lymphoma) Sister Skin Cancer Sister Skin Cancer Sister Liver Cancer Brother other (Bladder Cancer) Brother No Known Problems Maternal Grandmother No Known Problems Maternal Grandfather No Known Problems Paternal Grandmother No Known Problems Paternal Grandfather SOCIAL HISTORY Social History Tobacco Use Smoking status: Former Current packs/day: 0.00 Types: Cigarettes Quit date: 1984 Years since quittin.7 Smokeless tobacco: Never Vaping Use Vaping status: Never Used Substance Use Topics Alcohol use: Not Currently Drug use: Never Review of Systems Constitutional: Negative for chills, diaphoresis and fever. HENT: Negative for drooling, ear discharge, facial swelling, nosebleeds, sore throat and trouble swallowing. Eyes: Negative for discharge, redness, itching and visual disturbance. Respiratory: Negative for apnea, choking, chest tightness, shortness of breath, wheezing and stridor. Cardiovascular: Negative for chest pain and palpitations. Gastrointestinal: Negative for abdominal distention, abdominal pain, anal bleeding, blood in stool, nausea and vomiting. Endocrine: Negative for cold intolerance and heat intolerance. Genitourinary: Negative for genital sores, menstrual problem and vaginal bleeding. Musculoskeletal: Negative for gait problem, myalgias, neck pain and neck stiffness. Skin: Negative for pallor, rash and wound. Allergic/Immunologic: Negative for environmental allergies, food allergies and immunocompromised state. Neurological: Negative for dizziness, seizures, facial asymmetry, speech difficulty, light-headedness, numbness and headaches. Hematological: Negative for adenopathy. Does not bruise/bleed easily. Psychiatric/Behavioral: Negative for agitation, behavioral problems, confusion and hallucinations. OBJECTIVE: BP 128/84 Ht 167.6 cm (5' 6) Wt 73.9 kg (163 lb) BMI 26.31 kg/m? The sensitive examination was discussed with the Patient or Patient's Authorized Extrusion Technician. As applicable, any other physician, advance practice provider, medical student, or other health professional student that will be observing or involved in the sensitive examination for educational or training purposes was discussed with the Patient or Authorized Extrusion Technician. The Patient or Authorized Extrusion Technician has agreed to proceed with the sensitive examination. (Sensitive examination includes inspection and/or palpation of the breasts, pelvis, prostate and anorectal regions) Physical Exam Constitutional: Appearance: She is well-developed. HENT: Head: Normocephalic and atraumatic. Nose: Nose normal. Mouth/Throat: Mouth: Mucous (more content not included)... [facility] 01-22-2024 Instructions Mary Beth Fall MD - 01/22/2024 10:20 AM EDT Images from the original note were not included. Use Aquaphor liberally on wound. You may also apply emla cream prior to placing aquaphor. UROGYNECOLOGY POSTOP INSTRUCTIONS ACTIVITY Your surgical recovery will be unique to you and how you heal. In the first few days after surgery, you will probably feel sluggish. As you recover, you will gradually return to normal activities. It is important to push yourself to return to normal activities as you feel fit. Listen to your body in terms of increasing your activity level as you recover. You may walk and climb stairs right after surgery. Walking and stair climbing will not hurt your surgical repair. You may resume activities like lifting/running/high impact aerobic activities/sit-up as soon as you feel strong enough. Please do not do any bike or horseback riding for 2 weeks if you have had a midurethral sling. Do not put anything in the vagina for 6 weeks after surgery unless otherwise instructed by your doctor (including tampons, douching, sexual intercourse, etc). No driving while you are taking narcotic pain medication, or until you feel that you are ready and can safely slam the brakes if needed. Avoid sitting or lying in bed for more than 2 hours at a time while you are awake to reduce your risk of blood clots. You may return to work when directed by your physician. Please contact your doctor if you need any return to work letters or medical leave paperwork to be completed. PAIN MANAGEMENT After you go home, you should take acetaminophen (Tylenol) and ibuprofen (Motrin). We recommend rotating the timing of these medications so that you are taking one of these medications every 3 to [address], you can help prevent pain. After the first 72 hours, you can take these medications as needed. These should be the first medications you use for pain. Applying ice packs to your incisions (abdominal or vulvar/perineal) for 20 minutes as often as needed may also help. Some pain medications can cause constipation so you should take a stool softener (i.e. Colace) or laxative (i.e. Miralax) while you are on these medications (see the following section on constipation). OTHER MEDICATIONS If you were prescribed vaginal estrogen, you should resume it in 7-10 days after surgery unless you were instructed otherwise. Please check your discharge instructions about when to resume other medications. WOUND CARE Shower daily after surgery. No tub baths until wound is completely healed. If you have any abdominal incisions, wash them daily with a mild antibacterial soap and water. Pat your incision dry with a clean towel. Wash your hands frequently, especially before touching your incision, changing any dressings, after using the restroom, and before eating. WHAT TO EXPECT AT HOME Recovery from surgery is generally 4 weeks, but sometimes longer for more strenuous activity. It is normal to be very tired during this time. It is normal to have some drainage or a small amount of vaginal bleeding after surgery which may last up to 6 weeks. It is normal to have some bruising around the vaginal opening or on the buttocks if you had a vaginal surgery or around your incisions if you had an abdominal or laparoscopic surgery. If you had a laparoscopic surgery, you may experience gas pain, abdominal swelling, or shoulder pain for 24-72 hours after surgery. A warm shower, heating pad, and/or walking may help. WHEN TO CALL YOUR DOCTOR: If you cannot urinate for 3-5 hours or are only able to urinate small amounts. Fever (>100.4 F or 38.0 C) or chills. Incision problems such as redness, warmth, swelling, or foul-smelling drainage. Severe nausea or persistent vomiting. Bright red vaginal bleeding (soaking >1 pad/hour) Foul smelling vaginal drainage (note that some vaginal discharge is normal) Severe pain not relieved with pain medication. Pain and swelling in your legs, especially if it is only on one side and not the other. Pain with urination, cloudy urine, or foul-smelling urine. Or if you have any other problems or questions. CALL 911 OR GO TO THE EMERGENCY ROOM IF YOU HAVE: shortness of breath, difficulty breathing, or chest pain. UROGYNECOLOGY PHYSICIAN CONTACT INFORMATION During business hours, these numbers connect to your doctor s office. During the evening and weekends, these numbers will connect you to the answering service to speak with the doctor wildlife policy professional. Dr. Pierre Dr. Riojas Dr. Erickson Dr. Muniz Dr. Strange Dr. Thakkar Dr. Fall Dr. Page Radha Lorenzo, MANAGER VEHICLE Angelina Mcdowell, MANAGER VEHICLE Luis Carlos Johnson, MANAGER VEHICLE Jenn Velasquez, MANAGER VEHICLE Irena Ulloa, MANAGER VEHICLE Jazmine Franklin, MANAGER VEHICLE Please DO NOT use MyChart for post-surgery concerns. documented in this encounter [facility] 01-22-2024 Note HNO ID: [id number] Author: MARY BETH FALL MD Service: ? Author Type: Physician Type: Procedures Filed: 01/22/2024 10:20 Note Text: UNIVERSAL PROTOCOL / SAFETY CHECKLIST Diagnosis: Labial Hypertrophy Procedure to be Performed: Labioplasty Sign In: A Moment of CARE was [...] Out: SIGN OUT (optional for EMERGENT procedures): No specimen collected. Procedure: The patient was prepped and draped and sterile fashion after obtaining informed consent. Anesthesia was obtained using topical Emla cream and injectable 2% lidocaine. The TempSure surgical device using the loop in the cut setting was used to excise the redundant and hypertrophied excess labia minora. The edges were then re-approximated using interruped 4-O vicryl suture. This was done bilaterally on both labia minora. Pressure was then held for several minutes for hemostasis and to minimize swelling. The patient tolerated the procedure well. Excellent hemostasis was noted. Mary Beth Fall MD [facility] 01-22-2024 Procedure note UNIVERSAL PROTOCOL / SAFETY CHECKLIST Diagnosis: Labial Hypertrophy Procedure to be Performed: Labioplasty Sign In: A Moment of CARE was [...] Out: SIGN OUT (optional for EMERGENT procedures): No specimen collected. Procedure: The patient was prepped and draped and sterile fashion after obtaining informed consent. Anesthesia was obtained using topical Emla cream and injectable 2% lidocaine. The TempSure surgical device using the loop in the cut setting was used to excise the redundant and hypertrophied excess labia minora. The edges were then re-approximated using interruped 4-O vicryl suture. This was done bilaterally on both labia minora. Pressure was then held for several minutes for hemostasis and to minimize swelling. The patient tolerated the procedure well. Excellent hemostasis was noted. Mary Beth Fall MD [facility] 01-22-2024 Procedure note UNIVERSAL PROTOCOL / SAFETY CHECKLIST Diagnosis: Labial Hypertrophy Procedure to be Performed: Labioplasty Sign In: A Moment of CARE was [...] Out: SIGN OUT (optional for EMERGENT procedures): No specimen collected. Procedure: The patient was prepped and draped and sterile fashion after obtaining informed consent. Anesthesia was obtained using topical Emla cream and injectable 2% lidocaine. The TempSure surgical device using the loop in the cut setting was used to excise the redundant and hypertrophied excess labia minora. The edges were then re-approximated using interruped 4-O vicryl suture. This was done bilaterally on both labia minora. Pressure was then held for several minutes for hemostasis and to minimize swelling. The patient tolerated the procedure well. Excellent hemostasis was noted. Mary Beth Fall MD documented in this encounter [facility] 01-07-2024 Telephone encounter Note Attempted to reach patient, left VM for her to return call to office. Will send mychart message as well. Esther Jason RN [facility] 01-07-2024 Miscellaneous Notes Attempted to reach patient, left VM for her to return call to office. Will send mychart message as well. Esther Jason RN Agree with RN No additional recs Verified name and .. Pt called RN back. Pt was wondering if there was anything else she can do to help with her labial burning. PT stated she using cold gel pack, and that she is using coconut oil and aquaphor and estrace cream. She denies itching. RN stated pt is doing all the right things at home. Just added to wear loose fitting clothes around the crotch area. Pt is scheduled for labioplasty in office procedure at on 01/22/[address] Fall. Erin Latif RN Rn tried to return pt call. RN LVM to call office back to talk about her issue. Erin Latif RN clobetasol (TEMOVATE) 0.05 % cream, estradiol (ESTRACE) 0.01 % (0.1 mg/gram) vaginal cream, vibegron (GEMTESA) 75 mg tablet OV: 12/10/23 CHIEF COMPLAINT: Richie Johnson is a 78 year old female who presents for consultation requested by Dr. Kiara Razo for an opinion regarding lichen sclerosus (consider PROFESSIONAL MODEL) and discuss labial hypertrophy. My final recommendations will be communicated back to the requesting physician by way of shared Medical record or letter to requesting physician via [place] mail. HISTORY OF PRESENT ILLNESS: Biopsy done 04/2023 confirmed presence of lichenoid dermatitis. She has been using clobetasol twice weekly and this really has not resolved her symptoms. She also reports pain/discomfort from labial hypertrophy. She states they get caught on her clothes and they often pinch when she sits on them. Regarding her other vaginal symptoms, Her main symptom is burning. She states that using coconut oil and aquaphor helps. She denies itching. She is taking oxybutynin for OAB. She has had some issues with her memory lately. Comments: Marked elongation of the labia minora extending far outside the labia majora ~5-6 cm in length. Significant vaginal atrophy. Assessment and Plan Problem List Items Addressed This Visit Nephrology OAB (overactive bladder) Stop oxybutynin and trial Gemtesa. Relevant Medications vibegron (GEMTESA) 75 mg tablet Asymptomatic microscopic hematuria We will determine next steps as needed once we have the results of her microscopic urinalysis. 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 I explained to her that a very minimal amount of estrogen cream is absorbed into her system and that it is not going to put her at an increased risk for breast cancer UNLESS SHE IS ON AN AROMATASE INHIBITOR. ESTROGEN CREAM PLUS AI MAY RESULT IN HIGH A 39% INCREASED RISK OF RECURRENT BREAST CANCER. We also discussed the dylan kilgore touch vaginal laser therapy for her vaginal atrophy. Consider PROFESSIONAL MODEL in future if needed. Relevant Medications estradiol (ESTRACE) 0.01 % (0.1 mg/gram) vaginal cream Other Lichen sclerosus et atrophicus - Primary Her pathology showed lichenoid dermatitis but her exam today is consistent mainly with vaginal atrophy. No Cigarette-paper appearnce to labia skin. No lesions noted. Expectant management for now. Labial hypertrophy For her labial hypertrophy, we discussed the option of labiaplasty in the OR or in the office. If done in the office, this would be done with local anesthesia, valium and the TempSure Surgical device. Plan labial reduction/labioplasty in the office. Mary Beth Fall MD Patient complaining of labial burning. Says she can hardly sit down it is so painful. No discoloration. Would like to know what she can do documented in this encounter [facility] 01-07-2024 Telephone encounter Note Agree with RN No additional recs [facility] 01-07-2024 Telephone encounter Note Verified name and .. Pt called RN back. Pt was wondering if there was anything else she can do to help with her labial burning. PT stated she using cold gel pack, and that she is using coconut oil and aquaphor and estrace cream. She denies itching. RN stated pt is doing all the right things at home. Just added to wear loose fitting clothes around the crotch area. Pt is scheduled for labioplasty in office procedure at on 9/20/[address] Fall. Erin Latif RN [facility] 01-07-2024 Telephone encounter Note Rn tried to return pt call. RN LVM to call [facility] office back to talk about her issue. Erin Latif RN clobetasol (TEMOVATE) 0.05 % cream, estradiol (ESTRACE) 0.01 % (0.1 mg/gram) vaginal cream, vibegron (GEMTESA) 75 mg tablet OV: 12/10/23 CHIEF COMPLAINT: Richie Johnson is a 78 year old female who presents for consultation requested by Dr. Kiara Razo for an opinion regarding lichen sclerosus (consider PROFESSIONAL MODEL) and discuss labial hypertrophy. My final recommendations will be communicated back to the requesting physician by way of shared Medical record or letter to requesting physician via [place] mail. HISTORY OF PRESENT ILLNESS: Biopsy done 04/2023 confirmed presence of lichenoid dermatitis. She has been using clobetasol twice weekly and this really has not resolved her symptoms. She also reports pain/discomfort from labial hypertrophy. She states they get caught on her clothes and they often pinch when she sits on them. Regarding her other vaginal symptoms, Her main symptom is burning. She states that using coconut oil and aquaphor helps. She denies itching. She is taking oxybutynin for OAB. She has had some issues with her memory lately. Comments: Marked elongation of the labia minora extending far outside the labia majora ~5-6 cm in length. Significant vaginal atrophy. Assessment and Plan Problem List Items Addressed This Visit Nephrology OAB (overactive bladder) Stop oxybutynin and trial Gemtesa. Relevant Medications vibegron (GEMTESA) 75 mg tablet Asymptomatic microscopic hematuria We will determine next steps as needed once we have the results of her microscopic urinalysis. 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 I explained to her that a very minimal amount of estrogen cream is absorbed into her system and that it is not going to put her at an increased risk for breast cancer UNLESS SHE IS ON AN AROMATASE INHIBITOR. ESTROGEN CREAM PLUS AI MAY RESULT IN HIGH A 39% INCREASED RISK OF RECURRENT BREAST CANCER. We also discussed the dylan kilgore touch vaginal laser therapy for her vaginal atrophy. Consider PROFESSIONAL MODEL in future if needed. Relevant Medications estradiol (ESTRACE) 0.01 % (0.1 mg/gram) vaginal cream Other Lichen sclerosus et atrophicus - Primary Her pathology showed lichenoid dermatitis but her exam today is consistent mainly with vaginal atrophy. No Cigarette-paper appearnce to labia skin. No lesions noted. Expectant management for now. Labial hypertrophy For her labial hypertrophy, we discussed the option of labiaplasty in the OR or in the office. If done in the office, this would be done with local anesthesia, valium and the TempSure Surgical device. Plan labial reduction/labioplasty in the office. Mary Beth Fall MD [facility] 01-07-2024 Telephone encounter Note Patient complaining of labial burning. Says she can hardly sit down it is so painful. No discoloration. Would like to know what she can do [facility] 12-10-2023 Telephone encounter Note Images from the original note were not included. Referral received for Labioplasty from Dr. Fall. Authorization entered, Will monitor status. Esther Jara RN December 10, 2023 10:08 AM Mary Beth Fall MD [facility] Need prior authorization for labial reduction/labioplasty for labial hypertrophy. Please let me know if there is any issue with prior authorization. She is willing to pay out of pocket if necessary but I want to be involved. [facility] 12-10-2023 Miscellaneous Notes Images from the original note were not included. Referral received for Labioplasty from Dr. Fall. Authorization entered, Will monitor status. Esther Jara RN December 10, 2023 10:08 AM Mary Beth Fall MD [facility] Need prior authorization for labial reduction/labioplasty for labial hypertrophy. Please let me know if there is any issue with prior authorization. She is willing to pay out of pocket if necessary but I want to be involved. documented in this encounter [facility] 12-10-2023 Instructions Mary Beth Fall MD - 12/10/2023 8:28 AM EDT Images from the original note were not included. Fingertip Application Method (Do not use applicator unless instructed by your doctor) For Estrogen Cream DO THIS NIGHTLY FOR TWO WEEKS Based on symptoms, can continue to use nightly. This cream will not increase your risk for breast cancer, blood clot or stroke. Please notify your doctor if you are on an aromatase inhibitor for breast cancer. Wash your hands with soap and water and dry thoroughly. Squeeze tube to express out 1 gram of cream (about enough to cover the tip of your index finger, from the last joint to the fingertip. (See Figure 1) Figure 1 Figure 2 Locate the vaginal opening (see Figure 2). Immediately above the vaginal opening is the urethra (a small opening where urine is eliminated from you body). The urethra may not be as easily identified as the vagina because the opening is much smaller, however, use the diagram to determine its approximate location. Carefully spread the cream onto the top wall of the vagina just underneath the urethral area (see Figure 2, yellow highlighted area). As the cream is spread, some may be gently inserted into the vagina: however, it is not necessary to push the cream high into the vagina. Rub this into the vaginal wall underneath the urethra as one would rub lotion into the skin. Do not use the applicator that may come with the prescription for the estrogen cream. Use only the small fingertip amount as noted above. documented in this encounter [facility] 12-10-2023 History of Present illness Narrative Female Pelvic Medicine & Reconstructive Surgery Consult CHIEF COMPLAINT: Richie Johnson is a 78 year old female who presents for consultation requested by Dr. Kiara Razo for an opinion regarding lichen sclerosus (consider PROFESSIONAL MODEL) and discuss labial hypertrophy. My final recommendations will be communicated back to the requesting physician by way of shared Medical record or letter to requesting physician via [place] mail. HISTORY OF PRESENT ILLNESS: Biopsy done 04/2023 confirmed presence of lichenoid dermatitis. She has been using clobetasol twice weekly and this really has not resolved her symptoms. She also reports pain/discomfort from labial hypertrophy. She states they get caught on her clothes and they often pinch when she sits on them. Regarding her other vaginal symptoms, Her main symptom is burning. She states that using coconut oil and aquaphor helps. She denies itching. She is taking oxybutynin for OAB. She has had some issues with her memory lately. Medical and Symptom History: LMP: No LMP recorded. Patient is postmenopausal.; Menopause yes: ALLERGIES No Known Allergies Current Outpatient Medications Medication Sig ipratropium bromide (ATROVENT) 42 mcg (0.06 %) nasal spray instill 2 sprays into each nostril three times a day if needed for runny nose sucralfate (CARAFATE) 1 gram tablet Take 1 tablet by mouth every 12 hours. estradiol (ESTRACE) 0.01 % (0.1 mg/gram) vaginal cream Use 1 g vaginally once daily. Use fingertip amount of vaginal tissue nightly x 2 weeks then use 2-3 times weekly. buPROPion (WELLBUTRIN) 75 mg tablet Take 1 tablet by mouth every afternoon. celecoxib (CELEBREX) 200 mg capsule Take 1 capsule by mouth every afternoon. citalopram (CELEXA) 20 mg tablet Take 1 tablet by mouth every afternoon. omeprazole (PRILOSEC) 20 mg capsule take 1 capsule by mouth twice a day 30 TO 45 MINUTES BEFORE MEALS vibegron (GEMTESA) 75 mg tablet Take 1 tablet by mouth once daily. estradiol (ESTRACE) 0.01 % (0.1 mg/gram) vaginal cream Use a pea-size amount vaginally three times per week. May use as often as daily. Do not use applicator. clobetasol (TEMOVATE) 0.05 % cream Apply to affected area 2x/day for 2 weeks, then 1x/day for a week, than 1-3x/week for maintenance. (Patient not taking: Reported on 12/10/2023) No current facility-administered medications for this visit. 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 No date: Depression, unspecified No date: GERD (gastroesophageal reflux disease) FAMILY HISTORY Problem Relation Age of Onset Heart disease Mother Colon Cancer Father other (non hodgkins lymphoma) Sister Skin Cancer Sister Skin Cancer Sister Liver Cancer Brother other (Bladder Cancer) Brother No Known Problems Maternal Grandmother No Known Problems Maternal Grandfather No Known Problems Paternal Grandmother No Known Problems Paternal Grandfather SOCIAL HISTORY Social History Tobacco Use Smoking status: Former Types: Cigarettes Quit date: 1984 Years since quittin.6 Smokeless tobacco: Never Vaping Use Vaping Use: Never used Substance Use Topics Alcohol use: Not Currently Drug use: Never Occupation: Retired Marital Status: Sexually active: is not sexually active because she has no desire. Review of Systems Constitutional: Negative for chills, diaphoresis and fever. HENT: Negative for drooling, ear discharge, facial swelling, nosebleeds, sore throat and trouble swallowing. Eyes: Negative for discharge, redness, itching and visual disturbance. Respiratory: Negative for apnea, choking, chest tightness, shortness of breath, wheezing and stridor. Cardiovascular: Negative for chest pain and palpitations. Gastrointestinal: Negative for abdominal distention, abdominal pain, anal bleeding, blood in stool, nausea and vomiting. Endocrine: Negative for cold intolerance and heat intolerance. Genitourinary: Negative for genital sores, menstrual problem and vaginal bleeding. Musculoskeletal: Negative for gait problem, myalgias, neck pain and neck stiffness. Skin: Negative for pallor, rash and wound. Allergic/Immunologic: Negative for environmental allergies, food allergies and immunocompromised state. Neurological: Negative for dizziness, seizures, facial asymmetry, speech difficulty, light-headedness, numbness and headaches. Hematological: Negative for adenopathy. Does not bruise/bleed easily. Psychiatric/Behavioral: Negative for agitation, behavioral problems, confusion and hallucinations. OBJECTIVE: BP 134/72 Ht 167.6 cm (5' 6) Wt 74.4 kg (164 lb) BMI 26.47 kg/m Physical Exam Exam conducted with a patrol police sergeant present. Constitutional: Appearance: She is well-developed. HENT: Head: Normocephalic and atraumatic. Nose: Nose normal. Mouth/Throat: Mouth: Mucous membranes are moist. Pharynx: Oropharynx is clear. Eyes: Extraocular Movements: Extraocular movements intact. Conjunctiva/sclera: Conjunctivae normal. Pupils: Pupils are equal, round, and reactive to light. Cardiovascular: Rate and Rhythm: Normal rate. Pulmonary: Effort: Pulmonary effort is normal. Breath sounds: No wheezing, rhonchi or rales. Abdominal: General: Bowel sounds are normal. There is no distension. Palpations: Abdomen is soft. There is no mass. Tenderness: There is no abdominal tenderness. There is no guarding or rebound. Hernia: There is no hernia in the left inguinal area or right inguinal area. Genitourinary: General: Normal vulva. Exam position: Lithotomy position. Pubic Area: No rash. Labia: Right: No rash, tenderness, lesion or injury. Left: No rash, tenderness, lesion or injury. Urethra: No prolapse, urethral pain, urethral swelling or urethral lesion. Vagina: No vaginal discharge, erythema, tenderness, bleeding, lesions or prolapsed vaginal duvall. Cervix: No cervical motion tenderness, friability or erythema. Uterus: Not enlarged, not tender and no uterine prolapse. Adnexa: Right: No mass, tenderness or fullness. Left: No mass, tenderness or fullness. Comments: Marked elongation of the labia minora extending far outside the labia majora ~5-6 cm in length. Significant vaginal atrophy. Musculoskeletal: General: No swelling, tenderness, deformity or signs of injury. Normal range of motion. Cervical back: Normal range of motion and neck supple. Lymphadenopathy: Lower Body: No right inguinal adenopathy. No left inguinal adenopathy. Skin: General: Skin is warm and dry. Coloration: Skin is not jaundiced. Findings: No erythema or lesion. Neurological: Mental Status: She is alert and oriented to person, place, and time. Cranial Nerves: No cranial nerve deficit. Gait: Gait normal. Deep Tendon Reflexes: Reflexes are normal and symmetric. Psychiatric: Mood and Affect: Mood normal. Behavior: Behavior normal. Thought Content: Thought content normal. Judgment: Judgment normal. URINE POC GLUCOSE UA (POCT) Negative 12/10/2023 BILIRUBIN UA (POCT) Negative 12/10/2023 KETONE UA (POCT) Negative 12/10/2023 SPECIFIC GRAVITY UA (POCT) 1.020 12/10/2023 HEMOGLOBIN/BLOOD UA (POCT) Value: Trace-intact 12/10/2023 PH UA (POCT) 6.0 12/10/2023 PROTEIN UA (POCT) Negative 12/10/2023 UROBILINOGEN UA (POCT) 0.2 12/10/2023 NITRITE UA (POCT) Negative 12/10/2023 LEUKOCYTES UA (POCT) Trace 12/10/2023 COLOR UA (POCT) Yellow 12/10/2023 CLARITY UA (POCT) Clear 12/10/2023 Assessment and Plan Problem List Items Addressed This Visit Nephrology OAB (overactive bladder) Stop oxybutynin and trial Gemtesa. Relevant Medications vibegron (GEMTESA) 75 mg tablet Asymptomatic microscopic hematuria We will determine next steps as needed once we have the results of her microscopic urinalysis. 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 I explained to her that a very minimal amount of estrogen cream is absorbed into her system and that it is not going to put her at an increased risk for breast cancer UNLESS SHE IS ON AN AROMATASE INHIBITOR. ESTROGEN CREAM PLUS AI MAY RESULT IN HIGH A 39% INCREASED RISK OF RECURRENT BREAST CANCER. We also discussed the dylan magui touch vaginal laser therapy for her vaginal atrophy. Consider PROFESSIONAL MODEL in future if needed. Relevant Medications estradiol (ESTRACE) 0.01 % (0.1 mg/gram) vaginal cream Other Lichen sclerosus et atrophicus - Primary Her pathology showed lichenoid dermatitis but her exam today is consistent mainly with vaginal atrophy. No Cigarette-paper appearnce to labia skin. No lesions noted. Expectant management for now. Labial hypertrophy For her labial hypertrophy, we discussed the option of labiaplasty in the OR or in the office. If done in the office, this would be done with local anesthesia, valium and the TempSure Surgical device. Plan labial reduction/labioplasty in the office. Mary Beth Fall MD This note was created using [employer]. documented in this encounter [facility] 12-10-2023 Note HNO ID: [id number] Author: MARY BETH FALL MD Service: ? Author Type: Physician Type: Progress Notes Filed: 12/10/2023 08:47 Note Text: Female Pelvic Medicine AND Reconstructive Surgery Consult CHIEF COMPLAINT: Richie Johnson is a 78 year old female who presents for consultation requested by Dr. Kiara Razo for an opinion regarding lichen sclerosus (consider PROFESSIONAL MODEL) and discuss labial hypertrophy. My final recommendations will be communicated back to the requesting physician by way of shared Medical record or letter to requesting physician via US mail. HISTORY OF PRESENT ILLNESS: Biopsy done 04/2023 confirmed presence of lichenoid dermatitis. She has been using clobetasol twice weekly and this really has not resolved her symptoms. She also reports pain/discomfort from labial hypertrophy. She states they get caught on her clothes and they often pinch when she sits on them. Regarding her other vaginal symptoms, Her main symptom is burning. She states that using coconut oil and aquaphor helps. She denies itching. She is taking oxybutynin for OAB. She has had some issues with her memory lately. Medical and Symptom History: LMP: No LMP recorded. Patient is postmenopausal.; Menopause yes: ALLERGIES No Known Allergies Current Outpatient Medications Medication Sig ipratropium bromide (ATROVENT) 42 mcg (0.06 %) nasal spray instill 2 sprays into each nostril three times a day if needed for runny nose sucralfate (CARAFATE) 1 gram tablet Take 1 tablet by mouth every 12 hours. estradiol (ESTRACE) 0.01 % (0.1 mg/gram) vaginal cream Use 1 g vaginally once daily. Use fingertip amount of vaginal tissue nightly x 2 weeks then use 2-3 times weekly. buPROPion (WELLBUTRIN) 75 mg tablet Take 1 tablet by mouth every afternoon. celecoxib (CELEBREX) 200 mg capsule Take 1 capsule by mouth every afternoon. citalopram (CELEXA) 20 mg tablet Take 1 tablet by mouth every afternoon. omeprazole (PRILOSEC) 20 mg capsule take 1 capsule by mouth twice a day 30 TO 45 MINUTES BEFORE MEALS vibegron (GEMTESA) 75 mg tablet Take 1 tablet by mouth once daily. estradiol (ESTRACE) 0.01 % (0.1 mg/gram) vaginal cream Use a pea-size amount vaginally three times per week. May use as often as daily. Do not use applicator. clobetasol (TEMOVATE) 0.05 % cream Apply to affected area 2x/day for 2 weeks, then 1x/day for a week, than 1-3x/week for maintenance. (Patient not taking: Reported on 12/10/2023) No current facility-administered medications for this visit. 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 No date: Depression, unspecified No date: GERD (gastroesophageal reflux disease) FAMILY HISTORY Problem Relation Age of Onset Heart disease Mother Colon Cancer Father other (non hodgkins lymphoma) Sister Skin Cancer Sister Skin Cancer Sister Liver Cancer Brother other (Bladder Cancer) Brother No Known Problems Maternal Grandmother No Known Problems Maternal Grandfather No Known Problems Paternal Grandmother No Known Problems Paternal Grandfather SOCIAL HISTORY Social History Tobacco Use Smoking status: Former Types: Cigarettes Quit date: 1984 Years since quittin.6 Smokeless tobacco: Never Vaping Use Vaping Use: Never used Substance Use Topics Alcohol use: Not Currently Drug use: Never Occupation: Retired Marital Status: Sexually active: is not sexually active because she has no desire. Review of Systems Constitutional: Negative for chills, diaphoresis and fever. HENT: Negative for drooling, ear discharge, facial swelling, nosebleeds, sore throat and trouble swallowing. Eyes: Negative for discharge, redness, itching and visual disturbance. Respiratory: Negative for apnea, choking, chest tightness, shortness of breath, wheezing and stridor. Cardiovascular: Negative for chest pain and palpitations. Gastrointestinal: Negative for abdominal distention, abdominal pain, anal bleeding, blood in stool, nausea and vomiting. Endocrine: Negative for cold intolerance and heat intolerance. Genitourinary: Negative for genital sores, menstrual problem and vaginal bleeding. Musculoskeletal: Negative for gait problem, myalgias, neck pain and neck stiffness. Skin: Negative for pallor, rash and wound. Allergic/Immunologic: Negative for environmental allergies, food allergies and immunocompromised state. Neurological: Negative for dizziness, seizures, facial asymmetry, speech difficulty, light-headedness, numbness and headaches. Hematological: Negative for adenopathy. Does not bruise/bleed easily. Psychiatric/Behavioral: Negative for agitation, behavioral problems, confusion and hallucinations. OBJECTIVE: BP 134/72 Ht 16 (more content not included)... [facility] 12-08-2023 Note [facility] Medical Records Department [address] [place] [address] History Physical Exam 12/08/23 1025 MR#: [id number] Acct: [id number] Name: RICHIE OJHNSON Rep #: [id number] : 1945 78 From: Zhao Abebe MD PCP: Dr. Alia Condon MD Status:[facility] Location: [place] [address] History and Physical Date of Admission: 12/08/23 Date of Service: 09/17/23 MR#: [id number] Acct: [id number] Name: RICHIE JOHNSON Rep #: [id number] : 1945 Provider: Dr. Zhao Abebe MD Age/Sex: 78/F Location: [facility] Status: Signed Intake Vital Signs 08/30/2414:09/16/2413:56 Height 5 ft 6 in 5 ft 6 in Weight: 165 lb BMI 26.6 BP 155/85 H Blood Pressure Location Rt brachial Position Sitting Respiration 18 Pulse 68 Pulse Source Monitor Temp 97.2 F L Temp Source Temporal Pulse Oximetry (%) 97 Oxygen Delivery Method room air Intake Visit Reasons: BARRETTS Chief Complaint: barretts Accompanied by: Is patient in pain?: No Allergies No Known Allergies Allergy (Verified 09/17/23 14:58) Medications ???Medication ???Instructions ???Recorded ???Confirmed ???Type bupropion HCl 75 mg tablet 75 mg PO DAILY 08/31/23 09/17/23 History calcium PO 08/31/23 09/17/23 History celecoxib 200 mg capsule 200 mg PO DAILY PRN pain #60 caps 08/31/23 09/17/23 Rx citalopram 20 mg tablet 20 mg PO DAILY 08/31/23 09/17/23 History clobetasol-cocunut oil topical 08/31/23 09/17/23 History omeprazole 40 mg capsule,delayed 40 mg PO BID 3 months #180 caps 08/31/23 09/17/23 Rx release oxybutynin chloride 5 mg tablet 5 mg PO DAILY 08/31/23 09/17/23 History ibandronate 150 mg tablet 150 mg PO QMONTH #7 tabs 09/04/23 09/17/23 Rx PFSH Medical History Chronic back pain Osteopenia with high risk of fracture Weight loss, non-intentional Barretts esophagus Broken wrist Broken humerus FH: cholecystectomy Vision problems Stomach ulcer GERD (gastroesophageal reflux disease) Osteoarthritis Neuropathy Heart murmur Hearing problem Chronic headaches GI problem Gall stones Emotional problems Bronchitis Carpal tunnel syndrome Bone fracture Back problem Arthritis Allergies Osteoporosis Depression Surgical History History of carpal tunnel surgery Previous section Family History (Updated 08/31/23 @ 15:23 by Araceli Rangel LPN) Brother Alcoholism Diabetes Liver cancer Seizures EpilepsySister Anxiety Autoimmune disorder Cancer OsteoporosisFather Colon cancer Social History adopted: No household members: spouse current occupational status: retired history of recent travel: No Smoking Status: Former smoker quit date: 08/26/84 alcohol intake: current alcohol intake frequency: other Alcohol type: other details: rarely, pt states she feels she may be allergic to alcohol. substance use type: does not use what type of physical activity do you participate in: walking frequency: daily seatbelt use: always do you feel safe at home: Yes HPI HPI HPI: Patient is a 78-year-old female who presents for surveillance upper and lower endoscopy. They are referred for surgical consultation from Dr Condon. Patient presents today with her . She confirms that she was diagnosed with Tam's esophagus probably over 15 years ago. She openly confesses that her memory does not serve her well in general anymore. Her last EGD was in 2020 and showed evidence of nondysplastic Tam's esophagus. Additional symptoms include: A feeling that food becomes stuck directly at the base of her neck. When asked to estimate how long this symptom has been present she describes symptoms for at least 15 years. She describes choking on solids and water both. She denies any prior need for esophageal dilation. She confirms a history of both reflux and heartburn. She confirms that she is on omeprazole twice daily and still experiences symptoms approximately twice a week. She notes that Dr Condon doubled her omeprazole dosing but this was poorly tolerated and she returned to 20 mg twice daily. She does confirm to a history of occasional aspiration events at night. She denies ever noting any blood or dark vomitus. Beyond the above, Mrs. Johnson wishes to know whether she can be considered for possible surveillance colonoscopy. She shares that she previously underwent colonoscopies yearly until 2010 and then this was extended until 2013. Her last colonoscopy was 2020. She describe (more content not included)... [facility] 2023 Note HNO ID: [id number] Author: MARY GARCIA MD Service: ? Author Type: Physician Type: Progress Notes Filed: 2023 13:34 Note Text: [employer] Consultant offered: Patient declines. Richie Johnson is a 77 year old female who presents for complaints regarding persistent vulvar discomfort despite using clobetasol BID since April. Pt reports has removed all vulvar/vaginal irritants and still no resolution. Pt reports it is painful to sit all day- it feels sore. Pt denies vaginal discharge. Pt reports she has looked with mirror and her anatomy to her looks so distorted. Pt reports some itching and burning. 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 History Comments: Sexual Activity: Not Currently; Male Contraception: No contraception data on record PAST MEDICAL HISTORY Diagnosis Date Anxiety, generalized Tam's esophagus Depression, unspecified GERD (gastroesophageal reflux disease) PAST SURGICAL HISTORY Procedure Laterality Date SECTION HX 07/05/1970 FAMILY HISTORY Problem Relation Age of Onset Heart disease Mother Colon Cancer Father other (non hodgkins lymphoma) Sister Skin Cancer Sister Skin Cancer Sister Liver Cancer Brother other (Bladder Cancer) Brother No Known Problems Maternal Grandmother No Known Problems Maternal Grandfather No Known Problems Paternal Grandmother No Known Problems Paternal Grandfather Social History Tobacco Use Smoking status: Former Types: Cigarettes Quit date: 1984 Years since quittin.2 Smokeless tobacco: Never Vaping Use Vaping Use: Never used Substance Use Topics Alcohol use: Not Currently Drug use: Never Current Outpatient Medications Medication Sig clobetasol (TEMOVATE) 0.05 % cream Apply to affected area 2x/day for 2 weeks, then 1x/day for a week, than 1-3x/week for maintenance. buPROPion (WELLBUTRIN) 75 mg tablet Take 1 tablet by mouth every afternoon. celecoxib (CELEBREX) 200 mg capsule Take 1 capsule by mouth every afternoon. citalopram (CELEXA) 20 mg tablet Take 1 tablet by mouth every afternoon. omeprazole (PRILOSEC) 20 mg capsule take 1 capsule by mouth twice a day 30 TO 45 MINUTES BEFORE MEALS oxybutynin ER (DITROPAN XL) 10 mg 24 hr tablet Take 1 tablet by mouth every afternoon. No current facility-administered medications for this visit. Allergies As of Date: 2023 (No Known Allergies) Fully Assessed 04/23/2023 REVIEW OF SYSTEMS Abdomen: no pain Bladder: no dysuria.. Expanded ROS: neg fever Allergies and current medication updated:Yes EXAM: BP 120/72 Wt 169 lb (76.7kg) GENERAL: pleasant, female in no apparent distress HEENT: Normocephalic and atraumatic NECK: full range of motion DERMATOLOGY: Normal and without lesions PELVIC: external genitalia normal, normal Bartholin's glands, urethra, [place]'s glands, no vulvar lesions, normal appearing perineal body and perianal region, no hypopigmentation or erythema noted, no ulcerations. Labia minora large and do extend well beyond majora -mild vulvar and vaginal atrophy NEURO: alert and oriented x3,exam grossly non-focal EXTREMITIES: normal ASSESSMENT AND PLAN: Encounter Diagnosis ICD-10-CM 1. Vulvar pain R10.2 2. Vulvar dermatitis L30.9 3. 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 Discussed with the patient that her pain may be coming from the labial hypertrophy. Discussed with the patient that if her pain is more when she is sitting I do feel that the labial hypertrophy is adding to her pain. I do not see any ulcerations or any other signs of worsening dermatitis. Discussed with the patient trying to use a lubrication daily to help prevent any further discomfort of the labia sticking to other tissue. Briefly discussed with the patient labioplasty to decrease their size which may decrease her pain. Discussed a trial of estrogen cream on the external tissue. 6. Vaginal estrogen. Medical Decision Making: Problems: Moderate: 1+ chronic illnesses with change Risk: Moderate: Drug management Medical Decision Making Level: 4 - Moderate Mary Ramirez MD [facility] 2023 History of Present illness Narrative [employer] Consultant offered: Patient declines. Richie Johnson is a 77 year old female who presents for complaints regarding persistent vulvar discomfort despite using clobetasol BID since April. Pt reports has removed all vulvar/vaginal irritants and still no resolution. Pt reports it is painful to sit all day- it feels sore. Pt denies vaginal discharge. Pt reports she has looked with mirror and her anatomy to her looks so distorted. Pt reports some itching and burning. 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 History Comments: Sexual Activity: Not Currently; Male Contraception: No contraception data on record PAST MEDICAL HISTORY Diagnosis Date Anxiety, generalized Tam's esophagus Depression, unspecified GERD (gastroesophageal reflux disease) PAST SURGICAL HISTORY Procedure Laterality Date SECTION HX 07/05/1970 FAMILY HISTORY Problem Relation Age of Onset Heart disease Mother Colon Cancer Father other (non hodgkins lymphoma) Sister Skin Cancer Sister Skin Cancer Sister Liver Cancer Brother other (Bladder Cancer) Brother No Known Problems Maternal Grandmother No Known Problems Maternal Grandfather No Known Problems Paternal Grandmother No Known Problems Paternal Grandfather Social History Tobacco Use Smoking status: Former Types: Cigarettes Quit date: 1984 Years since quittin.2 Smokeless tobacco: Never Vaping Use Vaping Use: Never used Substance Use Topics Alcohol use: Not Currently Drug use: Never Current Outpatient Medications Medication Sig clobetasol (TEMOVATE) 0.05 % cream Apply to affected area 2x/day for 2 weeks, then 1x/day for a week, than 1-3x/week for maintenance. buPROPion (WELLBUTRIN) 75 mg tablet Take 1 tablet by mouth every afternoon. celecoxib (CELEBREX) 200 mg capsule Take 1 capsule by mouth every afternoon. citalopram (CELEXA) 20 mg tablet Take 1 tablet by mouth every afternoon. omeprazole (PRILOSEC) 20 mg capsule take 1 capsule by mouth twice a day 30 TO 45 MINUTES BEFORE MEALS oxybutynin ER (DITROPAN XL) 10 mg 24 hr tablet Take 1 tablet by mouth every afternoon. No current facility-administered medications for this visit. Allergies As of Date: 2023 (No Known Allergies) Fully Assessed 04/23/2023 REVIEW OF SYSTEMS Abdomen: no pain Bladder: no dysuria.. Expanded ROS: neg fever Allergies and current medication updated:Yes EXAM: BP 120/72 Wt 169 lb (76.7kg) GENERAL: pleasant, female in no apparent distress HEENT: Normocephalic and atraumatic NECK: full range of motion DERMATOLOGY: Normal and without lesions PELVIC: external genitalia normal, normal Bartholin's glands, urethra, [place]'s glands, no vulvar lesions, normal appearing perineal body and perianal region, no hypopigmentation or erythema noted, no ulcerations. Labia minora large and do extend well beyond majora -mild vulvar and vaginal atrophy NEURO: alert and oriented x3,exam grossly non-focal EXTREMITIES: normal ASSESSMENT AND PLAN: Encounter Diagnosis ICD-10-CM 1. Vulvar pain R10.2 2. Vulvar dermatitis L30.9 3. 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 Discussed with the patient that her pain may be coming from the labial hypertrophy. Discussed with the patient that if her pain is more when she is sitting I do feel that the labial hypertrophy is adding to her pain. I do not see any ulcerations or any other signs of worsening dermatitis. Discussed with the patient trying to use a lubrication daily to help prevent any further discomfort of the labia sticking to other tissue. Briefly discussed with the patient labioplasty to decrease their size which may decrease her pain. Discussed a trial of estrogen cream on the external tissue. 6. Vaginal estrogen. Medical Decision Making: Problems: Moderate: 1+ chronic illnesses with change Risk: Moderate: Drug management Medical Decision Making Level: 4 - Moderate Mary Neyhart-Floyd, MD documented in this encounter [facility] 04-23-2023 Note HNO ID: [id number] Author: Anayeli Zarco APRN.CNP Service: ? Author Type: Nurse Practitioner Type: Progress Notes Filed: 04/23/2023 12:29 PM Note Text: [employer] Consultant offered: Patient declines. Richie Johnson is a [...] 1.5mL 1% lidocaine with 1:100,000 epi. 4mm [place] punch used to biopsy region. HEMOSTASIS: Obtained with silver nitrate and pressure Procedure Summary: Patient tolerated procedure well. ASSESSMENT: Chronic vulvar burning PLAN: Specimens labeled and sent to Pathology. Will notify patient of results in 1-2 weeks. Post-procedure instructions reviewed and written material given to the patient. Anayeli Zarco APRN.CNP [facility] 04-23-2023 History of Present illness Narrative [employer] Consultant offered: Patient declines. Richie Johnson is a [...] Anayeli Zarco APRN.CNP documented in this encounter [facility] 12-01-2022 Telephone encounter Note Pt has not been seen in over a year. Needs appt. [facility] 12-01-2022 Miscellaneous Notes Pt has not been seen in over a year. Needs appt. documented in this encounter [facility] 05-30-2021 Miscellaneous Notes IV out, TELE off,DCI given to pt , pain controlled at this time, in room and will transport her home when dressed documented in this encounter [facility] 05-30-2021 Hospital course Narrative [facility] [place] Richie Johnson Admitted: 05/29/2021 Discharge Date: 05/30/21 PCP Handoff Recommended Outpatient Testing None Results Pending At Discharge Urine culture Clinical Summary Richie Johnson is a 75 y.o. female patient of KOEZYer Kadie, DO with history of osteoporosis, anxiety, depression [...] discharge: > 30 minutes Completed by: Dmitri Singh on 05/30/21, 9:55 AM documented in this encounter [facility] 05-30-2021 Emergency department Note Report for admission to bed 420 given to Sherrill WOMACK. Regular meal tray ordered for this patient This RN called lab regarding COVID swab not being resulted since it was collected 6 hours ago. Lab reports it has not been sent to yoder and will be sent with the next batch. Pt pending room assignment still at this time. Bed: 33 Expected date: Expected time: Means of arrival: Comments: Bed 50 Report given to Tiesha Artis RN, who assumes pt's care. Lab notified of order for urine cx. PCP - Efrem Vee, [phone] Chief Complaint Patient presents with Flank Pain [...] TENOLYSIS ; Surgeon: Radha Baker DO; Location: [facility] MAIN OR; Service: Hand UPPER GASTROINTESTINAL ENDOSCOPY [...] Procedure Abnormality Status --------- ------ CBC Auto Differential[[id number]] Abnormal Final result Please view results for [...] Temp src Pulse Resp SpO2 Height Weight 05/29/21 2118 (!) 204/81 (!) 51 18 97 % 05/29/212013 (!) 186/86 61 18 96 % 05/29/21 1909 (!) 210/84 98.6 F (37 C) Oral [...] then Toradol. She was then given a [place]. She said that it barely took the edge off. Her pressure is 204/81. Thought maybe that was just due to pain however even with taking the edge off her blood pressure is still elevated and she has no history of hypertension. I do not feel comfortable sending her home with anything stronger than [place] and says the [place] is not helping her pain and her blood pressure still elevated I would feel more comfortable with the patient admitted to the hospital for further pain control and observation. Patient is agreeing to stay. [facility] has agreed to [facility] the patient. She is stable for admission. IMPRESSION: 1. Left flank pain 2. Elevated blood-pressure reading without diagnosis of hypertension Paulina Pearl PA-C 05/29/212224 C/o left flank pain; onset at 1400 today. Justice uncomfortable, got up, and felt stabbing (left [...] stone and pyelonephritis. documented in this encounter [facility] 05-29-2021 History and physical note [facility] H[facility] AND PHYSICAL Patient Name: Richie Johnson : 1945 MR #: [id number] Admit Date: 05/29/2021 Physicians: Efrem Vee DO (Family); No ref. provider found (Referring) Richie Johnson is a 75 y.o. female patient of Efrem VeeDO with history of osteoporosis, anxiety, depression presented [...] TENOLYSIS ; Surgeon: Radha Baker DO; Location: [facility] MAIN OR; Service: Hand UPPER GASTROINTESTINAL ENDOSCOPY [...] 05/29/21 11:04 PM documented in this encounter [facility] 05-06-2021 History of Present illness Narrative [facility] Patient Name: Richie Johnson Date: [...] or chills. She does not have an ELECTRON BEAM PHOTO MASK MAKER. She has not had a mammogram in [...] set her up for pelvic exam with ELECTRON BEAM PHOTO MASK MAKER. We will get screening mammogram done. Patient [...] expedite correspondence, this note was generated by [employer] voice recognition software. Some grammatical or spelling errors may occur using the system. documented in this encounter [facility] 04-22-2021 Miscellaneous Notes [facility] ([address]) fax request to renew ibandronate sodium 150mg. Pt coming for f/u appt in May 2020, please advise. documented in this encounter [facility] 04-22-2021 Miscellaneous Notes Pt scheduled. Approving Celexa and Wellbutrin prescriptions for Dr. Vee patient. Patient is due for follow-up regarding mental health conditions. documented in this encounter [facility] 11-02-2020 Miscellaneous Notes [facility] fax ([address]) request to renew Rx citalopram 20mg tablets. Pt was last seen: 12/12/2019, please advise. 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 Anxiety Anxiety state, unspecified Depression, unspecified depression type Vaginal discharge Leukorrhea, not specified as infective Osteoarthritis of first metatarsophalangeal (MTP) joint of right foot Encounter for screening for malignant neoplasm of breast, unspecified screening modality documented in this encounter [facility] note* Diagnosis Flank pain- Primary Abdominal pain, unspecified site Left flank pain Abdominal pain, unspecified site Elevated blood-pressure reading without diagnosis of hypertension Elevated blood pressure reading without diagnosis of hypertension documented in this encounter [facility] noteNo assessment information availableWMetro[facility] Work Phone: Evaluation note* Diagnosis Osteoarthritis of first metatarsophalangeal (MTP) joint of right foot documented in this encounter [facility] note* Diagnosis Anxiety Anxiety state, unspecified Depression, unspecified depression type documented in this encounter [facility] note* Diagnosis Anxiety Anxiety state, unspecified Depression, unspecified depression type documented in this encounter [facility] note* Diagnosis Vulvar burning- Primary Unspecified symptom associated with female genital organs documented in this encounter [facility] note* Diagnosis Vulvar pain- Primary Unspecified symptom associated with female genital organs Vulvar dermatitis Other inflammatory disease of cervix, vagina and vulva Labial hypertrophy Hypertrophy of labia Vulvar atrophy Atrophy of vulva documented in this encounter [facility] note* Diagnosis Onset Date Resolution Status Weight loss, non-intentional acute Barretts esophagus chronic Chronic back pain chronic GERD (gastroesophageal reflux disease) chronic Lichen sclerosus chronic Osteopenia with high risk of fracture [facility] Work Phone: Evaluation note* Diagnosis 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 * Assessment & Plan Note - Mary Beth Fall MD - 12/10/2023 8:45 AM EDTAssociated Problem(s): Labial hypertrophy For her labial hypertrophy, we discussed the option of labiaplasty in the OR or in the office. If done in the office, this would be done with local anesthesia, valium and the TempSure Surgical device. Plan labial reduction/labioplasty in the office. * Assessment & Plan Note - Mary Beth Fall MD - 12/10/2023 8:44 AM EDTAssociated Problem(s): OAB (overactive bladder) Stop oxybutynin and trial Gemtesa. * Assessment & Plan Note - Mary Beth Fall MD - 12/10/2023 8:44 AM EDTAssociated Problem(s): Vaginal atrophy For her vaginal atropy we discussed estrogen therapy. I explained to her that a very minimal amountof estrogen cream is absorbed into her system and that it is not going to put her at an increased risk for breast cancer UNLESS SHE IS ON AN AROMATASE INHIBITOR. ESTROGEN CREAM PLUS AI MAY RESULT IN HIGH A 39% INCREASED RISK OF RECURRENT BREAST CANCER. We also discussed the dylan magui touch vaginal laser therapy for her vaginal atrophy. Consider PROFESSIONAL MODEL in future if needed. 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 No Cigarette-paper appearnce to labia skin. No lesions noted. Expectant management for now. 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 OAB (overactive bladder) Hypertonicity of bladder Labial hypertrophy Hypertrophy of labia Vaginal atrophy Postmenopausal atrophic vaginitis Asymptomatic microscopic hematuria OAB (overactive bladder) Hypertonicity of bladder 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 OAB (overactive bladder) Hypertonicity of bladder Labial hypertrophy Hypertrophy of labia Vaginal atrophy Postmenopausal atrophic vaginitis Asymptomatic microscopic hematuria Labial hypertrophy- Primary Hypertrophy of labia 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 Continue routine healing. Will have her return in two weeks to re-examine and evaluate healing progress. I answered all of her questions and spent time discussing the plan moving forward. 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 OAB (overactive bladder) Hypertonicity of bladder Labial hypertrophy Hypertrophy of labia Vaginal atrophy Postmenopausal atrophic vaginitis Asymptomatic microscopic hematuria Labial hypertrophy- Primary Hypertrophy of labia Allergy to environmental factors- Primary Other allergy, other than to medicinal agents OAB (overactive bladder) Hypertonicity of bladder Labial hypertrophy Hypertrophy of labia * Assessment & Plan Note - Mary Beth Fall MD - 02/15/2024 1:36 PM EDTAssociated Problem(s): OAB (overactive bladder) We discussed the patient's options for her OAB which include expectant management, behavioral modification and bladder training, pelvic floor rehabilitation, anticholinergic medications, Myrbetriq (aB3 adrenergic agonist), or a combination of these treatment modalities. We also discussed the option of sacroneuromodulation (Interstim), UrgentPC, REVI or Intravesical Botox. We discussed the importance of decreasing/eliminating her caffeine intake to help improve her urgency and frequency. The patient was counseled on the importance of kegel exercises for urge control. She was given a handout on OAB, bladder training and pelvic floor exercises. Refill meds. Orders: vibegron (GEMTESA) 75 mg tablet; Take 1 tablet by mouth once daily. * Assessment & Plan Note - Mary Beth Fall MD - 02/15/2024 1:36 PM EDTAssociated Problem(s): Labial hypertrophy Healing well and doing well. No issues. Removed sutures that were poking. She is happy with resultsof procedure. documented in this encounter [facility] History of Present Illness * Efrem Vee DO - 05/12/2018 10:59 AM EST Formatting of this note may be different from the original. [facility] Patient Name: Richie Johnson Date: 05/12/18 Patient : 1945 Patient Age: 72 y.o. CC: Chief Complaint Patient [facility] with [facility] Exam Pt is having neck and back pain SUBJECTIVE Patient presents to [facility]. We reviewed the patient s medical history. [...] care doctor. Further recommendations to follow. Efrem Vee, Note: To expedite correspondence, this note was generated by [employer] voice recognition software. Some grammatical or spelling errors may occur using the system. in this encounter* Zhao Medley CNP - 09/28/2018 3:22 PM EDT [facility] PROGRESS NOTE 09/28/2018 PATIENT: RICHIE JOHNSON DATE OF : 1945 Assessment/Plan: Patient is a 73 y.o. female with PMHx of osteoporosis, anxiety, depression who presented to [facility] on 09/27/2018 with chief complaint of right [...] Efrem Vee, - 10/01/2018 7:45 AM EDT [facility] Patient Name: Richie Johnson Date: [...] of osteoporosis, anxiety, depression who presented to [facility] on 09/27/2018 with chief complaint of right [...] Follow Up: Alfonzo Pearl, DO [address] [address] Schedule an appointment as soon as possible [...] FRACTURE OF UPPER END OF HUMERUS Handicap Placard We discussed the natural history of this [...] expedite correspondence, this note was generated by [employer] voice recognition software. Some grammatical or spelling [...] Vee DO - 05/19/2019 11:49 AM EST [facility] Patient Name: Richie Johnson Date: [...] 3. At risk for falls - Handicap Placard We will switch from Fosamax to Boniva once monthly and see if she tolerates that better. We will refer to dermatology for further evaluation of mole. I will see her back as needed. Efrem Vee DO Note: To expedite correspondence, this note was generated by [employer] voice recognition software. Some grammatical or spelling errors may occur using the system. documented in this encounter* Efrem Vee DO - 12/12/2019 1:21 PM EDT [facility] Patient Name: Richie Johnson Date: 12/12/19 Patient : 1945 Patient Age: 74 y.o. CC: Chief Complaint Patient presents with Pre-op Exam SUBJECTIVE Patient presents for pre-operative evaluation at the request of Dr. Radha Baker. Patient is undergoing trigger finger release for right middle trigger finger. The surgery is to take place on 12/29/19 at [facility]. The patient denies any chest [...] mg total) by mouth daily . 30 [id number] citalopram (CELEXA) 20 MG tablet TAKE 1 [...] glucosamine-chondroitin 250-200 mg Tab 2 Unspecified . tuytfqwe-sgqi-EZ-calcium-mins 9 mg iron-400 mcg Tab Take 1 [...] file Gets together: Not on file Attends sabianism service: Not on file Active member of [...] acceptable cardiac risk based on the 2014 [place] [employer]/[place] [employer] Association (ACC/AHA) guidelineson Perioperative Cardiovascular Evaluation [...] expedite correspondence, this note was generated by [employer] voice recognition software. Some grammatical or spelling errors may occur using the system. documented in this encounter* Hanna Joseph MA - 12/13/2019 8:47 AM EDT LM for patient to return call * Efrem Vee DO - 12/13/2019 7:22 AM EDT Please call the patient. I spoke with the business planning director about her EKG findings. He recommended to [...] Vee DO - 01/05/2019 3:46 PM EDT [facility] Patient Name: Richie Johnson Date: [...] but it was too expensive. She taken dlve-xkj-hhadfye NSAIDs without benefit. She was referred to podiatry. Patient states that folding machine feeder told her it was gout. He placed [...] of medication. She has pending follow-up with folding machine feeder. I do not think it is worthwhile to initiate gout prophylactic medication. If she should start experiencing circumferential erythema, warmth, I would recommend aspiration to prove or disprove diagnosis of gout. No orders of the defined types were placed in this encounter. Return if symptoms worsen or fail to improve. Efrem Vee DO Note: To expedite correspondence, this note was generated by [employer] voice recognition software. Some grammatical or spelling errors may occur using the system. documented in this encounter* Efrem Vee DO - 02/17/2019 10:26 AM EDT [facility] Patient Name: Richie Johnson Date: 02/17/19 Patient [...] day for 10 days. She may use ybga-utr-cunffve cough and cold medication. I will see her back as needed if not improving. No orders of the defined types were placed in this encounter. Return if symptoms worsen or fail to improve. Efrem Vee DO documented in this encounter* Efrem Vee DO - 12/03/2018 10:36 AM EDT [facility] Patient Name: Richie Johnson Date: [...] 12/04/2019 Scheduling Instructions: OK to schedule at [facility] and all ambulatory sites Fax script to: [facility]- [phone] [facility]-[phone] [facility]-[phone] [facility] - [phone] Order Specific Question: Reason for Exam: Answer: [...] Diagnose(s): Trigger middle finger of right hand [facility] Patient Name: Richie Johnson Date: [...] symptoms worsen or fail to improve. Efrem eVe DO documented in this encounter* Alfonzo Pearl DO - 10/04/2018 3:03 PM EDT Subjective: Patient ID: Richie Johnson is a 73 y.o. female. HPI: Richie is seen in the office today for evaluation of her right shoulder which she injured whenshe fell over her dog at home September [...] osteopenia. 3. Distal right humerus is intact. SKS/jmj Assessment/Plan: SNOMED CT(R) 1. Closed 4-part fracture [...] Vee DO - 07/29/2018 1:48 PM EDT [facility] Patient Name: Richie Johnson Date: [...] under the care of a neurosurgeon through [facility]. Dr. Pascual. According to the patient, they [...] per tablet I reviewed previous records through [employer]. It does seem like previous neurosurgeon did [...] expedite correspondence, this note was generated by [employer] voice recognition software. Some grammatical or spelling [...] sciatica presence unspecified Hospital Course * Zhao Medley CNP - 09/28/2018 3:37 PM EDT [facility] SUMMARY Richie Johnson Admitted: 09/27/2018 Discharge Date: 09/28/18 PCP Handoff Recommended Outpatient Testing: OP ortho surgery follow-up Results Pending At Discharge: None Clinical Summary Patient is a 73 y.o. female with PMHx of osteoporosis, anxiety, depression who presented to [facility] on 09/27/2018 with chief complaint of right [...] Follow Up: Alfonzo Pearl DO [address] [address] Schedule an appointment as soon as possible [...] FoundDocuments on File Type Date Recorded Patient Extrusion Technician Expl anation Advance Directives and Livin g Will 09/27/2018 7:41 AM Latest Code Status on File Code Status Date Activated Date Inactivated Comments Full Code - Unverified 09/27/2018 8:25 AM Documents on File Type Date Recorded Patient Extrusion Technician Expl anation Advance Directives and Livin g Will 09/27/2018 7:41 AM Latest Code Status on File Code Status Date Activated Date Inactivated Comments Full Code - Unverified 09/27/2018 8:25 AM Documents on File Type Date Recorded Patient Extrusion Technician Expl anation Advance Directives and Livin g Will 12/16/2018 10:18 AM Documents on File Type Date Recorded Patient Extrusion Technician Expl anation Advance Directives and Livin g Will 03/15/2019 4:00 PM See Media Documents on File Type Date Recorded Patient Extrusion Technician Expl anation Advance Directives and Livin g Will 03/15/2019 4:00 PM See Media Documents on File Type Date Recorded Patient Extrusion Technician Expl anation Advance Directives and Livin g Will 01/05/2020 12:41 PM See Media Latest Code Status on File Code Status Date Activated Date Inactivated Comments Full Code - Unverified 09/27/2018 8:25 AM 12/29/2019 5:2 7 AM Documents on File Type Date Recorded Patient Extrusion Technician Expl anation Advance Directives and Livin g Will 01/05/2020 12:41 PM See Media Latest Code Status on File Code Status Date Activated Date Inactivated Comments Full Code - Unverified 09/27/2018 8:25 AM 12/29/2019 5:2 7 AM Documents on File Type Date Recorded Patient Extrusion Technician Expl anation Advance Directives and Livin g Will 12/16/2018 10:18 AM Documents on File Type Date Recorded Patient Extrusion Technician Expl anation Advance Directives and Livin g Will 12/03/2018 10:18 AM Documents on File Type Date Recorded Patient Extrusion Technician Expl anation Advance Directives and Livin g Will 12/29/2019 5:38 AM See Media Documents on File Type Date Recorded Patient Extrusion Technician Expl anation Advance Directives and Livin g Will 12/03/2018 10:18 AM Documents on File Type Date Recorded Patient Extrusion Technician Expl anation Advance Directives and Livin g Will 01/25/2021 12:41 PM See Media Documents on File Type Date Recorded Patient Extrusion Technician Expl anation Advance Directives and Livin g Will 01/25/2021 12:41 PM See Media Documents on File Type Date Recorded Patient Extrusion Technician Expl anation Advance Directives and Livin g Will 05/29/2021 7:42 PM See Media Latest Code Status on File Code Status Date Activated Date Inactivated Comments Full Code - Unverified 05/29/2021 10:56 PM 05/30/2021 1: 47 PM Full Code - Unverified 09/27/2018 8:25 AM 12/29/2019 5:2 7 AM Advance Directive Response Recorded Date/ Time Name of Medical Power of Shipping Helper NATALYA- January 13, 2022 11:50am Living Will Yes January 13, 2022 11:50am Power of Shipping Helper Yes January 11:50am Latest Code Status on File Code Status Date Activated Date Inactivated Comments Full Code - Unverified 05/29/2021 10:56 PM 05/30/2021 1: 47 PM Code Status History Code Status Date Activated Date Inactivated Comments Full Code - Unverified 09/27/2018 8:25 AM 12/29/2019 5:2 7 AM Advance Directive Response Recorded Date/ Time Living Will Yes January 13, 2022 10:50am Power of Shipping Helper Yes January 10:50am Advance Directive Response Recorded Date/ Time Living Will Yes January 13, 2022 11:50am Power of Shipping Helper Yes January 11:50am Advance Directive Response Recorded Date/ Time Name of Medical Power of Shipping Helper August 03, 2023 10:24am Living Will Yes August 03, 2023 10:24am Power of Shipping Helper Yes August 02 10:24am Reason for Referral Status Reason Specialty Diagnoses / Procedures Referred By Contact Referred To Contact Authorized Rehabilitation Diagnoses Closed 4-part fracture of proximal end of right humerus with routine healing, subsequent encounter Alfonzo Pearl, DO [address] [facility] [address] [place] [address] Status Reason Specialty Diagnoses / Procedures Referred By Contact Referred To Contact Authorized Dermatology Diagnoses Atypical nevus Kadie, Efrem Mackenzie, DO [address] [place] [address] Lu Baker, DO [address] [place] [address] Status Reason Specialty Diagnoses / Procedures Referre d By Contact Referred To Contact Closed Cardiology Diagnoses Left ventricular hypertrophy Procedures Echocardiogram complete Kadie, Efrem Mackenzie, DO [address] [place] [address] Status Reason Specialty Diagnoses / Procedures Re ferred By Contact Referred To Contact Authorized Radiology Diagnoses Osteoporosis, unspecified osteoporosis type, unspecified pathological fracture presence Procedures XR Bone Density DEXA Axial Kadie, Efrem Mackenzie, DO [address] [place] [address] Status Reason Specialty Diagnoses / Procedures Referred By Contact Referred To Contact Pending Review Neurosurgery Diagnoses Cervical stenosis of spine Kadie, Efrem Mackenzie, DO [address] [place] [address] Specialty Diagnoses / Procedures Referred By Contac t Referred To Contact Obstetrics and Gynecology Diagnoses Vaginal discharge Kadie, Efrem Mackenzie, DO [address] [place] [address] [facility] [address] [place] [address] Referral ID Status Reason Start Date Expiration Date V isits Requested Visits Authorized [id number] Pending Review 05/06/2021 05/06/2022 1 1 Specialty Diagnoses / Procedures Referred By Contac t Referred To Contact Radiology Diagnoses Encounter for screening for malignant neoplasm of breast, unspecified screening modality Procedures Mammography Screening Abdoul Bilateral Kadie, Efrem Mackenzie, DO [address] [place] [address] Referral ID Status Reason Start Date Expiration Date V isits Requested Visits Authorized [id number] Authorized 05/06/2021 05/06/2022 1 1 Summary Purpose Family History No Family History Records Found Relationship Condition Age at Onset Recorded Date/T jim brother Alcoholism Unknown Diabetes mellitus Unknown Malignant neoplasm of liver Unknown Seizure Unknown Epilepsy Unknown sister Anxiety Unknown Autoimmune disorder Unknown Malignant neoplasm Unknown Osteoporosis Unknown father Malignant neoplasm of colon Unknown Discharge Instructions * Instructions* Sara Fiore, MANAGER VEHICLE - 12/28/2019 GENERAL POST-OPERATIVE PATIENT INSTRUCTIONS ANESTHESIA PRECAUTIONS: A responsible adult must stay with you for at least 24 hours after surgery. You may feel light headed,, dizzy, or nauseated during this time. Do not operate a vehicle (car, bike, motorcycle, artistic associate) machinery or power tools. Do not make [...] to call your physician or the hospital continuous loft operator if you have any questions, and they [...] can help with stomach upset. Using an rsfp-dqe-sxxtebl laxative/stool softener is helpful with constipation. 2. [...] Some pain medication can cause constipation. Take agbp-agf-psonkdu stool softeners or laxatives if needed. Drink [...] encounter Procedure Findings Note Patient: RICHIE JOHNSON MRN: ([id number] Age: 74 years Sex: Female : 1945 [...] 18 gauge T (more content not included)... Chief Complaint and Reason for Visit Chief Complaint EORDER Chief Complaint EORDER FALL FOOT TRAUMA Chief Complaint NODULE Chief Complaint NODULE OSTEOPOROSIS Chief Complaint EORDER LEFT HIP/LEG PAIN Chief Complaint EORDER LEFT HIP/LEG PAIN PELVIC PAIN Chief Complaint EORDER LEFT HIP/LEG PAIN PELVIC PAIN FUNDRAISING MANAGER EST CARE PPW SENT SCREENING Reason for Visit Weight loss, non-int entional Barretts esophagus Chronic back pain GERD (gastroesophageal reflux disease) Lichen sclerosus Osteopenia with high risk of fracture Chief Complaint LEFT HIP/LEG PAIN PELVIC PAIN FUNDRAISING MANAGER EST CARE PPW SENT SCREENING Reason for Visit Weight loss, non-int entional Barretts esophagus Chronic back pain GERD (gastroesophageal reflux disease) Lichen sclerosus Osteopenia with high risk of fracture Additional Source Comments Reason for Visit (unrecogniz ed section and content) Reason Comments Establish Care Annual Exam Pt is having neck an d back pain Reason Comments Shoulder Injury Status Reason Specialty [...] Efrem Mackenzie, DO [address] [place] [address] Reason Comments Follow-up gout Reason Comments Sore Throat ST and chest congest ion x1 week Status Reason Specialty Diagnoses / Procedures Referre d By Contact Referred To Contact Closed Radiology Diagnoses Osteoporosis, unspecified osteoporosis type, unspecified pathological fracture presence Procedures XR Bone Density DEXA Axial and Appendicular XR Bone Density DEXA Axial Kadie, Efrem Mackenzie, DO [address] [place] [address] Status Reason Specialty Diagnoses / Procedures Referre d By Contact Referred To Contact Diagnoses Trigger middle finger of right hand Trigger middle finger of right hand [M65.331] Procedures MO INCISE FINGER TENDON SHEATH RIGHT MIDDLE FINGER [...] Expiration Date Visits Re quested Visits Authorized [id number] 1 1 Reason Comments Vaginal Problem Specialty Diagnoses / Procedures Referred By Contac t Referred To Contact ELECTRON BEAM PHOTO MASK MAKER Diagnoses Burning discharge follow up Procedures Burning discharge follow up Anayeli Zarco, CONCRETE FINISHER.MANAGER VEHICLE [address] [place] [address] Founder And Chief Executive Officer [employer] [address] [place] [address] Referral ID Status Reason Start Date Expiration Date V isits Requested Visits Authorized [id number] Closed OON/Self Pay Override 04/23/2023 05/03/2023 1 1 Reason Comments New Patient Reason Comments Care Coordination Labioplasty Reason Comments medical question Reason Onset Date Comments Refill Request 01/09/2024 Reason Comments labioplasty Specialty Diagnoses / Procedures Referred By Contac t Referred To Contact [facility] Diagnoses Labial hypertrophy Procedures VULVECTOMY SIMPLE PARTIAL [place], Mary Beth Flores MD [address] [place] [address] [facility] [address] [place] [address] Referral ID Status Reason Start Date Expiration Date Visits Re quested Visits Authorized [id number] Closed 12/22/2023 05/03/2024 1 1 Reason Comments Follow Up Reason Comments Patient Update Maryjane Temple MD - 09/27/2018 8:25 AM Radha Gonzalez DO - 12/29/2019 6:45 AM Efrme Galloway DO - 12/12/2019 1:21 PM EDT H&P Notes (unrecognized sect ion and content) HMS HISTORY AND PHYSICAL Patient Name: Richie Johnson : 1945 MR #: [id number] Admit Date: [id number] Physicians: Efrem Vee DO [...] Procedure Laterality Date CARPEL TUNNEL SECTION, CLASSIC 1970 CHOLECYSTECTOMY WISDOM TOOTH EXTRACTION Family History Family [...] Name: Richie Johnson Admit Date: MR #: [id number] : 1945 The H&P has been reviewed and the patient has been examined. I concur with the findings of the H&P. There are no significant changes. It is appropriate to proceed with the planned procedure. Radha Baker DO 12/29/2019 6:45 AM [facility] Patient Name: Richie Johnson Date: 12/12/19 Patient : 1945 Patient Age: 74 y.o. CC: Chief Complaint Patient presents with Pre-op Exam SUBJECTIVE Patient presents for pre-operative evaluation at the request of Dr. Radha Baker. Patient is undergoing trigger finger release for right middle trigger finger. The surgery is to take place on 12/29/19 at [facility]. The patient denies any chest [...] glucosamine-chondroitin 250-200 mg Tab 2 Unspecified . gaaagyns-ntin-BA-calcium-mins 9 mg iron-400 mcg Tab Take 1 [...] file Gets together: Not on file Attends sabianism service: Not on file Active member of [...] acceptable cardiac risk based on the 2014 [place] [employer]/[place] [employer] (ACC/AHA) guidelines on Perioperative Cardiovascular [...] expedite correspondence, this note was generated by [employer] voice recognition software. Some grammatical or spelling errors may occur using the system. documented in this encounter Mahogany Horton RN - 09/29/2018 9:45 AM Andree Riggs RN - 09/28/2018 3:37 PM Corey Carvalho OT - 09/28/2018 10:01 AM Lisa Castro PT - 09/28/2018 8:45 AM EDT Consult Notes (unrecognized section and content) Associated Order(s): IP CONSULT TO CARE MANAGEMENT COMPLEX DISCHARGE Date: 09/29/2018 Time: 9:46 AM [facility] CM addressed therapy recommendations with patient on 09/28/18; please see [facility] progress note. Patient states she will purchase [...] Spouse Discharge Readiness Expected Discharge Date: 09/29/18 [facility] Disposition D/C Disposition: Home Agency/Destination: Home Home [...] roles. The patient's family/caregiver support is a retail team member for return to prior level of function. The patient's awareness of own capacity and performance is a retail team member to return to prior level of function. [...] main level with bedroom/bathroom, Accessible, Other (Comment)(2 HUGO with HR) Bathroom Shower/Tub: Walk-in shower Bathroom Toilet: Raised Bathroom Equipment: Grab bars in shower, Toilet raiser Bathroom Accessibility: Accessible Home Equipment: Other (Comment)(none) Prior Level of Function Level of Vickery: Independent with ADLs and functional transfers, Independent [...] NWB RUE in sling, pain, falls, see PM for further details Number of History elements [...] Transfers Sit to Stand: Stand by assistance Chaplain Resident: 1 person, Gait belt Gait/Locomotion Gait Assistance: Stand by assistance Assistive Device: Other (Comment)(occasional LUE CAPACITY PLANNING ENGINEER) Distance: 100 Feet Pattern: Step through, R decreased step length, L decreased step length, Forward flexed, Decreased trunk rotation, Antalgic Weight Bearing Status: Able to maintain, Non-weight bearing(to RUE in sling) Home Living Type of Home: House Home Layout: Two level, Able to live on main level with bedroom/bathroom, Accessible, Other (Comment)(2 HUGO with HR) Bathroom Shower/Tub: Walk-in shower Bathroom Toilet: Raised Bathroom Equipment: Grab bars in shower, Toilet raiser Bathroom Accessibility: Accessible Home Equipment: Other (Comment)(none) Prior Level of Function Level of Vickery: Independent with ADLs and functional transfers, Independent [...] with dynamic gait with occasional use of CAPACITY PLANNING ENGINEER for LUE; pt demo no LOB or [...] Procedure Laterality Date CARPEL TUNNEL SECTION, CLASSIC 1970 CHOLECYSTECTOMY WISDOM TOOTH EXTRACTION No Known Allergies [...] file Gets together: Not on file Attends sabianism service: Not on file Active member of [...] Expected time: Means of arrival: Comments: m-26 [facility] ED Resident Note: NAME: Richie Johnson 73 y.o. CSN: [id number] PCP: Efrem Vee DO History: Chief Complaint: [...] file Gets together: Not on file Attends sabianism service: Not on file Active member of [...] pain at home. She was discussed with [facility] who accepts her for admission to obs. [...] gram/dose powder 09/27/2018 Class: Historical Med Omar Fuentes DO ED Resident Physician [facility] Emergency Medicine Residency (Please note that portions of this note have been completed with a voice recognition software. Efforts were made to correct any errors, but occasionally words are mis-transcribed.) Omar Fuentes DO Resident 09/27/18822 PATIENT HERE S/P FALL AFTER TRIPPING OVER DOG FALLING ON RIGHT SHOULDER THAT NOW HAS PAIN. ARM IN SLING AND SWATHE PER MEDIC 26. documented in this encounter Quick Note - Susan Mccrary RN - 09/29/2018 10:19 AM EDTQuick Note - Zhao Medley CNP - 09/29/2018 10:01 AM EDTPlan of Care - Mary Beth Salguero RN - 09/29/2018 2:48 AM EDT Miscellaneous Notes (unrecog nized section and content) IV removed. Reviewed AVS, prescriptions to pick up and delivery driver, and follow up appointments to be made. Patient and verbalize understanding. Ambulated to [facility]. Pt was kept overnight for due reports [...] (74 y.o.) Date of Service: 12/29/2019 CSN: [id number] Procedure(s): RIGHT MIDDLE FINGER A1 LOLY RELEASE WITH TENOLYSIS Pre-Operative Diagnoses: * Trigger middle finger of right hand [M65.331] Post-Operative Diagnoses: * Trigger middle finger of right hand [M65.331] Surgeon(s) and Role: * Radha Baker DO - Primary Anesthesiologist: Jonathon Mejía DO IT DESKTOP SUPPORT TECHNICIAN: Adrianna Cabral CRNA Living Skills Advisor: Nell Kramer RN Scrub Person: ST Kell [...] ized section and content) DATE CREATED AUTHOR 01/06/2020 [facility] DATE CREATED AUTHOR AUTHOR'S ORGANIZ ATION 07/04/2020 [facility] DATE CREATED AUTHOR AUTHOR'S ORGANIZ ATION 01/29/2021 [facility] DATE CREATED AUTHOR AUTHOR'S ORGANIZ ATION 05/07/2021 [facility] DATE CREATED AUTHOR AUTHOR'S ORGANIZ ATION 05/30/2021 [facility] DATE CREATED AUTHOR AUTHOR'S ORGANIZ ATION 02/17/2024 [facility] DATE CREATED AUTHOR AUTHOR'S ORGANIZ ATION 10/01/2024 [facility] Haily Walker RN - 12/22/2019 9:33 AM EDT Nursing Notes (unrecognized section and content) Patient negative screening as per phone, discussed with patient guidelines and visitor restrictions as per [facility]-patient verbalized understanding. Patient instructed on COVID testing as per [facility] process, site location will be [place]/ [place] / [place]/ [place] /[place] / [place]-patient verbalized understanding.[facility] Surgical Department Patient Instructions Prior to [...] Care Teams (unrecognized sec tion and content) Early Childhood Aide Classroom Relationship Specialty Start Date End Date Efrem Vee, DO [address] [place] [address] PCP - General Sports Medicine 05/12/18 Early Childhood Aide Classroom Relationship Specialty Start Date End Date Efrem Vee, DO [address] [place] [address] PCP - General Sports Medicine 05/12/18 Early Childhood Aide Classroom Relationship Specialty Start Date End Date Kadie, Efrem Mackenzie, DO [address] [place] [address] PCP - General Sports Medicine 05/12/18 Early Childhood Aide Classroom Relationship Specialty Start Date End Date Kadie, Efrem Mackenzie, DO [address] [place] [address] PCP - General Sports Medicine 05/12/18 Early Childhood Aide Classroom Relationship Specialty Start Date End Date Kadie, Efrem Mackenzie, DO [address] [place] [address] PCP - General Sports Medicine 05/12/18 Early Childhood Aide Classroom Relationship Specialty Start Date End Date Kadie, Efrem Mackenzie, DO [address] [place] [address] PCP - General Sports Medicine 05/12/18 Early Childhood Aide Classroom Relationship Specialty Start Date End Date Kadie, Efrem Mackenzie, DO [address] [place] [address] PCP - General Sports Medicine 05/12/18 Team Status: Active Member Role Status Dates Dr. Dada Gonsales MD Family Provider Active Dr. Jermaine Sigala MD Primary Care Provider Active Team Status: Inactive Member Role Status Dates Dr. Jermaine Sigala MD Primary Care Provider Active DOUGLAS Prieto Attending Provider, Referr ing Provider Active Team Status: Inactive Member Role Status Dates Dr. Jermaine Siglaa MD Primary Care Pr ovider, Attending Provider, Referring Provider Active Early Childhood Aide Classroom Relationship Specialty Start Date End Date Kadie, Efrem Mackenzie, DO [address] [place] [address] PCP - General Sports Medicine 05/12/18 Team Status: Active Member Role Status Dates Dr. Jermaine Sigala MD Primary Care Provider Active Asya Diaz FUNDRAISING MANAGER-C Attending Provider, Referr ing Provider Active Team Status: Active Member Role Status Dates Dr. Jermaine Sigala MD Primary Care Provider, Attend ing Provider Active Team Status: Inactive Member Role Status Dates Dr. Jermaine Sigala MD Primary Care Provider Active Dr. Erin Carter MD Emergency Provider Active Team Status: Active Member Role Status Dates Dr. Dada Gonsales MD Family Provider Active Dr. Alia Condon MD Primary Care Provider Active Team Status: Inactive Member Role Status Dates Dr. Jermaine Sigala MD Primary Care Provider Active Dr. Erin Carter MD Attending Provider, Emergency Provider Active Team Status: Inactive Member Role Status Dates Dr. Alia Condon MD Primary Care Provider Active Dr. Daniela Booker MD Attending Provider, Referring Pr ovider Active Team Status: Inactive Member Role Status Dates Dr. Jermaine Sigala MD Referring Provider Active Dr. Alia Condon MD Primary Care Provider, Atten ding Provider Active Team Status: Active Member Role Status Dates Dr. Alia Condon MD Primary Care P rovider, Attending Provider, Referring Provider Active Team Status: Inactive Member Role Status Dates Dr. Alia Condon MD Primary Care P rovider, Attending Provider, Referring Provider Active Early Childhood Aide Classroom Relationship Specialty Start Date End Date Alia Condon MD [address] [place], [place] [address]- PCP - General Internal Medicine 12/10/23 Early Childhood Aide Classroom Relationship Specialty Start Date End Date Alia Condon MD [address] [place], [place] [address]- PCP - General Internal Medicine 12/10/23 Early Childhood Aide Classroom Relationship Specialty Start Date End Date Alia Condon MD [address] [place] [id number] PCP - General Internal Medicine 12/10/23 Early Childhood Aide Classroom Relationship Specialty Start Date End Date Alia Condon MD [address] [place] [address] PCP - General Internal Medicine 12/10/23 Early Childhood Aide Classroom Relationship Specialty Start Date End Date Alia Condon MD [address] [place] [address] PCP - General Internal Medicine 12/10/23 Early Childhood Aide Classroom Relationship Specialty Start Date End Date Alia Condon MD [address] [place] [address] PCP - General Internal Medicine 12/10/23 Early Childhood Aide Classroom Relationship Specialty Start Date End Date Alia Condon MD [address] [place] [address] PCP - General Internal Medicine 12/10/23 Scheduled Active and Recently Administ ered Medications (unrecognized section and content) Medication Order 05/28/2021 05/29/2021 05/30/2021 buPROPion (WELLBUTRIN) tablet 75 mg 75 mg, Oral, 2 times daily, First dose on Vicki 05/30/21 at 0900, Do Not Crush or Chew if administering orally due to bitter taste. May be crushed if given via tube. 0900 (Not Given - Provider: Sherrill Monroy RN - Reason: Other - Comment: will take at home) cephALEXin (KEFLEX) capsule 250 mg 250 mg, Oral, Every 6 hours scheduled, First dose (after last reorder) on Vicki 05/30/21 at 0600, Indication: UTI 0626 (Given - Provid er: Elyssa Montano RN)1043 (Given - Provider: Sherrill Monroy RN)1200 (Canceled Entry - Provider: Sherrill Monroy RN) cephALEXin (KEFLEX) capsule 500 mg (COMPLETED) 500 mg, Oral, Once, On Thu05/29/21 at 2120, For 1 dose, Indication: UTI 2153 (Given - Provider: Sara Roland RN) citalopram (CELEXA) tablet 20 mg 20 mg, Oral, Daily, First dose on Vicki 05/30/21 at 0900 1043 (Given - Provid er: Sherrill Monroy RN) diazePAM (VALIUM) syringe 2.5 mg (COMPLETED) 2.5 mg, Intravenous, Once, On Thu05/29/21 at 2230, For 1 dose, VESICANT 2229 (Given - Provider: Juju Ulloa RN) enoxaparin (LOVENOX) syringe 40 mg 40 mg, Subcutaneous, Daily, First dose on Vicki 05/30/21 at 0900, Administer in abdomen unless otherwise directed by prescriber. Notify physician if patient refuses., Indication: VTE Prophylaxis 104 (Not Given - Provider: Sherrill Monroy RN - Reason: Patient/family refused) HYDROcodone-acetaminophen (NORCO) 5-325 mg per tablet 1 tablet (COMPLETED) 1 tablet, Oral, Once, On Thu05/29/21 at 2125, For 1 dose 2153 (Given - Provider: Sara Roland RN) ketorolac (TORADOL) injection 15 mg (COMPLETED) 15 mg, Intravenous, Once, On Thu05/29/21 at 2055, For 1 dose 2115 (Given - Provider: Juju Ulloa RN) lidocaine patch 1 patch (COMPLETED) 1 patch, Transdermal, Administer over 12 Hours, Once, On Thu05/29/21 at 2000, For 1 dose, Apply to LEFT LOW BACK for 12 hours, then remove patch for 12 hours. 2010 (Patch Applied - Provider: Juju Ulloa RN - Comment: applied to left lower back) ondansetron (ZOFRAN) injection 4 mg (COMPLETED) 4 mg, Intravenous, Once, On Thu05/29/21 at 1955, For 1 dose 2012 (Given - Provider: Juju Ulloa RN) oxybutynin (DITROPAN) tablet 5 mg 5 mg, Oral, Nightly, First dose on Thu05/30/21 at 0155 0347 (Given - Provid er: Elyssa Montano RN) senna-docusate (SENNA-S) 8.6-50 mg per tablet 1 tablet 1 tablet, Oral, 2 times daily, First dose on Thu05/30/21 at 0900, NOT for abdominal surgery patients. Hold for loose stools. Do Not Crush or Chew if administering orally due to bitter taste. May be crushed if given via tube. 0926 (Given - Provid er: Sherrill Monroy RN) sodium chloride (PF) (NS) flush 5 mL(Linked Group 1) 5 mL, Intravenous, Every 8 hours scheduled, First dose on Thu05/30/21 at 0155, Saline lock 0155 (Canceled Entry - Provider: Elyssa Montano RN)0600 (Canceled Entry - Provider: Elyssa Montano RN) PRN Medication Order 05/28/2021 05/29/2021 05/30/2021 aluminum-magnesium hydroxide-simethicone (MAALOX PLUS) 200-200-20 mg/5 mL suspension 30 mL 30 mL, Oral, Every 4 hours PRN, indigestion, Starting on Thu05/30/21 at 0154 cyclobenzaprine (FLEXERIL) tablet 5 mg 5 mg, Oral, Every 8 hours PRN, muscle spasms, Starting on Thu05/30/21 at 0154, Do not administer if patient has POSS of 3 or 4, or RASS of -3, -4, or -5. hydrALAZINE (APRESOLINE) injection 10 mg 10 mg, Intravenous, Every 4 hours PRN, for SBP > 170, DBP > 110, Hold for HR >100, Starting on Thu05/30/21 at 0154 iopamidoL (ISOVUE-370) 76 % injection 75 mL (COMPLETED) 75 mL, Intravenous, Once in imaging, contrast, Starting on Thu05/29/21 at 2022, For 1 dose 2023 (Contrast Administered - Provider: Renetta Bocanegra, TECHNOLOGIST - Comment: [id number] 2023) naloxone (NARCAN) injection 0.1 mg(Linked Group 2) 0.1 mg, Intravenous, As needed, opioid reversal, For respiratory rate less than or equal to 8 per minute., Starting on Thu05/30/21 at 0154, Mix nalOXone (NARCAN) 0.4 mg (1mL) with 9 mL of Normal Saline to total 10 mL. Administer 0.1 mg (2.5mL) IV Push every 2 minutes until respiratory rate is 10 or greater. naloxone (NARCAN) injection 0.4 mg(Linked Group 2) 0.4 mg, Intravenous, As needed, opioid reversal, patient is pulseless, breathless, and unresponsive, Starting on Thu05/30/21 at 0154, Call a code first, then administer naloxone dose undiluted IV Push over 30 seconds. ondansetron (ZOFRAN) injection 4 mg(Linked Group 3) 4 mg, Intravenous, Every 6 hours PRN, nausea, vomiting, Starting on Vicki 05/30/21 at 0154, Use oral route first, if tolerated. ondansetron (ZOFRAN-ODT) disintegrating tablet 4 mg(Linked Group 3) 4 mg, Oral, Every 6 hours PRN, nausea, vomiting, Starting on Thu05/30/21 at 0154, Use oral route first, if [...] or patient requires dose reduction, call physician. 5453 (Given - Provider: Elyssa Montano, SHANTA)5250 (Given - Provider: Sherrill Monroy RN) senna (SENOKOT) tablet 8.6 mg 8.6 mg (1 tablet), Oral, 2 times daily PRN, constipation, Starting on Thu05/30/21 at 0154 sodium chloride (PF) (NS) 0.9 % contrast line flush 10 mL (COMPLETED) 10 mL, Intravenous, Once in imaging, contrast, Per disc pad grinder (Radiology) for line patency check prior to contrast administration, Starting on Thu05/29/21 at 2022, For 1 dose 2023 (Given - Provider: Renetta Bocanegra, TECHNOLOGIST) sodium chloride (PF) (NS) 0.9 % contrast line flush 80 mL (COMPLETED) 80 mL, Intravenous, Once in imaging, contrast, Per disc pad grinder (Radiology), Starting on Thu05/29/21 at 2022, For 1 dose, 30 mL BEFORE contrast administration 50 mL AFTER contrast administration 2024 (Given - Provider: Renetta Bocanegra, TECHNOLOGIST) sodium chloride (PF) (NS) flush 5 mL(Linked Group 1) 5 mL, Intravenous, As needed, line care, Starting on Vicki 05/30/21 at 0154 sodium chloride 0.9% (NS)(Linked Group 1) 0-150 mL/hr, Intravenous, As needed, To flush line after IV infusions when no maintenance IV ordered or a compatibility issue. Infuse 20ml at the same rate as the secondary infusion, Starting on Vicki 05/30/21 at 0154, Run as Primary IV. NOT intended for KVO. traZODone (DESYREL) tablet 50 mg 50 mg, Oral, Nightly PRN, sleep, Starting on Vicki 05/30/21 at 0154, May repeat times 1 in [...] per minute., Starting on Vicki 05/30/21 at 0154
Mix nalOXone (NARCAN) 0.4 [...] 0154
Use oral route first, if tolerated.
Goals (unrecognized section and content) Goals may be documented in a n alternate sectionGoals may be documented in an alternate sectionGoals may be documented in an alternate sectionGoals may be documented in an alternate sectionGoals may be documented in an alternate sectionGoals may be documented in an alternate sectionGoals may be documented in an alternate sectionGoals may be documented in an alternate sectionGoals may be documented in an alternate sectionGoals may be documented in an alternate section Source Comments (unrecognize d section and content) In the event this informatio n is protected by the [facility] Confidentiality of Alcohol and Drug Abuse Patient Records regulations: The Federal rules restrict any use of the information to criminally investigate or prosecute any alcohol or drug abuse patient.[facility] the event this information is protected by the Federal Confidentiality of Alcohol and Drug Abuse Patient Records regulations: The Federal rules restrict any use of the information to criminally investigate or prosecute any alcohol or drug abuse patient.[facility]In the event this information is protected by the Federal Confidentiality of Alcohol and Drug Abuse Patient Records regulations: The Federal rules restrict any use of the information to criminally investigate or prosecute any alcohol or drug abuse patient.[facility]In the event this information is protected by the Federal Confidentiality of Alcohol and Drug Abuse Patient Records regulations: The Federal rules restrict any use of the information to criminally investigate or prosecute any alcohol or drug abuse patient.[facility]In the event this information is protected by the Federal Confidentiality of Alcohol and Drug Abuse Patient Records regulations: The Federal rules restrict any use of the information to criminally investigate or prosecute any alcohol or drug abuse patient.[facility] HospitalIn the event this information is protected by the Federal Confidentiality of Alcohol and Drug Abuse Patient Records regulations: The Federal rules restrict any use of the information to criminally investigate or prosecute any alcohol or drug abuse patient.[facility] HospitalIn the event this information is protected by the Federal Confidentiality of Alcohol and Drug Abuse Patient Records regulations: The Federal rules restrict any use of the information to criminally investigate or prosecute any alcohol or drug abuse patient.[facility] HospitalIn the event this information is protected by the Federal Confidentiality of Alcohol and Drug Abuse Patient Records regulations: The Federal rules restrict any use of the information to criminally investigate or prosecute any alcohol or drug abuse patient.[facility] HospitalIn the event this information is protected by the Federal Confidentiality of Alcohol and Drug Abuse Patient Records regulations: The Federal rules restrict any use of the information to criminally investigate or prosecute any alcohol or drug abuse patient.[facility] HospitalIn the event this information is protected by the Federal Confidentiality of Alcohol and Drug Abuse Patient Records regulations: The Federal rules restrict any use of the information to criminally investigate or prosecute any alcohol or drug abuse patient.[facility] FOR RECORDS PERTAINING TO PATIENTS WHO [...] BE BASED ON THE PRIMARY CLINICAL RECORDS. [facility] [employer] [facility]. provides no warranty or guarantee of the accuracy or completeness of information in this document.
== END | disposition home or self-care (01) ==
LOC: LABSPEC 09:59
PROVIDERS: PCP Internal Medicine; Referring Provider Internal Medicine; Visit Provider Internal Medicine
DX: N32.81 Overactive bladder (principal)
CPT/HCPCS: 81001

== ENCOUNTER → 2024-10-26 | Outpatient (CLI) | payer MEDICARE, SELFPAY ==
--- NOTE | 2024-10-26 14:12 | RAD_ITS ---
PROCEDURE: HIP, UNI W/ PELVIS 2-3 VIEWS 10/26/2024 REASON FOR EXAM: RIGHT HIP PAIN TECHNIQUE: HIP, UNI W/ PELVIS 2-3 VIEWS COMPARISON: None. FINDINGS: Mild osteopenia of the visualized bones. Degenerative joint disease. No fracture or dislocation is seen. No lytic or blastic bone lesion is noted. RAD/HIP, UNI W/ Pelvis 2-3 Views IMPRESSION: No evidence for acute abnormality. Reading [facility]
--- NOTE | 2024-10-26 14:12 | RAD_ITS ---
PROCEDURE: KNEE 1 OR 2 VIEWS 10/26/2024 REASON FOR EXAM: LEFT KNEE PAIN TECHNIQUE: KNEE 1 OR 2 VIEWS COMPARISON: 05/13/2023. FINDINGS: Mild suprapatellar knee joint effusion. Enthesophyte formation at the upper pole of the patella. Mild osteopenia of the visualized bones. Degenerative joint disease. No fracture or dislocation is seen. No lytic or blastic bone lesion is noted. RAD/Knee 1 or 2 Views IMPRESSION: Mild suprapatellar knee joint effusion. No radiographic evidence of an acute abnormality. Reading Location[facility]
== END | disposition home or self-care (01) ==
PROVIDERS: PCP Internal Medicine; Referring Provider Anesthesiology Pain Medicine; Visit Provider Anesthesiology Pain Medicine
DX: M25.551 Pain in right hip (principal); M25.562 Pain in left knee
CPT/HCPCS: 73502; 73560

== ENCOUNTER 2024-11-24 09:54 | Outpatient (RCR) | payer MEDICARE, SELFPAY ==
--- NOTE | 2024-11-24 11:11 | HP.PTEVAL_ITS ---
Patient's Visit Information Visit Information Visit Information: LAUREEN BROWNE is a 79 year old F referred to Physical Therapy by Dr. Marcial Garza DO with a diagnosis of Lumbar radiculopathy, M54.16; Other secondary scoliosis, M41.50. Date of Evaluation: 11/24/24 Physical Therapist: Kirill Henderson Visit Plan Frequency: 2x /Week Duration: 4 Weeks Plan: Continue with core, back, and hip strengthening. Find a direction of preference if pt. is having radicular symptoms. Use manual therapy as needed. Subjective Subjective: Pt. is a 79 y.o. female who states that her whole adulthood she has had back pain but also has intermittent pain down her right leg which will go down to her pritchard. Pt. has had recent x-ray last week of her lumbar spine but the results have not been read. She did have an x-ray of her lumbar spine last year which showed chronic compression fracture of T12 and L2 as well as scoliosis. Pt. denies any change in her bowel or bladder function or unexplained weight loss. She has difficulty with occasionally sleeping, standing longer than 10 minutes, lifting things, pushing/pulling, and housework. 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 Her goal with physical therapy is to be pain free. Pt. has had previous physical therapy many years ago for her back. She denies any pain currently, at worst 8/10 and describes the pain as pinching and pressure. She takes Tylenol and Predisone for pain. Her PMH includes and osteoporosis. Pt. lives with her . Her hobbies including sewing, painting, and cooking/baking. Objective Objective: Posture- Good posture in standing Palpation- Not tenderness to palpation Lumbar AROM- WNL for all motions except extension mod restriction. No pain with any range of motion. Hip PROM- WNL bilaterally Left hip strength flexion 5/5, abduction 4/5, adduction 5/5, extension 4/5, knee flexion 5/5, knee extension 5/5, ankle DF 5/5, ankle PF 5/5 Right hip strength flexion 5/5, abduction 4/5, adduction 5/5, extension 4/5, knee flexion 5/5, knee extension 5/5, ankle DF 5/5, ankle PF 5/5 Gait- Pt. ambulates with no gait deviations. Balance/Special Test Scores Oswestry Low Back Score: 14 Goals Goal 1:: Pt. will be independent with home exercise program. Goal Time Frame: 4-6 Weeks Goal 2:: Pt. will be able to sleep a full night with no pain. Goal Time Frame: 4-6 Weeks Goal 3:: Pt. will be able to stand for at least 20 minutes with pain < 3/10. Goal Time Frame: 4-6 Weeks Goal 4:: Pt. will be able to lift at least 20# with proper body mechanics and no pain. Goal Time Frame: 4-6 Weeks Goal 5:: Pt. will rate pain at worst at 3/10 with ADL's. Goal Time Frame: 4-6 Weeks Goal 6:: Pt. will improve Oswestry Disability Index < 20% disability in order to improve ADL's and mobility. Goal Time Frame: 4-6 Weeks Rehabilitation Potential Physical Therapy Diagnosis: Decreased core/back/hip strength, difficulty walking, and pain. Pt. presents at this time with possible lumbar radiculopathy. Rehabilitation Potential: Good Anticipated Interventions Patient/Client Instruction: Educate patient on: Condition, Plan of Care and Benefits of Fitness Program For the Purpose of:: To decrease pain, To improve ability to perform ADL's, To improve performance and independence with ADL's, To assume or resume ADL's and To improve tolerance to ADL's Therapeutic Exercise to Include: Strength training, Body mechanics, Postural training, Flexibilty training, Active ROM, Dynamic Lumbar Stabilization and Davida Exercises Comment: Continue with improving core, back, and hip strength. Find direction of preference if having radicular symptoms. For the Purpose of:: To decrease pain, To improve ability to perform ADL's, To improve performance and independence with ADL's, To assume or resume ADL's and To improve tolerance to ADL's Functional Training to Include: ADL Training For the Purpose of:: To decrease pain, To improve ability to perform ADL's, To improve performance and independence with ADL's, To assume or resume ADL's and To improve tolerance to ADL's Manual Therapy Techniques to Include: Mobilization and Soft tissue mobilization For the Purpose of:: To decrease pain, To improve ability to perform ADL's, To improve performance and independence with ADL's and To improve tolerance to ADL's Cryotherapy (ice pack, ice massage): Yes Thermo therapy (hot pack): Yes For the Purpose of:: To decrease pain, To improve ability to perform ADL's, To improve performance and independence with ADL's, To assume or resume ADL's and To improve tolerance to ADL's Text: Thank you for the opportunity to evaluate your patient. For Medicare and Medicare HMO plans, please review the plan of care and approve it. It will need to be FAXED BACK to us at [phone] for Medicare purposes. For Medicare only, by signing this I certify the plan of care. Please let me know if there are questions or concerns regarding this plan of care. Physician Signature: Date:
--- NOTE | 2025-03-23 09:47 | HP.PT.NRP ---
Patient Information Patient Information: LAUREEN BROWNE was seen in my office for initial evaluation on 11/24/24. The following Plan of Care was established for this patient: POC Established Initial Frequency: 2x /Week Initial Duration: 4 Weeks Anticipated Interventions Patient/Client Instruction: Educate patient on: Condition, Plan of Care and Benefits of Fitness Program For the Purpose of:: To decrease pain, To improve ability to perform ADL's, To improve performance and independence with ADL's, To assume or resume ADL's and To improve tolerance to ADL's Therapeutic Exercise to Include: Strength training, Body mechanics, Postural training, Flexibilty training, Active ROM, Dynamic Lumbar Stabilization and Davida Exercises For the Purpose of:: To decrease pain, To improve ability to perform ADL's, To improve performance and independence with ADL's, To assume or resume ADL's and To improve tolerance to ADL's Functional Training to Include: ADL Training For the Purpose of:: To decrease pain, To improve ability to perform ADL's, To improve performance and independence with ADL's, To assume or resume ADL's and To improve tolerance to ADL's Manual Therapy Techniques to Include: Mobilization and Soft tissue mobilization For the Purpose of:: To decrease pain, To improve ability to perform ADL's, To improve performance and independence with ADL's and To improve tolerance to ADL's Cryotherapy (ice pack, ice massage): Yes Thermo therapy (hot pack): Yes For the Purpose of:: To decrease pain, To improve ability to perform ADL's, To improve performance and independence with ADL's, To assume or resume ADL's and To improve tolerance to ADL's Last Seen Last Seen: This patient was last seen in our office 11/24/24. Pertinent comments regarding their Physical therapy will appear below: Pt seen for IE and POC established, did not schedule or return for any visits. At this point, it has been over 3 months and I will disocontinue from our care At this point I will be discontinuing this patient from physical therapy. I would be happy to see this patient again in the future if found appropriate by the physician. Thank you! Carlos Sequeira, DPT, OCS, CSCS Balance/Gait/Functional tests Balance/Special Test Scores Oswestry Low Back Score: 14
== END 2024-11-24 19:00 | disposition home or self-care (01) ==
LOC: PT 09:54
PROVIDERS: PCP Internal Medicine; Referring Provider Orthopaedic Surgery; Visit Provider Orthopaedic Surgery
DX: M54.16 Radiculopathy, lumbar region (principal); M41.50 Other secondary scoliosis, site unspecified
CPT/HCPCS: 97110; 97161

== ENCOUNTER → 2024-12-13 | Outpatient (CLI) | payer MEDICARE, SELFPAY ==
--- NOTE | 2024-12-13 16:03 | BI_ITS ---
EXAM: SCRN MAMM (CAD)W/PAYTON BILAT DATE: 12/13/2024 CLINICAL HISTORY: F, Age 79 y/o , BREAST CANCER SCREENING TECHNIQUE: SCRN MAMM (CAD)W/PAYTON BILAT COMPARISON: Prior exam(s) were compared FINDINGS: TISSUE DENSITY: The breasts are heterogeneously dense, which may obscure small masses. Bilateral Breast Mammographic Findings: No suspicious masses, calcifications or other abnormalities are identified. BI/SCRN MAMM (CAD)W/PAYTON BILAT IMPRESSION: No mammographic evidence of malignancy in either breast OVERALL FINAL ASSESSMENT BI-RADS 1: NEGATIVE. RECOMMENDATION: Routine annual follow-up in 1 Year A letter with findings and recommendations will be mailed to the patient. Reading Location: [id number]
--- NOTE | 2024-12-13 16:09 | BD_ITS ---
PROCEDURE: DEXA BONE DENSITY STUDY 12/13/2024 REASON FOR EXAM: POST MENOPAUSAL F, age 79 y/o . Postmenopausal. TECHNIQUE: DEXA BONE DENSITY STUDY COMPARISON: Prior study dated December 10, 2022. FINDINGS: BMD and T-SCORES Lumbar spine: 0.921 g/cm2, T-score -1.1 Levels: L1 through L4 Change from prior: Loss of 0.9%. Left femoral neck: 0.650 g/cm2, T-score -1.8 Femoral neck comparison data not recommended for monitoring change. Left total hip: 0.675 g/cm2, T-score -2.2 Change from prior: Loss of 7.6%. Right femoral neck: 0.615 g/cm2, T-score -2.1 Femoral neck comparison data not recommended for monitoring change. Right total hip: 0.689 g/cm2, T-score -2.1 Change from prior: Improvement of 1.2%. The World Health Organization has defined the following categories based on bone density: Normal bone density: T-score equal to or greater than -1.0 Osteopenia: T-score between -1.0 and -2.5 Osteoporosis: T-score equal to or less than -2.5 The patient does meet the pharmacological treatment recommendations for prevention of osteoporosis. BD/Dexa Bone Density Study IMPRESSION: OSTEOPENIA. Recommend follow-up as clinically warranted. Reading Location: [id number]
== END | disposition home or self-care (01) ==
LOC: OPBD 16:02
PROVIDERS: PCP Internal Medicine; Referring Provider Internal Medicine; Visit Provider Internal Medicine
DX: Z12.31 Encounter for screening mammogram for malignant neoplasm of breast (principal); Z78.0 Asymptomatic menopausal state
CPT/HCPCS: 77063; 77067; 77080

== ENCOUNTER → 2025-01-04 | Outpatient (CLI) | payer MEDICARE, SELFPAY ==
--- NOTE | 2025-01-04 10:14 | RAD_ITS ---
PROCEDURE: THORACIC SPINE 2 VIEWS 01/04/2025 REASON FOR EXAM: BACK PAIN TECHNIQUE: Procedure Code: RADSPT2 Modality: DX Procedure: THORACIC SPINE 2 VIEWS FINDINGS: Scoliosis. Severe degenerative changes of the spine. Vertebral body heights are maintained. No evidence of acute fracture dislocation. Cholecystectomy clips are in RAD/Thoracic Spine 2 Views IMPRESSION: Spondylosis. Scoliosis. Reading Location: [id number]
== END | disposition home or self-care (01) ==
LOC: RAD 10:09
PROVIDERS: PCP Internal Medicine; Referring Provider Anesthesiology Pain Medicine; Visit Provider Anesthesiology Pain Medicine
DX: M54.9 Dorsalgia, unspecified (principal)
CPT/HCPCS: 72070